=== PATIENT | female | born 1960 | race Caucasian/White ===

== ENCOUNTER 2023-08-21 08:52 | Outpatient (OUT) | payer OTHER, SELFPAY ==
--- NOTE | 2023-08-21 08:56 | MM_ITS ---
Patient: EDITH BRASHER Exam Date: 08/21/2023 : 1960 Gender:F Ordering : DR TATIANNA GARCES M.D. Admission #: [id number] Family : Non-Staff Physician Order #: [id number] CLICK HERE TO VIEW EXAM RADIOLOGY REPORT PROCEDURE: MM TOMOSYNTHESIS DIAGNOSTIC RT COMPARISON: MG MAMM DX 3D RT CAD, 08/10/2022. MG MAMM DX 3D RT CAD, 08/08/2021. INDICATIONS: Malignant Neoplasm Of Overlapping Sites Of Left Breast C50.8 Calculator Name NCI Breast Cancer Risk Assessment Tool 5 Year Breast Cancer Risk n/a% Lifetime Breast Cancer Risk n/a% Personal Breast Cancer Yes, Lt Breast Invasive Ductal Carcinoma Personal Ovarian Cancer No Treatments Left breast Masectomy Family Cancers None LOCATION: [facility] BREAST COMPOSITION: Heterogeneously dense,which may obscure small masses. FINDINGS: DIAGNOSTIC CATEGORY 2--BENIGN FINDING: RIGHT BREAST: No significant suspicious finding. Stable scattered benign-appearing calcifications. Stable chronic, small upper-outer quadrant lymph node. No significant change has occurred. LEFT BREAST: Prior mastectomy. RECOMMENDATIONS: ROUTINE MAMMOGRAM AND CLINICAL EVALUATION IN 12 MONTHS. PLEASE NOTE: A NORMAL MAMMOGRAM DOES NOT EXCLUDE THE POSSIBILITY OF BREAST CANCER. A CLINICALLY SUSPICIOUS PALPABLE LUMP SHOULD BE BIOPSIED. Dictated by: Jean Peter M.D. on 08/21/2023 at 09:31 Approved by: Jean Peter M.D. on 08/21/2023 at 09:37
== END 2023-08-21 08:53 | disposition home or self-care (01) ==
LOC: MAMMO 08:52
PROVIDERS: Visit Provider Internal Medicine Hematology & Oncology
DX: C50.812 Malignant neoplasm of overlapping sites of left female breast (principal); Z17.0 Estrogen receptor positive status [ER+]; Z90.12 Acquired absence of left breast and nipple
CPT/HCPCS: 77065; G0279

== ENCOUNTER 2024-06-24 08:33 | Outpatient (OUT) | payer OTHER, SELFPAY ==
[2024-06-24 09:13] LABS: Creatinine Urine Random 209.27 mg/dL (20.00-300.00); Microalbum Creatinine Ratio Ur 24.8 mg/g (0.0-29.9); Microalbumin Urine Random 5.2 mg/dL (<=30.0)
[2024-06-24 09:31] LABS: Alanine Aminotransferase 41 U/L (14-59); Albumin Level 3.8 g/dL (3.4-5.0); Alkaline Phosphatase 66 U/L (46-116); Anion Gap 13.8; Aspartate Amino Transferase 23 U/L (15-37); BUN Creatinine Ratio 20.7; Bilirubin Total 0.7 mg/dL (0.2-1.0); Calcium 9.3 mg/dL (8.5-10.1); Carbon Dioxide 27.9 mmol/L (21.0-32.0); Chloride 104 mmol/L (98-107); Chol HDL Ratio 3.3; Cholesterol 174 mg/dL (<=200); Estimated GFR (African America >60 (>=60); Estimated GFR (Non-African Ame >60 (>=60); Globulin 3.9 g/dL; Glucose 145 mg/dL (74-106); HDL Cholesterol 52 mg/dL (40-60); LDL Cholesterol Calculated 106.4 mg/dL; Potassium 3.7 mmol/L (3.5-5.1); Sodium 142 mmol/L (136-145); Total Protein 7.7 g/dL (6.4-8.2); Triglycerides 78 mg/dL (<=150); VLDL CHOLESTEROL 15.6 mg/dL
[2024-06-24 09:38] LABS: Estimated Average Glucose 123 mg/dL; Glycohemoglobin A1C 5.9 % (4.5-6.2)
[2024-06-24 11:39] LABS: Bilirubin Urine NEGATIVE (NEGATIVE); Blood Urine NEGATIVE (NEGATIVE); Clarity Urine CLEAR (CLEAR); Color Urine YELLOW (YELLOW); Glucose Urine UA NEGATIVE (NEGATIVE); Ketones Urine NEGATIVE (NEGATIVE); Leukocyte Esterase Urine NEGATIVE (NEGATIVE); Nitrite Urine NEGATIVE (NEGATIVE); Protein Urine NEGATIVE (NEG/TRACE); Specific Gravity Urine 1.025 (1.005-1.025); Urobilinogen Urine 0.2 EU/dL (0.2-1.0)
[2024-06-24 11:50] LABS: Urine Microscopic Indicated NO
[2024-06-25 11:10] LABS: PTH, Intact 42 pg/mL (15-65)
== END 2024-06-24 08:34 | disposition home or self-care (01) ==
LOC: LAB 08:34
PROVIDERS: PCP Nurse Practitioner; Visit Provider Nurse Practitioner
DX: E83.52 Hypercalcemia (principal); C50.812 Malignant neoplasm of overlapping sites of left female breast; Z17.0 Estrogen receptor positive status [ER+]; R73.09 Other abnormal glucose; K76.0 Fatty (change of) liver, not elsewhere classified; I10 Essential (primary) hypertension; E66.9 Obesity, unspecified
CPT/HCPCS: 36415; 80053; 80061; 81003; 82043; 82306; 82570; 83036; 83970

== ENCOUNTER 2024-08-10 07:49 | Outpatient (OUT) | payer OTHER, SELFPAY ==
--- NOTE | 2024-08-10 07:52 | MM_ITS ---
Patient Name: EDITH BRASHER MR#: [id number] : 1960 Exam Date: 08/10/2024 Ordering Doctor: DR TATIANNA GARCES M.D. RADIOLOGY REPORT PROCEDURE: MM TOMOSYNTHESIS DIAGNOSTIC RT COMPARISON: MG MAMM DX 3D RT CAD, 08/10/2022. MM TOMOSYNTHESIS DIAGNOSTIC RT, 08/21/2023. INDICATIONS: Malignant Neoplasm Overlapping Sites Left Breast Calculator Name NCI Breast Cancer Risk Assessment Tool 5 Year Breast Cancer Risk n/a% Lifetime Breast Cancer Risk n/a% Personal Breast Cancer Yes, Lt Breast Invasive Ductal Carcinoma Personal Ovarian Cancer No Treatments Left breast Masectomy Family Cancers None LOCATION: [facility] BREAST COMPOSITION: The breasts are heterogeneously dense,which may obscure small masses. FINDINGS: DIAGNOSTIC CATEGORY 2--BENIGN FINDING. NO CHANGE FROM COMPARISON. RIGHT BREAST: No significant suspicious finding. Scattered benign-appearing nodules are present. Scattered benign-appearing calcifications are present. Scattered benign-appearing lymph nodes are present. Stable Port-A-Cath RECOMMENDATIONS: ROUTINE MAMMOGRAM AND CLINICAL EVALUATION IN 12 MONTHS. PLEASE NOTE: A NORMAL MAMMOGRAM DOES NOT EXCLUDE THE POSSIBILITY OF BREAST CANCER. A CLINICALLY SUSPICIOUS PALPABLE LUMP SHOULD BE BIOPSIED. Dictated by: Dominik Ross MD on 08/10/2024 at 08:39 Approved by: Dominik Ross MD on 08/10/2024 at 08:40
== END 2024-08-10 07:50 | disposition home or self-care (01) ==
LOC: MAMMO 07:49
PROVIDERS: PCP Nurse Practitioner; Visit Provider Internal Medicine Hematology & Oncology
DX: C50.812 Malignant neoplasm of overlapping sites of left female breast (principal); Z17.0 Estrogen receptor positive status [ER+]; Z85.3 Personal history of malignant neoplasm of breast
CPT/HCPCS: 77065; G0279

== ENCOUNTER 2024-09-29 07:53 | Outpatient (OUT) | payer OTHER, SELFPAY ==
--- NOTE | 2024-09-29 07:58 | XR_ITS ---
[address] [address] Patient Name: EDITH BRASHER MRN: [id number] date: 1960 Sex: F Assigned Patient Location: [facility] Current Patient Location: Accession/Order Number: [id number] Exam Date: 09/29/2024 08:05 Report Date: 09/30/2024 05:23 At the request of: NICKOLAS PARADA Procedure: XR DEXA axial skeleton EXAMINATION: XR DEXA axial skeleton HISTORY: Osteopenia Of Multiple Sites COMPARISON: DEXA bone densitometry 03/03/2021 TECHNIQUE: Dual-energy X-ray absorptiometry (DXA) was performed. FINDINGS: SPINE ANALYSIS: Average bone mineral density is 1.128 g/cm2. T-score (standard deviation relative to young adult mean): -0.4 . +7.5% change since prior study. HIP ANALYSIS: Lowest bone mineral density is within the left femoral neck, 0.774 g/cm2. T-score (standard deviation relative to young adult mean): -1.9 . +1.6% change since prior study. XR/XR DEXA axial skeleton IMPRESSION: World Health Organization Classification: Osteopenia - Moderate Fracture Risk FRAX: Cannot be calculated. Pharmacologic treatment recommendations * No uniform recommendation applies to all patients. Management plans must be individualized. * Consider initiating pharmacologic treatment in postmenopausal women and men >= 50 years of age who have the following: Primary fracture prevention: * T-score <= - 2.5 at the femoral neck, total hip, lumbar spine, 33% radius (some uncertainty with existing data) by DXA. * Low bone mass (osteopenia: T-score between - 1.0 and - 2.5) at the femoral neck or total hip by DXA with a 10-year hip fracture risk >= 3% or a 10-year major osteoporosis-related fracture risk >= 20% (i.e., clinical vertebral, hip, forearm, or proximal humerus) based on the [place]-adapted FRAXregistered model. Secondary fracture prevention: * Fracture of the hip or vertebra regardless of BMD [4, 5]. * Fracture of proximal humerus, pelvis, or distal forearm in persons with low bone mass (osteopenia: T-score between - 1.0 and - 2.5). The decision to treat should be individualized in persons with a fracture of the proximal humerus, pelvis, or distal forearm who do not have osteopenia or low BMD [12, 13]. Jose Manuel MS, Domingo SL, Jamir KL, Luiza EM, Joseph KG, AJ, Christos ES. The clinician's guide to prevention and treatment of osteoporosis. Osteoporos Int. 2021;33(10):9602-0421. doi: 10.1007/t02238-167-74790-h. Epub 2021Mar 29. Erratum in: Osteoporos Int. 2021Jun 28;: PMID: [id number]; PMCID: [id number]. Electronically authenticated by: SELENA ALVAREZ Date: 09/30/2024 05:23
--- OUTSIDE RECORDS SUMMARY | 2024-09-29 08:01 | XMS_ITS | CCD ---
Author Organization [facility] Care Team Providers Care Office Asst Name Role Phone House Sr., Andrew Garibay Primary Care Provider Erwin Hare MD Unavailable Tal RECOATER.Nickolas BENITEZ Unavailable HOUSE, DR CAMPBELL Admitting Unavailable HOUSE, DR CAMPBELL Attending Unavailable HOUSE, DR CAMPBELL Primary Care Unavailable HOUSE, DR CAMPBELL Consulting Unavailable ZIEBER, DR SELENA Menendez Consulting Unavailable TAL, DR NICKOLAS Severino Attending Unavailable HOUSE, DR CAMPBELL Primary Care Unavailable HOUSE, DR CAMPBELL Admitting Unavailable ZIEBER, DR SELENA Menendez Consulting Unavailable TAL, DR NICKOLAS Severino Consulting Unavailable MINDI SPAINUEL RIK Admitting Unavailable ALISON SPAIN Attending Unavailable HOUSE, DR CAMPBELL Primary Care Unavailable ALISON SPAIN Consulting Unavailable House Sr., Andrew Garibay Primary Care Provider Erwin Hare MD Unavailable Tal RECOATER.Nickolas BENITEZ Unavailable [phone] House Sr., Andrew PEREZ Primary Care Prov ider House Sr., Andrew PEREZ Primary Care Provider House Sr., Andrew PEREZ Primary Care Provider DC ARRIETA Referring Unavailable HOUSE SR, ANDREW P Primary Care Unavailable HOUSE SR, ANDREW Duong Primary Care Unavailable NICKOLAS PARADA Referring Unavailable HOUSE SR, ANDREW P Primary Care Unavailable ERWIN HARE Attending Unavailable HOUSE SR, ANDREW P Primary Care Unavailable DC ARRIETA Referring Unavailable HOUSE SR, ANDREW P Primary Care Unavailable DC ARRIETA Referring Unavailable ERWIN HARE Referring Unavailable HOUSE SR, ANDREW P Primary Care Unavailable HOUSE SR, ANDREW P Primary Care Unavailable ERWIN HARE Referring Unavailable HOUSE SR, ANDREW P Primary Care Unavailable ERWIN HARE Referring Unavailable ERWIN HARE Referring Unavailable HOUSE SR, ANDREW P Primary Care Unavailable NICKOLAS PARADA Referring Unavailable TORY SR, ANDREW Duong Primary Care Unavailable NICKOLAS PARADA Attending Unavailable DC ARRIETA Referring Unavailable HOUSE SR, ANDREW P Primary Care Unavailable Trista SAMPLER OVENSAmelia Unavailable Trista BATISTAJessicaa Primary Care Provider AMELIA WESTON Attending Unavailable AMELIA WESTON Attending Unavailable AMELIA WESTON Attending Unavailable Allergies Allergy Classification Reported Allergen(s) Allergy Type Date of Onset Reaction(s) Facility (1 source) ADHESIVE TAPE-SILICONES; Translations: [ADHESIVE TAPE-SILICONES] Propensity to adverse reactions to drug (disorder) 0 [facility] Repository (3 sources) Latex Allergy to substance 4 Unknown [facility] Healthcare (3 sources) Wound Dressing Adhesive Drug Allergy 4 Unknown [facility] Healthcare Medications Current Medications Medication Drug Class(es) Dates Sig (Normalized) Sig (Original) atenolol 100 mg oral tablet (20 sources) beta-Adrenergic Fransisco Start: 06-18-2024 take 1 tablet by mouth once daily atenolol (Tenormin) 100 MG tablet Indications: Primary hypertension (CMS/HCC) Take 1 tablet (100 mg) by mouth Daily 90 tablet 1 06/18/2024 Active Comment on above: Take 100 mg by mouth once daily. Calcium (20 sources) Phosphate Binder, Calcium CALCIUM ORAL Take by mouth. Active CALCIUM ORAL Ashok e by mouth. 0 Active Comment on above: Take by mouth. calcium carbonate 1500 mg or al tablet (3 sources) calcium carbonat e 1500 (600 Ca) MG tablet 1 (one) time each day at the same time Active cholecalciferol 0.125 mg ora l capsule (3 sources) Vitamin D cholecalciferol (Vitamin D-3) 125 MCG (5000 UT) capsule 1 capsule 1 (one) time each day at the same time Active cholecalciferol, vitamin D3, (VITAMIN D3 ORAL) (20 sources) cholecalciferol, vitamin D3, (VITAMIN D3 ORAL) Take by mouth. Active cholecalciferol, vitamin D3, (VITAMIN D3 ORAL) Take by mouth. 0 Active Comment on above: Take by mouth. exemestane 25 mg oral tablet (20 sources) Aromatase Inhibitor Start: 2021 End: 2023 take 1 tablet by mouth once daily exemestane (AROMASIN) 25 mg tablet take one tablet by mouth daily 90 tablet 3 02/03/2024 Active Comment on above: TAKE ONE TABLET BY M OUTH ONE TIME A DAY TAKE ONE TABLET BY M OUTH DAILY hydroCHLOROthiazide 25 mg oral tablet (20 sources) Thiazide Diuretic Start: 2023 take 1 tablet by mouth once daily hydroCHLOROthiazide (HYDRODiuril) 25 MG tablet Indications: Primary hypertension (CMS/HCC) Take 1 tablet (25 mg) by mouth Daily 90 tablet 1 06/18/2024 Active Comment on above: Take 25 mg by mouth once daily. naproxen sodium 220 mg oral capsule (14 sources) Nonsteroidal Anti-inflammatory Drug take 1 capsule by mouth once daily naproxen sodium 220 mg cap Take 1 capsule by mouth once daily. Active Comment on above: Take 1 capsule by mo uth once daily. potassium gluconate 2.5 meq oral tablet (17 sources) take 1 tablet by mouth in the morning Potassium Gluconate 595 (99 K) MG tablet Take 1 tablet by mouth in the morning. Active Comment on above: Take 1 tablet by dayday th once daily. turmeric extract 500 mg oral capsule (3 sources) Turmeric (QC Sofia wesley Complex) 500 MG capsule Take by mouth Active Completed/Discontinued Medications Medication Drug Class(es) Dates Sig (Normalized) Sig (Original) potassium chloride 10 meq extended release oral tablet (19 sources) Start: 10-07-2020 End: 08-15-2023 take 1 tablet by mouth twice daily potassium chloride (K-TAB) 10 mEq tablet Take 1 tablet by mouth twice daily. 60 tablet 2 10/07/2020 08/15/2023 Discontinued Comment on above: Take 1 tablet by dayday th twice daily. 100 ml zoledronic acid 0.04 mg/ml injection (4 sources) Bisphosphonate Start: 09-10-2024 End: 09-10-2024 4 mg, INTRAVENOUS, Administer over 15 Minutes, ONCE, 1 dose, On Cassidy 09/10/24 at 1600, Hazardous Potential Reproductive Risk Drug: Use appropriate PPE. zoledronic acid (Zometa) 4 MG/100ML solution Infuse 4 mg into a venous catheter 1 (one) time Done every six months Active Problems Active Problems Problem Classification Problem Date Documented Da te Episodic/Chronic Cancer of breast (20 sources) Overlapping malignant neoplasm of female breast; Translations: [Malignant neoplasm of overlapping sites of left female breast] Onset: 07-19-2020 Chronic Diabetes mellitus without complication (20 sources) Hyperglycemia; Translations: [Hyperglycemia, unspecified] Onset: 06-12-2019 Resolved: 06-18-2024 01-25-2021 Episodic Essential hypertension (20 sources) Hypertensive disorder; Translations: [Essential (primary) hypertension] Onset: 08-17-2022 01-25-2021 Chronic Immunizations and screening for infectious disease (6 sources) Needs influenza immunization; Translations: [Encounter for immunization] Onset: 11-21-2021 Episodic Osteoarthritis (3 sources) Arthritis of left knee; Translations: [Unilateral primary osteoarthritis, left knee] Onset: 03-18-2024 03-18-2024 Chronic Other bone disease and musculoskeletal deformities (9 sources) Osteopenia; Translations: [Other specified disorders of bone density and structure, unspecified site] Episodic Other bone disease and musculoskeletal deformities (1 source) Other specified disorders of bone density and structure, unspecified site; Translations: [OTH D/O BONE DEN STRUCT UNS SITE] Onset: 08-17-2022 Episodic Other liver diseases (20 sources) Steatosis of liver; Translations: [Fatty (change of) liver, not elsewhere classified] Onset: 01-18-2021 01-18-2021 Chronic Other nutritional; endocrine; and metabolic disorders (3 sources) Hypercalcemia; Translations: [Hypercalcemia] Onset: 06-18-2024 06-18-2024 Chronic Other nutritional; endocrine; and metabolic disorders (5 sources) Morbid obesity; Translations: [Morbid (severe) obesity due to excess calories] Onset: 06-18-2024 06-18-2024 Chronic Residual codes; unclassified (1 source) Estrogen receptor positive status [ER+]; Translations: [ESTROGEN RECEPTOR POSITIVE STATUS] Onset: 08-17-2022 Episodic Residual codes; unclassified (5 sources) Tobacco use and exposure - finding; Translations: [Tobacco use] Onset: 06-18-2024 06-18-2024 Episodic Past or Other Problems Problem Classification Problem Date Documented Date Episodic/Chronic Nausea and vomiting (20 sources) Nausea; Translations: [Nausea] Onset: 08-24-2020 08-24-2020 Episodic Other diseases of veins and lymphatics (3 sources) Vascular insufficiency; Translations: [Venous insufficiency (chronic) (peripheral)] Onset: 03-18-2024 03-18-2024 Episodic Other inflammatory condition of skin (3 sources) Red breast; Translations: [Erythematous condition, unspecified] Onset: 03-18-2024 03-18-2024 Episodic Other nutritional; endocrine; and metabolic disorders (20 sources) Body mass index 30+ - obesity; Translations: [Obesity, unspecified] Onset: 01-18-2021 Resolved: 06-18-2024 01-25-2021 Chronic Screening and history of mental health and substance abuse codes (20 sources) Ex-smoker; Translations: [Personal history of nicotine dependence] Onset: 01-18-2021 Resolved: 06-18-2024 01-18-2021 Episodic Results Test Name Value Interpretation Reference Range Facility CBC W Auto Differential pane l (Bld)on 09-10-2024 Basophils (Bld) [#/Vol] 0.03 10*3/uL [facility] Basophils/100 WBC (Bld) 0.7 % [facility] Differential cell count method Nom (Bld) Auto [facility] Eosinophils (Bld) [#/Vol] 0.25 10*3/uL [facility] Eosinophils/100 WBC (Bld) 5.7 % [facility] Erythrocyte distribution width (RBC) [Ratio] 12.3 % 11.5 - 15.0 % [facility] Hematocrit (Bld) [Volume fraction] 40.7 % 36.0 - 46.0 % [facility] Hemoglobin (Bld) [Mass/Vol] 14.2 g/dL 11.5 - 15.5 g/dL [facility] Immature granulocytes (Bld) [#/Vol] [facility] Immature granulocytes/100 WBC (Bld) 0.2 % [facility] Lymphocytes (Bld) [#/Vol] 1.68 10*3/uL [facility] Lymphocytes/100 WBC (Bld) 38.2 % [facility] MCH (RBC) [Entitic mass] 31.2 pg 26.0 - 34.0 pg [facility] MCHC (RBC) [Mass/Vol] 34.9 g/dL 30.5 - 36.0 g/dL [facility] MCV (RBC) [Entitic vol] 89.5 fL 80.0 - 100.0 fL [facility] Monocytes (Bld) [#/Vol] 0.56 10*3/uL [facility] Monocytes/100 WBC (Bld) 12.7 % [facility] Neutrophils (Bld) [#/Vol] 1.87 10*3/uL [facility] Neutrophils/100 WBC (Bld) 42.5 % [facility] Nucleated RBC (Bld) [#/Vol] NINF [facility] Nucleated RBC/100 WBC (Bld) [Ratio] 0.0 % /100 WBC [facility] Platelet mean volume (Bld) [Entitic vol] 10.2 fL 9.0 - 12.7 fL [facility] Platelets (Bld) [#/Vol] 201 10*3/uL [facility] RBC (Bld) [#/Vol] 4.55 10*6/uL 3.90 - 5.2 0 m/uL [facility] WBC (Bld) [#/Vol] 4.40 10*3/uL [facility] Basophils (Bld) [#/Vol] 0.03 10*3/uL Normal <0.11 [facility] Comment on above: Order Comment: Speci men Type: BLOOD SPECIMEN Ordering Facility: [facility] Address: [address] [place] [address] Performed By: #### 5 7021-8 #### [facility] CLIA [id number] [address] [place] [address]56 Basophils/100 WBC (Bld) 0.7 % Normal [facility] Comment on above: Order Comment: Speci men Type: BLOOD SPECIMEN Ordering Facility: [facility] Address: [address] [place] [address] Performed By: #### 5 7021-8 #### [facility] CLIA [id number] [address] [place] [address] Differential cell count method Nom (Bld) Auto Normal [facility] Comment on above: Order Comment: Speci men Type: BLOOD SPECIMEN Ordering Facility: [facility] Address: [address] [place] [address] Performed By: #### 5 7021-8 #### [facility] CLIA [id number] [address] [place] [address] Eosinophils (Bld) [#/Vol] 0.25 10*3/uL Normal <0.46 [facility] Comment on above: Order Comment: Speci men Type: BLOOD SPECIMEN Ordering Facility: [facility] Address: [address] [place] [address] Performed By: #### 5 7021-8 #### [facility] CLIA [id number] [address] [place] [address]90 Eosinophils/100 WBC (Bld) 5.7 % Normal [facility] Comment on above: Order Comment: Speci men Type: BLOOD SPECIMEN Ordering Facility: [facility] Address: [address] [place] [address] Performed By: #### 5 7021-8 #### [facility] CLIA [id number] [address] [place] [address] 29291 Erythrocyte distribution width (RBC) [Ratio] 12.3 % Normal 11.5-15.0 [facility] Comment on above: Order Comment: Speci men Type: BLOOD SPECIMEN Ordering Facility: [facility] Address: [address] [place] [address] Performed By: #### 5 7021-8 #### [facility] CLIA [id number] [address] [place] [address] 96952 Hematocrit (Bld) [Volume fraction] 40.7 % Normal 36.0-46.0 [facility] Comment on above: Order Comment: Speci men Type: BLOOD SPECIMEN Ordering Facility: [facility] Address: [address] [place] [address] Performed By: #### 5 7021-8 #### [facility] CLIA [id number] [address] [place] [address]42 Hemoglobin (Bld) [Mass/Vol] 14.2 g/dL Normal 11.5-15.5 [facility] Comment on above: Order Comment: Speci men Type: BLOOD SPECIMEN Ordering Facility: [facility] Address: [address] [place] [address] Performed By: #### 5 7021-8 #### [facility] CLIA [id number] [address] [place] [address]237 Immature granulocytes (Bld) [#/Vol] 10*3/uL Normal <0.10 [facility] Comment on above: Order Comment: Speci men Type: BLOOD SPECIMEN Ordering Facility: [facility] Address: [address] [place] [id number] Performed By: #### 5 7021-8 #### [facility] CLIA [id number] [address] [place] [address] Immature granulocytes/100 WBC (Bld) 0.2 % Normal [facility] Comment on above: Order Comment: Speci men Type: BLOOD SPECIMEN Ordering Facility: [facility] Address: [address] [place] [address] Performed By: #### 5 7021-8 #### [facility] CLIA [id number] [address] [place] [address]79 Lymphocytes (Bld) [#/Vol] 1.68 10*3/uL Normal 1.00-4.00 [facility] Comment on above: Order Comment: Speci men Type: BLOOD SPECIMEN Ordering Facility: [facility] Address: [address] [place] [address] Performed By: #### 5 7021-8 #### [facility] CLIA [id number] [address] [place] [address] 14435 Lymphocytes/100 WBC (Bld) 38.2 % Normal [facility] Comment on above: Order Comment: Speci men Type: BLOOD SPECIMEN Ordering Facility: [facility] Address: [address] [place] [address] Performed By: #### 5 7021-8 #### [facility] CLIA [id number] [address] [place] [address] MCH (RBC) [Entitic mass] 31.2 pg Normal 26.0-34.0 [facility] Comment on above: Order Comment: Speci men Type: BLOOD SPECIMEN Ordering Facility: [facility] Address: [address] [place], [place] [address] Performed By: #### 5 7021-8 #### [facility] CLIA [id number] [address] [place] [address]14 MCHC (RBC) [Mass/Vol] 34.9 g/dL Normal 30.5-36.0 [facility] Comment on above: Order Comment: Speci men Type: BLOOD SPECIMEN Ordering Facility: [facility] Address: [address] [place] [address] Performed By: #### 5 7021-8 #### [facility] CLIA [id number] [address] [place] [address] 14018 MCV (RBC) [Entitic vol] 89.5 fL Normal 80.0-100.0 [facility] Comment on above: Order Comment: Speci men Type: BLOOD SPECIMEN Ordering Facility: [facility] Address: [address] [place] [address] Performed By: #### 5 7021-8 #### [facility] CLIA [id number] [address] [place] [address] 17979 Monocytes (Bld) [#/Vol] 0.56 10*3/uL Normal <0.87 [facility] Comment on above: Order Comment: Speci men Type: BLOOD SPECIMEN Ordering Facility: [facility] Address: [address] [place] [address] Performed By: #### 5 7021-8 #### [facility] CLIA [id number] [address] [place] [address] 92970 Monocytes/100 WBC (Bld) 12.7 % Normal [facility] Comment on above: Order Comment: Speci men Type: BLOOD SPECIMEN Ordering Facility: [facility] Address: [address] [place] [address] Performed By: #### 5 7021-8 #### [facility] CLIA [id number] [address] [place] [address] Neutrophils (Bld) [#/Vol] 1.87 10*3/uL Normal 1.45-7.50 [facility] Comment on above: Order Comment: Speci men Type: BLOOD SPECIMEN Ordering Facility: [facility] Address: [address] [place] [address] Performed By: #### 5 7021-8 #### [facility] CLIA [id number] [address] [place] [address] 6[address]50 Neutrophils/100 WBC (Bld) 42.5 % Normal [facility] Comment on above: Order Comment: Speci men Type: BLOOD SPECIMEN Ordering Facility: [facility] Address: [address] [place] [address] Performed By: #### 5 7021-8 #### [facility] CLIA [id number] [address] [place] [address]391 Nucleated RBC (Bld) [#/Vol] 10*3/uL Normal <0.01 [facility] Comment on above: Order Comment: Speci men Type: BLOOD SPECIMEN Ordering Facility: [facility] Address: [address] [place], [place] [address] Performed By: #### 5 7021-8 #### [facility] CLIA [id number] [address] [place] [address]4890 Nucleated RBC/100 WBC (Bld) [Ratio] 0.0 /[address] [facility] Comment on above: Order Comment: Speci men Type: BLOOD SPECIMEN Ordering Facility: [facility] Address: [address] [place] [address] Performed By: #### 5 7021-8 #### [facility] CLIA [id number] [address] [place] [address]37 Platelet mean volume (Bld) [Entitic vol] 10.2 fL Normal 9.0-12.7 [facility] Comment on above: Order Comment: Speci men Type: BLOOD SPECIMEN Ordering Facility: [facility] Address: [address] [place] [address] Performed By: #### 5 7021-8 #### [facility] CLIA [id number] [address] [place] [address]140 Platelets (Bld) [#/Vol] 201 10*3/uL Normal 150-400 [facility] Comment on above: Order Comment: Speci men Type: BLOOD SPECIMEN Ordering Facility: [facility] Address: [address] [place] [address] Performed By: #### 5 7021-8 #### [facility] CLIA [id number] [address] [place] [address] 88141 RBC (Bld) [#/Vol] 4.55 10*6/uL Normal 3.90-5.20 [facility] Comment on above: Order Comment: Speci men Type: BLOOD SPECIMEN Ordering Facility: [facility] Address: [address] [place] [address] Performed By: #### 5 7021-8 #### [facility] CLIA [id number] [address] [place] [address]66 WBC (Bld) [#/Vol] 4.40 10*3/uL Normal 3.70-11.00 [facility] Comment on above: Order Comment: Speci men Type: BLOOD SPECIMEN Ordering Facility: [facility] Address: [address] [place] [address] Performed By: #### 5 7021-8 #### [facility] CLIA [id number] [address] [place] [address] CNOVSPon 09-10-2024 CNOVSP Visit (SP) Office ([place]) ----- GABRIELA BRASHER ([id number]) 1960 F Date Time Provider Department 09/10/24 3:00 PM TAL NICKOLAS TORRE During your visit today, we recorded the following information about you: Temperature Pulse Respiration Blood pressure 98 degrees 59/minute 16/minute 133/86 Weight Height 102 kg 1.727 m Nickolas Parada APRN.RESERVATIONS SALES SUPERVISOR 09/10/2024 4:24 PM Signed PATIENT NAME: Gabriela Brasher DATE: 09/10/2024 PRIMARY CARE PHYSICIAN: Dr. Andrew Spears Sr OTHER PHYSICIANS: Dr. Campos, Dr. Dc Arrieta, Dr. Cifuentes Portions of this encounter note have been copied from the note from 03/12/2024 and has been updated where appropriate, and reflect my current medical decision making from today. CC: This is a 63 year old female with a history of breast cancer, seen for scheduled follow-up. INTERIM HISTORY: Gabriela Brasher returns for scheduled follow-up. She remains on Aromasin 25 mg daily and is tolerating it well. She denies any hot flashes. She has a history of hyperhidrosis, typically triggered by increased temperatures and physical activity. She denies any side effects from the Aromasin. She denies any breast and chest wall changes. No breast/chest wall lumps or bumps. No enlarged lymph nodes. She denies cough, shortness of breath and other pulmonary complaints. She denies any unusual pain. No fevers, chills, night sweats or signs/symptoms of infection. No abnormal bleeding. She does tend to bruise easily. She has been working with he PCP/RECOATER regarding elevated blood sugars. She is hoping to manage by weight loss and and dietary changes. She had her mammogram last month. Overall she feels well. MEDICATIONS: exemestane (AROMASIN) 25 mg tablet take one tablet by mouth daily potassium gluconate 600 mg (99 mg) tab Take 1 tablet by mouth once daily. naproxen sodium 220 mg cap Take 1 capsule by mouth once daily. CALCIUM ORAL Take by mouth. cholecalciferol, vitamin D3, (VITAMIN D3 ORAL) Take by mouth. atenolol (TENORMIN) 100 mg tablet Take 100 mg by mouth once daily. hydroCHLOROthiazide (HYDRODIURIL, ESIDRIX) 25 mg tablet Take 25 mg by mouth once daily. ALLERGIES: Adhesive Tape-Silicones PAST MEDICAL HISTORY: PAST MEDICAL HISTORY Diagnosis Date Breast cancer (HCC) left breast cancer with T3 tumor Edema of breast Erythema of breast Hypertension Left breast mass 06/24/2020 Menopause Patient states it has been greater than 5 yrs (today she is 59 yrs of age) Port-A-Cath in place Tobacco use PAST SURGICAL HISTORY: PAST SURGICAL HISTORY Procedure Laterality Date BREAST SURGERY HX 06/24/2020 Dr Campos EXTRACTION ERUPTED TOOTH PAST SURGICAL HISTORY OF excision of cyst, pilonidal cyst PORTOCATH PLACEMENT REVIEW OF SYSTEMS: General: No weight loss, malaise or fevers. HEENT: Negative for frequent or significant headaches. No changes in hearing or vision, no nose bleeds or other nasal problems. Respiratory: Negative for cough, wheezing or shortness of breath. Cardiovascular: Negative for chest pain, leg swelling or palpitations. GI: Negative for abdominal discomfort, blood in stools or black stools or change in bowel habit. : No history of dysuria, frequency or incontinence Musculoskeletal: Negative for back pain. Significant joint pain- mainly right hip. See HPI. Skin: Negative for lesions, rash and itching. Hematology/Lymphology: Negative for prolonged bleeding, bruising easily or swollen nodes. Neuro: No history of headaches, syncope, paralysis, seizures or tremors. PHYSICAL EXAM: Vitals: BP 133/86 Pulse (!) 59 Temp 36.7 ?C (98 ?F) Resp 16 Ht 172.7 cm (5' 7.99 ) Wt 102 kg (224 lb 13.9 oz) SpO2 95% BMI 34.20 kg/m? ECOG 0 General: Alert and oriented, no distress, pleasant and cooperative. 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 - Lymphovascular space invasion, including dermal lymphovascular space invasion is identified. 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 - Macrometastatic carcinoma invol (more content not included)... Normal [facility] Cancer Ag27-29 SerPl-aCncon 09-10-2024 Cancer Ag 27-29 Qn 15.5 [arb'U]/mL Normal <38.6 C [facility] Comment on above: Order Comment: Speci men Type: BLOOD SPECIMEN Ordering Facility: [facility] Address: [address] [place] [address] Result Comment: The CA27.29 test was performed using the Siemens Sonitus Medicalaur XP chemiluminometric immunoassay method. Results obtained with different assay methods or kits cannot be used interchangeably. Performed By: #### 1 7842-6 #### [facility] CLIA [id number] [address] [place] [address] [place] Comprehensive metabolic 2000 panelOrdered By: Shauna Barnes on 09-10-2024 Albumin [Mass/Vol] 4.2 g/dL 3.9 - 4.9 g/dL [facility] ALP [Catalytic activity/Vol] 63 U/L 34 - 123 U/L [facility] ALT [Catalytic activity/Vol] 27 U/L 7 - 38 U/L [facility] Anion gap [Moles/Vol] 11 mmol/L 8 - 15 mmol/L [facility] AST [Catalytic activity/Vol] 22 U/L 13 - 35 U/L [facility] Bilirubin [Mass/Vol] 0.4 mg/dL 0.2 - 1.3 mg/dL [facility] Calcium [Mass/Vol] 9.6 mg/dL 8.5 - 10. 2 mg/dL [facility] Chloride [Moles/Vol] 100 mmol/L 98 - 107 mmol/L [facility] CO2 [Moles/Vol] 28 mmol/L 22 - 30 mmol/L [facility] Creatinine [Mass/Vol] 0.78 mg/dL 0.58 - 0.96 mg/dL [facility] GFR/1.73 sq M.predicted among non-blacks MDRD (S/P/Bld) [Vol rate/Area] 85 mL/min/{1.73_m2} - PINF [facility] Comment on above: Estimated Glomerular Filtration Rate (eGFR) is calculated using the 2020 CKD-EPI creatinine equation. This equation utilizes serum creatinine, sex, and age as parameters. The creatinine assay has traceable calibration to isotope dilution-mass spectrometry. Refer to KDIGO guidelines for clinical interpretation. In patients with unstable renal function, e.g. those with acute kidney injury, the eGFR may not accurately reflect actual GFR. Glucose [Mass/Vol] 115 mg/dL High 74 - 99 mg/dL [facility] Comment on above: The [place] Diabete s Association (ADA) provides guidance for cutoff values for fasting glucose and random glucose. The ADA defines fasting as no caloric intake for at least 8 hours. Fasting plasma glucose results between 100 to 125 mg/dL indicate increased risk for diabetes (prediabetes). Fasting plasma glucose results greater than or equal to 126 mg/dL meet the criteria for diagnosis of diabetes. In the absence of unequivocal hyperglycemia, results should be confirmed by repeat testing. In a patient with classic symptoms of hyperglycemia or hyperglycemic crisis, random plasma glucose results greater than or equal to 200 mg/dL meet the criteria for diagnosis of diabetes. Reference: Standards of Medical Care in Diabetes 2016, [place] Diabetes Association. Diabetes Care. 2016.39(Suppl 1). Interpretation and review of laboratory results Abnormal [facility] Potassium [Moles/Vol] 3.5 mmol/L Low 3.7 - 5.1 mmol/L [facility] Protein [Mass/Vol] 6.8 g/dL 6.3 - 8.0 g/dL [facility] Sodium [Moles/Vol] 139 mmol/L 136 - 144 mmol/L [facility] Urea nitrogen [Mass/Vol] 16 mg/dL 7 - 21 mg/dL [facility] Comprehensive metabolic 2000 panelon 09-10-2024 Albumin [Mass/Vol] 4.2 g/dL Normal 3.9-4.9 [facility] Comment on above: Order Comment: Speci men Type: BLOOD SPECIMEN Ordering Facility: [facility] Address: [address] [place] [id number] Performed By: #### 2 4323-8 #### [facility] CLIA [id number] [address] [place] [address] ALP [Catalytic activity/Vol] 63 U/L Normal 34-123 [facility] Comment on above: Order Comment: Speci men Type: BLOOD SPECIMEN Ordering Facility: [facility] Address: [address] [place] [address] Performed By: #### 2 4323-8 #### [facility] CLIA [id number] [address] [place] [address] ALT [Catalytic activity/Vol] 27 U/L Normal 7-38 [facility] Comment on above: Order Comment: Speci men Type: BLOOD SPECIMEN Ordering Facility: [facility] Address: [address] [place] [address] Performed By: #### 2 4323-8 #### [facility] CLIA [id number] [address] [place] [address] Anion gap [Moles/Vol] 11 mmol/L Normal 8-15 [facility] Comment on above: Order Comment: Speci men Type: BLOOD SPECIMEN Ordering Facility: [facility] Address: [address] [place] [address] Performed By: #### 2 4323-8 #### [facility] CLIA [id number] [address] [place] [address]57 AST [Catalytic activity/Vol] 22 U/L Normal 13-35 [facility] Comment on above: Order Comment: Speci men Type: BLOOD SPECIMEN Ordering Facility: [facility] Address: [address] [place] [address] Performed By: #### 2 4323-8 #### [facility] CLIA [id number] [address] [place] [address] Bilirubin [Mass/Vol] 0.4 mg/dL Normal 0.2-1.3 [facility] Comment on above: Order Comment: Speci men Type: BLOOD SPECIMEN Ordering Facility: [facility] Address: [address] [place] [address] Performed By: #### 2 4323-8 #### [facility] CLIA [id number] [address] [place] [address] Calcium [Mass/Vol] 9.6 mg/dL Normal 8.5-10.2 [facility] Comment on above: Order Comment: Speci men Type: BLOOD SPECIMEN [facility]ing Facility: [facility] Address: [address] [place] [address] Performed By: #### 2 4323-8 #### [facility] CLIA [id number] [address] [place] [address]55 Chloride [Moles/Vol] 100 mmol/L Normal 98-107 [facility] Comment on above: Order Comment: Speci men Type: BLOOD SPECIMEN Ordering Facility: [facility] Address: [address] [place] [address] Performed By: #### 2 4323-8 #### [facility] CLIA [id number] [address] [place] [address]69 CO2 [Moles/Vol] 28 mmol/L Normal 22-30 [facility] Comment on above: Order Comment: Speci men Type: BLOOD SPECIMEN Ordering Facility: [facility] Address: [address] [place], [place] [address] Performed By: #### 2 4323-8 #### [facility] CLIA [id number] [address] [place] [address]145 Creatinine [Mass/Vol] 0.78 mg/dL Normal 0.58-0.96 [facility] Comment on above: Order Comment: Speci men Type: BLOOD SPECIMEN Ordering Facility: [facility] Address: [address] [place] [address] Performed By: #### 2 4323-8 #### [facility] CLIA [id number] [address] [place] [address] Creatinine and Glomerular filtration rate.predicted panel (S/P/Bld) 85 mL/min/1.73m??? Normal >=60 [facility] Comment on above: Order Comment: Nica vega Type: BLOOD SPECIMEN Ordering Facility: [facility] Address: [address] [place] [address] Result Comment: Linn mated Glomerular Filtration Rate (eGFR) is calculated using the 2020 CKD-EPI creatinine equation. This equation utilizes serum creatinine, sex, and age as parameters. The creatinine assay has traceable calibration to isotope dilution-mass spectrometry. Refer to KDIGO guidelines for clinical interpretation. In patients with unstable renal function, e.g. those with acute kidney injury, the eGFR may not accurately reflect actual GFR. Performed By: #### 2 4323-8 #### [facility] CLIA [id number] [address] [place] [address]061 Glucose [Mass/Vol] 115 mg/dL High 74-99 [facility] Comment on above: Order Comment: Nica vega Type: BLOOD SPECIMEN [facility] Facility[facility] Address: [address] [place], [place] [address] Result Comment: The [place] Diabetes Association (ADA) provides guidance for cutoff values for fasting glucose and random glucose. The ADA defines fasting as no caloric intake for at least 8 hours. Fasting plasma glucose results between 100 to 125 mg/dL indicate increased risk for diabetes (prediabetes). Fasting plasma glucose results greater than or equal to 126 mg/dL meet the criteria for diagnosis of diabetes. In the absence of unequivocal hyperglycemia, results should be confirmed by repeat testing. In a patient with classic symptoms of hyperglycemia or hyperglycemic crisis, random plasma glucose results greater than or equal to 200 mg/dL meet the criteria for diagnosis of diabetes. Reference: Standards of Medical Care in Diabetes 2016, [place] Diabetes Association. Diabetes Care. 2016.39(Suppl 1). Performed By: #### 2 4323-8 #### [facility] CLIA [id number] [address] [place] [address] Potassium [Moles/Vol] 3.5 mmol/L Low 3.7-5.1 [facility] Comment on above: Order Comment: Nica vega Type: BLOOD SPECIMEN [facility] Facility[facility] Address: [address] [place] [address] Performed By: #### 2 4323-8 #### [facility] CLIA [id number] [address] [place] [address] Protein [Mass/Vol] 6.8 g/dL Normal 6.3-8.0 [facility] Comment on above: Order Comment: Speci men Type: BLOOD SPECIMEN [facility] Address: [address] [place] [address] Performed By: #### 2 4323-8 #### [facility] CLIA [id number] [address] [place] [address] Sodium [Moles/Vol] 139 mmol/L Normal 136-144 [facility] Comment on above: Order Comment: Speci men Type: BLOOD SPECIMEN [facility] Address: [address] [place] [address] Performed By: #### 2 4323-8 #### [facility] CLIA [id number] [address] [place] [address]00 Urea nitrogen [Mass/Vol] 16 mg/dL Normal 7-21 [facility] Comment on above: Order Comment: Speci men Type: BLOOD SPECIMEN Ordering [facility] Address: [address] [place] [address] Performed By: #### 2 4323-8 #### [facility] CLIA [id number] [address] [place] [address] [place] 09-04-2024 GARY Telephone (NICHO) ----- GABRIELA BRASHER ([id number]) 1960 F Date Time Provider Department 09/04/24 ERWIN HARE During your visit today, we recorded the following information about you: Annette Hays MA 09/04/2024 3:26 PM Signed Lab orders needed for appointment scheduled 09/10 Annette Hays MA Allergies As of Date: 09/04/2024 Noted Allergy Reaction ADHESIVE TAPE-SILICONES 07/04/2020 16 - Unknown Date Reviewed: 08/21/2024 Reviewed by: Nickolas Parada APRN.[employer]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 - naproxen sodium 220 mg cap Take 1 capsule by mouth once daily. - CALCIUM ORAL Take by mouth. - cholecalciferol, vitamin D3, (VITAMIN D3 ORAL) Take by mouth. - atenolol (TENORMIN) 100 mg tablet Take 100 mg by mouth once daily. - hydroCHLOROthiazide (HYDRODIURIL, ESIDRIX) 25 mg tablet Take 25 mg by mouth once daily. Problem List As Of Date 09/04/2024 Noted Resolved Malignant neoplasm of overlapping sites of left*07/20/2020 Nausea [R11.0] 08/24/2020 Hypertension [I10] Obesity with body mass index 30 or greater [E66*01/18/2021 Former smoker [Z87.891] 01/18/2021 Fatty liver [K76.0] 01/18/2021 Hyperglycemia, unspecified [R73.9] 06/12/2019 Malignant neoplasm of unspecified site of left *07/19/2020 Encounter Status:Closed by ERWIN HARE on 09/07/[address] [facility] CBC W Auto Differential pane l (Bld)on 03-12-2024 Basophils (Bld) [#/Vol] 0.03 10*3/uL <0.11 k/uL [facility] Basophils/100 WBC (Bld) 0.6 % [facility] Differential cell count method Nom (Bld) Auto [facility] Eosinophils (Bld) [#/Vol] 0.28 10*3/uL <0.46 k/uL [facility] Eosinophils/100 WBC (Bld) 5.2 % [facility] Erythrocyte distribution width (RBC) [Ratio] 12.7 % 11.5 - 15.0 % [facility] Hematocrit (Bld) [Volume fraction] 44.2 % 36.0 - 46.0 % [facility] Hemoglobin (Bld) [Mass/Vol] 15.1 g/dL 11.5 - 15.5 g/dL [facility] Immature granulocytes (Bld) [#/Vol] <0.10 k/uL [facility] Immature granulocytes/100 WBC (Bld) 0.2 % [facility] Lymphocytes (Bld) [#/Vol] 2.22 10*3/uL 1.00 - 4.00 k/uL [facility] Lymphocytes/100 WBC (Bld) 41.0 % [facility] MCH (RBC) [Entitic mass] 30.3 pg 26.0 - 34.0 pg [facility] MCHC (RBC) [Mass/Vol] 34.2 g/dL 30.5 - 36.0 g/dL [facility] MCV (RBC) [Entitic vol] 88.8 fL 80.0 - 100.0 fL [facility] Monocytes (Bld) [#/Vol] 0.45 10*3/uL <0.87 k/uL [facility] Monocytes/100 WBC (Bld) 8.3 % [facility] Neutrophils (Bld) [#/Vol] 2.42 10*3/uL 1.45 - 7.50 k/uL [facility] Neutrophils/100 WBC (Bld) 44.7 % [facility] Nucleated RBC (Bld) [#/Vol] <0.01 k/uL [facility] Nucleated RBC/100 WBC (Bld) [Ratio] 0.0 /100 WBC [facility] Platelet mean volume (Bld) [Entitic vol] 10.2 fL 9.0 - 12.7 fL [facility] Platelets (Bld) [#/Vol] 218 10*3/uL 150 - 400 k/uL [facility] RBC (Bld) [#/Vol] 4.98 10*6/uL 3.90 - 5.2 0 m/uL [facility] WBC (Bld) [#/Vol] 5.41 10*3/uL 3.70 - 11. 00 k/uL [facility] Basophils (Bld) [#/Vol] 0.03 10*3/uL Normal <0.11 [facility] Comment on above: Order Comment: Speci men Type: BLOOD SPECIMEN [facility] Address: [address] [place] [address] Performed By: #### 5 7021-8 #### [facility] CLIA [id number] [address] [place] [address] Basophils/100 WBC (Bld) 0.6 % Normal [facility] Comment on above: Order Comment: Speci men Type: BLOOD SPECIMEN Order[facility] Address: [address] [place] [address] Performed By: #### 5 7021-8 #### [facility] CLIA [id number] [address] [place] [address]684 Differential cell count method Nom (Bld) Auto Normal [facility] Comment on above: Order Comment: Speci men Type: BLOOD SPECIMEN [facility] Address: [address] [place] [address] Performed By: #### 5 7021-8 #### [facility] CLIA [id number] [address] [place] [address] 09790 Eosinophils (Bld) [#/Vol] 0.28 10*3/uL Normal <0.46 [facility] Comment on above: Order Comment: Speci men Type: BLOOD SPECIMEN Order[facility] Address: [address] [place] [address] Performed By: #### 5 7021-8 #### [facility] CLIA [id number] [address] [place] [address] 26856 Eosinophils/100 WBC (Bld) 5.2 % Normal [facility] Comment on above: Order Comment: Speci men Type: BLOOD SPECIMEN Order[facility] Facility[facility] Address: [address] [place] [address] Performed By: #### 5 7021-8 #### [facility] CLIA [id number] [address] [place] [address]180 Erythrocyte distribution width (RBC) [Ratio] 12.7 % Normal 11.5-15.0 [facility] Comment on above: Order Comment: Speci men Type: BLOOD SPECIMEN Order[facility] Address: [address] [place] [address] Performed By: #### 5 7021-8 #### [facility] CLIA [id number] [address] [place] [address]50 Hematocrit (Bld) [Volume fraction] 44.2 % Normal 36.0-46.0 [facility] Comment on above: Order Comment: Speci men Type: BLOOD SPECIMEN Order[facility] Address: [address] [place] [address] Performed By: #### 5 7021-8 #### [facility] CLIA [id number] [address] [place] [address] 73824 Hemoglobin (Bld) [Mass/Vol] 15.1 g/dL Normal 11.5-15.5 [facility] Comment on above: Order Comment: Speci men Type: BLOOD SPECIMEN Order[facility] Address: [address] [place] [address] Performed By: #### 5 7021-8 #### [facility] CLIA [id number] [address] [place] [address] 10198 Immature granulocytes (Bld) [#/Vol] 10*3/uL Normal <0.10 [facility] Comment on above: Order Comment: Speci men Type: BLOOD SPECIMEN Order[facility] Address: [address] [place] [address] Performed By: #### 5 7021-8 #### [facility] CLIA [id number] [address] [place] [address] 33055 Immature granulocytes/100 WBC (Bld) 0.2 % Normal [facility] Comment on above: Order Comment: Speci men Type: BLOOD SPECIMEN Order[facility] Facility[facility] Address: [address] [place] [address] Performed By: #### 5 7021-8 #### [facility] CLIA [id number] [address] [place] [address] 12262 Lymphocytes (Bld) [#/Vol] 2.22 10*3/uL Normal 1.00-4.00 [facility] Comment on above: Order Comment: Speci men Type: BLOOD SPECIMEN [facility] Address: [address] [place] [address] Performed By: #### 5 7021-8 #### [facility] CLIA [id number] [address] [place] [address] 19724 Lymphocytes/100 WBC (Bld) 41.0 % Normal [facility] Comment on above: Order Comment: Speci men Type: BLOOD SPECIMEN [facility] Address: [address] [place] [address] Performed By: #### 5 7021-8 #### [facility] CLIA [id number] [address] [place] [address] 74682 MCH (RBC) [Entitic mass] 30.3 pg Normal 26.0-34.0 [facility] Comment on above: Order Comment: Speci men Type: BLOOD SPECIMEN Order[facility] Address: [address] [place] [address] Performed By: #### 5 7021-8 #### [facility] CLIA [id number] [address] [place] [address]240 MCHC (RBC) [Mass/Vol] 34.2 g/dL Normal 30.5-36.0 [facility] Comment on above: Order Comment: Speci men Type: BLOOD SPECIMEN [facility] Address: [address] [place] [address] Performed By: #### 5 7021-8 #### [facility] CLIA [id number] [address] [place] [address] 87993 MCV (RBC) [Entitic vol] 88.8 fL Normal 80.0-100.0 [facility] Comment on above: Order Comment: Speci men Type: BLOOD SPECIMEN [facility] Address: [address] [place] [address] Performed By: #### 5 7021-8 #### [facility] CLIA [id number] [address] [place] [address] 61498 Monocytes (Bld) [#/Vol] 0.45 10*3/uL Normal <0.87 [facility] Comment on above: Order Comment: Speci men Type: BLOOD SPECIMEN [facility] Address: [address] [place] [address] Performed By: #### 5 7021-8 #### [facility] CLIA [id number] [address] [place] [address] 75469 Monocytes/100 WBC (Bld) 8.3 % Normal [facility] Comment on above: Order Comment: Speci men Type: BLOOD SPECIMEN [facility] Address: [address] [place] [address] Performed By: #### 5 7021-8 #### [facility] CLIA [id number] [address] [place] [address] 40117 Neutrophils (Bld) [#/Vol] 2.42 10*3/uL Normal 1.45-7.50 [facility] Comment on above: Order Comment: Speci men Type: BLOOD SPECIMEN [facility] Address: [address] [place] [address] Performed By: #### 5 7021-8 #### [facility] CLIA [id number] [address] [place] [address] 72911 Neutrophils/100 WBC (Bld) 44.7 % Normal [facility] Comment on above: Order Comment: Speci men Type: BLOOD SPECIMEN [facility] Address: [address] [place] [address] Performed By: #### 5 7021-8 #### [facility] CLIA [id number] [address] [place] [address] Nucleated RBC (Bld) [#/Vol] 10*3/uL Normal <0.01 [facility] Comment on above: Order Comment: Speci men Type: BLOOD SPECIMEN [facility] Address: [address] [place] [address] Performed By: #### 5 7021-8 #### [facility] CLIA [id number] [address] [place] [address] Nucleated RBC/100 WBC (Bld) [Ratio] 0.0 /[address] [facility] Comment on above: Order Comment: Speci men Type: BLOOD SPECIMEN [facility] Facility[facility] Address: [address] [place] [address] Performed By: #### 5 7021-8 #### [facility] CLIA [id number] [address] [place] [address] 65905 Platelet mean volume (Bld) [Entitic vol] 10.2 fL Normal 9.0-12.7 [facility] Comment on above: Order Comment: Speci men Type: BLOOD SPECIMEN [facility] Address: [address] [place] [address] Performed By: #### 5 7021-8 #### [facility] CLIA [id number] [address] [place] [address] Platelets (Bld) [#/Vol] 218 10*3/uL Normal 150-400 [facility] Comment on above: Order Comment: Speci men Type: BLOOD SPECIMEN [facility] Address: [address] [place] [address] Performed By: #### 5 7021-8 #### [facility] CLIA [id number] [address] [place] [address] RBC (Bld) [#/Vol] 4.98 10*6/uL Normal 3.90-5.20 [facility] Comment on above: Order Comment: Speci men Type: BLOOD SPECIMEN [facility] Facility[facility] Address: [facility] [place] [id number] Performed By: #### 5 7021-8 #### [facility] CLIA [id number] [address] [place] [address] 72229 WBC (Bld) [#/Vol] 5.41 10*3/uL Normal 3.70-11.00 [facility] Comment on above: Order Comment: Speci men Type: BLOOD SPECIMEN [facility] Address: [address] [place], [place] [address] Performed By: #### 5 7021-8 #### [facility] CLIA [id number] [address] [place] [address] 50569 CNOVSPon 03-12-2024 CNOVSP Visit (SP) Office ([place]) ----- CHASBAYGABRIELA ([id number]) 1960 F Date Time Provider Department 03/12/24 3:00 PM ERWIN HARE During your visit today, we recorded the following information about you: Temperature Pulse Respiration Blood pressure 97.2 degrees 63/minute 16/minute 144/76 Weight Height 102.2 kg 1.727 m Erwin Hare MD 03/12/2024 9:15 PM Signed PATIENT NAME: Gabriela Brasher DATE: 03/12/2024 PRIMARY CARE PHYSICIAN: Dr. Andrew Spears Sr OTHER PHYSICIANS: Dr. Campos, Dr. Dc Arrieta, Dr. Cifuentes Portions of this encounter note have been copied from the note from 08/15/2023 and has been updated where appropriate, and reflect my current medical decision making from today. CC: This is a 63 year old female with a history of breast cancer, seen for scheduled follow-up. INTERIM HISTORY: Since the patient's last visit here she has remained on Aromasin which she is tolerating well. No significant joint pain or other adverse effects. She has noticed no changes in her right breast or left chest wall. Overall she feels well with no particular complaints. MEDICATIONS: exemestane (AROMASIN) 25 mg tablet take one tablet by mouth daily potassium gluconate 600 mg (99 mg) tab Take 1 tablet by mouth once daily. naproxen sodium 220 mg cap Take 1 capsule by mouth once daily. CALCIUM ORAL Take by mouth. cholecalciferol, vitamin D3, (VITAMIN D3 ORAL) Take by mouth. atenolol (TENORMIN) 100 mg tablet Take 100 mg by mouth once daily. hydroCHLOROthiazide (HYDRODIURIL, ESIDRIX) 25 mg tablet Take 25 mg by mouth once daily. ALLERGIES: Adhesive Tape-Silicones PAST MEDICAL HISTORY: PAST MEDICAL HISTORY Diagnosis Date Breast cancer (HCC) left breast cancer with T3 tumor Edema of breast Erythema of breast Hypertension Left breast mass 06/24/2020 Menopause Patient states it has been greater than 5 yrs (today she is 59 yrs of age) Port-A-Cath in place Tobacco use PAST SURGICAL HISTORY: PAST SURGICAL HISTORY Procedure Laterality Date BREAST SURGERY HX 06/24/2020 Dr Campos EXTRACTION ERUPTED TOOTH PAST SURGICAL HISTORY OF excision of cyst, pilonidal cyst PORTOCATH PLACEMENT REVIEW OF SYSTEMS: General: No weight loss, malaise or fevers. HEENT: Negative for frequent or significant headaches. No changes in hearing or vision, no nose bleeds or other nasal problems. Respiratory: Negative for cough, wheezing or shortness of breath. Cardiovascular: Negative for chest pain, leg swelling or palpitations. GI: Negative for abdominal discomfort, blood in stools or black stools or change in bowel habit. : No history of dysuria, frequency or incontinence Musculoskeletal: Negative for back pain. Significant joint pain- mainly right hip. See HPI. Skin: Negative for lesions, rash and itching. Hematology/Lymphology: Negative for prolonged bleeding, bruising easily or swollen nodes. Neuro: No history of headaches, syncope, paralysis, seizures or tremors. PHYSICAL EXAM: Vitals: BP 144/76 Pulse 63 Temp 36.2 ?C (97.2 ?F) (Temporal) Resp 16 Ht 172.7 cm (5' 7.99 ) Wt 102.2 kg (225 lb 5 oz) SpO2 92% BMI 34.27 kg/m? ECOG 0 General: Alert and oriented, no distress, pleasant and cooperative. 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 - Lymphovascular space invasion, including dermal lymphovascular space invasion is identified. 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 - Macrometastatic carcinoma involving four lymph nodes, micrometastatic carcinoma involving one lymph node and isolated tumor cells involving one lymph node from a total of seven lymph nodes evaluated, largest metastasis measures 12 mm in greatest dimension with extranodal extension measuring 1.5 mm. - Treatment effect including fibrosis and histiocytic inflammation is noted within multiple lymph nodes. Estrogen AND progesterone receptors: Previously performed and reported as follows: Estrogen receptor: Positive (90%) Progesterone receptor: Positive (2-5%) (HER2) ERBB2 Status: HER2:Negative RADIOLOGIC DATA: (more content not included)... Normal [facility] Cancer Ag27-29 SerPl-aCncon 03-12-2024 Cancer Ag 27-29 Qn 20.7 [arb'U]/mL Normal <38.6 C [facility] Comment on above: Order Comment: Speci men Type: BLOOD SPECIMEN Ordering Facility: [facility] Address: [address] [place] [address] Result Comment: The CA27.29 test was performed using the Siemens Son[employer] Medicalaur XP chemiluminometric immunoassay method. Results obtained with different assay methods or kits cannot be used interchangeably. Performed By: #### 1 7842-6 #### [facility] CLIA [id number] [address] [place], [place] [address] [address] [place] Comprehensive metabolic 2000 panelon 03-12-2024 Albumin [Mass/Vol] 4.6 g/dL 3.9 - 4.9 g/dL [facility] ALP [Catalytic activity/Vol] 73 U/L 34 - 123 U/L [facility] ALT [Catalytic activity/Vol] 44 U/L High 7 - 38 U/L [facility] Anion gap [Moles/Vol] 11 mmol/L 9 - 18 mmol/L [facility] AST [Catalytic activity/Vol] 32 U/L 13 - 35 U/L [facility] Bilirubin [Mass/Vol] 0.5 mg/dL 0.2 - 1.3 mg/dL [facility] Calcium [Mass/Vol] 10.5 mg/dL High 8.5 - 10. 2 mg/dL [facility] Chloride [Moles/Vol] 104 mmol/L 97 - 105 mmol/L [facility] CO2 [Moles/Vol] 28 mmol/L 22 - 30 mmol/L [facility] Creatinine [Mass/Vol] 0.85 mg/dL 0.58 - 0.96 mg/dL [facility] Estimated Glomerular Filtration Rate 77 mL/min/1.73m >=60 mL/min/1.73m [facility] Glucose [Mass/Vol] 108 mg/dL High 74 - 99 mg/dL [facility] Potassium [Moles/Vol] 4.0 mmol/L 3.7 - 5.1 mmol/L [facility] Protein [Mass/Vol] 7.7 g/dL 6.3 - 8.0 g/dL [facility] Sodium [Moles/Vol] 143 mmol/L 136 - 144 mmol/L [facility] Urea nitrogen [Mass/Vol] 12 mg/dL 7 - 21 mg/dL [facility] Albumin [Mass/Vol] 4.6 g/dL Normal 3.9-4.9 [facility] Comment on above: Order Comment: Speci men Type: BLOOD SPECIMEN Ordering Facility: [facility] Address: [address] [place] [address] Performed By: #### 2 4323-8 #### [facility] CLIA [id number] [address] [place] [address] ALP [Catalytic activity/Vol] 73 U/L Normal 34-123 [facility] Comment on above: Order Comment: Speci men Type: BLOOD SPECIMEN Ordering Facility: [facility] Address: [address] [place], [place] [address] Performed By: #### 2 4323-8 #### [facility] CLIA [id number] [address] [place] [address] ALT [Catalytic activity/Vol] 44 U/L High 7-38 [facility] Comment on above: Order Comment: Speci men Type: BLOOD SPECIMEN Ordering Facility: [facility] Address: [address] [place] [address] Performed By: #### 2 4323-8 #### [facility] CLIA [id number] [address] [place] [address] Anion gap [Moles/Vol] 11 mmol/L Normal 9-18 [facility] Comment on above: Order Comment: Speci men Type: BLOOD SPECIMEN Ordering Facility: [facility] Address: [address] [place] [address] Performed By: #### 2 4323-8 #### [facility] CLIA [id number] [address] [place] [address] AST [Catalytic activity/Vol] 32 U/L Normal 13-35 [facility] Comment on above: Order Comment: Speci men Type: BLOOD SPECIMEN Ordering Facility: [facility] Address: [address] [place] [address] Performed By: #### 2 4323-8 #### [facility] CLIA [id number] [address] [place] [address] Bilirubin [Mass/Vol] 0.5 mg/dL Normal 0.2-1.3 [facility] Comment on above: Order Comment: Speci men Type: BLOOD SPECIMEN Ordering Facility: [facility] Address: [address] [place] [address] Performed By: #### 2 4323-8 #### [facility] CLIA [id number] [address] [place] [address] Calcium [Mass/Vol] 10.5 mg/dL High 8.5-10.2 [facility] Comment on above: Order Comment: Speci men Type: BLOOD SPECIMEN Ordering Facility: [facility] Address: [address] [place] [address] Performed By: #### 2 4323-8 #### [facility] CLIA [id number] [address] [place] [address]82 Chloride [Moles/Vol] 104 mmol/L Normal 97-105 [facility] Comment on above: Order Comment: Speci men Type: BLOOD SPECIMEN Ordering Facility: [facility] Address: [address] [place] [address] Performed By: #### 2 4323-8 #### [facility] CLIA [id number] [address] [place] [address]75 CO2 [Moles/Vol] 28 mmol/L Normal 22-30 [facility] Comment on above: Order Comment: Speci men Type: BLOOD SPECIMEN Ordering Facility: [facility] Address: [address] [place] [address] Performed By: #### 2 4323-8 #### [facility] CLIA [id number] [address] [place] [address] Creatinine [Mass/Vol] 0.85 mg/dL Normal 0.58-0.96 [facility] Comment on above: Order Comment: Speci men Type: BLOOD SPECIMEN Ordering Facility: [facility] Address: [address] [place] [address] Performed By: #### 2 4323-8 #### [facility] CLIA [id number] [address] [place] [address] Creatinine and Glomerular filtration rate.predicted panel (S/P/Bld) 77 mL/min/1.73m??? Normal >=60 [facility] Comment on above: Order Comment: Speci men Type: BLOOD SPECIMEN Ordering Facility: [facility] Address: [address] [place] [address] Result Comment: Linn mated Glomerular Filtration Rate (eGFR) is calculated using the 2020 CKD-EPI creatinine equation. This equation utilizes serum creatinine, sex, and age as parameters. The creatinine assay has traceable calibration to isotope dilution-mass spectrometry. Refer to KDIGO guidelines for clinical interpretation. In patients with unstable renal function, e.g. those with acute kidney injury, the eGFR may not accurately reflect actual GFR. Performed By: #### 2 4323-8 #### [facility] CLIA [id number] [address] [place] [address] Glucose [Mass/Vol] 108 mg/dL High 74-99 [facility] Comment on above: Order Comment: Nica vega Type: BLOOD SPECIMEN Ordering Facility: [facility] Address: [address] [place] [address] Result Comment: The [place] [employer] (ADA) provides guidance for cutoff values for fasting glucose and random glucose. The ADA defines fasting as no caloric intake for at least 8 hours. Fasting plasma glucose results between 100 to 125 mg/dL indicate increased risk for diabetes (prediabetes). Fasting plasma glucose results greater than or equal to 126 mg/dL meet the criteria for diagnosis of diabetes. In the absence of unequivocal hyperglycemia, results should be confirmed by repeat testing. In a patient with classic symptoms of hyperglycemia or hyperglycemic crisis, random plasma glucose results greater than or equal to 200 mg/dL meet the criteria for diagnosis of diabetes. Reference: Standards of Medical Care in Diabetes 2016, [place] [employer]. Diabetes Care. 2016.39(Suppl 1). Performed By: #### 2 4323-8 #### [facility] CLIA [id number] [address] [place] [address] Potassium [Moles/Vol] 4.0 mmol/L Normal 3.7-5.1 [facility] Comment on above: Order Comment: Nica vega Type: BLOOD SPECIMEN Ordering Facility: [facility] Address: [address] [place] [address] Performed By: #### 2 4323-8 #### [facility] CLIA [id number] [address] [place] [address] Protein [Mass/Vol] 7.7 g/dL Normal 6.3-8.0 [facility] Comment on above: Order Comment: Speci men Type: BLOOD SPECIMEN Ordering Facility: [facility] Address: [address] [place] [address] Performed By: #### 2 4323-8 #### [facility] CLIA [id number] [address] [place] [address]26 Sodium [Moles/Vol] 143 mmol/L Normal 136-144 [facility] Comment on above: Order Comment: Speci men Type: BLOOD SPECIMEN Ordering Facility: [facility] Address: [address] [place] [address] Performed By: #### 2 4323-8 #### [facility] CLIA [id number] [address] [place] [address]45[address] Urea nitrogen [Mass/Vol] 12 mg/dL Normal 7-21 [facility] Comment on above: Order Comment: Speci men Type: BLOOD SPECIMEN Ordering Facility: [facility] Address: [address] [place] [address] Performed By: #### 2 4323-8 #### [facility] CLIA [id number] [address] [place] [address]674 CBC W Auto Differential pane l (Bld)on 08-15-2023 Basophils (Bld) [#/Vol] 0.05 10*3/uL <0.11 k/uL [facility] Basophils/100 WBC (Bld) 1.1 % [facility] Differential cell count method Nom (Bld) Auto [facility] Eosinophils (Bld) [#/Vol] 0.21 10*3/uL <0.46 k/uL [facility] Eosinophils/100 WBC (Bld) 4.5 % [facility] Erythrocyte distribution width (RBC) [Ratio] 12.2 % 11.5 - 15.0 % [facility] Hematocrit (Bld) [Volume fraction] 43.8 % 36.0 - 46.0 % [facility] Hemoglobin (Bld) [Mass/Vol] 14.8 g/dL 11.5 - 15.5 g/dL [facility] Immature granulocytes (Bld) [#/Vol] <0.10 k/uL [facility] Immature granulocytes/100 WBC (Bld) 0.2 % [facility] Lymphocytes (Bld) [#/Vol] 1.74 10*3/uL 1.00 - 4.00 k/uL [facility] Lymphocytes/100 WBC (Bld) 37.0 % [facility] MCH (RBC) [Entitic mass] 30.4 pg 26.0 - 34.0 pg [facility] MCHC (RBC) [Mass/Vol] 33.8 g/dL 30.5 - 36.0 g/dL [facility] MCV (RBC) [Entitic vol] 89.9 fL 80.0 - 100.0 fL [facility] Monocytes (Bld) [#/Vol] 0.56 10*3/uL <0.87 k/uL [facility] Monocytes/100 WBC (Bld) 11.9 % [facility] Neutrophils (Bld) [#/Vol] 2.13 10*3/uL 1.45 - 7.50 k/uL [facility] Neutrophils/100 WBC (Bld) 45.3 % [facility] Nucleated RBC (Bld) [#/Vol] <0.01 k/uL [facility] Nucleated RBC/100 WBC (Bld) [Ratio] 0.0 /100 WBC [facility] Platelet mean volume (Bld) [Entitic vol] 10.5 fL 9.0 - 12.7 fL [facility] Platelets (Bld) [#/Vol] 214 10*3/uL 150 - 400 k/uL [facility] RBC (Bld) [#/Vol] 4.87 10*6/uL 3.90 - 5.2 0 m/uL [facility] WBC (Bld) [#/Vol] 4.70 10*3/uL 3.70 - 11. 00 k/uL [facility] Comprehensive metabolic 2000 panelon 08-15-2023 Albumin [Mass/Vol] 4.3 g/dL 3.9 - 4.9 g/dL [facility] ALP [Catalytic activity/Vol] 69 U/L 34 - 123 U/L [facility] ALT [Catalytic activity/Vol] 30 U/L 7 - 38 U/L [facility] Anion gap [Moles/Vol] 10 mmol/L 9 - 18 mmol/L [facility] AST [Catalytic activity/Vol] 23 U/L 13 - 35 U/L [facility] Bilirubin [Mass/Vol] 0.4 mg/dL 0.2 - 1.3 mg/dL [facility] Calcium [Mass/Vol] 9.8 mg/dL 8.5 - 10. 2 mg/dL [facility] Chloride [Moles/Vol] 105 mmol/L 97 - 105 mmol/L [facility] CO2 [Moles/Vol] 26 mmol/L 22 - 30 mmol/L [facility] Creatinine [Mass/Vol] 0.76 mg/dL 0.58 - 0.96 mg/dL [facility] Estimated Glomerular Filtration Rate 89 mL/min/1.73m >=60 mL/min/1.73m [facility] Glucose [Mass/Vol] 86 mg/dL 74 - 99 mg/dL [facility] Potassium [Moles/Vol] 3.9 mmol/L 3.7 - 5.1 mmol/L [facility] Protein [Mass/Vol] 7.2 g/dL 6.3 - 8.0 g/dL [facility] Sodium [Moles/Vol] 141 mmol/L 136 - 144 mmol/L [facility] Urea nitrogen [Mass/Vol] 15 mg/dL 7 - 21 mg/dL [facility] Consultation Noteon 02-25-20 Consultation Note [id number]#[id number]:127 Normal [facility] CBC W Auto Differential pane l (Bld)on 02-21-2023 Basophils (Bld) [#/Vol] 0.05 10*3/uL <0.11 k/uL [facility] Basophils/100 WBC (Bld) 1.1 % [facility] Differential cell count method Nom (Bld) Auto [facility] Eosinophils (Bld) [#/Vol] 0.26 10*3/uL <0.46 k/uL [facility] Eosinophils/100 WBC (Bld) 5.6 % [facility] Erythrocyte distribution width (RBC) [Ratio] 12.3 % 11.5 - 15.0 % [facility] Hematocrit (Bld) [Volume fraction] 43.2 % 36.0 - 46.0 % [facility] Hemoglobin (Bld) [Mass/Vol] 14.7 g/dL 11.5 - 15.5 g/dL [facility] Immature granulocytes (Bld) [#/Vol] <0.10 k/uL [facility] Immature granulocytes/100 WBC (Bld) 0.2 % [facility] Lymphocytes (Bld) [#/Vol] 1.72 10*3/uL 1.00 - 4.00 k/uL [facility] Lymphocytes/100 WBC (Bld) 36.9 % [facility] MCH (RBC) [Entitic mass] 30.7 pg 26.0 - 34.0 pg [facility] MCHC (RBC) [Mass/Vol] 34.0 g/dL 30.5 - 36.0 g/dL [facility] MCV (RBC) [Entitic vol] 90.2 fL 80.0 - 100.0 fL [facility] Monocytes (Bld) [#/Vol] 0.63 10*3/uL <0.87 k/uL [facility] Monocytes/100 WBC (Bld) 13.5 % [facility] Neutrophils (Bld) [#/Vol] 1.99 10*3/uL 1.45 - 7.50 k/uL [facility] Neutrophils/100 WBC (Bld) 42.7 % [facility] Nucleated RBC (Bld) [#/Vol] <0.01 k/uL [facility] Nucleated RBC/100 WBC (Bld) [Ratio] 0.0 /100 WBC [facility] Platelet mean volume (Bld) [Entitic vol] 9.9 fL 9.0 - 12.7 fL [facility] Platelets (Bld) [#/Vol] 224 10*3/uL 150 - 400 k/uL [facility] RBC (Bld) [#/Vol] 4.79 10*6/uL 3.90 - 5.2 0 m/uL [facility] WBC (Bld) [#/Vol] 4.66 10*3/uL 3.70 - 11. 00 k/uL [facility] Comprehensive metabolic 2000 panelon 02-21-2023 Albumin [Mass/Vol] 4.5 g/dL 3.9 - 4.9 g/dL [facility] ALP [Catalytic activity/Vol] 70 U/L 34 - 123 U/L [facility] ALT [Catalytic activity/Vol] 28 U/L 7 - 38 U/L [facility] Anion gap [Moles/Vol] 10 mmol/L 9 - 18 mmol/L [facility] AST [Catalytic activity/Vol] 22 U/L 13 - 35 U/L [facility] Bilirubin [Mass/Vol] 0.3 mg/dL 0.2 - 1.3 mg/dL [facility] Calcium [Mass/Vol] 10.3 mg/dL High 8.5 - 10. 2 mg/dL [facility] Chloride [Moles/Vol] 98 mmol/L 97 - 105 mmol/L [facility] CO2 [Moles/Vol] 28 mmol/L 22 - 30 mmol/L [facility] Creatinine [Mass/Vol] 0.79 mg/dL 0.58 - 0.96 mg/dL [facility] Estimated Glomerular Filtration Rate 85 mL/min/1.73m >=60 mL/min/1.73m [facility] Glucose [Mass/Vol] 109 mg/dL High 74 - 99 mg/dL [facility] Potassium [Moles/Vol] 3.8 mmol/L 3.7 - 5.1 mmol/L [facility] Protein [Mass/Vol] 7.5 g/dL 6.3 - 8.0 g/dL [facility] Sodium [Moles/Vol] 136 mmol/L 136 - 144 mmol/L [facility] Urea nitrogen [Mass/Vol] 14 mg/dL 7 - 21 mg/dL [facility] CBC W Auto Differential pane l (Bld)on 09-06-2022 Abs Immature Gran <0.10 k/uL [facility] Basophils (Bld) [#/Vol] 0.03 10*3/uL <0.11 k/uL [facility] Basophils/100 WBC (Bld) 0.6 % [facility] Differential cell count method Nom (Bld) Auto [facility] Eosinophils (Bld) [#/Vol] 0.23 10*3/uL <0.46 k/uL [facility] Eosinophils/100 WBC (Bld) 4.5 % [facility] Erythrocyte distribution width (RBC) [Ratio] 12.3 % 11.5 - 15.0 % [facility] Hematocrit (Bld) [Volume fraction] 42.1 % 36.0 - 46.0 % [facility] Hemoglobin (Bld) [Mass/Vol] 14.6 g/dL 11.5 - 15.5 g/dL [facility] Immature Gran % 0.2 % [facility] Lymphocytes (Bld) [#/Vol] 1.94 10*3/uL 1.00 - 4.00 k/uL [facility] Lymphocytes/100 WBC (Bld) 37.8 % [facility] MCH (RBC) [Entitic mass] 31.3 pg 26.0 - 34.0 pg [facility] MCHC (RBC) [Mass/Vol] 34.7 g/dL 30.5 - 36.0 g/dL [facility] MCV (RBC) [Entitic vol] 90.3 fL 80.0 - 100.0 fL [facility] Monocytes (Bld) [#/Vol] 0.61 10*3/uL <0.87 k/uL [facility] Monocytes/100 WBC (Bld) 11.9 % [facility] Neutrophils (Bld) [#/Vol] 2.31 10*3/uL 1.45 - 7.50 k/uL [facility] Neutrophils/100 WBC (Bld) 45.0 % [facility] Nucleated RBC (Bld) [#/Vol] <0.01 k/uL [facility] Nucleated RBC/100 WBC (Bld) [Ratio] 0.0 /100 WBC [facility] Platelet mean volume (Bld) [Entitic vol] 10.2 fL 9.0 - 12.7 fL [facility] Platelets (Bld) [#/Vol] 224 10*3/uL 150 - 400 k/uL [facility] RBC (Bld) [#/Vol] 4.66 10*6/uL 3.90 - 5.2 0 m/uL [facility] WBC (Bld) [#/Vol] 5.13 10*3/uL 3.70 - 11. 00 k/uL [facility] Comprehensive metabolic 2000 panelon 09-06-2022 Albumin [Mass/Vol] 4.3 g/dL 3.9 - 4.9 g/dL [facility] ALP [Catalytic activity/Vol] 78 U/L 34 - 123 U/L [facility] ALT [Catalytic activity/Vol] 26 U/L 7 - 38 U/L [facility] Anion gap [Moles/Vol] 6 mmol/L Low 9 - 18 mmol/L [facility] AST [Catalytic activity/Vol] 20 U/L 13 - 35 U/L [facility] Bilirubin [Mass/Vol] 0.3 mg/dL 0.2 - 1.3 mg/dL [facility] Calcium [Mass/Vol] 10.1 mg/dL 8.5 - 10. 2 mg/dL [facility] Chloride [Moles/Vol] 101 mmol/L 97 - 105 mmol/L [facility] CO2 [Moles/Vol] 31 mmol/L High 22 - 30 mmol/L [facility] Creatinine [Mass/Vol] 0.72 mg/dL 0.58 - 0.96 mg/dL [facility] Estimated Glomerular Filtration Rate 95 mL/min/1.73m >=60 mL/min/1.73m [facility] Glucose [Mass/Vol] 94 mg/dL 74 - 99 mg/dL [facility] Potassium [Moles/Vol] 3.8 mmol/L 3.7 - 5.1 mmol/L [facility] Protein [Mass/Vol] 7.1 g/dL 6.3 - 8.0 g/dL [facility] Sodium [Moles/Vol] 138 mmol/L 136 - 144 mmol/L [facility] Urea nitrogen [Mass/Vol] 14 mg/dL 7 - 21 mg/dL [facility] MG MAMM DX 3D RT CADon 08-10 MG MAMM DX 3D RT CAD Patient: GABRIELA BRASHER Exam Date: 08/10/2022 : 1960 Gender:F Ordering : DR NICKOLAS [facility] Admission #: [id number] Family : DR ANDREW SPEARS D.O. Order #: [id number] CLICK HERE TO VIEW EXAM RADIOLOGY REPORT PROCEDURE: MAMMOGRAM DIAGNOSTIC 3D RIGHT CAD COMPARISON: MG MAMM DX 3D RT CAD, 08/08/2021. MG MAMM MOLLY DIAG W CAD, 07/19/2020. INDICATIONS: Estrogen receptor positive tumor Calculator Name NCI Breast Cancer Risk Assessment Tool 5 Year Breast Cancer Risk n/a% Lifetime Breast Cancer Risk n/a% Personal Breast Cancer Yes, Lt Breast Invasive Ductal Carcinoma Personal Ovarian Cancer No Treatments Left breast Masectomy Family Cancers None LOCATION: [facility] BREAST COMPOSITION: Heterogeneously dense,which may obscure small masses. FINDINGS: DIAGNOSTIC CATEGORY 2--BENIGN FINDING: RIGHT BREAST: No significant suspicious finding. Scattered benign-appearing calcifications are present. No significant change has occurred. RECOMMENDATIONS: ROUTINE MAMMOGRAM AND CLINICAL EVALUATION IN 12 MONTHS. PLEASE NOTE: A NORMAL MAMMOGRAM DOES NOT EXCLUDE THE POSSIBILITY OF BREAST CANCER. A CLINICALLY SUSPICIOUS PALPABLE LUMP SHOULD BE BIOPSIED. Dictated by: Selena Peter M.D. on 08/10/2022 at 08:21 Approved by: Selena Peter M.D. on 08/10/2022 at 08:25 Normal [facility] CBC W Auto Differential pane l (Bld)on 06-07-2022 Abs Immature Gran <0.03 <0.10 k/uL [facility] Basophils (Bld) [#/Vol] 0.03 10*3/uL <0.11 k/uL [facility] Basophils/100 WBC (Bld) 0.7 % [facility] Differential cell count method Nom (Bld) Auto [facility] Eosinophils (Bld) [#/Vol] 0.20 10*3/uL <0.46 k/uL [facility] Eosinophils/100 WBC (Bld) 4.5 % [facility] Erythrocyte distribution width (RBC) [Ratio] 12.6 % 11.5 - 15.0 % [facility] Hematocrit (Bld) [Volume fraction] 42.9 % 36.0 - 46.0 % [facility] Hemoglobin (Bld) [Mass/Vol] 14.5 g/dL 11.5 - 15.5 g/dL [facility] Immature Gran % 0.2 % [facility] Lymphocytes (Bld) [#/Vol] 1.49 10*3/uL 1.00 - 4.00 k/uL [facility] Lymphocytes/100 WBC (Bld) 33.8 % [facility] MCH (RBC) [Entitic mass] 30.5 pg 26.0 - 34.0 pg [facility] MCHC (RBC) [Mass/Vol] 33.8 g/dL 30.5 - 36.0 g/dL [facility] MCV (RBC) [Entitic vol] 90.3 fL 80.0 - 100.0 fL [facility] Monocytes (Bld) [#/Vol] 0.55 10*3/uL <0.87 k/uL [facility] Monocytes/100 WBC (Bld) 12.5 % [facility] Neutrophils (Bld) [#/Vol] 2.13 10*3/uL 1.45 - 7.50 k/uL [facility] Neutrophils/100 WBC (Bld) 48.3 % [facility] Nucleated RBC (Bld) [#/Vol] 10*3/uL <0.01 k/uL [facility] Nucleated RBC/100 WBC (Bld) [Ratio] 0.0 /100 WBC [facility] Platelet mean volume (Bld) [Entitic vol] 10.3 fL 9.0 - 12.7 fL [facility] Platelets (Bld) [#/Vol] 215 10*3/uL 150 - 400 k/uL [facility] RBC (Bld) [#/Vol] 4.75 10*6/uL 3.90 - 5.2 0 m/uL [facility] WBC (Bld) [#/Vol] 4.41 10*3/uL 3.70 - 11. 00 k/uL [facility] Comprehensive metabolic 2000 panelon 06-07-2022 Albumin [Mass/Vol] 4.6 g/dL 3.9 - 4.9 g/dL [facility] ALP [Catalytic activity/Vol] 71 U/L 34 - 123 U/L [facility] ALT [Catalytic activity/Vol] 32 U/L 7 - 38 U/L [facility] Anion gap [Moles/Vol] 8 mmol/L Low 9 - 18 mmol/L [facility] AST [Catalytic activity/Vol] 27 U/L 13 - 35 U/L [facility] Bilirubin [Mass/Vol] 0.4 mg/dL 0.2 - 1.3 mg/dL [facility] Calcium [Mass/Vol] 9.8 mg/dL 8.5 - 10. 2 mg/dL [facility] Chloride [Moles/Vol] 102 mmol/L 97 - 105 mmol/L [facility] CO2 [Moles/Vol] 28 mmol/L 22 - 30 mmol/L [facility] Creatinine [Mass/Vol] 0.71 mg/dL 0.58 - 0.96 mg/dL [facility] Estimated Glomerular Filtration Rate 97 mL/min/1.73m >=60 mL/min/1.73m [facility] Glucose [Mass/Vol] 88 mg/dL 74 - 99 mg/dL [facility] Potassium [Moles/Vol] 3.7 mmol/L 3.7 - 5.1 mmol/L [facility] Protein [Mass/Vol] 7.7 g/dL 6.3 - 8.0 g/dL [facility] Sodium [Moles/Vol] 138 mmol/L 136 - 144 mmol/L [facility] Urea nitrogen [Mass/Vol] 15 mg/dL 7 - 21 mg/dL [facility] Comprehensive metabolic 2000 panelon 04-19-2022 Albumin [Mass/Vol] 4.6 g/dL 3.9 - 4.9 g/dL [facility] ALP [Catalytic activity/Vol] 67 U/L 34 - 123 U/L [facility] ALT [Catalytic activity/Vol] 34 U/L 7 - 38 U/L [facility] Anion gap [Moles/Vol] 11 mmol/L 9 - 18 mmol/L [facility] AST [Catalytic activity/Vol] 27 U/L 13 - 35 U/L [facility] Bilirubin [Mass/Vol] 0.5 mg/dL 0.2 - 1.3 mg/dL [facility] Calcium [Mass/Vol] 9.9 mg/dL 8.5 - 10. 2 mg/dL [facility] Chloride [Moles/Vol] 105 mmol/L 97 - 105 mmol/L [facility] CO2 [Moles/Vol] 27 mmol/L 22 - 30 mmol/L [facility] Creatinine [Mass/Vol] 0.75 mg/dL 0.58 - 0.96 mg/dL [facility] Estimated Glomerular Filtration Rate 91 mL/min/1.73m >=60 mL/min/1.73m [facility] Glucose [Mass/Vol] 113 mg/dL High 74 - 99 mg/dL [facility] Potassium [Moles/Vol] 3.9 mmol/L 3.7 - 5.1 mmol/L [facility] Protein [Mass/Vol] 7.4 g/dL 6.3 - 8.0 g/dL [facility] Sodium [Moles/Vol] 143 mmol/L 136 - 144 mmol/L [facility] Urea nitrogen [Mass/Vol] 16 mg/dL 7 - 21 mg/dL [facility] CBC W Auto Differential pane l (Bld)on 03-08-2022 Abs Immature Gran <0.03 <0.10 k/uL [facility] Basophils (Bld) [#/Vol] 0.03 10*3/uL <0.11 k/uL [facility] Basophils/100 WBC (Bld) 0.9 % [facility] Differential cell count method Nom (Bld) Auto [facility] Eosinophils (Bld) [#/Vol] 0.19 10*3/uL <0.46 k/uL [facility] Eosinophils/100 WBC (Bld) 5.4 % [facility] Erythrocyte distribution width (RBC) [Ratio] 12.2 % 11.5 - 15.0 % [facility] Hematocrit (Bld) [Volume fraction] 40.9 % 36.0 - 46.0 % [facility] Hemoglobin (Bld) [Mass/Vol] 14.0 g/dL 11.5 - 15.5 g/dL [facility] Immature Gran % 0.0 % [facility] Lymphocytes (Bld) [#/Vol] 0.99 10*3/uL Low 1.00 - 4.00 k/uL [facility] Lymphocytes/100 WBC (Bld) 28.2 % [facility] MCH (RBC) [Entitic mass] 30.8 pg 26.0 - 34.0 pg [facility] MCHC (RBC) [Mass/Vol] 34.2 g/dL 30.5 - 36.0 g/dL [facility] MCV (RBC) [Entitic vol] 89.9 fL 80.0 - 100.0 fL [facility] Monocytes (Bld) [#/Vol] 0.47 10*3/uL <0.87 k/uL [facility] Monocytes/100 WBC (Bld) 13.4 % [facility] Neutrophils (Bld) [#/Vol] 1.83 10*3/uL 1.45 - 7.50 k/uL [facility] Neutrophils/100 WBC (Bld) 52.1 % [facility] Nucleated RBC (Bld) [#/Vol] 10*3/uL <0.01 k/uL [facility] Nucleated RBC/100 WBC (Bld) [Ratio] 0.0 /100 WBC [facility] Platelet mean volume (Bld) [Entitic vol] 10.1 fL 9.0 - 12.7 fL [facility] Platelets (Bld) [#/Vol] 192 10*3/uL 150 - 400 k/uL [facility] RBC (Bld) [#/Vol] 4.55 10*6/uL 3.90 - 5.2 0 m/uL [facility] WBC (Bld) [#/Vol] 3.51 10*3/uL Low 3.70 - 11. 00 k/uL [facility] Comprehensive metabolic 2000 panelon 03-08-2022 Albumin [Mass/Vol] 4.4 g/dL 3.9 - 4.9 g/dL [facility] ALP [Catalytic activity/Vol] 75 U/L 34 - 123 U/L [facility] ALT [Catalytic activity/Vol] 28 U/L 7 - 38 U/L [facility] Anion gap [Moles/Vol] 9 mmol/L 9 - 18 mmol/L [facility] AST [Catalytic activity/Vol] 24 U/L 13 - 35 U/L [facility] Bilirubin [Mass/Vol] 0.4 mg/dL 0.2 - 1.3 mg/dL [facility] Calcium [Mass/Vol] 10.0 mg/dL 8.5 - 10. 2 mg/dL [facility] Chloride [Moles/Vol] 105 mmol/L 97 - 105 mmol/L [facility] CO2 [Moles/Vol] 27 mmol/L 22 - 30 mmol/L [facility] Creatinine [Mass/Vol] 0.71 mg/dL 0.58 - 0.96 mg/dL [facility] Estimated Glomerular Filtration Rate 97 mL/min/1.73m >=60 mL/min/1.73m [facility] Glucose [Mass/Vol] 114 mg/dL High 74 - 99 mg/dL [facility] Potassium [Moles/Vol] 3.9 mmol/L 3.7 - 5.1 mmol/L [facility] Protein [Mass/Vol] 7.4 g/dL 6.3 - 8.0 g/dL [facility] Sodium [Moles/Vol] 141 mmol/L 136 - 144 mmol/L [facility] Urea nitrogen [Mass/Vol] 18 mg/dL 7 - 21 mg/dL [facility] [place] 03-30-2021 GARY Telephone (GEN) ----- ANDRZEJEWSKI,GABRIELA ([id number]) 1960 F Date Time Provider Department 03/30/21 NAVEED SUGGS During your visit today, we recorded the following information about you: VY Perkins 03/30/2021 3:59 PM Signed I left a message to call us back - Please let her know we can coordinate her mammography for a day at [place] to see Dr Arrieta and have the mammogram the same day if that is better for her. She is due in July 2021. Office number given. VY Perkins COORD 03/31/2021 1:05 PM Signed Called and left patient message to return call to office at [phone] Justine Shelton COORD 04/10/2021 11:42 AM Signed Spoke with patient to offer same day imaging and office visit. Patient declined at this time. She does not want to travel to [place]. She asked if she was able to have the imaging completed at [place] and I advised that location is outside of [facility] and would need to be reviewed and could possibly create more appointments. She states she has to many things going on right now with her and her and not sure if she wants to continue with apts. She will keep her office visit on 08/03/21 at [facility] and will call back to advise if she would like imaging. Office contact provided to patient. Allergies As of Date: 03/30/2021 Noted Allergy Reaction ADHESIVE TAPE-SILICONES 07/04/2020 16 - Unknown Date Reviewed: 03/29/2021 Reviewed by: Ariel Cifuentes MD - Fully Assessed Reason for Visit: Patient Update [1234] Prescriptions as of 03/30/2021 Sig: ANASTROZOLE 1 MG TABLET Take 1 tablet by mouth once d* MULTI-VITAMIN ORAL Take by mouth once daily. POTASSIUM CHLORIDE ER 10 MEQ * Take 1 tablet by mouth twice * ANASTROZOLE 1 MG TABLET Take 1 tablet by mouth once d* LORAZEPAM 0.5 MG TABLET Take 1 tablet by mouth every * PERFLUTREN LIPID MICROSPHERES* Inject 1.3 mL intravenously a* ATENOLOL 100 MG TABLET Take 100 mg by mouth once marlena* HYDROCHLOROTHIAZIDE 25 MG TAB* Take 25 mg by mouth once addy* Problem List As Of Date 03/30/2021 Noted Resolved Malignant neoplasm of overlapping sites of left*07/20/2020 Nausea [R11.0] 08/24/2020 Hypertension [I10] Obesity with body mass index 30 or greater [E66*01/18/2021 Former smoker [Z87.891] 01/18/2021 Fatty liver [K76.0] 01/18/2021 Hyperglycemia, unspecified [R73.9] 06/12/2019 Malignant neoplasm of unspecified site of left *07/19/2020 Encounter Status:Closed by NAVEED SUGGS on 04/10/21 [facility] HNO ID: [id number] Author: Rose (Rn) MICHAEL Velásquez Service: Care Management Author Type: Registered Nurse Type: Care Mgt Initial Assessment Filed: 01/26/2021 10:23 AM Note Text: CARE MANAGEMENT: ASSESSMENT AND DISCHARGE PLAN SERVICE DATE: January 26, 2021 SERVICE TIME: 10:22 AM PRIMARY CARE PHYSICIAN: Andrew Spears Sr, MD ADMISSION STATUS: Extended Recovery MEDICAL: [facility] CHOICE 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 Health Issues Impacting Discharge Plan: Newly diagnosed Newly Diagnosed: mastectomy Last Discharge Date: N/A Is this Within the Past 30 days? Last discharge within 30 days: No Advance Directive: Current Advance Directive: None X Ray Developer Attempted to Assist with AD Completion: Yes Action: Education Provided Health LiteracyHow often do you need to have someone help you when you read instructions, pamphlets, or other written material from your doctor or pharmacy? : 1 - Never How confident are you filling out medical forms by yourself?: 1 - Extremely If Patient scores > 3 on either question, the following interventions were put into place:: Patient did not score > 3 on either question. Baseline Mental Status Prior to this Illness what was the patient's Baseline Mental Status?: Alert AND Oriented Prior to this illness, has anyone described the patient having any of the following behaviors?: Not Applicable Relationship of the informant to the patient:: Self Functional Status: Independent Does Patient Currently Receive Any Community Services or Home Care?: None Equipment Prior to Admission: None Has the Patient Been in a Assisted Facility in the Past 30 days?: No SOCIAL: Living Arrangements: Home Lives With: Spouse Financial Resources: Employed Primary Contact: Extended Emergency Contact Information Primary Emergency Contact: Cody Brasher Mobile Relation: Spouse Supportive Patient Contact:: Yes Contact Resources: Family Caregiver AssessmentCaregiver is ready, willing and able to meet the patient's needs as recommended by the inter-professional team:: No Caregiver needed Does the patient have an acute stroke diagnosis, or has the patient had a stroke during this admission?: No Patient's transition needs and plan for meeting these needs: Home with [facility] Patient's perception of need for this admission: mastectomy Medication Adherance I am convinced of the importance of my prescription medication: 0 - Agree Completely I worry that my prescription medication will do more harm than good to me : 0 - Disagree Completely I feel financially burdened by my [id number] expenses for my prescription medication:: 0 - Disagree Completely Risk Score: 0 Patient is categorized as: Low risk < 2 Are you interested in bedside delivery of your medications? Yes Is Patient Psychosocially Complex?: No ASSESSMENT AND PLAN: Medical Needs: Medical Needs: Two or more chronic diseases;Cancer - active treatment/follow up Psychosocial Needs: Psychosocial Needs: None FREEDOM OF CHOICE EXPLAINED: [place] of Choice Given: No Reason Not Given: No placements necessary POTENTIAL TRANSITION PLANS Home Patient from home with spouse. Independent. Finished chemotherapy. States she will start radiation mid January. Denies home going needs. SIGNATURE: Rose Velásquez RN PATIENT NAME: Gabriela Brasher DATE: January 26, 2021 TIME: 10:21 AM PAGER/CONTACT #: [phone] [facility] NURSING PROGon 01-26-2021 NURSING PROG HNO ID: [id number] Author: Sonja LymnaRn) MICHAEL Dixon Service: Nursing Author Type: Registered Nurse Type: Nursing Progress Note Filed: 01/26/2021 5:48 PM Note Text: Nursing Progress Note Patient Name: Gabriela Brasher [facility] education provided to patient, patient demonstrated adequate education by demonstration. This note was completed by: Sonja Dixon RN [facility] PLAN OF CAREon 01-26-2021 PLAN OF CARE HNO ID: [id number] Author: Annemarie Rendon (Road Sign Installer) Service: ? Author Type: ? Type: Plan of Care Filed: 01/26/2021 4:43 PM Note Text: The following medications were delivered to the patient: Medication List START taking these medications X HYDROcodone-acetaminophen 5-325 mg per tablet Commonly known as: NORCO Take 1-2 tablets by mouth every 6 hours as needed for up to 7 days. CONTINUE taking these medications anastrozole 1 mg tablet Commonly known as: ARIMIDEX Take 1 tablet by mouth once daily. atenolol 100 mg tablet Commonly known as: TENORMIN hydroCHLOROthiazide 25 mg tablet Commonly known as: HYDRODIURIL, ESIDRIX LORazepam 0.5 mg Commonly known as: ATIVAN Take 1 tablet by mouth every 6 hours as needed. MULTI-VITAMIN ORAL perflutren lipid microspheres 1.1 mg/mL injection (to be provided with echo procedure) Commonly known as: DEFINITY Inject 1.3 mL intravenously as directed. Administration Instructions: If no IV access, insert saline lock prior to administering contrast. Discontinue saline lock post exam. If patient has central line or IVAD, may access for administration according to line specific nursing protocol. Once exam is complete, flush line and de-access per line specific nursing protocol. Diluted IV Bolus: Dilute 1.3 ml of Definity with 8.7 ml of preservative-free saline. potassium chloride 10 mEq tablet Commonly known as: K-TAB Take 1 tablet by mouth twice daily. prochlorperazine 10 mg tablet Commonly known as: COMPAZINE Take 1 tablet by mouth every 6 hours as needed. You might also be taking other medications not listed above. If you have questions about any of your other medications, talk to the person who prescribed them or your Primary Care Provider. STOP taking these medications traMADol 50 mg tablet Commonly known as: ADELSO Rendon ([employer]) PAGER: castillo January 26, 2021 4:43 PM [facility] PROGRESSon 01-26-2021 PROGRESS HNO ID: [id number] Author: Sherin Huizar Service: General Surgery Author Type: Physician Differential Tester Type: Progress Notes Filed: 01/26/2021 11:09 AM Note Text: ----- Attestation signed by Dc Arrieta at 01/26/2021 1:29 PM [facility] STAFF PHYSICIAN NOTE OF PERSONAL INVOLVEMENT IN CARE Pt seen this am Doing well Minimal pain, JPs and incision look great D/c today Follow up as planned I have reviewed the documentation above obtained and documented by the Physician Differential Tester and have reviewed and updated the problem list as appropriate. I have personally performed a face to face assessment of the patient and I have discussed the case and management of the patient's care. Dc Arrieta MD ----- Name: Gabriela Brasher Date: January 26, 2021 POD# 1 s/p Left breast modified radical mastectomy by Dr. Arrieta [facility] and PERTINENT ROS: Patient tolerating diet MEDICATIONS: Current Facility-Administered Medications Medication Dose Route Frequency - LORazepam 0.5 mg tab(s) (ATIVAN) 0.5 mg ORAL q 6 H PRN - atenolol 100 mg tab(s) (TENORMIN) 100 mg ORAL DAILY - potassium chloride ER 10 mEq tab(s) (K-DUR, KLOR-CON) 10 mEq ORAL BID - hydroCHLOROthiazide 25 mg tab(s) (HYDRODIURIL, ESIDRIX) 25 mg ORAL DAILY - NaCl 0.9% iv infusion 75 mL/hr INTRAVENOUS CONTINUOUS - sodium chloride 0.9 % (flush) 2-10 mL (BD POSIFLUSH) 2-10 mL INTRAVENOUS q 12 H - acetaminophen 325 mg tab(s) (TYLENOL) 325 mg ORAL q 6 H PRN - HYDROcodone 5 mg - acetaminophen 325 mg tablet (NORCO) 1-2 tablet ORAL q 4 H PRN - morphine 2 mg injection 2 mg INTRAVENOUS q 4 H PRN - ondansetron 4 mg tab(s) (ZOFRAN) 4 mg ORAL q 6 H PRN Or - ondansetron (PF) 4 mg injection (ZOFRAN) 4 mg INTRAVENOUS q 6 H PRN PHYSICAL EXAM: BP 106/68 Pulse 80 Temp 36.8 ?C (98.2 ?F) (Oral) Resp 14 SpO2 90% Intake/Output Summary (Last 24 hours) at 01/26/2021 0659 Last data filed at 01/26/2021 0322 Gross per 24 hour Intake 1953 ml Output 1185 ml Net 768 ml CARLOS Drains x2: noted with SS drainage GENERAL: Alert, no distress, cooperative LUNGS: Lungs clear to auscultation, Good diaphragmatic excursion CARDIAC: Normal S1 and S2; no rubs, murmurs, or gallops WOUND: Clean, dry and intact ASSESSMENT and PLAN of Care: POD# 1 s/p Left breast modified radical mastectomy by Dr. Meenakshi SIGALA, afebrile, pain controlled -plans for discharge to home today SIGNATURE: Sherin Huizar PA-C Pager [phone] *A review of daily goals, interventions, and plan of care with the multidisciplinary team and patient has been conducted. The patient?s concerns have been addressed and he/she agrees to proceed with today?s plan of care. [facility] ANES POSTPROC EVALon 021 ANES POSTPROC EVAL HNO ID: [id number] Author: Gretchen Sanford Service: Anesthesiology Author Type: Physician Type: Anesthesia Postprocedure Evaluation Filed: 01/25/2021 3:38 PM Note Text: POST ANESTHESIA EVALUATION NOTE : 1960 Procedure Summary Date: 01/25/21 Room / Location: OR / AV OR Anesthesia Start: 1023 Anesthesia Stop: 1404 Procedures: MASTECTOMY MODIFIED RADICAL (Left Breast) LYMPHADENECTOMY AXILLARY COMPLETE (Left Breast) Diagnosis: Malignant neoplasm of left female breast, unspecified estrogen receptor status, unspecified site of breast (HCC) Surgeons: Dc Arrieta Responsible Provider: Gretchen Sanford Anesthesia Type: general ASA Status: 3 Anesthesia Type: general Last vitals Vitals Value Taken Time BP 144/86 01/25/21 1536 Temp 37 ?C (98.6 ?F) 01/25/21 1536 Pulse 69 01/25/21 1536 Resp 12 01/25/21 1536 SpO2 95 % 01/25/21 1536 Post Anesthesia Patient Status Patient Evaluation: PACU. PACU/ICU Patient Condition: stable. Anticipated Disposition: phase 2 then home. Neurological Status: aware and responsive. Pulmonary Status: breathing comfortably on room air Airway Control: returned to baseline unsupported. Cardiovascular Status: stable. Pain Management: clinically adequate - multimodal analgesia pain management approach Postoperative Hydration: acceptable. Intraoperative Events: no significant anesthesia events Post Operative Nausea/Vomiting Status: Anesthetic Observations: no significant anesthetic observations Recommendation: continue current plan of care. SIGNATURE: Gretchen Sanford MD PATIENT NAME: Gabriela Brasher DATE: January 25, 2021 TIME: 3:38 PM CSN: [id number] [facility] ANES PRE-OPon 01-25-2021 ANES PRE-OP HNO ID: [id number] Author: Gretchen Sanford Service: Anesthesiology Author Type: Physician Type: Anesthesia Preprocedure Evaluation Filed: 01/25/2021 9:32 AM Note Text: ANESTHESIOLOGY DAY OF SURGERY NOTE : 1960 Procedure(s) (LRB): MASTECTOMY MODIFIED RADICAL (Left) LYMPHADENECTOMY AXILLARY COMPLETE (Left) Surgeon(s): Dc Arrieta Estimated body mass index is 33.45 kg/m? as calculated from the following: Height as of 01/18/21: 172.7 cm (5' 8 ). Weight as of 01/18/21: 99.8 kg (220 lb). Most recent hematocrit and potassium results: Hematocrit 36.0 01/13/2021 Potassium 4.1 01/13/2021 Relevant Problems CARDIO (+) Hypertension -RENAL (+) Fatty liver Other (+) Malignant neoplasm of overlapping sites of left breast in female, estrogen receptor positive (HCC) (+) Nausea (+) Obesity (BMI 30-39.9) I - PHYSICAL EVALUATION AIRWAY Patient intubated: No. Mallampati: II. TM distance: >3 FB. Neck ROM: full ROM without neurological symptoms. Mouth opening: adequate. Short neck: no. Thick neck: no DENTAL Dental findings: teeth intact. Additional exam findings: yes. Other findings: mediport Right Subclavian area. II - ANESTHESIA PLAN ASA Score: 3 Anesthetic Plan: general Airway type: LMA NPO Status: adequate Monitoring plan: standard ASA. Postoperative analgesic plan: parenteral or oral opioids. Anesthetic Risks, Benefits, Alternatives, Personnel Discussed. Consent obtained from: patient.Patient / Surrogate agrees to blood products: blood products not planned Significant changes in the patient condition since the History and Physical, not otherwise documented in primary service progress note: no. Potential Anesthesia issues that may suggest increased risk of complications or contraindication to planned procedure: none. Vitals Value Taken Time BP 141/94 01/25/21901 Pulse 70 01/25/21901 Resp 18 01/25/21901 Temp 36.9 ?C (98.4 ?F) 01/25/21901 SpO2 70 % 01/25/21901 Facility-Administered Medications as of 01/25/2021 Medication Dose Route Frequency - lidocaine 10 mg/mL (1 %) 1-2 mg injection (XYLOCAINE) 0.1-0.2 mL INTRADERMAL PRN - lactated ringers infusion 75 mL/hr INTRAVENOUS CONTINUOUS - ceFAZolin iv piggyback 2 g in D5W (iso-osmotic) 100 mL (ANCEF) 2 g INTRAVENOUS Pre-Op Once - [COMPLETED] acetaminophen 1,000 mg tab(s) (TYLENOL) 1,000 mg ORAL Pre-Op Once - [COMPLETED] promethazine 12.5 mg tab(s) (PHENERGAN) 12.5 mg ORAL Pre-Op Once - sodium chloride 0.9 % (flush) 10 mL (BD POSIFLUSH) 10 mL INTRAVENOUS q 12 H - sodium chloride 0.9 % (flush) 20 mL (BD POSIFLUSH) 20 mL INTRAVENOUS PRN - heparin 100 unit/mL 500 Units injection 5 mL INTRAVENOUS PRN Outpatient Medications as of 01/25/2021 Medication Sig - potassium chloride (K-TAB) 10 mEq tablet Take 1 tablet by mouth twice daily. - atenolol (TENORMIN) 100 mg tablet Take 100 mg by mouth once daily. - hydroCHLOROthiazide (HYDRODIURIL, ESIDRIX) 25 mg tablet Take 25 mg by mouth once daily. - traMADol (ULTRAM) 50 mg tablet - prochlorperazine (COMPAZINE) 10 mg tablet Take 1 tablet by mouth every 6 hours as needed. - anastrozole (ARIMIDEX) 1 mg tablet Take 1 tablet by mouth once daily. - LORazepam (ATIVAN) 0.5 mg Take 1 tablet by mouth every 6 hours as needed. - perflutren lipid microspheres (DEFINITY) 1.1 mg/mL injection (to be provided with echo procedure) Inject 1.3 mL intravenously as directed. Administration Instructions: If no IV access, insert saline lock prior to administering contrast. Discontinue saline lock post exam. If patient has central line or IVAD, may access for administration according to line specific nursing protocol. Once exam is complete, flush line and de-access per line specific nursing protocol. Diluted IV Bolus: Dilute 1.3 ml of Definity with 8.7 ml of preservative-free saline. I have interviewed and examined the patient. I have reviewed the medical record and/or the pre-anesthesia evaluation, pertinent labs, and test results. This contains updated information obtained within 48 hours of Surgery/Procedure. SIGNATURE: Gretchen Sanford MD PATIENT NAME: Gabriela Brasher DATE: January 25, 2021 TIME: 9:31 AM CSN: [id number] [facility] NURSING PROGon 01-25-2021 NURSING PROG HNO ID: [id number] Author: Nathaly (Rn) MICHAEL Corey Service: Nursing Author Type: Registered Nurse Type: Nursing Progress Note Filed: 01/25/2021 3:29 PM Note Text: Nursing Progress Note Patient Name: Gabriela Brasher Patient Location: / Transfer Note: Patient transferred into room/unit 509 in stable condition. Actions taken: No futher actions taken at this time. Will continue to monitor and check with patient. 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 - Lymphovascular space invasion, including dermal lymphovascular space invasion is identified. 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 - Macrometastatic carcinoma involving four lymph nodes, micrometastatic carcinoma involving one lymph node and isolated tumor cells involving one lymph node from a total of seven lymph nodes evaluated, largest metastasis measures 12 mm in greatest dimension with extranodal extension measuring 1.5 mm. - Treatment effect including fibrosis and histiocytic inflammation is noted within multiple lymph nodes. EDK/edk 02/01/2021 COMMENT The patient's history of cT4d disease is noted. Foci of residual invasive and in situ carcinoma are identified in a fibrous tumor bed within the upper outer quadrant that measures 77 x 72 mm. There was non concentric tumor response to therapy with residual tumor present as scattered single cells, glands and rare clusters. Rare tumor cells are also identified in the nipple dermis, the subareolar aspect and in the lower inner quadrant. SYNOPTIC REPORT OF THOMAS PATHOLOGIC FINDINGS LEFT BREAST AND AXILLARY CONTENTS: BREAST INVASIVE CARCINOMA WORKSHEET Part: A Procedure: Total mastectomy (including nipple-sparing and skin-sparing mastectomy) Specimen Laterality: Left Tumor size: Size of largest invasive carcinoma: Greatest dimension of largest focus of invasion >1 mm: 6 mm Tumor Focality: Cannot be determined: Multiple foci following neoadjuvant therapy Histologic Type of Invasive Carcinoma: Invasive carcinoma of no special type (ductal, not otherwise specified) Histologic Grade: Glandular (Acinar) / Tubular Differentiation: Score 3 Nuclear Pleomorphism: Score 3 Mitotic Rate: Score 2 Overall Grade: Grade III Ductal Carcinoma In Situ: Present Architectural Patterns: Architectural Pattern:Cribriform Architectural Pattern:Solid DCIS Nuclear Grade: Grade III (high) DCIS Necrosis: Not identified Tumor Extension: Skin: Invasive carcinoma directly invades into the dermis or epidermis without skin ulceration (this does not change the T classificationof invasive carcinomas) Nipple: Other: Residual invasive carcinoma is identified in the nipple dermis Skeletal muscle: No skeletal muscle is present Invasive Carcinoma Margins: Margins uninvolved by invasive carcinoma Distance from closest margin: 1 mm Closest margin: Deep Distance from other specified margin: 1.5 mm Designation of margin: Superior radial DCIS Margins: Margins uninvolved by DCIS All margins >2 mm Lymph Nodes: Involved by tumor cells Number of lymph nodes with macrometastases (>2 mm): 4 Number of lymph nodes with micrometastases (>0.2 mm to 2 mm and/or >200 cells): 1 Number of lymph nodes with isolated tumor cells (<= 0.2 mm and <= 200 cells): 1 Size of largest metastatic deposit: 12 mm Extranodal extension present <=2 mm Total number of lymph nodes examined: 7 Number of sentinel nodes examined (if applicable): 0 Treatment Effect: Probable or definite response to presurgical therapy in the invasive carcinoma Probable or definite response to presurgical therapy in metastatic carcinoma Lymph-Vascular Invasion: Present Pathologic Stage Classification (pTNM,AJCC 8th ed) TNM Descriptor(s): y (post- treatment) Primary Tumor (Invasive Carcinoma) (pT): pT1b Regional Lymph Nodes (pN): Modifier: Not applicable Category (pN): pN2a Distant metastasis: Distant Metastasis (pM) Not applicable/Not confirmed pathologically in this case Estrogen AND progesterone receptors: Previously performed and reported as follows: Estrogen receptor: Positive (90%) Progesterone receptor: Positive (2-5%) Specimen number #: [id number] (HER2) ERBB2 Status: Previously performed and reported as follows: HER2:Negative Specimen number #: [id number] Hydraulic Press Tender Tumor Block: Specify: A26 Residual tumor burden: Tumor bed dimension #1: 77 mm Tumor bed dimension #2: 72 mm Overall tumor cellularity 20% Percentage in situ 20% Comment: The clinical history of cT4d disease is noted. Breast biomarkers will be repeated on the residual carcinoma and reported separately. ------ Ade Trevino D.O. (Electronic Signature) SPECIMEN SUBMITTED A: LEFT BREAST AND AXILLARY CONTENTS ADDITIONAL PROCEDURE(S) BREAST MARKERS WITH HER2 (ERBB2) IHC Date Ordered: 02/03/2021 Date Reported: 02/03/2021 Procedure Results and Interpretation Breast Biomarkers Template RESULTS Estrogen Receptor (ER) Positive (95%) Stain intensity: Strong Internal controls: Present and appropriately reactive External controls: Appropriately reactive Progesterone Receptor (PgR) Negative (<1%) Stain intensity: Not applicable Internal controls: Present and appropriately reactive External controls: Appropriately reactive HER2 (ERBB2) IMMUNOHISTOCHEMISTRY ASSAY Interpretation: EQUIVOCAL for HER2 (ERBB2) Expression Score: 2+ (FISH for HER2 will be performed and the results reported separately) Percentage of cells with uniform intense complete membrane stainin (reported for 2+ and 3+ scores only) Block Number: A26 Tissue Analyzed: Left breast and axillary contents, residual invasive ductal carcinoma, mastectomy Specimen fixative: 10% neutral buffered formalin Length of fixation: >6 and <72 hours Cold ischemia time: < 1 hour Latest ASCO/CAP guidelines for fixation met: yes These results should be interpreted with caution if the above pre-analytical values do not meet the ASCO/CAP guidelines for tissue fixation and handling. Reference Range for Hormone Receptors: Staining of greater than or equal to 1% of the tumor cells is considered positive. Reference Ranges for HER2 (ERBB2) immunohistochemistry: Positive (3+): Complete, intense circumferential membrane staining in >10% of tumor cells Equivocal (2+): Weak to moderate complete membrane staining observed in >10% of tumor cells Negative (1+): Incomplete, faint membrane staining in >10% of tumor cells Negative (0): No staining or incomplete, faint membrane staining in 10% of tumor cells Consideration of follow-up testing for HER2 (ERBB2) status by fluorescence in situ hybridization (FISH) for all equivocal (2+) results is recommended and will be ordered as a reflex test if FISH was not a testing methodology already employed. METHODS Estrogen Receptor: Food and Drug Administration (FDA) cleared: [employer], [place], [place] Primary Antibody: SP1 Progesterone Receptor: FDA cleared: [employer], [place], [place] Primary Antibody: IE2 HER2 (ERBB2) by IHC: FDA cleared: [employer], [place], [place] Primary Antibody: 4B5 The hormone receptor tests were performed and reported according to Annemarie KH, Mary YOUNGH, Cary M, Prerna SE, Helen LA, [place] PL, Gildardo DF, Lino SR, Shirlene M, Marybel J, Diane CM, Jamshid MM, Antonietta DL, Nadeem WF, Michele EE, Madeleine L, Tian G, Juventino TF, Jensen LM, Collin AC. Estrogen and Progesterone Receptor Testing in Breast Cancer: ASCO/CAP Guideline Update. J Clin Oncol. 2019Mar 21;38(12):8289-6951. doi: 10.1200/JCO.19.85901. Epub 2019Dec 14. PMID: 10226999. The hormone receptor assays have been internally validated on decalcified tissues Estrogen and progesterone receptor results are valid if tissue was processed according to ASCO/CAP guidelines. Antibody and Detection System: [employer] Pathway anti-HER2 rabbit monoclonal antibody (clone 4B5), [place] anti-estrogen receptor rabbit monoclonal antibody (clone SP1) and [place] anti-progesterone receptor rabbit monoclonal antibody (clone IE2) detected with the [place] iView Detection System (indirect biotin streptavidin detection); [employer], [place], [place]. Control slides: Cell line controls with high, equivocal, low and negative HER2 protein expression, along with known positive control tissue as well as the patient's tissue are evaluated for HER2 expression. A separate slide of the patient's tissue is similarly processed without antibody (negative control); slides were reviewed and showed appropriate staining. The HER2 immunohistochemistry assay was developed, validated, scored, and reported in accordance with the guidelines approved by the [place] [employer] and the College of [place] [employer]. Collin JOSE et al. Arch Pathol Lab Med. 2018;137(9) . The HER2 assay has not been validated on decalcified tissues. Results should be interpreted with caution given the possibility of false negative results on decalcified specimens. EDK/ss/02/03/2021 FISH for HER2 Date Ordered: 02/03/2021 Date Reported: 02/08/2021 Procedure Results and Interpretation HER2 (ERBB2) Status by FISH: Non Amplified Block Tested: A26 Specimen site and type: Left breast and axillary contents Interpretation: NEGATIVE for HER2 (ERBB2) GENE AMPLIFICATION Number of cells counted: 40 Number of observers: 2 Average HER2 (ERBB2) signal copy number per cell: 2.5 Average CEP 17 signal copy number per cell: 2.1 HER2 (ERBB2)/CEP17 ratio:1.2 Fixative: 10% neutral buffered formalin Fixation time: >6 and < 72 hours Cold Ischemic time: <1 hour Meets ASCO/CAP guidelines for fixative and fixation times: yes These results should be interpreted with caution if the above pre-analytical values do not meet the ASCO/CAP guidelines for tissue fixation and handling. Tissue sections for HER2 (ERBB2) analysis should not be used if cut > 6 weeks prior to testing. Reference ranges (2018 ASCO/CAP guidelines): HER2 (ERBB2) non amplified: HER2(ERBB2)/ CEP 17 ratio < 2.0 with <4.0 HER2(ERBB2) signals/cell (Group 5) HER2 (ERBB2) amplified: HER2(ERBB2)/ CEP 17 ratio is >/= 2.0 with >/= 4.0 HER2(ERBB2) signals/cell (Group 1) Methods: HER2 (ERBB2) Gene Amplification was manually evaluated on paraffin-embedded tissue by interphase fluorescence in situ hybridization (FISH), using a dual label probe set for the HER2 (ERBB2) locus and the alphacentromeric region of chromosome 17 (PathVysion; [employer], [place]). The [facility] of the [facility] has validated modifications of the PathVysion kit used for the testing, including the use of Target Retrieval Solution and Proteinase K (Dako;[place]) for cell conditioning, and modified probe/target denaturation and hybridization conditions for the assay. Internal and external (amplified and non-amplified) controls are evaluated. The in situ hybridization analysis was performed and correlated with preselected areas of invasive carcinoma deemed adequate for analysis by a pathologist. This assay has not been validated on decalcified tissues. Results should be interpreted with caution given the likelihood of false negativity on decalcified specimens. Negative results should be interpreted with caution for specimens not meeting the ASCO/CAP guidelines. The HER2 (ERBB2) assay was developed, validated, and reported in accordance with guidelines published by the [place] [employer] and the College of [place] [employer] (Collin JOSE, et al. J Clin Oncol. 2018 Jun 10;36(20):8658-6308. Epub 2017April 30). Pathologist Interpretation: Donovan Cesar MD ANALYTE SPECIFIC REAGENT (ASR) DISCLAIMER This test was developed and its performance characteristics determined by [facility]'s [facility] [place] ([facility]). It has not been cleared or approved by the FDA. [facility] is regulated under CLIA as qualified to perform high-complexity testing. This test is used for clinical purposes. It should not be regarded as investigational or for research. PM/es 02.08.2021 Procedure Pathologist: Donovan Cesar M.D. Electronic Signature CLINICAL DATA MALIGNANT NEOPLASM OF LEFT FEMALE BREAST, UNSPECIFIED ESTROGEN RECEPTOR STATUS, UNSPECIFIED SITE OF BREAST STITCH HAYES SHORT SUPERIOR, LONG LATERAL GROSS DESCRIPTION A. Received in formalin labeled left breast and axillary contents is a mastectomy specimen with attached axillary tail weighing 2104.6 grams and measuring 23.5 cm from superior to inferior, 22 cm from medial to lateral and 8.5 cm from anterior to posterior. An ellipse of skin is present measuring 25 x 19 cm. The skin demonstrates a peau d'orange appearance in the lateral aspect. The nipple and areola are unremarkable. The axillary tail measures 12.5 x 5.3 x 2.6 cm. A short stitch hayes the superior aspect and a long stitch hayes the lateral aspect. The superior radial margin is inked blue. The inferior radial margin is inked green. The deep margin is inked black. The specimen is x-rayed prior to sectioning to reveal no biopsy clips identified. The specimen is serially sectioned to reveal an ill-defined stern-pink firm fibrous area in the upper outer quadrant measuring 7.7 cm from superior to inferior, 7.2 cm from lateral to medial and 6.5 cm from anterior to posterior. No definitive firm masses are identified within this area. The fibrous tissue abuts the superior radial margin in the upper outer quadrant, excised within 1.3 cm of the deep margin and 6.2 cm of the inferior radial margin of the specimen. It abuts the overlying skin. The overlying skin is diffusely thickened in this area. No obvious nodules are seen. The thickening does extend to the superior and inferior skin margins of resection. The remaining breast parenchyma is predominantly fatty with irregular rubbery white streaks. Sectioning through the axillary tail reveals eight ovoid stern firm nodules resembling lymph nodes ranging from 1.2 to 2.8 cm in greatest dimension. Hydraulic Press Tender sections are submitted as follows: A1 deep margin and fibrous tissue; A2 fibrous area with superior radial margin; A3-4 fibrous area with overlying skin; A5 superior perpendicular skin margin; A6 inferior perpendicular skin margin; A7 perpendicular lateral skin margin; A8-14 cross section of fibrous area submitted from lateral to medial; A15-17 fibrous area cross sections submitted from superior to inferior; A18-20 fibrous area cross section submitted from anterior to posterior; A21 upper inner quadrant with superior radial margin and skin; A22 lower inner quadrant with inferior radial margin and skin; A23 lower outer quadrant with inferior radial margin; A24 upper outer quadrant with lateral to fibrous area nonmarginal; A25 subareolar area nonmarginal; A26-27 nipple totally submitted; A28 one axillary lymph node sectioned; A29 one axillary lymph node sectioned; A30 one axillary lymph node sectioned; A31 one axillary lymph node sectioned; A32 one axillary lymph node sectioned; A33 one axillary lymph node sectioned; A34 one axillary lymph node sectioned; A35-38 largest axillary lymph node sectioned. Time removed from the patient 12:55 and time placed in formalin 13:35 on 01/25/21. Fixative type: 10% neutral buffered formalin Length of fixation: 31 hours and 15 minutes Cold ischemia time: 40 minute(s) DIPAK/rina 01/20/2021 Gross examination performed at [facility], [facility] [place] [address] Date of Report: 02/02/2021 Date of Procedure: 01/25/2021 Date of Receipt: 01/25/2021 Submitted by: DC ARRIETA MD Location: [facility] Diagnostic interpretation performed at [facility], [address] [place] [address] [place] [address]. CLIA Number: [id number] Normal [facility] Reference Lab Comment on above: Performed By: #### S #### See report for performing lab information. 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 - Lymphovascular space invasion, including dermal lymphovascular space invasion is identified. 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 - Macrometastatic carcinoma involving four lymph nodes, micrometastatic carcinoma involving one lymph node and isolated tumor cells involving one lymph node from a total of seven lymph nodes evaluated, largest metastasis measures 12 mm in greatest dimension with extranodal extension measuring 1.5 mm. - Treatment effect including fibrosis and histiocytic inflammation is noted within multiple lymph nodes. EDK/edk 02/01/2021 COMMENT The patient's history of cT4d disease is noted. Foci of residual invasive and in situ carcinoma are identified in a fibrous tumor bed within the upper outer quadrant that measures 77 x 72 mm. There was non concentric tumor response to therapy with residual tumor present as scattered single cells, glands and rare clusters. Rare tumor cells are also identified in the nipple dermis, the subareolar aspect and in the lower inner quadrant. SYNOPTIC REPORT OF THOMAS PATHOLOGIC FINDINGS LEFT BREAST AND AXILLARY CONTENTS: BREAST INVASIVE CARCINOMA WORKSHEET Part: A Procedure: Total mastectomy (including nipple-sparing and skin-sparing mastectomy) Specimen Laterality: Left Tumor size: Size of largest invasive carcinoma: Greatest dimension of largest focus of invasion >1 mm: 6 mm Tumor Focality: Cannot be determined: Multiple foci following neoadjuvant therapy Histologic Type of Invasive Carcinoma: Invasive carcinoma of no special type (ductal, not otherwise specified) Histologic Grade: Glandular (Acinar) / Tubular Differentiation: Score 3 Nuclear Pleomorphism: Score 3 Mitotic Rate: Score 2 Overall Grade: Grade III Ductal Carcinoma In Situ: Present Architectural Patterns: Architectural Pattern:Cribriform Architectural Pattern:Solid DCIS Nuclear Grade: Grade III (high) DCIS Necrosis: Not identified Tumor Extension: Skin: Invasive carcinoma directly invades into the dermis or epidermis without skin ulceration (this does not change the T classificationof invasive carcinomas) Nipple: Other: Residual invasive carcinoma is identified in the nipple dermis Skeletal muscle: No skeletal muscle is present Invasive Carcinoma Margins: Margins uninvolved by invasive carcinoma Distance from closest margin: 1 mm Closest margin: Deep Distance from other specified margin: 1.5 mm Designation of margin: Superior radial DCIS Margins: Margins uninvolved by DCIS All margins >2 mm Lymph Nodes: Involved by tumor cells Number of lymph nodes with macrometastases (>2 mm): 4 Number of lymph nodes with micrometastases (>0.2 mm to 2 mm and/or >200 cells): 1 Number of lymph nodes with isolated tumor cells (<= 0.2 mm and <= 200 cells): 1 Size of largest metastatic deposit: 12 mm Extranodal extension present <=2 mm Total number of lymph nodes examined: 7 Number of sentinel nodes examined (if applicable): 0 Treatment Effect: Probable or definite response to presurgical therapy in the invasive carcinoma Probable or definite response to presurgical therapy in metastatic carcinoma Lymph-Vascular Invasion: Present Pathologic Stage Classification (pTNM,AJCC 8th ed) TNM Descriptor(s): y (post- treatment) Primary Tumor (Invasive Carcinoma) (pT): pT1b Regional Lymph Nodes (pN): Modifier: Not applicable Category (pN): pN2a Distant metastasis: Distant Metastasis (pM) Not applicable/Not confirmed pathologically in this case Estrogen & progesterone receptors: Previously performed and reported as follows: Estrogen receptor: Positive (90%) Progesterone receptor: Positive (2-5%) Specimen number #: [id number] (HER2) ERBB2 Status: Previously performed and reported as follows: HER2:Negative Specimen number #: [id number] Hydraulic Press Tender Tumor Block: Specify: A26 Residual tumor burden: Tumor bed dimension #1: 77 mm Tumor bed dimension #2: 72 mm Overall tumor cellularity 20% Percentage in situ 20% Comment: The clinical history of cT4d disease is noted. Breast biomarkers will be repeated on the residual carcinoma and reported separately. ------ Ade Trevino D.O. (Electronic Signature) SPECIMEN SUBMITTED A: LEFT BREAST AND AXILLARY CONTENTS ADDITIONAL PROCEDURE(S) BREAST MARKERS WITH HER2 (ERBB2) IHC Date Ordered: 02/03/2021 Date Reported: 02/03/2021 Procedure Results and Interpretation Breast Biomarkers Template RESULTS Estrogen Receptor (ER) Positive (95%) Stain intensity: Strong Internal controls: Present and appropriately reactive External controls: Appropriately reactive Progesterone Receptor (PgR) Negative (<1%) Stain intensity: Not applicable Internal controls: Present and appropriately reactive External controls: Appropriately reactive HER2 (ERBB2) IMMUNOHISTOCHEMISTRY ASSAY Interpretation: EQUIVOCAL for HER2 (ERBB2) Expression Score: 2+ (FISH for HER2 will be performed and the results reported separately) Percentage of cells with uniform intense complete membrane stainin (reported for 2+ and 3+ scores only) Block Number: A26 Tissue Analyzed: Left breast and axillary contents, residual invasive ductal carcinoma, mastectomy Specimen fixative: 10% neutral buffered formalin Length of fixation: >6 and <72 hours Cold ischemia time: < 1 hour Latest ASCO/CAP guidelines for fixation met: yes These results should be interpreted with caution if the above pre-analytical values do not meet the ASCO/CAP guidelines for tissue fixation and handling. Reference Range for Hormone Receptors: Staining of greater than or equal to 1% of the tumor cells is considered positive. Reference Ranges for HER2 (ERBB2) immunohistochemistry: Positive (3+): Complete, intense circumferential membrane staining in >10% of tumor cells Equivocal (2+): Weak to moderate complete membrane staining observed in >10% of tumor cells Negative (1+): Incomplete, faint membrane staining in >10% of tumor cells Negative (0): No staining or incomplete, faint membrane staining in 10% of tumor cells Consideration of follow-up testing for HER2 (ERBB2) status by fluorescence in situ hybridization (FISH) for all equivocal (2+) results is recommended and will be ordered as a reflex test if FISH was not a testing methodology already employed. METHODS Estrogen Receptor: Food and Drug Administration (FDA) cleared: [employer], [place], [place] Primary Antibody: SP1 Progesterone Receptor: FDA cleared: [employer], [place], [place] Primary Antibody: IE2 HER2 (ERBB2) by IHC: FDA cleared: [employer], [place], [place] Primary Antibody: 4B5 The hormone receptor tests were performed and reported according to Annemarie KH, Mary YOUNGH, Cary M, Prerna SE, Helen LA, [place] PL, Gildardo DF, Lino SR, Shirlene Severino, Marybel J, Diane CM, Jamshid MM, Antonietta DL, Nadeem WF, Michele EE, Madeleine L, Tian G, Juventino TF, Jensen LM, Collin AC. Estrogen and Progesterone Receptor Testing in Breast Cancer: ASCO/CAP Guideline Update. J Clin Oncol. 2019Mar 21;38(12):3745-5008. doi: 10.1200/JCO.19.98981. Epub 2019Dec 14. PMID: [id number]. The hormone receptor assays have been internally validated on decalcified tissues Estrogen and progesterone receptor results are valid if tissue was processed according to ASCO/CAP guidelines. Antibody and Detection System: [place] Pathway anti-HER2 rabbit monoclonal antibody (clone 4B5), [place] anti-estrogen receptor rabbit monoclonal antibody (clone SP1) and [place] anti-progesterone receptor rabbit monoclonal antibody (clone IE2) detected with the [employer] iView Detection System (indirect biotin streptavidin detection); [employer], [place], [place]. Control slides: Cell line controls with high, equivocal, low and negative HER2 protein expression, along with known positive control tissue as well as the patient's tissue are evaluated for HER2 expression. A separate slide of the patient's tissue is similarly processed without antibody (negative control); slides were reviewed and showed appropriate staining. The HER2 immunohistochemistry assay was developed, validated, scored, and reported in accordance with the guidelines approved by the [place] [employer] and the [employer] [place] [employer]. Collin JOSE et al. Arch Pathol Lab Med. 2018;137(9) . The HER2 assay has not been validated on decalcified tissues. Results should be interpreted with caution given the possibility of false negative results on decalcified specimens. EDK/ss/02/03/2021 FISH for HER2 Date Ordered: 02/03/2021 Date Reported: 02/08/2021 Procedure Results and Interpretation HER2 (ERBB2) Status by FISH: Non Amplified Block Tested: A26 Specimen site and type: Left breast and axillary contents Interpretation: NEGATIVE for HER2 (ERBB2) GENE AMPLIFICATION Number of cells counted: 40 Number of observers: 2 Average HER2 (ERBB2) signal copy number per cell: 2.5 Average CEP 17 signal copy number per cell: 2.1 HER2 (ERBB2)/CEP17 ratio:1.2 Fixative: 10% neutral buffered formalin Fixation time: >6 and < 72 hours Cold Ischemic time: <1 hour Meets ASCO/CAP guidelines for fixative and fixation times: yes These results should be interpreted with caution if the above pre-analytical values do not meet the ASCO/CAP guidelines for tissue fixation and handling. Tissue sections for HER2 (ERBB2) analysis should not be used if cut > 6 weeks prior to testing. Reference ranges (2018 ASCO/CAP guidelines): HER2 (ERBB2) non amplified: HER2(ERBB2)/ CEP 17 ratio < 2.0 with <4.0 HER2(ERBB2) signals/cell (Group 5) HER2 (ERBB2) amplified: HER2(ERBB2)/ CEP 17 ratio is >/= 2.0 with >/= 4.0 HER2(ERBB2) signals/cell (Group 1) Methods: HER2 (ERBB2) Gene Amplification was manually evaluated on paraffin-embedded tissue by interphase fluorescence in situ hybridization (FISH), using a dual label probe set for the HER2 (ERBB2) locus and the alphacentromeric region of chromosome 17 (PathVysion; [employer], [place]). The [facility] has validated modifications of the PathVysion kit used for the testing, including the use of Target Retrieval Solution and Proteinase K ([employer];[place]) for cell conditioning, and modified probe/target denaturation and hybridization conditions for the assay. Internal and external (amplified and non-amplified) controls are evaluated. The in situ hybridization analysis was performed and correlated with preselected areas of invasive carcinoma deemed adequate for analysis by a pathologist. This assay has not been validated on decalcified tissues. Results should be interpreted with caution given the likelihood of false negativity on decalcified specimens. Negative results should be interpreted with caution for specimens not meeting the ASCO/CAP guidelines. The HER2 (ERBB2) assay was developed, validated, and reported in accordance with guidelines published by the [place] [employer] and the [employer] [place] [employer] (Collin AC, et al. J Clin Oncol. 2018 Jun 10;36(20):9236-2692. Epub 2017April 30). Pathologist Interpretation: Donovan Cesar MD ANALYTE SPECIFIC REAGENT (ASR) DISCLAIMER This test was developed and its performance characteristics determined by [facility]'s [facility] [place] [facility] It has not been cleared or approved by the FDA. -[facility] is regulated under CLIA as qualified to perform high-complexity testing. This test is used for clinical purposes. It should not be regarded as investigational or for research. PM/es 3.10.2021 Procedure Pathologist: Donovan Cesar M.D. Electronic Signature CLINICAL DATA MALIGNANT NEOPLASM OF LEFT FEMALE BREAST, UNSPECIFIED ESTROGEN RECEPTOR STATUS, UNSPECIFIED SITE OF BREAST STITCH HAYES SHORT SUPERIOR, LONG LATERAL GROSS DESCRIPTION A. Received in formalin labeled left breast and axillary contents is a mastectomy specimen with attached axillary tail weighing 2104.6 grams and measuring 23.5 cm from superior to inferior, 22 cm from medial to lateral and 8.5 cm from anterior to posterior. An ellipse of skin is present measuring 25 x 19 cm. The skin demonstrates a peau d'orange appearance in the lateral aspect. The nipple and areola are unremarkable. The axillary tail measures 12.5 x 5.3 x 2.6 cm. A short stitch hayes the superior aspect and a long stitch hayes the lateral aspect. The superior radial margin is inked blue. The inferior radial margin is inked green. The deep margin is inked black. The specimen is x-rayed prior to sectioning to reveal no biopsy clips identified. The specimen is serially sectioned to reveal an ill-defined stern-pink firm fibrous area in the upper outer quadrant measuring 7.7 cm from superior to inferior, 7.2 cm from lateral to medial and 6.5 cm from anterior to posterior. No definitive firm masses are identified within this area. The fibrous tissue abuts the superior radial margin in the upper outer quadrant, excised within 1.3 cm of the deep margin and 6.2 cm of the inferior radial margin of the specimen. It abuts the overlying skin. The overlying skin is diffusely thickened in this area. No obvious nodules are seen. The thickening does extend to the superior and inferior skin margins of resection. The remaining breast parenchyma is predominantly fatty with irregular rubbery white streaks. Sectioning through the axillary tail reveals eight ovoid stern firm nodules resembling lymph nodes ranging from 1.2 to 2.8 cm in greatest dimension. Hydraulic Press Tender sections are submitted as follows: A1 deep margin and fibrous tissue; A2 fibrous area with superior radial margin; A3-4 fibrous area with overlying skin; A5 superior perpendicular skin margin; A6 inferior perpendicular skin margin; A7 perpendicular lateral skin margin; A8-14 cross section of fibrous area submitted from lateral to medial; A15-17 fibrous area cross sections submitted from superior to inferior; A18-20 fibrous area cross section submitted from anterior to posterior; A21 upper inner quadrant with superior radial margin and skin; A22 lower inner quadrant with inferior radial margin and skin; A23 lower outer quadrant with inferior radial margin; A24 upper outer quadrant with lateral to fibrous area nonmarginal; A25 subareolar area nonmarginal; A26-27 nipple totally submitted; A28 one axillary lymph node sectioned; A29 one axillary lymph node sectioned; A30 one axillary lymph node sectioned; A31 one axillary lymph node sectioned; A32 one axillary lymph node sectioned; A33 one axillary lymph node sectioned; A34 one axillary lymph node sectioned; A35-38 largest axillary lymph node sectioned. Time removed from the patient 12:55 and time placed in formalin 13:35 on 01/25/21. Fixative type: 10% neutral buffered formalin Length of fixation: 31 hours and 15 minutes Cold ischemia time: 40 minute(s) DIPAK/rina 01/20/2021 Gross examination performed at [facility], [address] [place] [address] Date of Report: 02/02/2021 Date of Procedure: 01/25/2021 Date of Receipt: 01/25/2021 Submitted by: DC ARRIETA MD Location: [facility] Diagnostic interpretation performed at [facility], [address] [place] [address]. CLIA Number: [id number] [facility] HOSPon 10-17-2020 HOSP Patient:Alyssa Brasher MRN: Height:5' 8 (1.727 m) Weight:220 lb (99.791 kg) Outpatient Medications as of 01/25/21: MULTI-VITAMIN ORAL potassium chloride (K-TAB) 10 mEq tablet traMADol (ULTRAM) 50 mg tablet prochlorperazine (COMPAZINE) 10 mg tablet anastrozole (ARIMIDEX) 1 mg tablet LORazepam (ATIVAN) 0.5 mg perflutren lipid microspheres (DEFINITY) 1.1 mg/mL injection (to be provided with echo procedure) atenolol (TENORMIN) 100 mg tablet hydroCHLOROthiazide (HYDRODIURIL, ESIDRIX) 25 mg tablet Admission/Clinic Administered Medications as of 01/25/21: lidocaine 10 mg/mL (1 %) 1-2 mg injection (XYLOCAINE) lactated ringers infusion ceFAZolin iv piggyback 2 g in D5W (iso-osmotic) 100 mL (ANCEF) sodium chloride 0.9 % (flush) 10 mL (BD POSIFLUSH) sodium chloride 0.9 % (flush) 20 mL (BD POSIFLUSH) heparin 100 unit/mL 500 Units injection Problem List: Malignant neoplasm of overlapping sites of left breast in female, estrogen receptor positive (HCC) [C50.812, Z17.0] Nausea [R11.0] Hypertension [I10] Obesity with body mass index 30 or greater [E66.9] Former smoker [Z87.891] Fatty liver [K76.0] Hyperglycemia, unspecified [R73.9] Malignant neoplasm of unspecified site of left female breast (HCC) [C50.912] Allergies: Adhesive Tape-Silicones Date Verified: 01/25/21 Lab Values Lab Value Units Date High Low POTA* 4.1 mmol/L 01/13/2021 5.1 3.7 JUAN CARLOS* 36.0 % 01/13/2021 46.0 36.0 No progress notes entered within the past 30 days [facility] Vital Signs Date Time Vital Sign Value Performing Clinician Bertin tavarez 09-17-2024 08:42-0400 Body height 168.9 cm Amelia Weston [employer] Work Phone: [facility] 09-17-2024 08:42-0400 Body mass index (BMI) [Ratio] 35.58 kg/m2 Amelia Weston [employer] Work Phone: [facility] 09-17-2024 08:42-0400 Body temperature 98.49 [degF] Amelia Weston [employer] Work Phone: [facility] 09-17-2024 08:42-0400 Body weight 101.52 kg Amelia Weston [employer] Work Phone: [facility] 09-17-2024 08:42-0400 Diastolic blood pressure 80 mm[Hg] Amelia Weston [employer] Work Phone: [facility] 09-17-2024 08:42-0400 Heart rate 72 /min Amelia Weston [employer] Work Phone: [facility] 09-17-2024 08:42-0400 Respiratory rate 18 /min Amelia Weston [employer] Work Phone: [facility] 09-17-2024 08:42-0400 SaO2% (BldA) [Mass fraction] 96 % Amelia Weston [employer] Work Phone: [facility] 09-17-2024 08:42-0400 Systolic blood pressure 128 mm[Hg] Amelia Weston [employer] Work Phone: [facility] 09-10-2024 14:37-0400 Body height 172.7 cm Nickolas Parada APRN.RESERVATIONS SALES SUPERVISOR Work Phone: [facility] 09-10-2024 14:37-0400 Body mass index (BMI) [Ratio] 34.2 kg/m2 Nickolas Parada APRN.RESERVATIONS SALES SUPERVISOR Work Phone: [facility] 09-10-2024 14:37-0400 Body temperature 98.01 [degF] Nickolas Parada APRN.RESERVATIONS SALES SUPERVISOR Work Phone: [facility] 09-10-2024 14:37-0400 Body weight 102 kg Nickolas Parada APRN.RESERVATIONS SALES SUPERVISOR Work Phone: [facility] 09-10-2024 14:37-0400 Diastolic blood pressure 86 mm[Hg] Nickolas Parada APRN.RESERVATIONS SALES SUPERVISOR Work Phone: [facility] 09-10-2024 14:37-0400 Heart rate 59 /min Nickolas Parada APRN.RESERVATIONS SALES SUPERVISOR Work Phone: [facility] 09-10-2024 14:37-0400 Respiratory rate 16 /min Nickolas Parada APRN.RESERVATIONS SALES SUPERVISOR Work Phone: [facility] 09-10-2024 14:37-0400 SaO2% (BldA) [Mass fraction] 95 % Nickolas Parada APRN.RESERVATIONS SALES SUPERVISOR Work Phone: [facility] 09-10-2024 14:37-0400 Systolic blood pressure 133 mm[Hg] Nickolas Parada APRN.RESERVATIONS SALES SUPERVISOR Work Phone: [facility] 03-12-2024 14:40-0400 Body height 172.7 cm Erwin Hare MD Work Phone: [facility] 03-12-2024 14:40-0400 Body temperature 97.2 [degF] Erwin Hare MD Work Phone: [facility] 03-12-2024 14:40-0400 Body weight 102.2 kg Erwin Hare MD Work Phone: [facility] 03-12-2024 14:40-0400 Diastolic blood pressure 76 mm[Hg] Erwin Hare MD Work Phone: [facility] 03-12-2024 14:40-0400 Heart rate 63 /min Ewrin Hare MD Work Phone: [facility] 03-12-2024 14:40-0400 Respiratory rate 16 /min Erwin Hare MD Work Phone: [facility] 03-12-2024 14:40-0400 SaO2% (BldA) [Mass fraction] 92 % Erwin Hare MD Work Phone: [facility] 03-12-2024 14:40-0400 Systolic blood pressure 144 mm[Hg] Erwin Hare MD Work Phone: [facility] 08-15-2023 14:19-0400 Body temperature 97.81 [degF] Shirley Karen PA-C Work Phone: [facility] 08-15-2023 14:19-0400 Body weight 102.97 kg Shirley Karen PA-C Work Phone: [facility] 08-15-2023 14:19-0400 Diastolic blood pressure 89 mm[Hg] Shirley Karen PA-C Work Phone: [facility] 08-15-2023 14:19-0400 Heart rate 52 /min Shirley Karen PA-C Work Phone: [facility] 08-15-2023 14:19-0400 Respiratory rate 16 /min Shirley Karen PA-C Work Phone: [facility] 08-15-2023 14:19-0400 SaO2% (BldA) [Mass fraction] 96 % Shirley Osullivaner PA-C Work Phone: [facility] 08-15-2023 14:19-0400 Systolic blood pressure 148 mm[Hg] Shirley Karen PA-C Work Phone: [facility] 02-21-2023 14:13-0400 Body height 172.7 cm Erwin Hare MD Work Phone: [facility] 02-21-2023 14:13-0400 Body temperature 97.81 [degF] Erwin Hare MD Work Phone: [facility] 02-21-2023 14:13-0400 Body weight 100.06 kg Erwin Hare MD Work Phone: [facility] 02-21-2023 14:13-0400 Diastolic blood pressure 89 mm[Hg] Erwin Hare MD Work Phone: [facility] 02-21-2023 14:13-0400 Heart rate 64 /min Erwin Hare MD Work Phone: [facility] 02-21-2023 14:13-0400 Respiratory rate 16 /min Erwin Hare MD Work Phone: [facility] 02-21-2023 14:13-0400 SaO2% (BldA) [Mass fraction] 94 % Erwin Hare MD Work Phone: [facility] 02-21-2023 14:13-0400 Systolic blood pressure 133 mm[Hg] Erwin Hare MD Work Phone: [facility] 09-06-2022 14:00-0400 Body height 172.7 cm Erwin Hare MD Work Phone: [facility] 09-06-2022 14:00-0400 Body temperature 97 [degF] Erwin Hare MD Work Phone: [facility] 09-06-2022 14:00-0400 Body weight 101.06 kg Erwin Hare MD Work Phone: [facility] 09-06-2022 14:00-0400 Diastolic blood pressure 81 mm[Hg] Erwin Hare MD Work Phone: [facility] 09-06-2022 14:00-0400 Heart rate 60 /min Erwin Hare MD Work Phone: [facility] 09-06-2022 14:00-0400 Respiratory rate 18 /min Erwin Hare MD Work Phone: [facility] 09-06-2022 14:00-0400 SaO2% (BldA) [Mass fraction] 97 % Erwin Hare MD Work Phone: [facility] 09-06-2022 14:00-0400 Systolic blood pressure 123 mm[Hg] Erwin Hare MD Work Phone: [facility] 06-07-2022 14:04-0400 Body height 172.7 cm Nickolas Parada APRN.RESERVATIONS SALES SUPERVISOR Work Phone: [facility] 06-07-2022 14:04-0400 Body temperature 97.7 [degF] Nickolas Parada RECOATER.RESERVATIONS SALES SUPERVISOR Work Phone: [facility] 06-07-2022 14:04-0400 Body weight 99.29 kg Nickolas Parada RECOATER.RESERVATIONS SALES SUPERVISOR Work Phone: [facility] 06-07-2022 14:04-0400 Diastolic blood pressure 87 mm[Hg] Nickolas Parada APRN.RESERVATIONS SALES SUPERVISOR Work Phone: [facility] 06-07-2022 14:04-0400 Heart rate 67 /min Nickolas Parada APRN.RESERVATIONS SALES SUPERVISOR Work Phone: [facility] 06-07-2022 14:04-0400 Respiratory rate 16 /min Nickolas Parada APRN.RESERVATIONS SALES SUPERVISOR Work Phone: [facility] 06-07-2022 14:04-0400 SaO2% (BldA) [Mass fraction] 97 % Nickolas Parada APRN.RESERVATIONS SALES SUPERVISOR Work Phone: [facility] 06-07-2022 14:04-0400 Systolic blood pressure 133 mm[Hg] Nickolas Parada APRN.RESERVATIONS SALES SUPERVISOR Work Phone: [facility] 03-08-2022 08:10-0400 Body height 172.7 cm Nickolas Parada APRN.RESERVATIONS SALES SUPERVISOR Work Phone: [facility] 03-08-2022 08:10-0400 Body temperature 97.11 [degF] Nickolas Parada APRN.RESERVATIONS SALES SUPERVISOR Work Phone: [facility] 03-08-2022 08:10-0400 Body weight 100.79 kg Nickolas Parada APRN.RESERVATIONS SALES SUPERVISOR Work Phone: [facility] 03-08-2022 08:10-0400 Diastolic blood pressure 91 mm[Hg] Nickolas Parada APRN.RESERVATIONS SALES SUPERVISOR Work Phone: [facility] 03-08-2022 08:10-0400 Heart rate 72 /min Nickolas Parada APRN.RESERVATIONS SALES SUPERVISOR Work Phone: [facility] 03-08-2022 08:10-0400 Respiratory rate 16 /min Nickolas Parada APRN.RESERVATIONS SALES SUPERVISOR Work Phone: [facility] 03-08-2022 08:10-0400 SaO2% (BldA) [Mass fraction] 93 % Nickolas Parada APRN.RESERVATIONS SALES SUPERVISOR Work Phone: [facility] 03-08-2022 08:10-0400 Systolic blood pressure 148 mm[Hg] Nickolas Parada APRN.RESERVATIONS SALES SUPERVISOR Work Phone: [facility] Encounters Encounter Date Encounter Type Care Provider Facility Start: 09-17-2024 End: 09-17-2024 Bamboo flowsheet Amelia Weston [employer] Work Phone: [facility] Start: 09-17-2024 End: 09-17-2024 Bamboo flowsheet Amelia Weston [employer] Work Phone: [facility] Start: 09-17-2024 End: 09-17-2024 Office outpatient visit 25 minutes Amelia Aichholz [employer] Work Phone: [facility] Comment on above: Primary hypertension (CMS/HCC) (Primary Dx); Pre-diabetes; Morbid obesity due to excess calories (CMS/HCC); Tobacco use Start: 09-17-2024 End: 09-17-2024 ambulatory AMELIA AICHHOLZ Not Available Start: 09-10-2024 End: 09-10-2024 Office outpatient visit 25 minutes Nickolas Parada APRN.RESERVATIONS SALES SUPERVISOR Work Phone: Hematology/Oncology Comment on above: Malignant neoplasm o f overlapping sites of left breast in female, estrogen receptor positive (HCC) (Primary Dx); Primary hypertension; Osteopenia of multiple sites; Need for vaccination Start: 09-10-2024 End: 09-11-2024 ambulatory NICKOLAS PARADA Facility:[facility] Comment on above: Malignant neoplasm o f overlapping sites of left breast in female, estrogen receptor positive (HCC) (Primary Dx) Malignant neoplasm o f overlapping sites of left breast in female, estrogen receptor positive (HCC) Start: 09-04-2024 End: 09-07-2024 Telephone encounter Erwin Hare MD Work Phone: Hematology/Oncology Comment on above: Lab Orders Start: 06-18-2024 End: 06-18-2024 ambulatory AMELIA AICHHOLZ Not Available Start: 05-28-2024 End: 05-28-2024 ambulatory [facility] Work Phone: Hematology/Oncology Comment on above: Malignant neoplasm o f overlapping sites of left breast in female, estrogen receptor positive (HCC) (Primary Dx) Start: 03-18-2024 End: 03-18-2024 ambulatory AMELIA AICHHOLZ Not Available Start: 03-12-2024 End: 03-12-2024 Patient encounter procedure Erwin Hare MD Work Phone: [facility] Start: 03-12-2024 End: 03-13-2024 ambulatory [facility] Work Phone: Hematology/Oncology Comment on above: Malignant neoplasm o f overlapping sites of left breast in female, estrogen receptor positive (HCC); Osteopenia of multiple sites Malignant neoplasm o f overlapping sites of left breast in female, estrogen receptor positive (HCC) (Primary Dx) Malignant neoplasm o f overlapping sites of left breast in female, estrogen receptor positive (HCC) (Primary Dx); Osteopenia of multiple sites Start: 02-03-2024 Refill Nickolas Parada APRN.CNP Work Phone: Hematology/Oncology Comment on above: Refill Request Start: 01-30-2024 End: 01-30-2024 ambulatory [facility] Work Phone: Hematology/Oncology Comment on above: Malignant neoplasm o f overlapping sites of left breast in female, estrogen receptor positive (HCC) (Primary Dx) Start: 12-19-2023 End: 12-19-2023 ambulatory ANDREW SPEARS Facility:[facility] Start: 11-07-2023 End: 11-07-2023 ambulatory [facility] Work Phone: Hematology/Oncology Comment on above: Malignant neoplasm o f overlapping sites of left breast in female, estrogen receptor positive (HCC) (Primary Dx) Start: 09-27-2023 End: 09-27-2023 ambulatory [facility] Work Phone: Hematology/Oncology Comment on above: Malignant neoplasm o f overlapping sites of left breast in female, estrogen receptor positive (HCC) (Primary Dx) Start: 08-15-2023 End: 08-15-2023 Patient encounter procedure Shirley Jones PA-C Work Phone: [facility] Start: 08-15-2023 End: 08-15-2023 ambulatory [facility] Work Phone: Hematology/Oncology Comment on above: Malignant neoplasm o f overlapping sites of left breast in female, estrogen receptor positive (HCC) Malignant neoplasm o f overlapping sites of left breast in female, estrogen receptor positive (HCC) (Primary Dx); Osteopenia of multiple sites Malignant neoplasm o f overlapping sites of left breast in female, estrogen receptor positive (HCC) (Primary Dx) Start: 08-14-2023 Telephone encounter Erwin shafer MD Work Phone: Hematology/Oncology Comment on above: Lab Orders Start: 06-13-2023 End: 06-13-2023 ambulatory [facility] Work Phone: Hematology/Oncology Comment on above: Malignant neoplasm o f overlapping sites of left breast in female, estrogen receptor positive (HCC) (Primary Dx) Start: 02-21-2023 End: 02-21-2023 Patient encounter procedure Erwin Hare MD Work Phone: [facility] Start: 02-21-2023 End: 02-21-2023 ambulatory [facility] Work Phone: Hematology/Oncology Comment on above: Malignant neoplasm o f overlapping sites of left breast in female, estrogen receptor positive (HCC) Malignant neoplasm o f overlapping sites of left breast in female, estrogen receptor positive (HCC) (Primary Dx) Malignant neoplasm o f overlapping sites of left breast in female, estrogen receptor positive (HCC) (Primary Dx); Osteopenia of multiple sites Start: 12-27-2022 End: 12-27-2022 ambulatory [facility] Work Phone: Hematology/Oncology Comment on above: Malignant neoplasm o f overlapping sites of left breast in female, estrogen receptor positive (HCC) (Primary Dx) Start: 09-11-2022 End: 09-12-[address] ANDREW SPEARS Facility: Start: 09-06-2022 End: 09-06-2022 Patient encounter procedure Erwin Hare MD Work Phone: [facility] Start: 09-06-2022 End: 09-06-2022 ambulatory [facility] Work Phone: Hematology/Oncology Comment on above: Malignant neoplasm o f overlapping sites of left breast in female, estrogen receptor positive (HCC); Essential hypertension; Osteopenia, unspecified location Malignant neoplasm o f overlapping sites of left breast in female, estrogen receptor positive (HCC) (Primary Dx) Malignant neoplasm o f overlapping sites of left breast in female, estrogen receptor positive (HCC) (Primary Dx); Osteopenia of multiple sites; Need for influenza vaccination Start: 08-10-2022 End: 08-11-[address] NICKOLAS PARADA Facility:[facility] Start: 07-19-2022 End: 07-19-2022 ambulatory [facility] Work Phone: Hematology/Oncology Comment on above: Malignant neoplasm o f overlapping sites of left breast in female, estrogen receptor positive (HCC) (Primary Dx) Start: 06-07-2022 End: 06-07-2022 Patient encounter procedure Nickolas Parada APRN.RESERVATIONS SALES SUPERVISOR Work Phone: [facility] Start: 06-07-2022 End: 06-07-2022 ambulatory [facility] Work Phone: Hematology/Oncology Comment on above: Malignant neoplasm o f overlapping sites of left breast in female, estrogen receptor positive (HCC) Malignant neoplasm o f overlapping sites of left breast in female, estrogen receptor positive (HCC) (Primary Dx); Essential hypertension; Osteopenia, unspecified location Start: 05-28-2022 Telephone encounter Nickolas kaur APRN.RESERVATIONS SALES SUPERVISOR Work Phone: Hematology/Oncology Comment on above: Lab Orders Start: 04-19-2022 End: 04-19-2022 ambulatory [facility] Work Phone: Hematology/Oncology Comment on above: Malignant neoplasm o f overlapping sites of left breast in female, estrogen receptor positive (HCC) Start: 03-08-2022 End: 03-08-2022 Patient encounter procedure Nickolas Parada APRN.RESERVATIONS SALES SUPERVISOR Work Phone: [facility] Start: 03-08-2022 End: 03-08-2022 ambulatory [facility] Work Phone: Hematology/Oncology Comment on above: Malignant neoplasm o f overlapping sites of left breast in female, estrogen receptor positive (HCC) Malignant neoplasm o f overlapping sites of left breast in female, estrogen receptor positive (HCC) (Primary Dx) Malignant neoplasm o f overlapping sites of left breast in female, estrogen receptor positive (HCC) (Primary Dx); Essential hypertension; Osteopenia, unspecified location Start: 11-21-2021 End: 11-22-2021 ambulatory ALISON SPAIN Facility:[facility] Procedures Date Procedure Procedure Detail Performing Clinician Start: 09-10-2024 Blood count complete auto&auto difrntl wbc Erwin Hare MD Work Phone: Start: 03-18-2024 Microscopic observat ion [Identifier] in Cervix by Cyto stain Amelia Trista [employer] Work Phone: Start: 03-12-2024 Blood count complete auto&auto difrntl wbc Shirley Jones PA-C Work Phone: Start: 08-15-2023 Blood count complete auto&auto difrntl wbc Erwin Hare MD Work Phone: Start: 02-21-2023 Blood count complete auto&auto difrntl wbc Erwin Hare MD Work Phone: Start: 09-06-2022 Blood count complete auto&auto difrntl wbc Nickolas Parada RECOATER.RESERVATIONS SALES SUPERVISOR Work Phone: Start: 06-07-2022 Blood count complete auto&auto difrntl wbc Nickolas Parada RECOATER.RESERVATIONS SALES SUPERVISOR Work Phone: Start: 04-19-2022 Comprehensive metabo lic panel Erwin Hare MD Work Phone: Start: 03-08-2022 Blood count complete auto&auto difrntl wbc Erwin Hare MD Work Phone: Start: 08-14-2021 Adult depression [facility] assessment Lab/[facility] Work Phone: Plan of Treatment Date Care Activity Detail Author Start: 2035 RSV Vaccine (1 - 1-d ose 75+ series) RSV Vaccine (1 - 1-dose 75+ series) [facility] Start: 09-10-2027 Diabetes Screening Diabetes Screenin [facility] Start: 03-18-2027 Screening for malign ant neoplasm of cervix [facility] Start: 03-12-2027 Diabetes Screening Diabetes Screenin [facility] Start: 08-15-2026 Diabetes Screening Diabetes Screenin [facility] Start: 02-21-2026 DIABETES SCREEN DIABETES SCREEN [facility] Start: 02-21-2026 Diabetes Screening Diabetes Screenin g [facility] Start: 09-06-2025 DIABETES SCREEN DIABETES SCREEN [facility] Start: 06-07-2025 DIABETES SCREEN DIABETES SCREEN [facility] Start: 04-19-2025 DIABETES SCREEN DIABETES SCREEN [facility] Start: 03-18-2025 Screening for malign ant neoplasm of colon Colorectal Cancer Screening [facility] Comment on above: Postponed from 10/08 (Patient Refused) Start: 03-16-2025 End: 03-16-2025 Patient encounter procedure 03/16/2025 8:40 AM EDT Office Visit [facility] [address] [place] [address] Amelia Weston NP [address] [place] [address] [facility] Start: 03-11-2025 End: 06-10-2025 Cancer Ag 27-29 [Units/volume] in Serum or Plasma CA 27.29 BLOOD Lab Routine Malignant neoplasm of overlapping sites of left breast in female, estrogen receptor positive (HCC) Primary hypertension Osteopenia of multiple sites Need for vaccination Expected: 03/11/2025, Expires: 06/10/2025 [facility] Comment on above: Expected: 03/11/2025 , Expires: 06/10/2025 Start: 03-11-2025 End: 06-10-2025 CBC W Auto Differential panel - Blood COMPLETE BLOOD COUNT AND DIFFERENTIAL Lab Routine Malignant neoplasm of overlapping sites of left breast in female, estrogen receptor positive (HCC) Primary hypertension Osteopenia of multiple sites Need for vaccination Expected: 03/11/2025, Expires: 06/10/2025 [facility] Comment on above: Expected: 03/11/2025 , Expires: 06/10/2025 Start: 03-11-2025 End: 06-10-2025 Comprehensive metabolic 2000 panel - Serum or Plasma COMPREHENSIVE METABOLIC PANEL Lab Routine Malignant neoplasm of overlapping sites of left breast in female, estrogen receptor positive (HCC) Primary hypertension Osteopenia of multiple sites Need for vaccination Expected: 03/11/2025, Expires: 06/10/2025 [facility] Comment on above: Expected: 03/11/2025 , Expires: 06/10/2025 Start: 03-11-2025 End: 03-11-2025 Follow-up encounter Hematology/Oncology Comment on above: 6 month follow up la b port flush tx [facility] Start: 03-09-2025 End: 09-17-2025 Hemoglobin A1c/Hemoglobin.total in Blood Hemoglobin A1c Lab Routine Pre-diabetes Expected: 03/09/2025 (Approximate), Expires: 09/17/2025 [facility] Work Phone: Comment on above: Expected: 03/09/2025 (Approximate), Expires: 09/17/2025 Start: 03-08-2025 DIABETES SCREEN DIABETES SCREEN [facility] Start: 12-11-2024 End: 12-11-2024 ambulatory 12/11/2024 1:00 PM [facility] Hematology/Oncology [address] [place] [address] 3 month port flush Hematology/Oncology Comment on above: 3 month port flush Start: 09-17-2024 End: 09-17-2024 Patient encounter procedure 09/17/2024 8:40 AM EDT Office Visit [facility] [address] [place] [id number] Amelia Weston NP [address] [place] [address] Arrived [facility] Comment on above: Arrived Start: 09-10-2024 End: 09-10-2024 Follow-up encounter Hematology/Oncology Comment on above: 6 month follow up la b port flush tx [facility] Start: 09-10-2024 End: 12-10-2024 Cancer Ag 27-29 [Units/volume] in Serum or Plasma [facility] Comment on above: Expected: 09/10/2024 , Expires: 12/10/2024 Start: 09-10-2024 End: 12-10-2024 CBC W Auto Differential panel - Blood COMPLETE BLOOD COUNT AND DIFFERENTIAL Lab Routine Malignant neoplasm of overlapping sites of left breast in female, estrogen receptor positive (HCC) Expected: 09/10/2024, Expires: 12/10/2024 [facility] Work Phone: Comment on above: Expected: 09/10/2024 , Expires: 12/10/2024 Start: 09-10-2024 End: 12-10-2024 Comprehensive metabolic 2000 panel - Serum or Plasma COMPREHENSIVE METABOLIC PANEL Lab Routine Malignant neoplasm of overlapping sites of left breast in female, estrogen receptor positive (HCC) Expected: 09/10/2024, Expires: 12/10/2024 [facility] Comment on above: Expected: 09/10/2024 , Expires: 12/10/2024 Start: 08-02-2024 Covid-19 Vaccine () Covid-19 Vaccine () [facility] Start: 08-02-2024 Influenza vaccination Influenza Vacc ine (#1) [facility] Start: 02-13-2024 End: 04-14-2024 Cancer Ag 27-29 [Units/volume] in Serum or Plasma CA 27.29 BLOOD Lab Routine Malignant neoplasm of overlapping sites of left breast in female, estrogen receptor positive (HCC) Osteopenia of multiple sites Expected: 02/13/2024 (Approximate), Expires: 04/14/2024 [facility] Work Phone: Comment on above: Expected: 02/13/2024 (Approximate), Expires: 04/14/2024 Start: 02-13-2024 End: 04-14-2024 CBC W Auto Differential panel - Blood CBC + DIFF Lab Routine Malignant neoplasm of overlapping sites of left breast in female, estrogen receptor positive (HCC) Osteopenia of multiple sites Expected: 02/13/2024 (Approximate), Expires: 04/14/2024 [facility] Work Phone: Comment on above: Expected: 02/13/2024 (Approximate), Expires: 04/14/2024 Start: 02-13-2024 End: 04-14-2024 Comprehensive metabolic 2000 panel - Serum or Plasma COMP METABOLIC PANEL Lab Routine Malignant neoplasm of overlapping sites of left breast in female, estrogen receptor positive (HCC) Osteopenia of multiple sites Expected: 02/13/2024 (Approximate), Expires: 04/14/2024 [facility] Work Phone: Comment on above: Expected: 02/13/2024 (Approximate), Expires: 04/14/2024 Start: 12-02-2023 Behavioral Health Screening Behavioral Health Screening [facility] Start: 12-02-2023 Depression Assessment Depression Ass essment [facility] Start: 08-15-2023 End: 10-15-2023 Cancer Ag 27-29 [Units/volume] in Serum or Plasma [facility] Work Phone: Comment on above: Expected: 08/15/2023 , Expires: 10/15/2023 Start: 08-15-2023 End: 10-15-2023 CBC W Auto Differential panel - Blood CBC + DIFF Lab Routine Malignant neoplasm of overlapping sites of left breast in female, estrogen receptor positive (HCC) Expected: 08/15/2023, Expires: 10/15/2023 [facility] Work Phone: Comment on above: Expected: 08/15/2023 , Expires: 10/15/2023 Start: 08-15-2023 End: 10-15-2023 Comprehensive metabolic 2000 panel - Serum or Plasma COMP METABOLIC PANEL Lab Routine Malignant neoplasm of overlapping sites of left breast in female, estrogen receptor positive (HCC) Expected: 08/15/2023, Expires: 10/15/2023 [facility] Work Phone: Comment on above: Expected: 08/15/2023 , Expires: 10/15/2023 Start: 08-02-2023 Influenza vaccination [facility] Start: 02-21-2023 End: 04-23-2023 Cancer Ag 27-29 [Units/volume] in Serum or Plasma [facility] Work Phone: Comment on above: Expected: 02/21/2023 , Expires: 04/23/2023 Start: 02-21-2023 End: 04-23-2023 CBC W Auto Differential panel - Blood CBC + DIFF Lab Routine Malignant neoplasm of overlapping sites of left breast in female, estrogen receptor positive (HCC) Expected: 02/21/2023, Expires: 04/23/2023 [facility] Work Phone: Comment on above: Expected: 02/21/2023 , Expires: 04/23/2023 Start: 02-21-2023 End: 04-23-2023 Comprehensive metabolic 2000 panel - Serum or Plasma COMP METABOLIC PANEL Lab Routine Malignant neoplasm of overlapping sites of left breast in female, estrogen receptor positive (HCC) Expected: 02/21/2023, Expires: 04/23/2023 [facility] Work Phone: Comment on above: Expected: 02/21/2023 , Expires: 04/23/2023 Start: 12-02-2022 DEPRESSION ASSESSMENT DEPRESSION ASS ESSMENT [facility] Start: 09-07-2022 End: 11-07-2022 CBC W Auto Differential panel - Blood CBC + DIFF Lab Routine Malignant neoplasm of overlapping sites of left breast in female, estrogen receptor positive (HCC) Essential hypertension Osteopenia, unspecified location Expected: 09/07/2022, Expires: 11/07/2022 [facility] Work Phone: Comment on above: Expected: 09/07/2022 , Expires: 11/07/2022 Start: 09-07-2022 End: 11-07-2022 Comprehensive metabolic 2000 panel - Serum or Plasma COMP METABOLIC PANEL Lab Routine Malignant neoplasm of overlapping sites of left breast in female, estrogen receptor positive (HCC) Essential hypertension Osteopenia, unspecified location Expected: 09/07/2022, Expires: 11/07/2022 [facility] Work Phone: Comment on above: Expected: 09/07/2022 , Expires: 11/07/2022 Start: 08-14-2022 Adult depression screening assessment DEPRESSION SCREENING [facility] Start: 08-02-2022 Influenza vaccination INFLUENZA (#1) [facility] Start: 05-28-2022 End: 07-28-2022 CBC W Auto Differential panel - Blood CBC + DIFF Lab Routine Malignant neoplasm of overlapping sites of left breast in female, estrogen receptor positive (HCC) Expected: 05/28/2022, Expires: 07/28/2022 [facility] Work Phone: Comment on above: Expected: 05/28/2022 , Expires: 07/28/2022 Start: 05-28-2022 End: 07-28-2022 Comprehensive metabolic 2000 panel - Serum or Plasma COMP METABOLIC PANEL Lab Routine Malignant neoplasm of overlapping sites of left breast in female, estrogen receptor positive (HCC) Expected: 05/28/2022, Expires: 07/28/2022 [facility] Work Phone: Comment on above: Expected: 05/28/2022 , Expires: 07/28/2022 Start: 02-19-2022 COVID-19 VACCINE (4 - Booster) COVID-19 VACCINE (4 - Booster) [facility] Start: 02-13-2022 COVID-19 VACCINE (4 - Booster) COVID-19 VACCINE (4 - Booster) [facility] Start: 01-16-2022 COVID-19 VACCINE (4 - Booster for Pfizer series) COVID-19 VACCINE (4 - Booster for Pfizer series) [facility] Start: 01-16-2022 COVID-19 VACCINE (5 - Pfizer series) COVID-19 VACCINE (5 - Pfizer series) [facility] Start: 12-02-2021 DEPRESSION ASSESSMENT DEPRESSION ASS ESSMENT [facility] Start: 2020 RSV Vaccine (1 - 1-d ose 60+ series) RSV Vaccine (1 - 1-dose 60+ series) [facility] Start: 2010 SHINGRIX VACCINE (1 of 2) SHINGRIX VACCINE (1 of 2) [facility] Start: 2005 COLOGUARD (FIT-DNA) COLOGUARD (FIT-D NA) [facility] Start: 2005 Colonoscopy COLONOSCOPY [facility] Start: 2005 COLORECTAL CANCER SCREENING COLORECTAL CANCER SCREENING [facility] Start: [address] COLONOGRAPHY [facility] Start: 2005 FECAL OCCULT BLOOD FECAL OCCULT BLOO D [facility] Start: 2005 Lipid 1996 panel - S eliceo or Plasma Lipid Screening [facility] Start: 2005 Lipid panel Lipid Screening [facility] Start: 2005 LIPID SCREEN LIPID SCREEN [facility] Start: 2005 Screening for malign ant neoplasm of colon [facility] Start: 2005 SIGMOIDOSCOPY SIG[facility]IDOSCOPY [facility] Start: 2000 Mammography [facility] Start: 2000 Screening for malign ant neoplasm of breast Mammogram Screening [facility] Start: 1990 HPV TESTING HPV TESTING [facility] Start: 1990 Screening for malign ant neoplasm of cervix [facility] Start: 1981 PAP TESTING PAP TESTING [facility] Start: 1981 Screening for malign ant neoplasm of cervix [facility] Start: 1979 SHINGRIX VACCINE (1 of 2) SHINGRIX VACCINE (1 of 2) [facility] Start: 1979 Urine microalbumin profile [facility] Start: 1978 ANNUAL 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 Start: 1978 Hepatitis C screening Hepatitis C Sc [facility] Start: 1978 HIV SCREENING HIV SCREENING [facility] Start: 1978 HIV screening HIV Screening [facility] Start: 1966 PNEUMOCOCCAL (1 - PCV) PNEUMOCOCCAL (1 - PCV) [facility] Start: 1960 Screening for malign ant neoplasm of colon [facility] Cancer Ag 27-29 [Units/volume] in Serum or Plasma CA 27.29 BLOOD Lab Routine Malignant neoplasm of overlapping sites of left breast in female, estrogen receptor positive (HCC) Osteopenia of multiple sites 03/12/2024 2:32 PM EDT [facility] Work Phone: End: 07-07-2023 Diagnostic mammography computer-aided detcj uni [facility] Radiology Routine Malignant neoplasm of overlapping sites of left breast in female, estrogen receptor positive (HCC) Essential hypertension Osteopenia, unspecified location 1 Occurrences starting 06/07/2022 until 07/07/2023 [facility] Work Phone: Comment on above: 1 Occurrences starti ng 06/07/2022 until 07/07/2023 End: 10-10-2025 DXA Skeletal system.axial Views for bone density DXA-AXIAL SKELETON Radiology Routine Malignant neoplasm of overlapping sites of left breast in female, estrogen receptor positive (HCC) Primary hypertension Osteopenia of multiple sites 1 Occurrences starting 09/10/2024 until 10/10/2025 [facility] Work Phone: Comment on above: 1 Occurrences starti ng 09/10/2024 until 10/10/2025 End: 03-22-2024 [facility] Radiology Routine Malignant neoplasm of overlapping sites of left breast in female, estrogen receptor positive (HCC) 1 Occurrences starting 02/21/2023 until 03/22/2024 [facility] Work Phone: Comment on above: 1 Occurrences starti ng 02/21/2023 until 03/22/2024 End: 04-11-2025 MG Breast - right Diagnostic for implant [facility] Radiology Routine Malignant neoplasm of overlapping sites of left breast in female, estrogen receptor positive (HCC) 1 Occurrences starting 03/12/2024 until 04/11/2025 [facility] Work Phone: Comment on above: 1 Occurrences starti ng 03/12/2024 until 04/11/2025 [facility] Immunizations Immunization Date Immunization Notes Care Provider [facility] 09-10-2024 influenza, seasonal, injectable, preservative free [facility] Work Phone: [facility] 09-17-2023 influenza, injectabl e, quadrivalent, preservative free Amelia Weston [employer] Work Phone: [facility] 09-17-2023 influenza virus vacc ine, unspecified formulation Erwin Hare MD Work Phone: [facility] 09-06-2022 influenza, injectabl e, quadrivalent, preservative free [facility] Work Phone: [facility] 09-06-2022 influenza virus vacc ine, unspecified formulation Erwin Hare MD Work Phone: [facility] 11-21-2021 COVID-19 vaccine (UNSPECIFIED) [facility] Work Phone: [facility] 11-21-2021 COVID-19 vaccine, ag e 12+ yr (PFIZER-BIONTECH - PURPLE TOP) [facility] [employer] Work Phone: [facility] 09-26-2021 Influenza, injectabl e, Madin Zeina Canine Kidney, preservative free, quadrivalent [facility] [place] Work Phone: [facility] 10-06-2020 influenza, injectabl e, quadrivalent, preservative free [facility] Work Phone: [facility] Payers Date Payer Category Payer [facility] Health [facility] [id number] 2020-Present [phone] [address] [address] [place] [address] O [id number] 2020 Private Health Insurance [id number] 1960 Unknown [id number] 1960 Unknown [id number] 1960 Unknown [id number] 1960 Unknown [id number] 1960 Unknown [id number] 1959 Self-pay 1959 Unknown [id number] Unknown [id number] Social History Date Type Detail Facility Start: 09-15-2020 End: 09-06-2022 Tobacco smoking status NHIS Ex-smoker [facility] Start: 12-02-1988 End: 12-02-2018 History of tobacco use Current smoker [facility] Start: 12-02-1988 End: 12-02-2018 History of tobacco use Cigarette Smoker [facility] Start: 09-15-2020 End: 03-18-2024 Cigarettes smoked current (pack per day) - Reported 0.25 [facility] Start: 09-15-2020 End: 03-12-2024 Tobacco use and exposure Smokeless tobacco non-user [facility] Start: 03-08-2022 End: 08-15-2023 Alcohol intake Ex-drinker (finding) [facility] Start: 07-04-2020 End: 09-06-2022 Tobacco Comment 4 or less cigarettes [facility] Start: 1960 Sex Assigned At Not on file [facility] Start: 02-26-2022 End: 09-06-2022 Exposure to SARS-CoV-2 (event) Not sure [facility] History of tobacco use Passive smoker [facility] Start: 02-21-2023 End: 03-18-2024 Tobacco use panel [facility] Adult Depression Screening Assessment 0 [facility] Start: 03-12-2024 Tobacco smoking stat us OHIS Smokes tobacco daily [facility] Start: 06-18-2024 End: 09-17-2024 Alcoholic beverage intake Lifetime non-drinker (finding) [facility] Start: 03-12-2024 Alcohol Comment caffine: [facility] Start: 1960 Sex assigned at Female [facility] Start: 03-13-2024 Gender identity Identifies as female gender (finding) [facility] Clinical Notes 03-02-2022 to 09-17-2024 Amelia Weston NP - 09/17/2024 9:06 AM Larry Weston NP - 09/17/2024 9:06 AM Larry Weston NP - 09/17/2024 9:06 AM Larry Weston NP - 09/17/2024 9:05 AM EDTPatient Instructions Note Date & Type Note Facility 09-17-2024 History of Presen t illness Narrative Associated Problem(s): Tobacco use Smokes 1 pack per week, discussed cessation of this The patient has been advised of the risks of continued smoking: stroke, MN, all forms of cancer, lung disease, and . Options for quitting smoking include: cold turkey, hypnosis, acupuncture, nicotine replacement meds (gum, lozenges, and patches), Buproprion, and Varenicline. At this time pt is encouraged to evaluate their goals for wanting to quit smoking, and reach out to provider when ready to start this process Associated Problem(s): Morbid obesity due to excess calories (CMS/HCC) Working on diet changes 5 pound loss since last visit, keep working at it Associated Problem(s): Hypertension (CMS/HCC) Stable on current meds No changes Associated Problem(s): Pre-diabetes Improving food choices Limiting sugars Recheck A1c 03/26 Images from the original note were not included. Gabriela Brasher is a 63 y.o. female presents with chief complaint of No chief complaint on file. HPI: Last visit dicussed dx pre diabetes, did not want meds, is working on cutting back sugars and carbs, has lost weight Hypertension This is a chronic problem. The current episode started more than 1 year ago. The problem is unchanged. The problem is controlled. Pertinent negatives include no chest pain, headaches, neck pain, orthopnea, palpitations, peripheral edema or shortness of breath. There are no associated agents to hypertension. Risk factors for coronary artery disease include obesity and smoking/tobacco exposure. Past treatments include beta blockers and diuretics. The current treatment provides significant improvement. There are no compliance problems. SUBJECTIVE: MEDICATIONS: Current Outpatient Medications Medication Instructions atenolol (TENORMIN) 100 mg, Oral, Daily calcium carbonate 1500 (600 Ca) MG tablet Every 24 hours cholecalciferol (Vitamin D-3) 125 MCG (5000 UT) capsule 1 capsule, Every 24 hours exemestane (AROMASIN) 25 mg, Daily hydroCHLOROthiazide (HYDRODIURIL) 25 mg, Oral, Daily Potassium Gluconate 595 (99 K) MG tablet 1 tablet, Daily RT Turmeric (QC Tumeric Complex) 500 MG capsule Take by mouth zoledronic acid (ZOMETA) 4 mg, Once ALLERGIES: Allergies Allergen Reactions Latex Unknown Wound Dressing Adhesive Unknown REVIEW OF SYMPTOMS: Review of Systems Constitutional: Negative for appetite change, chills and fever. HENT: Negative for congestion, ear pain and sore throat. Eyes: Negative for pain, discharge, redness and visual disturbance. Respiratory: Negative for cough, shortness of breath and wheezing. Cardiovascular: Negative for chest pain, palpitations, orthopnea and leg swelling. Gastrointestinal: Negative for abdominal pain, blood in stool, constipation, diarrhea, nausea and vomiting. Genitourinary: Negative for difficulty urinating, dysuria and frequency. Musculoskeletal: Negative for arthralgias, back pain, joint swelling, myalgias and neck pain. Skin: Negative for rash and wound. Neurological: Negative for dizziness, tremors, seizures, syncope and headaches. Psychiatric/Behavioral: Negative for behavioral problems, self-injury and suicidal ideas. The patient is not nervous/anxious. Hematological: Does not bruise/bleed easily. Endocrine: Negative for polydipsia, polyphagia and polyuria. Allergic/Immunologic: Negative for environmental allergies and food allergies. PAST MEDICAL HISTORY Past Medical History: Diagnosis Date Breast cancer ([facility]) History of high blood pressure History of joint problems Visual impairment Past Surgical History: Procedure Laterality Date MASTECTOMY 2020 family history includes Diabetes in her mother; Lung cancer in her maternal grandmother. OBJECTIVE: Visit Vitals BP 128/80 (BP Location: Right arm, Patient Position: Sitting, BP Cuff Size: Adult long) Pulse 72 Temp 98.5 F (Temporal) Resp 18 Ht 5' 6.5 Wt 223 lb 12.8 oz SpO2 96% BMI 35.58 kg/m Smoking Status Every Day BSA 2.19 m Physical Exam Vitals and nursing note reviewed. Constitutional: General: She is not in acute distress. Appearance: Normal appearance. HENT: Head: Normocephalic and atraumatic. Right Ear: External ear normal. Left Ear: External ear normal. Nose: Nose normal. Mouth/Throat: Mouth: Mucous membranes are moist. Eyes: Extraocular Movements: Extraocular movements intact. Conjunctiva/sclera: Conjunctivae normal. Neck: Vascular: No carotid bruit. Cardiovascular: Rate and Rhythm: Normal rate and regular rhythm. Pulses: Normal pulses. Heart sounds: Normal heart sounds. Pulmonary: Effort: Pulmonary effort is normal. Breath sounds: Normal breath sounds. No wheezing or rales. Abdominal: General: Bowel sounds are normal. There is no distension. Palpations: Abdomen is soft. There is no mass. Tenderness: There is no abdominal tenderness. Musculoskeletal: General: Normal range of motion. Cervical back: Normal range of motion and neck supple. Right lower leg: No edema. Left lower leg: No edema. Skin: General: Skin is warm and dry. Capillary Refill: Capillary refill takes 2 to 3 seconds. Findings: No rash. Neurological: General: No focal deficit present. Mental Status: She is alert and oriented to person, place, and time. Psychiatric: Mood and Affect: Mood normal. Behavior: Behavior normal. Thought Content: Thought content normal. Judgment: Judgment normal. ASSESSMENT AND PLAN: No follow-ups on file. Problem List Items Addressed This Visit Hypertension (CMS/HCC) - Primary Stable on current meds No changes Morbid obesity due to excess calories (CMS/HCC) Working on diet changes 5 pound loss since last visit, keep working at it Tobacco use Smokes 1 pack per week, discussed cessation of this The patient has been advised of the risks of continued smoking: stroke, MN, all forms of cancer, lung disease, and . Options for quitting smoking include: cold turkey, hypnosis, acupuncture, nicotine replacement meds (gum, lozenges, and patches), Buproprion, and Varenicline. At this time pt is encouraged to evaluate their goals for wanting to quit smoking, and reach out to provider when ready to start this process Pre-diabetes Improving food choices Limiting sugars Recheck A1c 03/26 Relevant Orders Hemoglobin A1c documented in this encounter [facility] 09-17-2024 Instructions Amelia Weston NP - 09/17/2024 8:40 AM EDT Get A1c test done with next labs in 03/26 at [facility], I will send order in mail toward end of january documented in this encounter [facility] 09-10-2024 Note HNO ID: [id number] Author: NICKOLAS PARADA APRN.EMMANUEL Service: ? Author Type: Nurse Practitioner Type: Progress Notes Filed: 09/10/2024 16:24 Note Text: PATIENT NAME: Gabriela Brasher DATE: 09/10/2024 PRIMARY CARE PHYSICIAN: Dr. Andrew Spears Sr OTHER PHYSICIANS: Dr. Campos, Dr. Dc Arrieta, Dr. Cifuentes Portions of this encounter note have been copied from the note from 03/12/2024 and has been updated where appropriate, and reflect my current medical decision making from today. CC: This is a 63 year old female with a history of breast cancer, seen for scheduled follow-up. INTERIM HISTORY: Gabriela Brasher returns for scheduled follow-up. She remains on Aromasin 25 mg daily and is tolerating it well. She denies any hot flashes. She has a history of hyperhidrosis, typically triggered by increased temperatures and physical activity. She denies any side effects from the Aromasin. She denies any breast and chest wall changes. No breast/chest wall lumps or bumps. No enlarged lymph nodes. She denies cough, shortness of breath and other pulmonary complaints. She denies any unusual pain. No fevers, chills, night sweats or signs/symptoms of infection. No abnormal bleeding. She does tend to bruise easily. She has been working with he PCP/RECOATER regarding elevated blood sugars. She is hoping to manage by weight loss and and dietary changes. She had her mammogram last month. Overall she feels well. MEDICATIONS: exemestane (AROMASIN) 25 mg tablet take one tablet by mouth daily potassium gluconate 600 mg (99 mg) tab Take 1 tablet by mouth once daily. naproxen sodium 220 mg cap Take 1 capsule by mouth once daily. CALCIUM ORAL Take by mouth. cholecalciferol, vitamin D3, (VITAMIN D3 ORAL) Take by mouth. atenolol (TENORMIN) 100 mg tablet Take 100 mg by mouth once daily. hydroCHLOROthiazide (HYDRODIURIL, ESIDRIX) 25 mg tablet Take 25 mg by mouth once daily. ALLERGIES: Adhesive Tape-Silicones PAST MEDICAL HISTORY: PAST MEDICAL HISTORY Diagnosis Date Breast cancer (HCC) left breast cancer with T3 tumor Edema of breast Erythema of breast Hypertension Left breast mass 06/24/2020 Menopause Patient states it has been greater than 5 yrs (today she is 59 yrs of age) Port-A-Cath in place Tobacco use PAST SURGICAL HISTORY: PAST SURGICAL HISTORY Procedure Laterality Date BREAST SURGERY HX 06/24/2020 Dr Campos EXTRACTION ERUPTED TOOTH PAST SURGICAL HISTORY OF excision of cyst, pilonidal cyst PORTOCATH PLACEMENT REVIEW OF SYSTEMS: General: No weight loss, malaise or fevers. HEENT: Negative for frequent or significant headaches. No changes in hearing or vision, no nose bleeds or other nasal problems. Respiratory: Negative for cough, wheezing or shortness of breath. Cardiovascular: Negative for chest pain, leg swelling or palpitations. GI: Negative for abdominal discomfort, blood in stools or black stools or change in bowel habit. : No history of dysuria, frequency or incontinence Musculoskeletal: Negative for back pain. Significant joint pain- mainly right hip. See HPI. Skin: Negative for lesions, rash and itching. Hematology/Lymphology: Negative for prolonged bleeding, bruising easily or swollen nodes. Neuro: No history of headaches, syncope, paralysis, seizures or tremors. PHYSICAL EXAM: Vitals: BP 133/86 Pulse (!) 59 Temp 36.7 ?C (98 ?F) Resp 16 Ht 172.7 cm (5' 7.99 ) Wt 102 kg (224 lb 13.9 oz) SpO2 95% BMI 34.20 kg/m? ECOG 0 General: Alert and oriented, no distress, pleasant and cooperative. 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 - Lymphovascular space invasion, including dermal lymphovascular space invasion is identified. 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 - Macrometastatic carcinoma involving four lymph nodes, micrometastatic carcinoma involving one lymph node and isolated tumor cells involving one lymph node from a total of seven lymph nodes evaluated, largest metastasis measures 12 mm in greatest dimension with extranodal extension measuring 1.5 mm. - Treatment effect including fibrosis an (more content not included)... [facility] 09-10-2024 History of Presen t illness Narrative PATIENT NAME: Gabriela Brasher DATE: 09/10/2024 PRIMARY CARE PHYSICIAN: Dr. Andrew Spears Sr OTHER PHYSICIANS: Dr. Campos, Dr. Dc Arrieta, Dr. Cifuentes Portions of this encounter note have been copied from the note from 03/12/2024 and has been updated where appropriate, and reflect my current medical decision making from today. CC: This is a 63 year old female with a history of breast cancer, seen for scheduled follow-up. INTERIM HISTORY: Gabriela Brasher returns for scheduled follow-up. She remains on Aromasin 25 mg daily and is tolerating it well. She denies any hot flashes. She has a history of hyperhidrosis, typically triggered by increased temperatures and physical activity. She denies any side effects from the Aromasin. She denies any breast and chest wall changes. No breast/chest wall lumps or bumps. No enlarged lymph nodes. She denies cough, shortness of breath and other pulmonary complaints. She denies any unusual pain. No fevers, chills, night sweats or signs/symptoms of infection. No abnormal bleeding. She does tend to bruise easily. She has been working with he PCP/RECOATER regarding elevated blood sugars. She is hoping to manage by weight loss and and dietary changes. She had her mammogram last month. Overall she feels well. MEDICATIONS: exemestane (AROMASIN) 25 mg tablet take one tablet by mouth daily potassium gluconate 600 mg (99 mg) tab Take 1 tablet by mouth once daily. naproxen sodium 220 mg cap Take 1 capsule by mouth once daily. CALCIUM ORAL Take by mouth. cholecalciferol, vitamin D3, (VITAMIN D3 ORAL) Take by mouth. atenolol (TENORMIN) 100 mg tablet Take 100 mg by mouth once daily. hydroCHLOROthiazide (HYDRODIURIL, ESIDRIX) 25 mg tablet Take 25 mg by mouth once daily. ALLERGIES: Adhesive Tape-Silicones PAST MEDICAL HISTORY: PAST MEDICAL HISTORY Diagnosis Date Breast cancer (HCC) left breast cancer with T3 tumor Edema of breast Erythema of breast Hypertension Left breast mass 06/24/2020 Menopause Patient states it has been greater than 5 yrs (today she is 59 yrs of age) Port-A-Cath in place Tobacco use PAST SURGICAL HISTORY: PAST SURGICAL HISTORY Procedure Laterality Date BREAST SURGERY HX 06/24/2020 Dr Campos EXTRACTION ERUPTED TOOTH PAST SURGICAL HISTORY OF excision of cyst, pilonidal cyst PORTOCATH PLACEMENT REVIEW OF SYSTEMS: General: No weight loss, malaise or fevers. HEENT: Negative for frequent or significant headaches. No changes in hearing or vision, no nose bleeds or other nasal problems. Respiratory: Negative for cough, wheezing or shortness of breath. Cardiovascular: Negative for chest pain, leg swelling or palpitations. GI: Negative for abdominal discomfort, blood in stools or black stools or change in bowel habit. : No history of dysuria, frequency or incontinence Musculoskeletal: Negative for back pain. Significant joint pain- mainly right hip. See HPI. Skin: Negative for lesions, rash and itching. Hematology/Lymphology: Negative for prolonged bleeding, bruising easily or swollen nodes. Neuro: No history of headaches, syncope, paralysis, seizures or tremors. PHYSICAL EXAM: Vitals: BP 133/86 Pulse (!) 59 Temp 36.7 C (98 F) Resp 16 Ht 172.7 cm (5' 7.99 ) Wt 102 kg (224 lb 13.9 oz) SpO2 95% BMI 34.20 kg/m ECOG 0 General: Alert and oriented, no distress, pleasant and cooperative. 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 - Lymphovascular space invasion, including dermal lymphovascular space invasion is identified. 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 - Macrometastatic carcinoma involving four lymph nodes, micrometastatic carcinoma involving one lymph node and isolated tumor cells involving one lymph node from a total of seven lymph nodes evaluated, largest metastasis measures 12 mm in greatest dimension with extranodal extension measuring 1.5 mm. - Treatment effect including fibrosis and histiocytic inflammation is noted within multiple lymph nodes. Estrogen & progesterone receptors: Previously performed and reported as follows: Estrogen receptor: Positive (90%) Progesterone receptor: Positive (2-5%) (HER2) ERBB2 Status: HER2:Negative RADIOLOGIC DATA: 08/21/2023 Diagnostic right mammogram ([place]) No significant suspicious finding. Routine mammogram and clinical evaluation in 12 months. 07/25/2020 PET SCAN IMPRESSION: 1. Neck: No suspicious hypermetabolic foci 2. Chest: Hypermetabolic left breast soft tissue mass with hypermetabolic left breast cutaneous/subcutaneous thickening and hypermetabolic left anterior chest wall infiltration. Hypermetabolic left axillary/subpectoral region lymphadenopathy. 3. Abdomen and pelvis: No evidence of FDG avid neoplastic process 4. Skeleton: No hypermetabolic osseous lesions 07/25/2020 CT CHEST IMPRESSION: 1. Moderately large thoracic lymphadenopathy as described. 2. Masslike soft tissue densities in the left breast most likely the known primary neoplasm. Associated diffuse left breast skin thickening. 3. Diffuse hepatic infiltration.. 07/19/2020 MAMMOGRAM/US ([facility]) Right breast: No significant suspicious finding. Left breast: Large multilobulated dense mass within the upper outer quadrant, approximately 12 6 6 cm. Prominent area of increased density in the subareolar region. Marked skin thickening up to 13 mm anteriorly. Nipple retraction. Left axillary mass/enlarged lymph node 5.3 3.8 cm. 07/19/2020 ECHO WNL. LVEF > 55% LABORATORY DATA: Hemoglobin (g/dL) Date Value 09/10/2024 14.2 01/22/2022 13.7 Hematocrit (%) Date Value 09/10/2024 40.7 01/22/2022 40.3 WBC (k/uL) Date Value 09/10/2024 4.40 01/22/2022 3.78 Platelet Count (k/uL) Date Value 09/10/2024 201 01/22/2022 183 ASSESSMENT/PLAN: 1. Malignant neoplasm of overlapping sites of left breast in female, estrogen receptor positive Locally advanced (cT4, N3, M0) ER/OR positive HER-2 negative left-sided breast cancer diagnosed June 2020 (core needle biopsy of the left breast and overlying skin 06/24/2020). The patient's baseline PET scan and chest CT revealed extensive regional adenopathy but no distant metastases. After diagnosis genetic testing was recommended, but the patient declined. Neoadjuvant chemotherapy started 08/04/2020, with plans to give dose dense Adriamycin/Cytoxan x 4 cycles followed by weekly Taxol X 12 cycles. The patient completed 4 cycles of Adriamycin and Cytoxan as of 09/15/2020 with a partial response. She subsequently received low-dose weekly Taxol x 11 cycles 09/29/2020 -12/23/2020. (Taxol stopped early due to toxicity). On 01/25/2021 the patient underwent surgery with a left modified radical mastectomy and axillary lymph node dissection. She was found to have residual disease in the breast as well as involvement of 6 axillary lymph nodes. Post neoadjuvant therapy staging: ypT1, N2a, M0. Postop the patient received postmastectomy adjuvant radiation therapy to her left chest wall and regional lymph nodes 03/07/2021 through 04/21/2021. Adjuvant hormonal therapy with anastrozole started January 2021. August 2021 she developed significant arthralgias from the anastrozole, at which time her treatment was changed to Aromasin which she is tolerating. Currently the patient has no evidence of disease. At this time the patient will continue as is with Aromasin, with plans to take 5 years total (January 2026). We will then discuss the pros and cons of extended adjuvant hormonal therapy (7 years total). She would like to keep her port in place, therefore we will arrange for port flush in 3 months. Return for follow-up in 6 months and labs. Next mammogram scheduled for August 2024. We will further stage as indicated if suspicious signs or symptoms develop. 2. Essential hypertension - ICD9: 401.9, ICD10: I10 Continue management per PCP. 3. Osteopenia - ICD9: 733.90, ICD10: M85.80 Bone density exam March 2021 consistent with osteopenia. Reviewed the need for Calcium and Vitamin D supplements and weight bearing exercise as tolerated. To improve bone density and potentially decrease the risk of bone metastases Zometa started September 2021, with plans to give every 6 months. She will receive an infusion today as scheduled. Once she completes Aromasin we will change Zometa to Reclast yearly. Will arrange for a repeat DEXA scan. Nickolas Parada APRN.EMMANUEL I spent a total of 30 minutes on the date of the service which included preparing to see the patient, [id number] patient care, completing clinical documentation, obtaining and/or reviewing separately obtained history, performing a medically appropriate examination, counseling and educating the patient/family/caregiver, ordering medications, tests, or procedures, independently interpreting results (not separately reported), and communicating results to the patient/family/caregiver. documented in this encounter [facility] 09-04-2024 Telephone encounter Note Lab orders needed for appointment scheduled 09/10 Annette Hays MA [facility] 09-04-2024 Miscellaneous Notes Lab orders needed for appointment scheduled 09/10 Annette Hays MA documented in this encounter [facility] 03-12-2024 Nurse Note Patient is getting over a cold. Cecile Whitfield MA documented in this encounter [facility] 03-11-2024 Note HNO ID: [id number] Author: ERWIN HARE MD Service: ? Author Type: Physician Type: Progress Notes Filed: 03/12/2024 21:15 Note Text: PATIENT NAME: Gabriela Brasher DATE: 03/12/2024 PRIMARY CARE PHYSICIAN: Dr. Andrew Spears Sr OTHER PHYSICIANS: Dr. Campos, Dr. Dc Arrieta, Dr. Cifuentes Portions of this encounter note have been copied from the note from 08/15/2023 and has been updated where appropriate, and reflect my current medical decision making from today. CC: This is a 63 year old female with a history of breast cancer, seen for scheduled follow-up. INTERIM HISTORY: Since the patient's last visit here she has remained on Aromasin which she is tolerating well. No significant joint pain or other adverse effects. She has noticed no changes in her right breast or left chest wall. Overall she feels well with no particular complaints. MEDICATIONS: exemestane (AROMASIN) 25 mg tablet take one tablet by mouth daily potassium gluconate 600 mg (99 mg) tab Take 1 tablet by mouth once daily. naproxen sodium 220 mg cap Take 1 capsule by mouth once daily. CALCIUM ORAL Take by mouth. cholecalciferol, vitamin D3, (VITAMIN D3 ORAL) Take by mouth. atenolol (TENORMIN) 100 mg tablet Take 100 mg by mouth once daily. hydroCHLOROthiazide (HYDRODIURIL, ESIDRIX) 25 mg tablet Take 25 mg by mouth once daily. ALLERGIES: Adhesive Tape-Silicones PAST MEDICAL HISTORY: PAST MEDICAL HISTORY Diagnosis Date Breast cancer (HCC) left breast cancer with T3 tumor Edema of breast Erythema of breast Hypertension Left breast mass 06/24/2020 Menopause Patient states it has been greater than 5 yrs (today she is 59 yrs of age) Port-A-Cath in place Tobacco use PAST SURGICAL HISTORY: PAST SURGICAL HISTORY Procedure Laterality Date BREAST SURGERY HX 06/24/2020 Dr Campos EXTRACTION ERUPTED TOOTH PAST SURGICAL HISTORY OF excision of cyst, pilonidal cyst PORTOCATH PLACEMENT REVIEW OF SYSTEMS: General: No weight loss, malaise or fevers. HEENT: Negative for frequent or significant headaches. No changes in hearing or vision, no nose bleeds or other nasal problems. Respiratory: Negative for cough, wheezing or shortness of breath. Cardiovascular: Negative for chest pain, leg swelling or palpitations. GI: Negative for abdominal discomfort, blood in stools or black stools or change in bowel habit. : No history of dysuria, frequency or incontinence Musculoskeletal: Negative for back pain. Significant joint pain- mainly right hip. See HPI. Skin: Negative for lesions, rash and itching. Hematology/Lymphology: Negative for prolonged bleeding, bruising easily or swollen nodes. Neuro: No history of headaches, syncope, paralysis, seizures or tremors. PHYSICAL EXAM: Vitals: BP 144/76 Pulse 63 Temp 36.2 ?C (97.2 ?F) (Temporal) Resp 16 Ht 172.7 cm (5' 7.99 ) Wt 102.2 kg (225 lb 5 oz) SpO2 92% BMI 34.27 kg/m? ECOG 0 General: Alert and oriented, no distress, pleasant and cooperative. 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 - Lymphovascular space invasion, including dermal lymphovascular space invasion is identified. 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 - Macrometastatic carcinoma involving four lymph nodes, micrometastatic carcinoma involving one lymph node and isolated tumor cells involving one lymph node from a total of seven lymph nodes evaluated, largest metastasis measures 12 mm in greatest dimension with extranodal extension measuring 1.5 mm. - Treatment effect including fibrosis and histiocytic inflammation is noted within multiple lymph nodes. Estrogen AND progesterone receptors: Previously performed and reported as follows: Estrogen receptor: Positive (90%) Progesterone receptor: Positive (2-5%) (HER2) ERBB2 Status: HER2:Negative RADIOLOGIC DATA: 08/21/2023 Diagnostic right mammogram ([place]) No significant suspicious finding. Routine mammogram and clinical evaluation in 12 months. 07/25/2020 PET SCAN IMPRESSION: 1. Neck: No suspicious hypermetabolic foci 2. Chest: Hypermetabolic left breast soft tissue mass with hypermetabolic left breast cutaneous/sub (more content not included)... [facility] 03-11-2024 History of Presen t illness Narrative PATIENT NAME: Gabriela Brasher DATE: 03/12/2024 PRIMARY CARE PHYSICIAN: Dr. Andrew Spears OTHER PHYSICIANS: Dr. Campos, Dr. Dc Arrieta, Dr. Cifuentes Portions of this encounter note have been copied from the note from 08/15/2023 and has been updated where appropriate, and reflect my current medical decision making from today. CC: This is a 63 year old female with a history of breast cancer, seen for scheduled follow-up. INTERIM HISTORY: Since the patient's last visit here she has remained on Aromasin which she is tolerating well. No significant joint pain or other adverse effects. She has noticed no changes in her right breast or left chest wall. Overall she feels well with no particular complaints. MEDICATIONS: exemestane (AROMASIN) 25 mg tablet take one tablet by mouth daily potassium gluconate 600 mg (99 mg) tab Take 1 tablet by mouth once daily. naproxen sodium 220 mg cap Take 1 capsule by mouth once daily. CALCIUM ORAL Take by mouth. cholecalciferol, vitamin D3, (VITAMIN D3 ORAL) Take by mouth. atenolol (TENORMIN) 100 mg tablet Take 100 mg by mouth once daily. hydroCHLOROthiazide (HYDRODIURIL, ESIDRIX) 25 mg tablet Take 25 mg by mouth once daily. ALLERGIES: Adhesive Tape-Silicones PAST MEDICAL HISTORY: PAST MEDICAL HISTORY Diagnosis Date Breast cancer (HCC) left breast cancer with T3 tumor Edema of breast Erythema of breast Hypertension Left breast mass 06/24/2020 Menopause Patient states it has been greater than 5 yrs (today she is 59 yrs of age) Port-A-Cath in place Tobacco use PAST SURGICAL HISTORY: PAST SURGICAL HISTORY Procedure Laterality Date BREAST SURGERY HX 06/24/2020 Dr Campos EXTRACTION ERUPTED TOOTH PAST SURGICAL HISTORY OF excision of cyst, pilonidal cyst PORTOCATH PLACEMENT REVIEW OF SYSTEMS: General: No weight loss, malaise or fevers. HEENT: Negative for frequent or significant headaches. No changes in hearing or vision, no nose bleeds or other nasal problems. Respiratory: Negative for cough, wheezing or shortness of breath. Cardiovascular: Negative for chest pain, leg swelling or palpitations. GI: Negative for abdominal discomfort, blood in stools or black stools or change in bowel habit. : No history of dysuria, frequency or incontinence Musculoskeletal: Negative for back pain. Significant joint pain- mainly right hip. See HPI. Skin: Negative for lesions, rash and itching. Hematology/Lymphology: Negative for prolonged bleeding, bruising easily or swollen nodes. Neuro: No history of headaches, syncope, paralysis, seizures or tremors. PHYSICAL EXAM: Vitals: BP 144/76 Pulse 63 Temp 36.2 C (97.2 F) (Temporal) Resp 16 Ht 172.7 cm (5' 7.99 ) Wt 102.2 kg (225 lb 5 oz) SpO2 92% BMI 34.27 kg/m ECOG 0 General: Alert and oriented, no distress, pleasant and cooperative. 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 - Lymphovascular space invasion, including dermal lymphovascular space invasion is identified. 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 - Macrometastatic carcinoma involving four lymph nodes, micrometastatic carcinoma involving one lymph node and isolated tumor cells involving one lymph node from a total of seven lymph nodes evaluated, largest metastasis measures 12 mm in greatest dimension with extranodal extension measuring 1.5 mm. - Treatment effect including fibrosis and histiocytic inflammation is noted within multiple lymph nodes. Estrogen & progesterone receptors: Previously performed and reported as follows: Estrogen receptor: Positive (90%) Progesterone receptor: Positive (2-5%) (HER2) ERBB2 Status: HER2:Negative RADIOLOGIC DATA: 08/21/2023 Diagnostic right mammogram ([place]) No significant suspicious finding. Routine mammogram and clinical evaluation in 12 months. 07/25/2020 PET SCAN IMPRESSION: 1. Neck: No suspicious hypermetabolic foci 2. Chest: Hypermetabolic left breast soft tissue mass with hypermetabolic left breast cutaneous/subcutaneous thickening and hypermetabolic left anterior chest wall infiltration. Hypermetabolic left axillary/subpectoral region lymphadenopathy. 3. Abdomen and pelvis: No evidence of FDG avid neoplastic process 4. Skeleton: No hypermetabolic osseous lesions 07/25/2020 CT CHEST IMPRESSION: 1. Moderately large thoracic lymphadenopathy as described. 2. Masslike soft tissue densities in the left breast most likely the known primary neoplasm. Associated diffuse left breast skin thickening. 3. Diffuse hepatic infiltration.. 07/19/2020 MAMMOGRAM/US ([facility]) Right breast: No significant suspicious finding. Left breast: Large multilobulated dense mass within the upper outer quadrant, approximately 12 6 6 cm. Prominent area of increased density in the subareolar region. Marked skin thickening up to 13 mm anteriorly. Nipple retraction. Left axillary mass/enlarged lymph node 5.3 3.8 cm. 07/19/2020 ECHO WNL. LVEF > 55% LABORATORY DATA: Hemoglobin (g/dL) Date Value 03/12/2024 15.1 01/22/2022 13.7 Hematocrit (%) Date Value 03/12/2024 44.2 01/22/2022 40.3 WBC (k/uL) Date Value 03/12/2024 5.41 01/22/2022 3.78 Platelet Count (k/uL) Date Value 03/12/2024 218 01/22/2022 183 ASSESSMENT/PLAN: 1. Malignant neoplasm of overlapping sites of left breast in female, estrogen receptor positive Locally advanced (cT4, N3, M0) ER/OR positive HER-2 negative left-sided breast cancer diagnosed June 2020 (core needle biopsy of the left breast and overlying skin 06/24/2020). The patient's baseline PET scan and chest CT revealed extensive regional adenopathy but no distant metastases. After diagnosis genetic testing was recommended, but the patient declined. Neoadjuvant chemotherapy started 08/04/2020, with plans to give dose dense Adriamycin/Cytoxan x 4 cycles followed by weekly Taxol X 12 cycles. The patient completed 4 cycles of Adriamycin and Cytoxan as of 09/15/2020 with a partial response. She subsequently received low-dose weekly Taxol x 11 cycles 09/29/2020 -12/23/2020. (Taxol stopped early due to toxicity). On 01/25/2021 the patient underwent surgery with a left modified radical mastectomy and axillary lymph node dissection. She was found to have residual disease in the breast as well as involvement of 6 axillary lymph nodes. Post neoadjuvant therapy staging: ypT1, N2a, M0. Postop the patient received postmastectomy adjuvant radiation therapy to her left chest wall and regional lymph nodes 03/07/2021 through 04/21/2021. Adjuvant hormonal therapy with anastrozole started January 2021. August 2021 she developed significant arthralgias from the anastrozole, at which time her treatment was changed to Aromasin which she is tolerating. Currently the patient has no evidence of disease. At this time the patient will continue as is with Aromasin, with plans to take 5 years total (January 2026). We will then discuss the pros and cons of extended adjuvant hormonal therapy (7 years total). She would like to keep her port in place, therefore we will arrange for port flush in 3 months. Return for follow-up in 6 months. Next mammogram scheduled for August 2024. We will further stage as indicated if suspicious signs or symptoms develop. 2. Essential hypertension - ICD9: 401.9, ICD10: I10 Continue management per PCP. 3. Osteopenia - ICD9: 733.90, ICD10: M85.80 Bone density exam March 2021 consistent with osteopenia. Reviewed the need for Calcium and Vitamin D supplements and weight bearing exercise as tolerated. To improve bone density and potentially decrease the risk of bone metastases Zometa started September 2021, with plans to give every 6 months. She will receive an infusion today as scheduled. Once she completes Aromasin we will change Zometa to Reclast yearly. Erwin Hare MD documented in this encounter [facility] 08-15-2023 History of Presen t illness Narrative PATIENT NAME: Gabriela Brasher DATE: 08/15/2023 PRIMARY CARE PHYSICIAN: Dr. Andrew Spears Sr OTHER PHYSICIANS: Dr. Campos, Dr. Dc Arrieta, Dr. Cifuentes (Elements copied from Dr. Hare's note dated February 21, 2023, have been reviewed and updated where appropriate, and all reflect current assessment and medical decision making during today's encounter, August 15, 2023) CC: This is a 62 year old female with a history of breast cancer, seen for scheduled follow-up. INTERIM HISTORY: Since her last visit she remains on exemestane. She has been tolerating it well. No arthralgias. She feels well overall. She is trying to find a new PCP because her's has retired. She does have a routine mammogram scheduled for 08/21/23. MEDICATIONS: potassium gluconate 600 mg (99 mg) tab Take 1 tablet by mouth once daily. exemestane (AROMASIN) 25 mg tablet TAKE ONE TABLET BY MOUTH DAILY CALCIUM ORAL Take by mouth. cholecalciferol, vitamin D3, (VITAMIN D3 ORAL) Take by mouth. atenolol (TENORMIN) 100 mg tablet Take 100 mg by mouth once daily. hydroCHLOROthiazide (HYDRODIURIL, ESIDRIX) 25 mg tablet Take 25 mg by mouth once daily. ALLERGIES: Adhesive Tape-Silicones PAST MEDICAL HISTORY: PAST MEDICAL HISTORY Diagnosis Date Breast cancer (HCC) left breast cancer with T3 tumor Edema of breast Erythema of breast Hypertension Left breast mass 06/24/2020 Menopause Patient states it has been greater than 5 yrs (today she is 59 yrs of age) Port-A-Cath in place Tobacco use PAST SURGICAL HISTORY: PAST SURGICAL HISTORY Procedure Laterality Date BREAST SURGERY HX 06/24/2020 Dr Campos EXTRACTION ERUPTED TOOTH PAST SURGICAL HISTORY OF excision of cyst, pilonidal cyst PORTOCATH PLACEMENT REVIEW OF SYSTEMS: General: No weight loss, malaise or fevers. HEENT: Negative for frequent or significant headaches. No changes in hearing or vision, no nose bleeds or other nasal problems. Respiratory: Negative for cough, wheezing or shortness of breath. Cardiovascular: Negative for chest pain, leg swelling or palpitations. GI: Negative for abdominal discomfort, blood in stools or black stools or change in bowel habit. : No history of dysuria, frequency or incontinence Musculoskeletal: Negative for back pain. Significant joint pain- mainly right hip. See HPI. Skin: Negative for lesions, rash and itching. Hematology/Lymphology: Negative for prolonged bleeding, bruising easily or swollen nodes. Neuro: No history of headaches, syncope, paralysis, seizures or tremors. PHYSICAL EXAM: Vitals: BP 148/89 Pulse (!) 52 Temp 36.6 C (97.8 F) (Temporal) Resp 16 Wt 103 kg (227 lb) SpO2 96% BMI 34.52 kg/m ECOG 0 General: Alert and oriented, no distress, pleasant and cooperative. 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 - Lymphovascular space invasion, including dermal lymphovascular space invasion is identified. 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 - Macrometastatic carcinoma involving four lymph nodes, micrometastatic carcinoma involving one lymph node and isolated tumor cells involving one lymph node from a total of seven lymph nodes evaluated, largest metastasis measures 12 mm in greatest dimension with extranodal extension measuring 1.5 mm. - Treatment effect including fibrosis and histiocytic inflammation is noted within multiple lymph nodes. Estrogen & progesterone receptors: Previously performed and reported as follows: Estrogen receptor: Positive (90%) Progesterone receptor: Positive (2-5%) (HER2) ERBB2 Status: HER2:Negative RADIOLOGIC DATA: 08/10/2022 Diagnostic right mammogram ([place]) No significant suspicious finding. Routine mammogram and clinical evaluation in 12 months. 07/25/2020 PET SCAN IMPRESSION: 1. Neck: No suspicious hypermetabolic foci 2. Chest: Hypermetabolic left breast soft tissue mass with hypermetabolic left breast cutaneous/subcutaneous thickening and hypermetabolic left anterior chest wall infiltration. Hypermetabolic left axillary/subpectoral region lymphadenopathy. 3. Abdomen and pelvis: No evidence of FDG avid neoplastic process 4. Skeleton: No hypermetabolic osseous lesions 07/25/2020 CT CHEST IMPRESSION: 1. Moderately large thoracic lymphadenopathy as described. 2. Masslike soft tissue densities in the left breast most likely the known primary neoplasm. Associated diffuse left breast skin thickening. 3. Diffuse hepatic infiltration.. 07/19/2020 MAMMOGRAM/US ([facility]) Right breast: No significant suspicious finding. Left breast: Large multilobulated dense mass within the upper outer quadrant, approximately 12 6 6 cm. Prominent area of increased density in the subareolar region. Marked skin thickening up to 13 mm anteriorly. Nipple retraction. Left axillary mass/enlarged lymph node 5.3 3.8 cm. 07/19/2020 ECHO WNL. LVEF > 55% LABORATORY DATA: Hemoglobin (g/dL) Date Value 08/15/2023 14.8 01/22/2022 13.7 Hematocrit (%) Date Value 08/15/2023 43.8 01/22/2022 40.3 WBC (k/uL) Date Value 08/15/2023 4.70 01/22/2022 3.78 Platelet Count (k/uL) Date Value 08/15/2023 214 01/22/2022 183 ASSESSMENT/PLAN: 1. Malignant neoplasm of overlapping sites of left breast in female, estrogen receptor positive Locally advanced (cT4, N3, M0) ER/OR positive HER-2 negative left-sided breast cancer diagnosed June 2020 (core needle biopsy of the left breast and overlying skin 06/24/2020). The patient's baseline PET scan and chest CT revealed extensive regional adenopathy but no distant metastases. After diagnosis genetic testing was recommended, but the patient declined. Neoadjuvant chemotherapy started 08/04/2020, with plans to give dose dense Adriamycin/Cytoxan x 4 cycles followed by weekly Taxol X 12 cycles. The patient completed 4 cycles of Adriamycin and Cytoxan as of 09/15/2020 with a partial response. She subsequently received low-dose weekly Taxol x 11 cycles 09/29/2020 -12/23/2020. (Taxol stopped early due to toxicity). On 01/25/2021 the patient underwent surgery with a left modified radical mastectomy and axillary lymph node dissection. She was found to have residual disease in the breast as well as involvement of 6 axillary lymph nodes. Post neoadjuvant therapy staging: ypT1, N2a, M0. Postop the patient received postmastectomy adjuvant radiation therapy to her left chest wall and regional lymph nodes 03/07/2021 through 04/21/2021. Adjuvant hormonal therapy with anastrozole started January 2021. August 2021 she developed significant arthralgias from the anastrozole, at which time the hormonal therapy was changed to Aromasin which she is tolerating. Currently the patient has no evidence of disease. Patient continues to do well with Aromasin and we will continue that for a total of at least 5 years (January 2026). At that time we will discuss pros and cons of adjuvant hormonal therapy for 7 years total. She will need a port flush every 6-8 weeks as well and we will see her back in 6 month for follow up and her Zometa infusion. She does have her yearly mammogram scheduled for August 21, 2023. 2. Essential hypertension - ICD9: 401.9, ICD10: I10 Continue management per PCP. 3. Osteopenia - ICD9: 733.90, ICD10: M85.80 Bone density exam March 2021 consistent with osteopenia. Reviewed the need for Calcium and Vitamin D supplements and weight bearing exercise as tolerated. To improve bone density and potentially decrease the risk of bone metastases Zometa started September 2021, with plans to give every 6 months. Labs reviewed and we will proceed with her Zometa infusion today. Once she completes her Aromasin therapy, we will plan to change Zometa to Reclast yearly. 4. Bradycardia Her heart rate is mildly low, but she remains asymptomatic. Advised patient to see her PCP if she develops symptoms of dizziness, lightheadedness, or syncope. Shirley Jones PA-C documented in this encounter [facility] 08-14-2023 Miscellaneous Notes Labs are needed for appointment on 08/15/23. Annette Hays Ma documented in this encounter [facility] 02-21-2023 History of Presen t illness Narrative PATIENT NAME: Gabriela Brasher DATE: 02/21/2023 PRIMARY CARE PHYSICIAN: Dr. Andrew Spears OTHER PHYSICIANS: Dr. Campos, Dr. Dc Arrieta, Dr. Cifuentes Portions of this encounter note have been copied from the note from 09/06/2022 and has been updated where appropriate, and reflect my current medical decision making from today. CC: This is a 62 year old female with a history of breast cancer, seen for scheduled follow-up. INTERIM HISTORY: Since the patient's last visit here she has had no significant medical changes. She remains on Aromasin 25 mg daily and is tolerating it well. She continues to have arthralgia, but no severe pain. Overall she feels well with no particular complaints. MEDICATIONS: exemestane (AROMASIN) 25 mg tablet TAKE ONE TABLET BY MOUTH DAILY CALCIUM ORAL Take by mouth. cholecalciferol, vitamin D3, (VITAMIN D3 ORAL) Take by mouth. potassium chloride (K-TAB) 10 mEq tablet Take 1 tablet by mouth twice daily. atenolol (TENORMIN) 100 mg tablet Take 100 mg by mouth once daily. hydroCHLOROthiazide (HYDRODIURIL, ESIDRIX) 25 mg tablet Take 25 mg by mouth once daily. ALLERGIES: Adhesive Tape-Silicones PAST MEDICAL HISTORY: PAST MEDICAL HISTORY Diagnosis Date Breast cancer (HCC) left breast cancer with T3 tumor Edema of breast Erythema of breast Hypertension Left breast mass 06/24/2020 Menopause Patient states it has been greater than 5 yrs (today she is 59 yrs of age) Port-A-Cath in place Tobacco use PAST SURGICAL HISTORY: PAST SURGICAL HISTORY Procedure Laterality Date BREAST SURGERY HX 06/24/2020 Dr Campos EXTRACTION ERUPTED TOOTH PAST SURGICAL HISTORY OF excision of cyst, pilonidal cyst PORTOCATH PLACEMENT REVIEW OF SYSTEMS: General: No weight loss, malaise or fevers. HEENT: Negative for frequent or significant headaches. No changes in hearing or vision, no nose bleeds or other nasal problems. Respiratory: Negative for cough, wheezing or shortness of breath. Cardiovascular: Negative for chest pain, leg swelling or palpitations. GI: Negative for abdominal discomfort, blood in stools or black stools or change in bowel habit. : No history of dysuria, frequency or incontinence Musculoskeletal: Negative for back pain. Significant joint pain- mainly right hip. See HPI. Skin: Negative for lesions, rash and itching. Hematology/Lymphology: Negative for prolonged bleeding, bruising easily or swollen nodes. Neuro: No history of headaches, syncope, paralysis, seizures or tremors. PHYSICAL EXAM: Vitals: BP 133/89 Pulse 64 Temp 36.6 C (97.8 F) (Temporal) Resp 16 Ht 172.7 cm (5' 7.99 ) Wt 100.1 kg (220 lb 9.6 oz) SpO2 94% BMI 33.55 kg/m ECOG 0 Exam limited to gross visualization where appropriate due to COVID-19. Gen.: This is an age-appropriate patient in no acute distress. Head: Appears atraumatic with no visible lesions. Eyes: Pupils equally round and reactive to light, extraocular muscles are intact. Neck: Supple. Mouth: Mucous membranes appeared to be moist. Respiratory: Appears to be respiring comfortably. Neurologic: Nonfocal to gross visualization. Alert and oriented 3. Psychiatric: No evidence of inappropriate anxiety or depression. Skin: Visible areas of skin without rash, lesions, wounds or petechiae. Breast examination deferred by patient. PATHOLOGY: 01/25/2021 Left mastectomy and axillary dissection ([facility]) FINAL DIAGNOSIS Left breast and axillary contents, modified radical mastectomy - Residual multicentric invasive ductal carcinoma with treatment effect, present as single cells, scattered glands and rare clusters, measuring 6 mm in greatest contiguous dimension (please see comment and synoptic report). - Lymphovascular space invasion, including dermal lymphovascular space invasion is identified. 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 - Macrometastatic carcinoma involving four lymph nodes, micrometastatic carcinoma involving one lymph node and isolated tumor cells involving one lymph node from a total of seven lymph nodes evaluated, largest metastasis measures 12 mm in greatest dimension with extranodal extension measuring 1.5 mm. - Treatment effect including fibrosis and histiocytic inflammation is noted within multiple lymph nodes. Estrogen & progesterone receptors: Previously performed and reported as follows: Estrogen receptor: Positive (90%) Progesterone receptor: Positive (2-5%) (HER2) ERBB2 Status: HER2:Negative RADIOLOGIC DATA: 08/10/2022 Diagnostic right mammogram ([place]) No significant suspicious finding. Routine mammogram and clinical evaluation in 12 months. 07/25/2020 PET SCAN IMPRESSION: 1. Neck: No suspicious hypermetabolic foci 2. Chest: Hypermetabolic left breast soft tissue mass with hypermetabolic left breast cutaneous/subcutaneous thickening and hypermetabolic left anterior chest wall infiltration. Hypermetabolic left axillary/subpectoral region lymphadenopathy. 3. Abdomen and pelvis: No evidence of FDG avid neoplastic process 4. Skeleton: No hypermetabolic osseous lesions 07/25/2020 CT CHEST IMPRESSION: 1. Moderately large thoracic lymphadenopathy as described. 2. Masslike soft tissue densities in the left breast most likely the known primary neoplasm. Associated diffuse left breast skin thickening. 3. Diffuse hepatic infiltration.. 07/19/2020 MAMMOGRAM/US ([facility]) Right breast: No significant suspicious finding. Left breast: Large multilobulated dense mass within the upper outer quadrant, approximately 12 6 6 cm. Prominent area of increased density in the subareolar region. Marked skin thickening up to 13 mm anteriorly. Nipple retraction. Left axillary mass/enlarged lymph node 5.3 3.8 cm. 07/19/2020 ECHO WNL. LVEF > 55% LABORATORY DATA: Hemoglobin (g/dL) Date Value 02/21/2023 14.7 01/22/2022 13.7 Hematocrit (%) Date Value 02/21/2023 43.2 01/22/2022 40.3 WBC (k/uL) Date Value 02/21/2023 4.66 01/22/2022 3.78 Platelet Count (k/uL) Date Value 02/21/2023 224 01/22/2022 183 ASSESSMENT/PLAN: 1. Malignant neoplasm of overlapping sites of left breast in female, estrogen receptor positive Locally advanced (cT4, N3, M0) ER/OR positive HER-2 negative left-sided breast cancer diagnosed June 2020 (core needle biopsy of the left breast and overlying skin 06/24/2020). The patient's baseline PET scan and chest CT revealed extensive regional adenopathy but no distant metastases. After diagnosis genetic testing was recommended, but the patient declined. Neoadjuvant chemotherapy started 08/04/2020, with plans to give dose dense Adriamycin/Cytoxan x 4 cycles followed by weekly Taxol X 12 cycles. The patient completed 4 cycles of Adriamycin and Cytoxan as of 09/15/2020 with a partial response. She subsequently received low-dose weekly Taxol x 11 cycles 09/29/2020 -12/23/2020. (Taxol stopped early due to toxicity). On 01/25/2021 the patient underwent surgery with a left modified radical mastectomy and axillary lymph node dissection. She was found to have residual disease in the breast as well as involvement of 6 axillary lymph nodes. Post neoadjuvant therapy staging: ypT1, N2a, M0. Postop the patient received postmastectomy adjuvant radiation therapy to her left chest wall and regional lymph nodes 03/07/2021 through 04/21/2021. Adjuvant hormonal therapy with anastrozole started January 2021. August 2021 she developed significant arthralgias from the anastrozole, at which time the hormonal therapy was changed to Aromasin which she is tolerating. Currently the patient has no evidence of disease. At this time the patient will continue with Aromasin with plans to take for 5 years (January 2026). We will then discuss the pros and cons of extended adjuvant hormonal therapy (7 years total). We will arrange for port flush in 8 weeks and at 16 weeks, and I will see her back in 24 weeks for follow-up and labs. We will repeat her surveillance mammogram on a yearly basis - next due August 2023. Further stage as indicated if suspicious signs or symptoms develop. 2. Essential hypertension - ICD9: 401.9, ICD10: I10 Continue management per PCP. 3. Osteopenia - ICD9: 733.90, ICD10: M85.80 Bone density exam March 2021 consistent with osteopenia. Reviewed the need for Calcium and Vitamin D supplements and weight bearing exercise as tolerated. To improve bone density and potentially decrease the risk of bone metastases Zometa started September 2021, with plans to give every 6 months. She will receive her next infusion today. After the patient completes Aromasin we will then change the Zometa to Reclast, with plans to give 5 mg yearly. Erwin Hare MD documented in this encounter [facility] 09-11-2022 Note PROCEDURE: XR KNEE L T 4V or > HISTORY: Pain in left knee ; no known injury COMPARISON: None. FINDINGS: BONES:Marked narrowing of the medial compartment with near [id number] articulation. Large periarticular degenerative osteophytes of the medial compartment. Small osteophytes involving the lateral compartment and patella. No fracture or dislocation. SOFT TISSUES:No visible soft tissue swelling. EFFUSION:Small joint effusion. OTHER: Negative. IMPRESSION: 1. Marked degenerative joint disease involving the medial compartment. Electronically authenticated by: SELENA PETER Date: 2022-09-11 16:13 [facility] 09-06-2022 History of Presen t illness Narrative PATIENT NAME: Gabriela Brasher DATE: 09/06/2022 PRIMARY CARE PHYSICIAN: Dr. Andrew Spears OTHER PHYSICIANS: Dr. Campos, Dr. Dc Arrieta, Dr. Cifuentes Portions of this encounter note have been copied from the note from 06/07/2022 and has been updated where appropriate, and reflect my current medical decision making from today. CC: This is a 61 year old female with a history of breast cancer, seen for scheduled follow-up. INTERIM HISTORY: Since the patient's last visit here she has had no significant medical changes. She remains on Aromasin 25 mg daily and is tolerating it well. She still has some joint pains, but nothing severe. Overall she feels well with no particular complaints. MEDICATIONS: exemestane (AROMASIN) 25 mg tablet TAKE ONE TABLET BY MOUTH ONE TIME A DAY CALCIUM ORAL Take by mouth. cholecalciferol, vitamin D3, (VITAMIN D3 ORAL) Take by mouth. potassium chloride (K-TAB) 10 mEq tablet Take 1 tablet by mouth twice daily. atenolol (TENORMIN) 100 mg tablet Take 100 mg by mouth once daily. hydroCHLOROthiazide (HYDRODIURIL, ESIDRIX) 25 mg tablet Take 25 mg by mouth once daily. ALLERGIES: Adhesive Tape-Silicones PAST MEDICAL HISTORY: PAST MEDICAL HISTORY Diagnosis Date Breast cancer (HCC) left breast cancer with T3 tumor Edema of breast Erythema of breast Hypertension Left breast mass 06/24/2020 Menopause Patient states it has been greater than 5 yrs (today she is 59 yrs of age) Port-A-Cath in place Tobacco use PAST SURGICAL HISTORY: PAST SURGICAL HISTORY Procedure Laterality Date BREAST SURGERY HX 06/24/2020 Dr Campos EXTRACTION ERUPTED TOOTH PAST SURGICAL HISTORY OF excision of cyst, pilonidal cyst PORTOCATH PLACEMENT REVIEW OF SYSTEMS: General: No weight loss, malaise or fevers. HEENT: Negative for frequent or significant headaches. No changes in hearing or vision, no nose bleeds or other nasal problems. Respiratory: Negative for cough, wheezing or shortness of breath. Cardiovascular: Negative for chest pain, leg swelling or palpitations. GI: Negative for abdominal discomfort, blood in stools or black stools or change in bowel habit. : No history of dysuria, frequency or incontinence Musculoskeletal: Negative for back pain. Significant joint pain- mainly right hip. See HPI. Skin: Negative for lesions, rash and itching. Hematology/Lymphology: Negative for prolonged bleeding, bruising easily or swollen nodes. Neuro: No history of headaches, syncope, paralysis, seizures or tremors. PHYSICAL EXAM: Vitals: BP 123/81 Pulse 60 Temp 36.1 C (97 F) (Temporal) Resp 18 Ht 172.7 cm (5' 7.99 ) Wt 101.1 kg (222 lb 12.8 oz) SpO2 97% BMI 33.88 kg/m ECOG 0 Exam limited to gross visualization where appropriate due to COVID-19. Gen.: This is an age-appropriate patient in no acute distress. Head: Appears atraumatic with no visible lesions. Eyes: Pupils equally round and reactive to light, extraocular muscles are intact. Neck: Supple. Mouth: Mucous membranes appeared to be moist. Respiratory: Appears to be respiring comfortably. Neurologic: Nonfocal to gross visualization. Alert and oriented 3. Psychiatric: No evidence of inappropriate anxiety or depression. Skin: Visible areas of skin without rash, lesions, wounds or petechiae. Breast examination deferred by patient. PATHOLOGY: 01/25/2021 Left mastectomy and axillary dissection ([facility]) FINAL DIAGNOSIS Left breast and axillary contents, modified radical mastectomy - Residual multicentric invasive ductal carcinoma with treatment effect, present as single cells, scattered glands and rare clusters, measuring 6 mm in greatest contiguous dimension (please see comment and synoptic report). - Lymphovascular space invasion, including dermal lymphovascular space invasion is identified. 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 - Macrometastatic carcinoma involving four lymph nodes, micrometastatic carcinoma involving one lymph node and isolated tumor cells involving one lymph node from a total of seven lymph nodes evaluated, largest metastasis measures 12 mm in greatest dimension with extranodal extension measuring 1.5 mm. - Treatment effect including fibrosis and histiocytic inflammation is noted within multiple lymph nodes. Estrogen & progesterone receptors: Previously performed and reported as follows: Estrogen receptor: Positive (90%) Progesterone receptor: Positive (2-5%) (HER2) ERBB2 Status: HER2:Negative RADIOLOGIC DATA: 08/10/2022 Diagnostic right mammogram ([place]) No significant suspicious finding. Routine mammogram and clinical evaluation in 12 months. 07/25/2020 PET SCAN IMPRESSION: 1. Neck: No suspicious hypermetabolic foci 2. Chest: Hypermetabolic left breast soft tissue mass with hypermetabolic left breast cutaneous/subcutaneous thickening and hypermetabolic left anterior chest wall infiltration. Hypermetabolic left axillary/subpectoral region lymphadenopathy. 3. Abdomen and pelvis: No evidence of FDG avid neoplastic process 4. Skeleton: No hypermetabolic osseous lesions 07/25/2020 CT CHEST IMPRESSION: 1. Moderately large thoracic lymphadenopathy as described. 2. Masslike soft tissue densities in the left breast most likely the known primary neoplasm. Associated diffuse left breast skin thickening. 3. Diffuse hepatic infiltration.. 07/19/2020 MAMMOGRAM/US ([facility]) Right breast: No significant suspicious finding. Left breast: Large multilobulated dense mass within the upper outer quadrant, approximately 12 6 6 cm. Prominent area of increased density in the subareolar region. Marked skin thickening up to 13 mm anteriorly. Nipple retraction. Left axillary mass/enlarged lymph node 5.3 3.8 cm. 07/19/2020 ECHO WNL. LVEF > 55% LABORATORY DATA: Hemoglobin (g/dL) Date Value 09/06/2022 14.6 01/22/2022 13.7 Hematocrit (%) Date Value 09/06/2022 42.1 01/22/2022 40.3 WBC (k/uL) Date Value 09/06/2022 5.13 01/22/2022 3.78 Platelet Count (k/uL) Date Value 09/06/2022 224 01/22/2022 183 ASSESSMENT/PLAN: 1. Malignant neoplasm of overlapping sites of left breast in female, estrogen receptor positive Locally advanced (cT4, N3, M0) ER/OR positive HER-2 negative left-sided breast cancer diagnosed June 2020 (core needle biopsy of the left breast and overlying skin 06/24/2020). The patient's baseline PET scan and chest CT revealed extensive regional adenopathy but no distant metastases. After diagnosis genetic testing was recommended, but the patient declined. Neoadjuvant chemotherapy started 08/04/2020, with plans to give dose dense Adriamycin/Cytoxan x 4 cycles followed by weekly Taxol X 12 cycles. The patient completed 4 cycles of Adriamycin and Cytoxan as of 09/15/2020 with a partial response. She subsequently received low-dose weekly Taxol x 11 cycles 09/29/2020 -12/23/2020. (Taxol stopped early due to toxicity). On 01/25/2021 the patient underwent surgery with a left modified radical mastectomy and axillary lymph node dissection. She was found to have residual disease in the breast as well as involvement of 6 axillary lymph nodes. Post neoadjuvant therapy staging: ypT1, N2a, M0. Postop the patient received postmastectomy adjuvant radiation therapy to her left chest wall and regional lymph nodes 03/07/2021 through 04/21/2021. Adjuvant hormonal therapy with anastrozole started January 2021. August 2021 the patient developed significant arthralgias from the anastrozole, at which time the hormonal therapy was changed to Aromasin which she is tolerating. Currently the patient has no evidence of disease. At this time the patient will continue with Aromasin with plans to take for 5 years (January 2026). We will then discuss the pros and cons of extended adjuvant hormonal therapy. We will arrange for port flush in 8 weeks and at 16 weeks, and I will see her back in 24 weeks for follow-up and labs. We will repeat her surveillance mammogram on a yearly basis. Further stage as indicated if suspicious signs or symptoms develop. 2. Essential hypertension - ICD9: 401.9, ICD10: I10 Continue management per PCP. 3. Osteopenia - ICD9: 733.90, ICD10: M85.80 Bone density exam March 2021 consistent with osteopenia. Reviewed the need for Calcium and Vitamin D supplements and weight bearing exercise as tolerated. To improve bone density and potentially decrease the risk of bone metastases Zometa started September 2021, with plans to give every 6 months. She will receive her next infusion today. After the patient completes Aromasin we will then change the Zometa to Reclast, with plans to give 5 mg yearly. Erwin aHre MD documented in this encounter [facility] 06-07-2022 History of Presen t illness Narrative PATIENT NAME: Gabriela Brasher DATE: 06/07/2022 PRIMARY CARE PHYSICIAN: Dr. Andrew Spears Sr OTHER PHYSICIANS: Dr. Campos, Dr. Dc Arrieta, Dr. Cifuentes Portions of this encounter note have been copied from the note from 03/08/2022 and has been updated where appropriate, and reflect my current medical decision making from today. CC: This is a 61 year old female with a history of breast cancer, seen for scheduled follow-up. INTERIM HISTORY: Gabriela Brasher returns for follow-up. There has been no significant medical changes since her last visit. She remains on Aromasin and her joint pain is much better. She continues to have knee pain but states its hereditary . She takes occasional Aleve for her left knee pain. Her shoulder joints no longer hurt. She denies any breast changes. No breast lumps, bumps or tenderness. She states that she gets phantom itch in her left axilla. She denies fevers, chills, night sweats and signs/symptoms of infection. She denies bleeding and abnormal bruising. She denies cough, shortness of breath and other pulmonary complaints. Overall she is doing well both physically and emotionally. MEDICATIONS: exemestane (AROMASIN) 25 mg tablet TAKE ONE TABLET BY MOUTH ONE TIME A DAY CALCIUM ORAL Take by mouth. cholecalciferol, vitamin D3, (VITAMIN D3 ORAL) Take by mouth. potassium chloride (K-TAB) 10 mEq tablet Take 1 tablet by mouth twice daily. atenolol (TENORMIN) 100 mg tablet Take 100 mg by mouth once daily. hydroCHLOROthiazide (HYDRODIURIL, ESIDRIX) 25 mg tablet Take 25 mg by mouth once daily. ALLERGIES: Adhesive Tape-Silicones PAST MEDICAL HISTORY: PAST MEDICAL HISTORY Diagnosis Date Breast cancer (HCC) left breast cancer with T3 tumor Edema of breast Erythema of breast Hypertension Left breast mass 06/24/2020 Menopause Patient states it has been greater than 5 yrs (today she is 59 yrs of age) Port-A-Cath in place Tobacco use PAST SURGICAL HISTORY: PAST SURGICAL HISTORY Procedure Laterality Date BREAST SURGERY HX 06/24/2020 Dr Campos EXTRACTION ERUPTED TOOTH PAST SURGICAL HISTORY OF excision of cyst, pilonidal cyst PORTOCATH PLACEMENT REVIEW OF SYSTEMS: General: No weight loss, malaise or fevers. HEENT: Negative for frequent or significant headaches. No changes in hearing or vision, no nose bleeds or other nasal problems. Respiratory: Negative for cough, wheezing or shortness of breath. Cardiovascular: Negative for chest pain, leg swelling or palpitations. GI: Negative for abdominal discomfort, blood in stools or black stools or change in bowel habit. : No history of dysuria, frequency or incontinence Musculoskeletal: Negative for back pain. Significant joint pain- mainly right hip. See HPI. Skin: Negative for lesions, rash and itching. Hematology/Lymphology: Negative for prolonged bleeding, bruising easily or swollen nodes. Neuro: No history of headaches, syncope, paralysis, seizures or tremors. PHYSICAL EXAM: Vitals: BP 133/87 Pulse 67 Temp 36.5 C (97.7 F) (Temporal) Resp 16 Ht 172.7 cm (5' 7.99 ) Wt 99.3 kg (218 lb 14.4 oz) SpO2 97% BMI 33.29 kg/m ECOG 0 Exam limited to gross visualization where appropriate due to COVID-19. Gen.: This is an age-appropriate patient in no acute distress. Head: Appears atraumatic with no visible lesions. Eyes: Pupils equally round and reactive to light, extraocular muscles are intact. Neck: Supple. Mouth: Mucous membranes appeared to be moist. Respiratory: Appears to be respiring comfortably. Neurologic: Nonfocal to gross visualization. Alert and oriented 3. Psychiatric: No evidence of inappropriate anxiety or depression. Skin: Visible areas of skin without rash, lesions, wounds or petechiae. Breast examination deferred by patient. PATHOLOGY: 01/25/2021 Left mastectomy and axillary dissection ([facility]) FINAL DIAGNOSIS Left breast and axillary contents, modified radical mastectomy - Residual multicentric invasive ductal carcinoma with treatment effect, present as single cells, scattered glands and rare clusters, measuring 6 mm in greatest contiguous dimension (please see comment and synoptic report). - Lymphovascular space invasion, including dermal lymphovascular space invasion is identified. 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 - Macrometastatic carcinoma involving four lymph nodes, micrometastatic carcinoma involving one lymph node and isolated tumor cells involving one lymph node from a total of seven lymph nodes evaluated, largest metastasis measures 12 mm in greatest dimension with extranodal extension measuring 1.5 mm. - Treatment effect including fibrosis and histiocytic inflammation is noted within multiple lymph nodes. Estrogen & progesterone receptors: Previously performed and reported as follows: Estrogen receptor: Positive (90%) Progesterone receptor: Positive (2-5%) (HER2) ERBB2 Status: HER2:Negative RADIOLOGIC DATA: 08/08/2021 Right Diagnostic Mammogram ([place]) Findings: Diagnostic category 2-benign finding no change from comparison assessment. Recommendations: Routine mammogram and clinical evaluation in 12 months. 07/25/2020 PET SCAN IMPRESSION: 1. Neck: No suspicious hypermetabolic foci 2. Chest: Hypermetabolic left breast soft tissue mass with hypermetabolic left breast cutaneous/subcutaneous thickening and hypermetabolic left anterior chest wall infiltration. Hypermetabolic left axillary/subpectoral region lymphadenopathy. 3. Abdomen and pelvis: No evidence of FDG avid neoplastic process 4. Skeleton: No hypermetabolic osseous lesions 07/25/2020 CT CHEST IMPRESSION: 1. Moderately large thoracic lymphadenopathy as described. 2. Masslike soft tissue densities in the left breast most likely the known primary neoplasm. Associated diffuse left breast skin thickening. 3. Diffuse hepatic infiltration.. 07/19/2020 MAMMOGRAM/US ([facility]) Right breast: No significant suspicious finding. Left breast: Large multilobulated dense mass within the upper outer quadrant, approximately 12 6 6 cm. Prominent area of increased density in the subareolar region. Marked skin thickening up to 13 mm anteriorly. Nipple retraction. Left axillary mass/enlarged lymph node 5.3 3.8 cm. 07/19/2020 ECHO WNL. LVEF > 55% LABORATORY DATA: Hemoglobin (g/dL) Date Value 06/07/2022 14.5 01/22/2022 13.7 Hematocrit (%) Date Value 06/07/2022 42.9 01/22/2022 40.3 WBC (k/uL) Date Value 06/07/2022 4.41 01/22/2022 3.78 Platelet Count (k/uL) Date Value 06/07/2022 215 01/22/2022 183 ASSESSMENT/PLAN: 1. Malignant neoplasm of overlapping sites of left breast in female, estrogen receptor positive Locally advanced (cT4, N3, M0) ER/OR positive HER-2 negative left-sided breast cancer diagnosed June 2020 (core needle biopsy of the left breast and overlying skin 06/24/2020). The patient's baseline PET scan and chest CT revealed extensive regional adenopathy but no distant metastases. After diagnosis genetic testing was recommended, but the patient declined. Neoadjuvant chemotherapy started 08/04/2020, with plans to give dose dense Adriamycin/Cytoxan x 4 cycles followed by weekly Taxol X 12 cycles. The patient completed 4 cycles of Adriamycin and Cytoxan as of 09/15/2020 with a partial response. She subsequently received low-dose weekly Taxol x 11 cycles 09/29/2020 -12/23/2020. (Taxol stopped early due to toxicity). On 01/25/2021 the patient underwent surgery with a left modified radical mastectomy and axillary lymph node dissection. She was found to have residual disease in the breast as well as involvement of 6 axillary lymph nodes. Post neoadjuvant therapy staging: ypT1, N2a, M0. Postop the patient received postmastectomy adjuvant radiation therapy to her left chest wall and regional lymph nodes 03/07/2021 through 04/21/2021. Adjuvant hormonal therapy with anastrozole started January 2021. The patient was seen for follow-up 08/09/2021 at which time she was experiencing severe arthralgias. The anastrozole was discontinued, and Aromasin started in August 2021. The patient has persistent arthralgias, otherwise is stable. Options were discussed, and for now the patient will continue as is with Aromasin 25 mg daily. The patient will undergo a port flush in 6 weeks and we will see her back in 3 months for follow-up and labs. She will see her other physicians as scheduled. Her next mammogram is scheduled to be done August 2022, and we will further stage as indicated. 2. Essential hypertension - ICD9: 401.9, ICD10: I10 Continue management per PCP. 3. Osteopenia - ICD9: 733.90, ICD10: M85.80 Reviewed the need for Calcium and Vitamin D supplements and weight bearing exercise as tolerated. To improve bone density and potentially decrease the risk of bone metastases Zometa started September 2021, with plans to give every 6 months. She will receive her next infusion when she returns in 3 months. Patient was given treatment summary and survivorship care plan for breast cancer. > 50% of 45 minutes was spent on counseling and coordination of care. Nickolas Parada APRN.CNP documented in this encounter [facility] 03-08-2022 History of Presen t illness Narrative PATIENT NAME: Gabriela Brasher DATE: 03/08/2022 PRIMARY CARE PHYSICIAN: Dr. Andrew Spears Sr OTHER PHYSICIANS: Dr. Campos, Dr. Dc Arrieta, Dr. Cifuentes Portions of this encounter note have been copied from the note from 12/11/2021 and has been updated where appropriate, and reflect my current medical decision making from today. CC: This is a 61 year old female with a history of breast cancer, seen for scheduled follow-up. INTERIM HISTORY: Gabriela Brasher returns for follow-up. She remains Aromasin and continues to have joint pains. She reports that the joint pain in her hips is not as bad but the joint pain is worse in her knees. Her shoulder joints hurt when she twists and reaches behind her. To help with the joint pain she takes 2 Aleve in the morning. She denies any bleeding. She bruises easily but this is not new. She denies cough and shortness of breath. Otherwise, there has been no significant medical changes since her last visit. MEDICATIONS: exemestane (AROMASIN) 25 mg tablet TAKE ONE TABLET BY MOUTH ONE TIME A DAY CALCIUM ORAL Take by mouth. cholecalciferol, vitamin D3, (VITAMIN D3 ORAL) Take by mouth. potassium chloride (K-TAB) 10 mEq tablet Take 1 tablet by mouth twice daily. atenolol (TENORMIN) 100 mg tablet Take 100 mg by mouth once daily. hydroCHLOROthiazide (HYDRODIURIL, ESIDRIX) 25 mg tablet Take 25 mg by mouth once daily. ALLERGIES: Adhesive Tape-Silicones PAST MEDICAL HISTORY: PAST MEDICAL HISTORY Diagnosis Date Breast cancer (HCC) left breast cancer with T3 tumor Edema of breast Erythema of breast Hypertension Left breast mass 06/24/2020 Menopause Patient states it has been greater than 5 yrs (today she is 59 yrs of age) Port-A-Cath in place Tobacco use PAST SURGICAL HISTORY: PAST SURGICAL HISTORY Procedure Laterality Date BREAST SURGERY HX 06/24/2020 Dr Campos EXTRACTION ERUPTED TOOTH PAST SURGICAL HISTORY OF excision of cyst, pilonidal cyst PORTOCATH PLACEMENT REVIEW OF SYSTEMS: General: No weight loss, malaise or fevers. HEENT: Negative for frequent or significant headaches. No changes in hearing or vision, no nose bleeds or other nasal problems. Respiratory: Negative for cough, wheezing or shortness of breath. Cardiovascular: Negative for chest pain, leg swelling or palpitations. GI: Negative for abdominal discomfort, blood in stools or black stools or change in bowel habit. : No history of dysuria, frequency or incontinence Musculoskeletal: Negative for back pain. Significant joint pain- mainly right hip. See HPI. Skin: Negative for lesions, rash and itching. Hematology/Lymphology: Negative for prolonged bleeding, bruising easily or swollen nodes. Neuro: No history of headaches, syncope, paralysis, seizures or tremors. PHYSICAL EXAM: Vitals: BP 148/91 Pulse 72 Temp 36.2 C (97.1 F) (Temporal) Resp 16 Ht 172.7 cm (5' 7.99 ) Wt 100.8 kg (222 lb 3.2 oz) SpO2 93% BMI 33.79 kg/m ECOG 0 Exam limited to gross visualization where appropriate due to COVID-19. Gen.: This is an age-appropriate patient in no acute distress. Head: Appears atraumatic with no visible lesions. Eyes: Pupils equally round and reactive to light, extraocular muscles are intact. Neck: Supple. Mouth: Mucous membranes appeared to be moist. Respiratory: Appears to be respiring comfortably. Neurologic: Nonfocal to gross visualization. Alert and oriented 3. Psychiatric: No evidence of inappropriate anxiety or depression. Skin: Visible areas of skin without rash, lesions, wounds or petechiae. PATHOLOGY: 01/25/2021 Left mastectomy and axillary dissection ([facility]) FINAL DIAGNOSIS Left breast and axillary contents, modified radical mastectomy - Residual multicentric invasive ductal carcinoma with treatment effect, present as single cells, scattered glands and rare clusters, measuring 6 mm in greatest contiguous dimension (please see comment and synoptic report). - Lymphovascular space invasion, including dermal lymphovascular space invasion is identified. 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 - Macrometastatic carcinoma involving four lymph nodes, micrometastatic carcinoma involving one lymph node and isolated tumor cells involving one lymph node from a total of seven lymph nodes evaluated, largest metastasis measures 12 mm in greatest dimension with extranodal extension measuring 1.5 mm. - Treatment effect including fibrosis and histiocytic inflammation is noted within multiple lymph nodes. Estrogen & progesterone receptors: Previously performed and reported as follows: Estrogen receptor: Positive (90%) Progesterone receptor: Positive (2-5%) (HER2) ERBB2 Status: HER2:Negative RADIOLOGIC DATA: 08/08/2021 Right Diagnostic Mammogram ([place]) Findings: Diagnostic category 2-benign finding no change from comparison assessment. Recommendations: Routine mammogram and clinical evaluation in 12 months. 07/25/2020 PET SCAN IMPRESSION: 1. Neck: No suspicious hypermetabolic foci 2. Chest: Hypermetabolic left breast soft tissue mass with hypermetabolic left breast cutaneous/subcutaneous thickening and hypermetabolic left anterior chest wall infiltration. Hypermetabolic left axillary/subpectoral region lymphadenopathy. 3. Abdomen and pelvis: No evidence of FDG avid neoplastic process 4. Skeleton: No hypermetabolic osseous lesions 07/25/2020 CT CHEST IMPRESSION: 1. Moderately large thoracic lymphadenopathy as described. 2. Masslike soft tissue densities in the left breast most likely the known primary neoplasm. Associated diffuse left breast skin thickening. 3. Diffuse hepatic infiltration.. 07/19/2020 MAMMOGRAM/US ([facility]) Right breast: No significant suspicious finding. Left breast: Large multilobulated dense mass within the upper outer quadrant, approximately 12 6 6 cm. Prominent area of increased density in the subareolar region. Marked skin thickening up to 13 mm anteriorly. Nipple retraction. Left axillary mass/enlarged lymph node 5.3 3.8 cm. 07/19/2020 ECHO WNL. LVEF > 55% LABORATORY DATA: Hemoglobin (g/dL) Date Value 03/08/2022 14.0 01/22/2022 13.7 Hematocrit (%) Date Value 03/08/2022 40.9 01/22/2022 40.3 WBC (k/uL) Date Value 03/08/2022 3.51 01/22/2022 3.78 Platelet Count (k/uL) Date Value 03/08/2022 192 01/22/2022 183 ASSESSMENT/PLAN: 1. Malignant neoplasm of overlapping sites of left breast in female, estrogen receptor positive Locally advanced (cT4, N3, M0) ER/OR positive HER-2 negative left-sided breast cancer diagnosed June 2020 (core needle biopsy of the left breast and overlying skin 06/24/2020). The patient's baseline PET scan and chest CT revealed extensive regional adenopathy but no distant metastases. After diagnosis genetic testing was recommended, but the patient declined. Neoadjuvant chemotherapy started 08/04/2020, with plans to give dose dense Adriamycin/Cytoxan x 4 cycles followed by weekly Taxol X 12 cycles. The patient completed 4 cycles of Adriamycin and Cytoxan as of 09/15/2020 with a partial response. She subsequently received low-dose weekly Taxol x 11 cycles 09/29/2020 -12/23/2020. (Taxol stopped early due to toxicity). On 01/25/2021 the patient underwent surgery with a left modified radical mastectomy and axillary lymph node dissection. She was found to have residual disease in the breast as well as involvement of 6 axillary lymph nodes. Post neoadjuvant therapy staging: ypT1, N2a, M0. Postop the patient received postmastectomy adjuvant radiation therapy to her left chest wall and regional lymph nodes 03/07/2021 through 04/21/2021. Adjuvant hormonal therapy with anastrozole started January 2021. The patient was seen for follow-up 08/09/2021 at which time she was experiencing severe arthralgias. The anastrozole was discontinued, and Aromasin started in August 2021. The patient has persistent arthralgias, otherwise is stable. Options were discussed, and for now the patient will continue as is with Aromasin 25 mg daily. We suggested that she take an [id number] NSAID consistently, and if she has significant improvement in her joint pain we could then consider adding an NSAID such as Mobic on a daily basis. The patient will undergo a port flush in 6 weeks and we will see her back in 3 months for follow-up. She will see her other physicians as scheduled. Her next mammogram is scheduled to be done August 2022, and we will further stage as indicated. 2. Essential hypertension - ICD9: 401.9, ICD10: I10 Continue management per PCP. 3. Osteopenia - ICD9: 733.90, ICD10: M85.80 Reviewed the need for Calcium and Vitamin D supplements and weight bearing exercise as tolerated. To improve bone density and potentially decrease the risk of bone metastases Zometa started September 2021, with plans to give every 6 months. She will receive her infusion today. Nickolas Parada APRN.EMMANUEL documented in this encounter [facility] 03-02-2022 Miscellaneous Notes Patient coming in to see you on 06/07/22 for follow up/Port Flush. Please add lab orders if needed. Thanks, Radha Rendon MA documented in this encounter [facility] Evaluation note Diagnosis Malignant neoplasm of overlapping sites of left breast in female, estrogen receptor positive (HCC) [facility] Malignant neoplasm of overlapping sites of left breast in female, estrogen receptor positive (HCC)- Primary [facility] Malignant neoplasm of overlapping sites of left breast in female, estrogen receptor positive (HCC)- Primary Essential hypertension Unspecified essential hypertension Osteopenia, unspecified location [facility] Diagnosis Malignant neoplasm of overlapping sites of left breast in female, estrogen receptor positive (HCC) [facility] Diagnosis Malignant neoplasm of overlapping sites of left breast in female, estrogen receptor positive (HCC)- Primary [facility] Diagnosis Malignant neoplasm of overlapping sites of left breast in female, estrogen receptor positive (HCC)- Primary Essential hypertension Unspecified essential hypertension Osteopenia, unspecified location [facility] Diagnosis Malignant neoplasm of overlapping sites of left breast in female, estrogen receptor positive (HCC)- Primary [facility] Diagnosis Malignant neoplasm of overlapping sites of left breast in female, estrogen receptor positive (HCC) Essential hypertension Unspecified essential hypertension Osteopenia, unspecified location [facility] Diagnosis Malignant neoplasm of overlapping sites of left breast in female, estrogen receptor positive (HCC)- Primary [facility] Diagnosis Malignant neoplasm of overlapping sites of left breast in female, estrogen receptor positive (HCC)- Primary Osteopenia of multiple sites Need for influenza vaccination Need for prophylactic vaccination and inoculation against influenza [facility] Diagnosis Malignant neoplasm of overlapping sites of left breast in female, estrogen receptor positive (HCC)- Primary [facility] Diagnosis Malignant neoplasm of overlapping sites of left breast in female, estrogen receptor positive (HCC) [facility] Diagnosis Malignant neoplasm of overlapping sites of left breast in female, estrogen receptor positive (HCC)- Primary Osteopenia of multiple sites [facility]* Diagnosis Malignant neoplasm of overlapping sites of left breast in female, estrogen receptor positive (HCC)- Primary [facility] Diagnosis Malignant neoplasm of overlapping sites of left breast in female, estrogen receptor positive (HCC)- Primary [facility] Diagnosis Malignant neoplasm of overlapping sites of left breast in female, estrogen receptor positive (HCC) [facility] Diagnosis Malignant neoplasm of overlapping sites of left breast in female, estrogen receptor positive (HCC)- Primary Osteopenia of multiple sites [facility] Diagnosis Malignant neoplasm of overlapping sites of left breast in female, estrogen receptor positive (HCC)- Primary [facility] Diagnosis Malignant neoplasm of overlapping sites of left breast in female, estrogen receptor positive (HCC)- Primary [facility] Diagnosis Malignant neoplasm of overlapping sites of left breast in female, estrogen receptor positive (HCC)- Primary [facility] Diagnosis Malignant neoplasm of overlapping sites of left breast in female, estrogen receptor positive (HCC)- Primary [facility]* Diagnosis Malignant neoplasm of overlapping sites of left breast in female, estrogen receptor positive (HCC) Osteopenia of multiple sites documented in this encounter [facility] note* Diagnosis Malignant neoplasm of overlapping sites of left breast in female, estrogen receptor positive (HCC)- Primary documented in this encounter [facility] note* Diagnosis Malignant neoplasm of overlapping sites of left breast in female, estrogen receptor positive (HCC)- Primary Osteopenia of multiple sites documented in this encounter [facility] note* Diagnosis Pre-op evaluation- Primary Preoperative examination, unspecified Malignant neoplasm of left female breast, unspecified estrogen receptor status, unspecified site of breast (HCC) Essential hypertension Unspecified essential hypertension Obesity (BMI 30-39.9) Obesity, unspecified Former smoker Personal history of tobacco use, presenting hazards to health Fatty liver Other chronic nonalcoholic liver disease Malignant neoplasm of overlapping sites of left breast in female, estrogen receptor positive (HCC)- Primary documented in this encounter [facility] note* Diagnosis Pre-op evaluation- Primary Preoperative examination, unspecified Malignant neoplasm of left female breast, unspecified estrogen receptor status, unspecified site of breast (HCC) Essential hypertension Unspecified essential hypertension Obesity (BMI 30-39.9) Obesity, unspecified Former smoker Personal history of tobacco use, presenting hazards to health Fatty liver Other chronic nonalcoholic liver disease Malignant neoplasm of overlapping sites of left breast in female, estrogen receptor positive (HCC)- Primary documented in this encounter [facility] note* Diagnosis Pre-op evaluation- Primary Preoperative examination, unspecified Malignant neoplasm of left female breast, unspecified estrogen receptor status, unspecified site of breast (HCC) Essential hypertension Unspecified essential hypertension Obesity (BMI 30-39.9) Obesity, unspecified Former smoker Personal history of tobacco use, presenting hazards to health Fatty liver Other chronic nonalcoholic liver disease Malignant neoplasm of overlapping sites of left breast in female, estrogen receptor positive (HCC)- Primary Primary hypertension Unspecified essential hypertension Osteopenia of multiple sites Need for vaccination Need for prophylactic vaccination and inoculation against unspecified single disease documented in this encounter [facility] note* Diagnosis Pre-op evaluation- Primary Preoperative examination, unspecified Malignant neoplasm of left female breast, unspecified estrogen receptor status, unspecified site of breast (HCC) Essential hypertension Unspecified essential hypertension Obesity (BMI 30-39.9) Obesity, unspecified Former smoker Personal history of tobacco use, presenting hazards to health Fatty liver Other chronic nonalcoholic liver disease Malignant neoplasm of overlapping sites of left breast in female, estrogen receptor positive (HCC) [facility] Diagnosis Primary hypertension (CMS/HCC)- Primary Unspecified essential hypertension Obesity with body mass index 30 or greater Malignant neoplasm of overlapping sites of left breast in female, estrogen receptor positive (CMS/HCC) Primary hypertension (CMS/HCC)- Primary Unspecified essential hypertension Hypercalcemia Hyperglycemia, unspecified Elevated glucose Other abnormal glucose Fatty liver Other chronic nonalcoholic liver disease Malignant neoplasm of overlapping sites of left breast in female, estrogen receptor positive (CMS/HCC) Obesity with body mass index 30 or greater Morbid obesity due to excess calories (CMS/HCC) Tobacco use Primary hypertension (CMS/HCC)- Primary Unspecified essential hypertension Pre-diabetes Other abnormal glucose Morbid obesity due to excess calories (CMS/HCC) Tobacco use documented in [facility] encounter [facility] Diagnostic Procedure Only (Routine) - Pending Review Specialty Diagnoses / Procedures Referred By Sam golden Referred To Contact [facility] Diagnoses Malignant neoplasm of overlapping sites of left breast in female, estrogen receptor positive (HCC) Essential hypertension Osteopenia, unspecified location Procedures ELIZABETH DIAGNOSTIC RT DIAGNOSTIC MAMMOGRAPHY COMPUTER-AIDED DETCJ Nickolas Cohen APRN.CNP [facility] [address] [place] [address] [facility] [address] [place] [address] Referral ID Status Reason Start Date Expiration Date Visits Requested Visits Authorized [id number] Pending Review Auto-Generat ed Referral 06/07/2022 07/07/2023 1 1 [facility] for referral (narrative)* Diagnostic Procedure Only (Routine) - Pending Review Specialty Diagnoses / Procedures Referred By Sam golden Referred To Contact BR IMAG[facility] Diagnoses Malignant neoplasm of overlapping sites of left breast in female, estrogen receptor positive (HCC) Procedures ELIZABETH DIAGNOSTIC RT DIAGNOSTIC MAMMOGRAPHY COMPUTER-AIDED DETCJ Erwin Chacon MD [address] [place] [address] [facility] [address] [place] [address] Referral ID Status Reason Start Date Expiration Date Visits Requested Visits Authorized [id number] Pending Review Auto-Generat ed Referral 02/21/2023 03/22/2024 1 1 [facility] for referral (narrative)* Diagnostic Procedure Only (Routine) - Pending Review Specialty Diagnoses / Procedures Referred By Contac t Referred To Contact BR IMAGING Diagnoses Malignant neoplasm of overlapping sites of left breast in female, estrogen receptor positive (HCC) Procedures [facility]ABETH DIAGNOSTIC RIGHT DIAGNOSTIC MAMMOGRAPHY COMPUTER-AIDED DETCJ UNI Erwin Hare MD [address] [place] [address] [facility] [address] [place] [phone] Referral ID Status Reason Start Date Expiration Date Visits Requested Visits Authorized [id number] Pending Review Auto-Generat ed Referral 03/12/2024 04/11/2025 1 1 [facility] for referral (narrative)* Diagnostic Procedure Only (Routine) - New Request Specialty Diagnoses / Procedures Referred By Contac t Referred To Contact XR IMAGING Diagnoses Malignant neoplasm of overlapping sites of left breast in female, estrogen receptor positive (HCC) Primary hypertension Osteopenia of multiple sites Procedures DXA-AXIAL SKELETON DXA BONE DENSITY STUDY 1/> SITES AXIAL Nickolas Perez, HUNTER [address] [place] [address] [place] [address] Referral ID Status Reason Start Date Expiration Date Visits Requested Visits Authorized [id number] New Request Auto-Generat ed Referral 10/10/2025 1 1 [facility] for visit Narrative* Diagnostic Procedure Only (Routine) - Authorized Specialty Diagnoses / Procedures Referred By Contac t Referred To Contact Hematology / HEMATOLOGY/ONCOLOGY Diagnoses port flush q 6 weeks Procedures LAB/Erwin Cortes MD [address] [facility] [place] [address] Juan Carlos Godfrey [address] [place] [address] Referral ID Status Reason Start Date Expiration Date V isits Requested Visits Authorized [id number] Authorized 10/29/2023 12/01/2023 99 99 [facility] Summary Purpose Family History No Family History Records FoundNo Family History Records FoundNo Family History Records FoundNo Family History Records FoundNo Family History Records FoundNo Family History Records FoundNo Family History Records Found Advance Directives No Advanced Directives Records FoundDocuments on File Type Date Recorded 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 Advance Directive(s) 01/25/2021 8:17 AM Documents on File Type Date Recorded 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 Advance Directive(s) 01/25/2021 8:17 AM Hospital Course Note HNO ID: [id number] Author: Taco Huizar Service: General Surgery Author Type: Physician Differential Tester Type: Discharge Summary Filed: 01/26/2021 11:28 AM Note Text: Attestation signed by Dc Arrieta at 01/26/2021 1:29 PM D/c d/w me See today's note Dc Arrieta MD DISCHARGE SUMMARY PATIENT NAME: Gabriela Brasher ADMISSION DATE: 01/25/2021 DISCHARGE DATE: 01/26/2021 Attending Physician: Dc Arrieta Code Status: Not on file Highest Readmission Risk Score: 7 The 30 day readmissions risk score is derived from an internally validated risk model which evaluates patient level characteristics, utilization history, medication orders and lab results up until the day of discharge. Patients with a score of 40 or above are considered highest risk for readmission. Specific patient level drivers will be listed at the claus (more content not included)... Note HNO ID: [id number] Author: Tato Arrieta Service: General Surgery Author Type: Physician Type: Operative Report Filed: 01/25/2021 5:49 PM Note Text: OPERATIVE / PROCEDURE NOTE LOG ID: [id number] SURGERY/PROCEDURE DATE: 01/25/2021 INCISION/PROCEDURE START TIME: 10:46 AM INCISION CLOSE/PROCEDURE END TIME: 1:45 PM SURGEON(S)/PROCEDURALIST(S) AND SILK SCREEN ETCHER(S): Surgeon(s) and Role: * Dc Arrieta - Primary Physician Differential Tester: Tiffany Conner (Pa Pa) SURGERY/PROCEDURE(S): Left breast modified radical mastectomy ANESTHESIA: General FINDINGS: Prominent nodes as expected ESTIMATED BLOOD LOSS: 100 mls SPECIMENS: Left breast and axillary contents COMPLICATIONS: None PRE-OP/PRE-PROCEDURE DIAGNOSIS: Inflammatory breast cancer, left breast; Macromastia POST-OP/POST-PROCEDURE DIAGNOSIS: Same as Preop ? OPERATIVE INDICATIONS: The patient is a 60-year-old female who presented to surgery office after being initially seen by oncology with an outside diagnosis of inflammatory breast can (more content not included)... Note HNO ID: [id number] Author: Segundo Branch Service: ? Author Type: Nurse Spa Technician Type: Anesthesia Procedure Notes Filed: 01/25/2021 10:39 AM Note Text: ANESTHESIOLOGY PROCEDURE NOTE Airway General Information Patient location during procedure: OR Staffing METAL MINE INSPECTOR: Matias Branch Performed by: NORBERT Indications and Patient Condition Preoxygenated: yes Patient position: sniffing Difficult Mask: No Indications for airway management: anesthesia anesthesia circuit Method: asleep Final Airway Details Final airway type: supraglottic airway Number of attempts at approach: 1 Final Supraglottic Airway: IGEL Size 4 Seal Adequate: yes Airway not difficult SIGNATURE: Matias Branch APRN.CRNA PATIENT NAME: Gabriela Brasher DATE: January 25, 2021 TIME: 10:38 AM CSN: [id number] Procedure Findings Note HNO ID: [id number] Author: Tato Arrieta Service: General Surgery Author Type: Physician Type: Operative Report Filed: 01/25/2021 5:49 PM Note Text: OPERATIVE / PROCEDURE NOTE LOG ID: [id number] SURGERY/PROCEDURE DATE: 01/25/2021 INCISION/PROCEDURE START TIME: 10:46 AM INCISION CLOSE/PROCEDURE END TIME: 1:45 PM SURGEON(S)/PROCEDURALIST(S) AND SILK SCREEN ETCHER(S): Surgeon(s) and Role: * Dc Arrieta - Primary Physician Differential Tester: Tiffany Conner (Pa Pa) SURGERY/PROCEDURE(S): Left breast modified radical mastectomy ANESTHESIA: General FINDINGS: Prominent nodes as expected ESTIMATED BLOOD LOSS: 100 mls SPECIMENS: Left breast and axillary contents COMPLICATIONS: None PRE-OP/PRE-PROCEDURE DIAGNOSIS: Inflammatory breast cancer, left breast; Macromastia POST-OP/POST-PROCEDURE DIAGNOSIS: Same as Preop ? OPERATIVE INDICATIONS: The patient is a 60-year-old female who presented to surgery office after being initially seen by oncology with an outside diagnosis of inflammatory breast can (more content not included)... Note HNO ID: [id number] Author: Segundo Branch Service: ? Author Type: Nurse Spa Technician Type: Anesthesia Procedure Notes Filed: 01/25/2021 10:39 AM Note Text: ANESTHESIOLOGY PROCEDURE NOTE Airway General Information Patient location during procedure: OR Staffing METAL MINE INSPECTOR: Matias Branch Performed by: NORBERT Indications and Patient Condition Preoxygenated: yes Patient position: sniffing Difficult Mask: No Indications for airway management: anesthesia anesthesia circuit Method: asleep Final Airway Details Final airway type: supraglottic airway Number of attempts at approach: 1 Final Supraglottic Airway: IGEL Size 4 Seal Adequate: yes Airway not difficult SIGNATURE: Matias Branch APRN.CRNA PATIENT NAME: Gabriela Brasher DATE: January 25, 2021 TIME: 10:38 AM CSN: [id number] Medications Administered Section Inactive Administered Medications - up to 3 most recent administrations Medication Order MAR Action Action Date Dose Rate Site zoledronic kp-ffqbungk-9.9NaCl 4 mg iv piggyback 100 mL (ZOMETA) 4 mg, INTRAVENOUS, Administer over 15 Minutes, ONCE, 1 dose, On Cassdiy 03/08/22 at 0930, Hazardous Potential Reproductive Risk Drug: Use appropriate PPE. New Bag/Syringe/Bottle 03/08/2022 9:06 AM EDT 4 mg Inactive Administered Medications - up to 3 most recent administrations Medication Order MAR Action Action Date Dose Rate Site zoledronic be-nwklayoc-8.9NaCl 4 mg iv piggyback 100 mL (ZOMETA) 4 mg, INTRAVENOUS, Administer over 15 Minutes, ONCE, 1 dose, On Cassidy 09/06/22 at 1500, Hazardous Potential Reproductive Risk Drug: Use appropriate PPE. New Bag/Syringe/Bottle 09/06/2022 3:09 PM EDT 4 mg Inactive Administered Medications - up to 3 most recent administrations Medication Order MAR Action Action Date Dose Rate Site heparin 100 unit/mL 500 Units injection 500 Units (5 mL), INTRAVENOUS, DIRECTED NEEDED, Starting on Cassidy 02/21/23 at 1447, Until Cassidy 02/21/23 at 1721, See Administration Instructions, If no allergy to Heparin: IVADS not in use should be accessed and flushed once every 4 to 6 weeks and PRN with 5 mL of Heparin (100units/mL). Upon de-access of Werner needle, when re-access is not indicated, ports will be flushed with 5 mL of Heparin (100 units/mL). Do not remove or delete this order unless patient has an allergy/contraindication to Heparin. Given 02/21/2023 3:17 PM EDT 500 Units zoledronic cv-qcqyrylc-8.9NaCl 4 mg iv piggyback 100 mL (ZOMETA) 4 mg, INTRAVENOUS, Administer over 15 Minutes, ONCE, 1 dose, On Cassidy 02/21/23 at 1500, Hazardous Potential Reproductive Risk Drug: Use appropriate PPE. New Bag/Syringe/Bottle 02/21/2023 3:00 PM EDT 4 mg Inactive Administered Medications - up to 3 most recent administrations Medication Order MAR Action Action Date Dose Rate Site zoledronic pz-qbzgghub-5.9NaCl 4 mg iv piggyback 100 mL (ZOMETA) 4 mg, INTRAVENOUS, Administer over 15 Minutes, ONCE, 1 dose, On Cassidy 08/15/23 at 1530, Hazardous Potential Reproductive Risk Drug: Use appropriate PPE. New Bag/Syringe/Bottle 08/15/2023 3:44 PM EDT 4 mg Additional Source Comments INFORMATION SOURCE (unrecogn ized section and content) DATE CREATED AUTHOR 02/09/2021 [facility] DATE CREATED AUTHOR AUTHOR'S ORGANIZ ATION 02/10/2021 [facility] DATE CREATED AUTHOR AUTHOR'S ORGANIZ ATION 04/12/2021 [facility] DATE CREATED AUTHOR AUTHOR'S ORGANIZ ATION 09/12/2022 [facility] DATE CREATED AUTHOR AUTHOR'S ORGANIZ ATION 02/25/2023 Dutton Hoang [facility] DATE CREATED AUTHOR AUTHOR'S ORGANIZ ATION 09/13/2024 [facility] DATE CREATED AUTHOR AUTHOR'S ORGANIZ ATION 09/19/2024 [facility] EPIC Source Comments (unrecognize d section and content) In the event this informatio n is protected by the Federal Confidentiality of Alcohol and Drug Abuse Patient Records regulations: The Federal rules restrict any use of the information to criminally investigate or prosecute any alcohol or drug abuse patient.[facility] the event this information is protected by the Federal Confidentiality of Alcohol and Drug Abuse Patient Records regulations: The Federal rules restrict any use of the information to criminally investigate or prosecute any alcohol or drug abuse patient.[facility] the event this information is protected by the Federal Confidentiality of Alcohol and Drug Abuse Patient Records regulations: The Federal rules restrict any use of the information to criminally investigate or prosecute any alcohol or drug abuse patient.[facility] the event this information is protected by the Federal Confidentiality of Alcohol and Drug Abuse Patient Records regulations: The Federal rules restrict any use of the information to criminally investigate or prosecute any alcohol or drug abuse patient.[facility] Hospital[facility] the event this information is protected by the Federal Confidentiality of Alcohol and Drug Abuse Patient Records regulations: The Federal rules restrict any use of the information to criminally investigate or prosecute any alcohol or drug abuse patient.[facility] Hospital[facility] the event this information is protected by the Federal Confidentiality of Alcohol and Drug Abuse Patient Records regulations: The Federal rules restrict any use of the information to criminally investigate or prosecute any alcohol or drug abuse patient.[facility] Hospital[facility] the event this information is protected by the Federal Confidentiality of Alcohol and Drug Abuse Patient Records regulations: The Federal rules restrict any use of the information to criminally investigate or prosecute any alcohol or drug abuse patient.[facility] the event this information is protected by the Federal Confidentiality of Alcohol and Drug Abuse Patient Records regulations: The Federal rules restrict any use of the information to criminally investigate or prosecute any alcohol or drug abuse patient.[facility] Hospital[facility] the event this information is protected by the Federal Confidentiality of Alcohol and Drug Abuse Patient Records regulations: The Federal rules restrict any use of the information to criminally investigate or prosecute any alcohol or drug abuse patient.[facility] Hospital[facility] the event this information is protected by the Federal Confidentiality of Alcohol and Drug Abuse Patient Records regulations: The Federal rules restrict any use of the information to criminally investigate or prosecute any alcohol or drug abuse patient.[facility] Hospital[facility] the event this information is protected by the Federal Confidentiality of Alcohol and Drug Abuse Patient Records regulations: The Federal rules restrict any use of the information to criminally investigate or prosecute any alcohol or drug abuse patient.[facility] HospitalIn the event this information is protected by the Federal Confidentiality of Alcohol and Drug Abuse Patient Records regulations: The Federal rules restrict any use of the information to criminally investigate or prosecute any alcohol or drug abuse patient.[facility] HospitalIn the event this information is protected by the Federal Confidentiality of Alcohol and Drug Abuse Patient Records regulations: The Federal rules restrict any use of the information to criminally investigate or prosecute any alcohol or drug abuse patient.[facility] HospitalIn the event this information is protected by the Federal Confidentiality of Alcohol and Drug Abuse Patient Records regulations: The Federal rules restrict any use of the information to criminally investigate or prosecute any alcohol or drug abuse patient.[facility] HospitalIn the event this information is protected by the Federal Confidentiality of Alcohol and Drug Abuse Patient Records regulations: The Federal rules restrict any use of the information to criminally investigate or prosecute any alcohol or drug abuse patient.[facility] HospitalIn the event this information is protected by the Federal Confidentiality of Alcohol and Drug Abuse Patient Records regulations: The Federal rules restrict any use of the information to criminally investigate or prosecute any alcohol or drug abuse patient.[facility] HospitalIn the event this information is protected by the Federal Confidentiality of Alcohol and Drug Abuse Patient Records regulations: The Federal rules restrict any use of the information to criminally investigate or prosecute any alcohol or drug abuse patient.[facility] HospitalIn the event this information is protected by the Federal Confidentiality of Alcohol and Drug Abuse Patient Records regulations: The Federal rules restrict any use of the information to criminally investigate or prosecute any alcohol or drug abuse patient.[facility] HospitalIn the event this information is protected by the Federal Confidentiality of Alcohol and Drug Abuse Patient Records regulations: The Federal rules restrict any use of the information to criminally investigate or prosecute any alcohol or drug abuse patient.[facility] HospitalIn the event this information is protected by the Federal Confidentiality of Alcohol and Drug Abuse Patient Records regulations: The Federal rules restrict any use of the information to criminally investigate or prosecute any alcohol or drug abuse patient.[facility] HospitalIn the event this information is protected by the Federal Confidentiality of Alcohol and Drug Abuse Patient Records regulations: The Federal rules restrict any use of the information to criminally investigate or prosecute any alcohol or drug abuse patient.[facility] HospitalIn the event this information is protected by the Federal Confidentiality of Alcohol and Drug Abuse Patient Records regulations: The Federal rules restrict any use of the information to criminally investigate or prosecute any alcohol or drug abuse patient.[facility] HospitalIn the event this information is protected by the Federal Confidentiality of Alcohol and Drug Abuse Patient Records regulations: The Federal rules restrict any use of the information to criminally investigate or prosecute any alcohol or drug abuse patient.[facility] HospitalIn the event this information is protected by the Federal Confidentiality of Alcohol and Drug Abuse Patient Records regulations: The Federal rules restrict any use of the information to criminally investigate or prosecute any alcohol or drug abuse patient.[facility] HospitalIn the event this information is protected by the Federal Confidentiality of Alcohol and Drug Abuse Patient Records regulations: The Federal rules restrict any use of the information to criminally investigate or prosecute any alcohol or drug abuse patient.[facility] HospitalIn the event this information is protected by the Federal Confidentiality of Alcohol and Drug Abuse Patient Records regulations: The Federal rules restrict any use of the information to criminally investigate or prosecute any alcohol or drug abuse patient.[facility] HospitalIn the event this information is protected by the Federal Confidentiality of Alcohol and Drug Abuse Patient Records regulations: The Federal rules restrict any use of the information to criminally investigate or prosecute any alcohol or drug abuse patient.[facility] HospitalIn the event this information is protected by the Federal Confidentiality of Alcohol and Drug Abuse Patient Records regulations: The Federal rules restrict any use of the information to criminally investigate or prosecute any alcohol or drug abuse patient.[facility] HospitalIn the event this information is protected by the Federal Confidentiality of Alcohol and Drug Abuse Patient Records regulations: The Federal rules restrict any use of the information to criminally investigate or prosecute any alcohol or drug abuse patient.[facility] HospitalIn the event this information is protected by the Federal Confidentiality of Alcohol and Drug Abuse Patient Records regulations: The Federal rules restrict any use of the information to criminally investigate or prosecute any alcohol or drug abuse patient.[facility] HospitalIn the event this information is protected by the Federal Confidentiality of Alcohol and Drug Abuse Patient Records regulations: The Federal rules restrict any use of the information to criminally investigate or prosecute any alcohol or drug abuse patient.[facility] HospitalIn the event this information is protected by the Federal Confidentiality of Alcohol and Drug Abuse Patient Records regulations: The Federal rules restrict any use of the information to criminally investigate or prosecute any alcohol or drug abuse patient.[facility] Care Teams (unrecognized sec tion and content) Office Asst Relationship Specialty Start Date End Date Andrew Spears Sr. [address] [place] [address] PCP - General Family Practice 07/08/20 Erwin Hare MD [address] [place] [address] [place] [address] Physician Hematology/Oncology 07/22/20 Nickolas Parada, RECOATER.RESERVATIONS SALES SUPERVISOR [address] [facility] [place] [address] Nurse Practitioner Hematology/Oncology 07/22/20 Office Asst Relationship Specialty Start Date End Date Andrew Spears Sr. [address] [place] [facility] [place] [address] PCP - General Family Practice 07/08/20 Erwin Hare MD [address] [facility] [place] [address] Physician Hematology/Oncology 07/22/20 Nickolas Parada, RECOATER.RESERVATIONS SALES SUPERVISOR [address] [facility] [place] [address] Nurse Practitioner Hematology/Oncology 07/22/20 Office Asst Relationship Specialty Start Date End Date Andrew Spears Sr. [address] [place] [address] PCP - General Family Practice 07/08/20 Erwin Hare MD [address] [facility] [place] [address] Physician Hematology/Oncology 07/22/20 Nickolas Parada, RECOATER.RESERVATIONS SALES SUPERVISOR [address] [facility] [place] [address] Nurse Practitioner Hematology/Oncology 07/22/20 Office Asst Relationship Specialty Start Date End Date Andrew Spears Sr. [address] [place] [address] PCP - General Family Practice 07/08/20 Erwin Hare MD [address] [facility] [place] [address] Physician Hematology/Oncology 07/22/20 Nickolas Parada, RECOATER.RESERVATIONS SALES SUPERVISOR [address] [facility] [place] [address] Nurse Practitioner Hematology/Oncology 07/22/20 Office Asst Relationship Specialty Start Date End Date Andrew Spears Sr. [address] [place] [address] PCP - General Family Practice 07/08/20 Erwin Hare MD [address] [facility] [place] [address] Physician Hematology/Oncology 07/22/20 Nickolas Parada, RECOATER.RESERVATIONS SALES SUPERVISOR [address] [facility] [place] [address] Nurse Practitioner Hematology/Oncology 07/22/20 Office Asst Relationship Specialty Start Date End Date Andrew Spears Sr. [address] [place] [address] PCP - General Family Practice 07/08/20 Erwin Hare MD [address] [facility] [place] [address] Physician Hematology/Oncology 07/22/20 Nickolas Parada, RECOATER.RESERVATIONS SALES SUPERVISOR [address] [facility] [place] [address] Nurse Practitioner Hematology/Oncology 07/22/20 Office Asst Relationship Specialty Start Date End Date Andrew Spears Sr. [address] [place] [address] PCP - General Family Medicine 07/08/20 Erwin Hare MD [address] [facility] [place] [address] Physician Hematology/Oncology 07/22/20 Nickolas Parada, RECOATER.RESERVATIONS SALES SUPERVISOR [address] [facility] [place] [address] Nurse Practitioner Hematology/Oncology 07/22/20 Office Asst Relationship Specialty Start Date End Date Andrew Spears Sr. [address] [place] [address] PCP - General Family Medicine 07/08/20 Erwin Hare MD [address] [facility] [place] [address] Physician Hematology/Oncology 07/22/20 Nickolas Parada, RECOATER.RESERVATIONS SALES SUPERVISOR [address] [facility] [place] [address] Nurse Practitioner Hematology/Oncology 07/22/20 Office Asst Relationship Specialty Start Date End Date Andrew Spears Sr. [address] [place] [address] PCP - General Family Medicine 07/08/20 Erwin Hare MD [address] [facility] [place] [address] Physician Hematology/Oncology 07/22/20 Nickolas Parada, RECOATER.RESERVATIONS SALES SUPERVISOR [address] [facility] [place] [address] Nurse Practitioner Hematology/Oncology 07/22/20 Office Asst Relationship Specialty Start Date End Date Andrew Spears Sr. [address] [place] [address] PCP - General Family Medicine 07/08/20 Erwin Hare MD [address] [facility] [place] [address] Physician Hematology/Oncology 07/22/20 Nickolas Parada, RECOATER.RESERVATIONS SALES SUPERVISOR [address] [facility] [place] [address] Nurse Practitioner Hematology/Oncology 07/22/20 Office Asst Relationship Specialty Start Date End Date Andrew Spears Sr. [address] [place] [address] PCP - General Family Medicine 07/08/20 Erwin Hare MD [address] [facility] [place] [address] Physician Hematology/Oncology 07/22/20 Nickolas Parada, RECOATER.RESERVATIONS SALES SUPERVISOR [address] [facility] [place] [address] Nurse Practitioner Hematology/Oncology 07/22/20 Office Asst Relationship Specialty Start Date End Date Andrew Spears Sr. [address] [place] [address] PCP - General Family Medicine 07/08/20 Erwin Hare MD [address] [facility] [place] [address] Physician Hematology/Oncology 07/22/20 Nickolas Parada, RECOATER.RESERVATIONS SALES SUPERVISOR [address] [facility] [place] [address] Nurse Practitioner Hematology/Oncology 07/22/20 Office Asst Relationship Specialty Start Date End Date Andrew Spears Sr. [address] [place] [address] PCP - General Family Medicine 07/08/20 Erwin Hare MD [address] [facility] [place] [address] Physician Hematology/Oncology 07/22/20 Nickolas Parada, RECOATER.RESERVATIONS SALES SUPERVISOR [address] [facility] [place] [address] Nurse Practitioner Hematology/Oncology 07/22/20 Office Asst Relationship Specialty Start Date End Date Andrew Spears . [address] [place] [address] PCP - General Family Medicine 07/08/20 Erwin Hare MD [address] [facility] [place] [address] Physician Hematology/Oncology 07/22/20 Nickolas Parada, RECOATER.RESERVATIONS SALES SUPERVISOR [address] [facility] [place] [address] Nurse Practitioner Hematology/Oncology 07/22/20 Office Asst Relationship Specialty Start Date End Date Andrew Spearsip . [address] [place] [address] PCP - General Family Medicine 07/08/20 Erwin Hare MD [address] [facility] [place] [address] Physician Hematology/Oncology 07/22/20 Nickolas Parada, RECOATER.RESERVATIONS SALES SUPERVISOR [address] [facility] [place] [address] Nurse Practitioner Hematology/Oncology 07/22/20 Office Asst Relationship Specialty Start Date End Date Andrew Spears . [address] [place] [address] PCP - General Family Medicine 07/08/20 Erwin Hare MD [address] [facility] [place] [address] Physician Hematology/Oncology 07/22/20 Nickolas Parada, RECOATER.RESERVATIONS SALES SUPERVISOR [address] [place] [address] Nurse Practitioner Hematology/Oncology 07/22/20 Office Asst Relationship Specialty Start Date End Date Andrew Spears Sr. [address] [place] [address] PCP - General Family Medicine 07/08/20 Erwin Hare MD [address] [facility] [place] [address] Physician Hematology/Oncology 07/22/20 Nickolas Parada, RECOATER.RESERVATIONS SALES SUPERVISOR [address] [facility] [place] [address] Nurse Practitioner Hematology/Oncology 07/22/20 Office Asst Relationship Specialty Start Date End Date Andrew Spears Sr., DO [address] [place] [address] PCP - General Family Medicine 07/08/20 Erwin Hare MD [address] [facility] [place] [address] Physician Hematology/Oncology 07/22/20 Nickolas Parada, RECOATER.RESERVATIONS SALES SUPERVISOR [address] [facility] [place] [address] Nurse Practitioner Hematology/Oncology 07/22/20 Office Asst Relationship Specialty Start Date End Date Andrew Spears Sr., DO [address] [place] [address] PCP - General Family Medicine 07/08/20 Erwin Hare MD [address] [facility] [place] [address] Physician Hematology/Oncology 07/22/20 Nickolas Parada, KENDRA.RESERVATIONS SALES SUPERVISOR [address] [facility] [place] [address] Nurse Practitioner Hematology/Oncology 07/22/20 Office Asst Relationship Specialty Start Date End Date Andrew Spears Sr., DO [address] [place] [address] PCP - General Family Medicine 07/08/20 Erwin Hare MD [address] [facility] [place] [address] Physician Hematology/Oncology 07/22/20 Nickolas Parada APRN.RESERVATIONS SALES SUPERVISOR [address] [facility] [place] [address] Nurse Practitioner Hematology/Oncology 07/22/20 Office Asst Relationship Specialty Start Date End Date Andrew Spears Sr., DO [address] [place] [address] PCP - General Family Medicine 07/08/20 Erwin Hare MD [address] [facility] [place] [address] Physician Hematology/Oncology 07/22/20 Nickolas Parada APRN.RESERVATIONS SALES SUPERVISOR [address] [facility] [place] [address] Nurse Practitioner Hematology/Oncology 07/22/20 Office Asst Relationship Specialty Start Date End Date Andrew Spears Sr., DO PCP - General Family Medicine 07/08/20 Erwin Hare MD [address] [facility] [place] [address] Physician Hematology/Oncology 07/22/20 Nickolas Parada, RECOATER.RESERVATIONS SALES SUPERVISOR [address] [facility] [place] [address] Nurse Practitioner Hematology/Oncology 07/22/20 Office Asst Relationship Specialty Start Date End Date Andrew Spears Sr., DO PCP - General Family Medicine 07/08/20 Erwin Hare MD [address] [facility] [address] Physician Hematology/Oncology 07/22/20 Nickolas Parada, RECOATER.RESERVATIONS SALES SUPERVISOR [address] [facility] [place] [address] Nurse Practitioner Hematology/Oncology 07/22/20 Office Asst Relationship Specialty Start Date End Date Andrew Spears Sr., DO PCP - General Family Medicine 07/08/20 Erwin Hare MD [address] [facility] [place] [address] Physician Hematology/Oncology 07/22/20 Nickolas Parada, RECOATER.RESERVATIONS SALES SUPERVISOR [address] [facility] [place] [address] Nurse Practitioner Hematology/Oncology 07/22/20 Office Asst Relationship Specialty Start Date End Date Andrew Spears Sr., DO PCP - General Family Medicine 07/08/20 Erwin Hare MD [address] [facility] [place] [address] Physician Hematology/Oncology 07/22/20 Nickolas Parada, RECOATER.RESERVATIONS SALES SUPERVISOR [address] [facility] [place] [address] Nurse Practitioner Hematology/Oncology 07/22/20 Office Asst Relationship Specialty Start Date End Date Andrew Spears Sr., DO PCP - General Family Medicine 07/08/20 Erwin Hare MD [address] [facility] [place] [address] Physician Hematology/Oncology 07/22/20 Nickolas Parada, RECOATER.RESERVATIONS SALES SUPERVISOR [address] [facility] [place] [address] Nurse Practitioner Hematology/Oncology 07/22/20 Office Asst Relationship Specialty Start Date End Date Andrew Spears Sr., DO PCP - General Family Medicine 07/08/20 Erwin Hare MD [address] [facility] [place] [address] Physician Hematology/Oncology 07/22/20 Nickolas Parada, RECOATER.RESERVATIONS SALES SUPERVISOR [address] [facility] [place] [address] Nurse Practitioner Hematology/Oncology 07/22/20 Office Asst Relationship Specialty Start Date End Date Andrew Spears Sr., DO PCP - General Family Medicine 07/08/20 Erwin Hare MD [address] [facility] [place] [address] Physician Hematology/Oncology 07/22/20 Nickolas Parada, RECOATER.RESERVATIONS SALES SUPERVISOR [address] [facility] [place] [address] Nurse Practitioner Hematology/Oncology 07/22/20 Office Asst Relationship Specialty Start Date End Date Andrew Spears Sr., DO PCP - General Family Medicine 07/08/20 Erwin Hare MD [address] [facility] [place] [address] Physician Hematology/Oncology 07/22/20 Nickolas Parada, RECOATER.RESERVATIONS SALES SUPERVISOR [address] [facility] [place] [address] Nurse Practitioner Hematology/Oncology 07/22/20 Office Asst Relationship Specialty Start Date End Date Amelia Weston NP [address] [place] [address] PCP - General 09/16/24 Amelia Weston NP [address] [place] [address] Nurse Practitioner Family Medicine 03/11/24 Office Asst Relationship Specialty Start Date End Date Amelia Weston NP [address] [place] [address] PCP - General 09/16/24 Amelia Weston NP [address] [place] [address] Nurse Practitioner Family Medicine 03/11/24 Reason for Visit (unrecogniz ed section and content) Specialty Diagnoses / Procedures Referred By Contac t Referred To Contact Diagnoses Malignant neoplasm of overlapping sites of left breast in female, estrogen receptor positive (HCC) 0C50.812,Z17.0 (ICD-10-CM) - Malignant neoplasm of overlapping sites of left breast in female, estrogen receptor positive (HCC) Procedures INJECTION, ZOLEDRONIC ACID, 1 MG J3489 - INJECTION, ZOLEDRONIC ACID, 1 MG Nickolas Parada APRN.[facility] [address] [facility] [place] [address] Juan Carlos [place] [address] [place] [address] Referral ID Status Reason Start Date Expiration Date V isits Requested Visits Authorized Authorized 08/09/2021 12/01/2022 99 99 Reason Comments Breast Cancer Reason Comments Lab Orders Reason Comments Breast Cancer Survivorship Reason Comments Breast Cancer Treatment visit/port draw Referral ID Status Reason Start Date Expiration Date V isits Requested Visits Authorized Authorized 08/09/2021 05/24/2023 5 5 Reason Comments Breast Cancer 5 month follow up Referral ID Status Reason Start Date Expiration Date V isits Requested Visits Authorized Authorized 08/09/2021 11/03/2023 99 99 Specialty Diagnoses / Procedures Referred By Contac t Referred To Contact Hematology / HEMATOLOGY/ONCOLOGY Diagnoses PORT FLUSH Procedures PORT FLUSH Erwin Hare MD [address] [facility] [place] [address] Juan Carlos [place] [address] [place] [address] Referral ID Status Reason Start Date Expiration Date V isits Requested Visits Authorized [id number] Authorized 04/17/2023 12/01/2023 99 99 Reason Comments Refill Request Referral ID Status Reason Start Date Expiration Date V isits Requested Visits Authorized Authorized 08/09/2021 08/19/2024 99 99 Reason Comments Breast Cancer 1 year follow up Specialty Diagnoses / Procedures Referred By Contac t Referred To Contact Diagnoses Malignant neoplasm of overlapping sites of left breast in female, estrogen receptor positive (HCC) Procedures INJECTION, ZOLEDRONIC ACID, 1 MG J3489 - INJECTION, ZOLEDRONIC ACID, 1 MG Nickolas Parada, KENDRA.[facility] [address] [facility] [place] [address] Juan Carlos Treat [place] [address] [facility] [place] [address] Referral ID Status Reason Start Date Expiration Date V isits Requested Visits Authorized Authorized 08/09/2021 03/11/2025 99 99 Reason Comments Follow Up Inactive Administered Medications - up to 3 most recent administrations Administered Medications (un recognized section and content) Medication Order MAR Action Action Date Dose Rate Site zoledronic [id number]-[id number] 4 mg iv piggyback 100 mL (ZOMETA) 4 mg, INTRAVENOUS, Administer over 15 Minutes, ONCE, 1 dose, On [place] 03/12/24 at 1530, Hazardous Potential Reproductive Risk Drug: Use appropriate PPE. New Bag/Syringe/Bottle 03/12/2024 3:32 PM EDT 4 mg FOR RECORDS PERTAINING TO PATIENTS WHO ARE OR HAVE BEEN ENROLLED IN A CHEMICAL DEPENDENCY/SUBSTANCEABUSE PROGRAM, SOME INFORMATION MAY BE OMITTED. This clinical summary was aggregated from multiple sources. Caution should be exercised in using it in the provision of clinical care. This summary normalizes information from multiple sources, and as a consequence, information in this document may materially change the coding, format and clinical context of patient data. In addition, data may be omitted in some cases. CLINICAL DECISIONS SHOULD BE BASED ON THE PRIMARY CLINICAL RECORDS. [facility]. provides no warranty or guarantee of the accuracy or completeness of information in this document.
== END 2024-09-29 07:54 | disposition home or self-care (01) ==
LOC: RAD 07:53
PROVIDERS: PCP Nurse Practitioner; Visit Provider Nurse Practitioner Family
DX: C50.812 Malignant neoplasm of overlapping sites of left female breast (principal); Z17.0 Estrogen receptor positive status [ER+]; I10 Essential (primary) hypertension; M85.89 Other specified disorders of bone density and structure, multiple sites; Z23 Encounter for immunization; M85.80 Other specified disorders of bone density and structure, unspecified site
CPT/HCPCS: 77080

== ENCOUNTER 2025-03-07 11:44 | Emergency (ER) | payer OTHER, SELFPAY ==
[2025-03-07 11:51] VITALS: BP 145/96; PULSE 91; TEMP 37; O2SAT 98; BMI 29.6
--- OUTSIDE RECORDS SUMMARY | 2025-03-07 12:01 | XMS_ITS | CCD ---
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 Name Role Phone House Sr., Andrew Garibay Primary Care Provider Erwin Hare MD Unavailable Tal SUSTAINABLE AGRICULTURE SPECIALIST.Nickolas BENITEZ Unavailable TORY, DR CAMPBELL Admitting Unavailable HOUSE, DR CAMPBELL Attending Unavailable HOUSE, DR CAMPBELL Primary Care Unavailable HOUSE, DR CAMPBELL Consulting Unavailable ANTONIO, DR SELENA Menendez Consulting Unavailable TAL, DR NICKOLAS Severino Attending Unavailable HOUSE, DR CAMPBELL Primary Care Unavailable HOUSE, DR CAMPBELL Admitting Unavailable ANTONIO, DR SELENA Menendez Consulting Unavailable TAL, DR NICKOLAS Severino Consulting Unavailable ALISON SPAIN Admitting Unavailable ALISON SPAIN Attending Unavailable HOUSE, DR CAMPBELL Primary Care Unavailable ALISON SPAIN Consulting Unavailable [place] Sr., Andrew Garibay Primary Care Provider Erwin Hare MD Unavailable Tal SUSTAINABLE AGRICULTURE SPECIALIST.Nickolas BENITEZ Unavailable [place] Sr., Andrew PEREZ Primary Care Prov ider House Sr., Andrew PEREZ Primary Care Provider [place] Sr., Andrew PEREZ Primary Care Provider Aictraci COOK RAILROAD, Amelia Unavailable Trista COOK RAILROAD, Amelia Primary Care Provider TRISTA, AMELIA Attending Unavailable TRISTA, AMELIA Attending Unavailable TRISTA, AMELIA Attending Unavailable NICKOLAS PARADA Referring Unavailable ANDREW SPEARS SR Primary Care Unavailable ERWIN HARE Attending Unavailable DC ARRIETA Referring Unavailable HOUSE SR, ANDREW P Primary Care Unavailable ARRIETA, DC E Referring Unavailable HOUSE SR, ANDREW P Primary Care Unavailable ERWIN HARE Referring Unavailable HOUSE SR, ANDREW P Primary Care Unavailable ERWIN HARE Referring Unavailable HOUSE SR, ANDREW P Primary Care Unavailable ARRIETA, DC E Referring Unavailable HOUSE SR, ANDREW P Primary Care Unavailable NICKOLAS PARADA Referring Unavailable HOUSE SR, ANDREW P Primary Care Unavailable NICKOLAS PARADA Attending Unavailable ARRIETA, DC E Referring Unavailable HOUSE SR, ANDREW P Primary Care Unavailable ARRIETA, DC E Referring Unavailable HOUSE SR, ANDREW P Primary Care Unavailable HOUSE SR, ANDREW P Primary Care Unavailable Allergies Allergy Classification Reported Allergen(s) Allergy Type Date of Onset Reaction(s) Facility (3 sources) Latex Allergy to substance 4 Unknown [facility] (3 sources) Wound Dressing Adhesive Drug Allergy 4 Unknown [facility] (1 source) ADHESIVE TAPE-SILICONES; Translations: [ADHESIVE TAPE-SILICONES] Propensity to adverse reactions to drug (disorder) 0 [facility] Medications Current Medications Medication Drug Class(es) Dates [...] (20 sources) Aromatase Inhibitor Start: 2021 End: 2024 take 1 tablet by mouth once exemestane (AROMASIN) 25 mg tablet Take 1 tablet by mouth every afternoon. 90 tablet 3 12/11/2024 Active Comment on above: TAKE ONE TABLET [...] daily. naproxen sodium 220 mg oral capsule (16 sources) Nonsteroidal Anti-inflammatory Drug take 1 capsule by mouth once daily naproxen sodium 220 mg cap Take 1 capsule by mouth once daily. Active Comment on above: Take 1 capsule by mo cth once daily. potassium gluconate 2.5 meq oral tablet (19 sources) take 1 tablet by mouth once daily potassium gluconate 600 mg (99 mg) tab Take 1 tablet by mouth once daily. Active Comment on above: Take 1 tablet by dayday th once daily. turmeric extract 500 mg oral capsule (3 sources) Turmeric (QC Sofia weslye Complex) 500 MG capsule Take by mouth [...] on above: Take 1 tablet by dayday twice daily. 100 ml zoledronic acid 0.04 [...] of left female breast] Onset: 07-19-2020 Chronic Essential hypertension (20 sources) Hypertensive disorder; Translations: [...] Chronic Other nutritional; endocrine; and metabolic disorders (20 sources) Body mass index 30+ - obesity; Translations: [Obesity, unspecified] Onset: 01-18-2021 Resolved: 06-18-2024 01-25-2021 Chronic Other nutritional; endocrine; and metabolic disorders [...] Problem Classification Problem Date Documented Date Episodic/Chronic Diabetes mellitus without complication (20 sources) Hyperglycemia; Translations: [Hyperglycemia, unspecified] Onset: 06-12-2019 Resolved: 06-18-2024 01-25-2021 Episodic Nausea and vomiting (20 sources) Nausea; Translations: [Nausea] Onset: 08-24-2020 08-24-2020 Episodic Other diseases of veins and lymphatics (3 sources) Vascular insufficiency; Translations: [Venous insufficiency (chronic) (peripheral)] Onset: 03-18-2024 03-18-2024 Episodic Other inflammatory condition of skin (3 sources) Red breast; Translations: [Erythematous condition, unspecified] Onset: 03-18-2024 03-18-2024 Episodic Screening and history of mental health and substance abuse codes (20 sources) Ex-smoker; Translations: [Personal history of nicotine dependence] Onset: 01-18-2021 Resolved: 06-18-2024 01-18-2021 Episodic Results Test Name Value Interpretation Reference Range Facility CBC W Auto Differential pane l (Bld)on 09-10-2024 Basophils (Bld) [#/Vol] 0.03 10*3/uL [facility] Basophils/100 WBC (Bld) 0.7 % [facility] Differential cell count method Nom (Bld) Auto [facility] Eosinophils (Bld) [#/Vol] 0.25 10*3/uL [facility] Eosinophils/100 WBC (Bld) 5.7 % [facility] Erythrocyte distribution width (RBC) [Ratio] 12.3 % 11.5 - 15.0 % [facility] Hematocrit (Bld) [Volume fraction] 40.7 % 36.0 - 46.0 % [facility] Hemoglobin (Bld) [Mass/Vol] 14.2 g/dL 11.5 - 15.5 g/dL [facility] Immature granulocytes (Bld) [#/Vol] [facility] Immature granulocytes/100 WBC (Bld) 0.2 % [facility] Lymphocytes (Bld) [#/Vol] 1.68 10*3/uL [facility] Lymphocytes/100 WBC (Bld) 38.2 % [facility] MCH (RBC) [Entitic mass] 31.2 pg 26.0 - 34.0 pg [facility] MCHC (RBC) [Mass/Vol] 34.9 g/dL 30.5 - 36.0 g/dL [facility] MCV (RBC) [Entitic vol] 89.5 fL 80.0 - 100.0 fL [facility] Monocytes (Bld) [#/Vol] 0.56 10*3/uL [facility] Monocytes/100 WBC (Bld) 12.7 % [facility] Neutrophils (Bld) [#/Vol] 1.87 10*3/uL [facility] Neutrophils/100 WBC (Bld) 42.5 % [facility] Nucleated RBC (Bld) [#/Vol] NINF [facility] Nucleated RBC/100 WBC (Bld) [Ratio] 0.0 % /100 WBC [facility] Platelet mean volume (Bld) [Entitic vol] 10.2 fL 9.0 - 12.7 fL [facility] Platelets (Bld) [#/Vol] 201 10*3/uL [facility] RBC (Bld) [#/Vol] 4.55 10*6/uL 3.90 - 5.2 0 m/uL [facility] WBC (Bld) [#/Vol] 4.40 10*3/uL [facility] Basophils (Bld) [#/Vol] 0.03 10*3/uL Normal <0.11 [facility] Comment on above: Order Comment: Speci men Type: BLOOD SPECIMEN Ordering Facility: [facility] Address: [address] [place] [address] Performed By: #### 5 7021-8 #### [facility] CLIA [id number] [address] [place] [address]52 Basophils/100 WBC (Bld) 0.7 % Normal [facility] Comment on above: Order Comment: Speci men Type: BLOOD SPECIMEN Ordering Facility: [facility] Address: [address] [place] [address] Performed By: #### 5 7021-8 #### [facility] CLIA [id number] [address] [place] [address] 04272 Differential cell count method Nom (Bld) Auto Normal [facility] Comment on above: Order Comment: Speci men Type: BLOOD SPECIMEN Ordering Facility: [facility] Address: [address] [place] [address] Performed By: #### 5 7021-8 #### [facility] CLIA [id number] [address] [place] [address] 22727 Eosinophils (Bld) [#/Vol] 0.25 10*3/uL Normal <0.46 [facility] Comment on above: Order Comment: Speci men Type: BLOOD SPECIMEN Ordering Facility: [facility] Address: [address] [place] [address] Performed By: #### 5 7021-8 #### [facility] CLIA [id number] [address] [place] [address] 88240 Eosinophils/100 WBC (Bld) 5.7 % Normal [facility] Comment on above: Order Comment: Speci men Type: BLOOD SPECIMEN Ordering Facility: [facility] Address: [address] [place] [address] Performed By: #### 5 7021-8 #### [facility] CLIA [id number] [address] [place] [address] 81137 Erythrocyte distribution width (RBC) [Ratio] 12.3 % Normal 11.5-15.0 [facility] Comment on above: Order Comment: Speci men Type: BLOOD SPECIMEN Ordering Facility: [facility] Address: [address] [place] [address] Performed By: #### 5 7021-8 #### [facility] CLIA [id number] [address] [place] [address] 40598 Hematocrit (Bld) [Volume fraction] 40.7 % Normal 36.0-46.0 [facility] Comment on above: Order Comment: Speci men Type: BLOOD SPECIMEN Ordering Facility: [facility] Address: [address] [place] [address] Performed By: #### 5 7021-8 #### [facility] CLIA [id number] [address] [place] [address] 22940 Hemoglobin (Bld) [Mass/Vol] 14.2 g/dL Normal 11.5-15.5 [facility] Comment on above: Order Comment: Speci men Type: BLOOD SPECIMEN Ordering Facility: [facility] Address: [address] [place] [address] Performed By: #### 5 7021-8 #### [facility] CLIA [id number] [address] [place] [address] 54985 Immature granulocytes (Bld) [#/Vol] 10*3/uL Normal <0.10 [facility] Comment on above: Order Comment: Speci men Type: BLOOD SPECIMEN Ordering Facility: [facility] Address: [address] [place] [address] Performed By: #### 5 7021-8 #### [facility] CLIA [id number] [address] [place] [address] 69945 Immature granulocytes/100 WBC (Bld) 0.2 % Normal [facility] Comment on above: Order Comment: Speci men Type: BLOOD SPECIMEN Ordering Facility: [facility] Address: [address] [place] [address] Performed By: #### 5 7021-8 #### [facility] CLIA [id number] [address] [place] [address] 23969 Lymphocytes (Bld) [#/Vol] 1.68 10*3/uL Normal 1.00-4.00 [facility] Comment on above: Order Comment: Speci men Type: BLOOD SPECIMEN Ordering Facility: [facility] Address: [address] [place] [address] Performed By: #### 5 7021-8 #### [facility] CLIA [id number] [address] [place] [address] 08993 Lymphocytes/100 WBC (Bld) 38.2 % Normal [facility] Comment on above: Order Comment: Speci men Type: BLOOD SPECIMEN Ordering Facility: [facility] Address: [address] [place] [address] Performed By: #### 5 7021-8 #### [facility] CLIA [id number] [address] [place] [address] 64215 MCH (RBC) [Entitic mass] 31.2 pg Normal 26.0-34.0 [facility] Comment on above: Order Comment: Speci men Type: BLOOD SPECIMEN Ordering Facility: [facility] Address: [address] [place] [address] Performed By: #### 5 7021-8 #### [facility] CLIA [id number] [address] [place] [address] 94983 MCHC (RBC) [Mass/Vol] 34.9 g/dL Normal 30.5-36.0 [facility] Comment on above: Order Comment: Speci men Type: BLOOD SPECIMEN Ordering Facility: [facility] Address: [address] [place] [address] Performed By: #### 5 7021-8 #### [facility] CLIA [id number] [address] [place] [address] 37188 MCV (RBC) [Entitic vol] 89.5 fL Normal 80.0-100.0 [facility] Comment on above: Order Comment: Speci men Type: BLOOD SPECIMEN Ordering Facility: [facility] Address: [address] [place] [address] Performed By: #### 5 7021-8 #### [facility] CLIA [id number] [address] [place] [address] 06323 Monocytes (Bld) [#/Vol] 0.56 10*3/uL Normal <0.87 [facility] Comment on above: Order Comment: Speci men Type: BLOOD SPECIMEN Ordering Facility: [facility] Address: [address] [place] [address] Performed By: #### 5 7021-8 #### [facility] CLIA [id number] [address] [place] [address] 55584 Monocytes/100 WBC (Bld) 12.7 % Normal [facility] Comment on above: Order Comment: Speci men Type: BLOOD SPECIMEN Ordering Facility: [facility] Address: [address] [place] [address] Performed By: #### 5 7021-8 #### [facility] CLIA [id number] [address] [place] [address] Neutrophils (Bld) [#/Vol] 1.87 10*3/uL Normal 1.45-7.50 [facility] Comment on above: Order Comment: Speci men Type: BLOOD SPECIMEN Ordering Facility: [facility] Address: [address] [place] [address] Performed By: #### 5 7021-8 #### [facility] CLIA [id number] [address] [place] [address] 21986 Neutrophils/100 WBC (Bld) 42.5 % Normal [facility] Comment on above: Order Comment: Speci men Type: BLOOD SPECIMEN Ordering Facility: [facility] Address: [address] [place] [address] Performed By: #### 5 7021-8 #### [facility] CLIA [id number] [address] [place] [address] 45362 Nucleated RBC (Bld) [#/Vol] 10*3/uL Normal <0.01 [facility] Comment on above: Order Comment: Speci men Type: BLOOD SPECIMEN Ordering Facility: [facility] Address: [address] [place] [address] Performed By: #### 5 7021-8 #### [facility] CLIA [id number] [address] [place] [address] 66853 Nucleated RBC/100 WBC (Bld) [Ratio] 0.0 /100 WBC Normal [facility] Comment on above: Order Comment: Speci men Type: BLOOD SPECIMEN Ordering Facility: [facility] Address: [address] [place] [address] 22376 Performed By: #### 5 7021-8 #### [facility] CLIA [id number] [address] [place] [address] 00751 Platelet mean volume (Bld) [Entitic vol] 10.2 fL Normal 9.0-12.7 [facility] Comment on above: Order Comment: Speci men Type: BLOOD SPECIMEN Ordering Facility: [facility] Address: [address] [place] [address] Performed By: #### 5 7021-8 #### [facility] CLIA [id number] [address] [place] [address] Platelets (Bld) [#/Vol] 201 10*3/uL Normal 150-400 [facility] Comment on above: Order Comment: Speci men Type: BLOOD SPECIMEN Ordering Facility: [facility] Address: [address] [place] [address] Performed By: #### 5 7021-8 #### [facility] CLIA [id number] [address] [place] [address] 74093 RBC (Bld) [#/Vol] 4.55 10*6/uL Normal 3.90-5.20 [facility] Comment on above: Order Comment: Speci men Type: BLOOD SPECIMEN Ordering Facility: [facility] Address: [address] [place] [address] Performed By: #### 5 7021-8 #### [facility] CLIA [id number] [address] [place] [address] 21892 WBC (Bld) [#/Vol] 4.40 10*3/uL Normal 3.70-11.00 [facility] Comment on above: Order Comment: Speci men Type: BLOOD SPECIMEN Ordering Facility: [facility] Address: [address] [place] [address] Performed By: #### 5 7021-8 #### [facility] CLIA [id number] [address] [place] [address] 13378 CNOVSPon 09-10-2024 CNOVSP Visit (SP) Office ([place]) ----- GABRIELA BRASHER ([id number]) 1960 F Date Time Provider Department 09/10/24 3:00 PM TAL NICKOLAS TORRE During your visit today, we recorded the following information about you: Temperature Pulse Respiration Blood pressure 98 degrees 59/minute 16/minute 133/86 Weight Height 102 kg 1.727 m Nickolas Parada APRN.[facility] 09/10/2024 4:24 PM Signed PATIENT NAME: Gabriela Brasher DATE: 09/10/2024 PRIMARY CARE PHYSICIAN: Dr. Andrew Spears OTHER [...] easily. She has been working with he PCP/SUSTAINABLE AGRICULTURE SPECIALIST regarding elevated blood sugars. She is hoping [...] carcinoma invol (more content not included)... Normal [facility] Cancer Ag27-29 SerPl-aCncon 09-10-2024 Cancer Ag 27-29 Qn 15.5 [arb'U]/mL Normal <38.6 [facility] Comment on above: Order Comment: Speci men Type: BLOOD SPECIMEN Ordering Facility: [facility] Address: [address] [place] [address] Result Comment: The CA27.29 test was performed using the Siemens [employer] XP chemiluminometric immunoassay method. Results obtained with different assay methods or kits cannot be used interchangeably. Performed By: #### 1 7842-6 #### [facility] CLIA [id number] [address] [place] [address] [place] Comprehensive metabolic 2000 panelOrdered By: Shauna Barnes on 09-10-2024 Albumin [Mass/Vol] 4.2 g/dL 3.9 - 4.9 g/dL [facility] ALP [Catalytic activity/Vol] 63 U/L 34 - 123 U/L [facility] ALT [Catalytic activity/Vol] 27 U/L 7 - 38 U/L [facility] Anion gap [Moles/Vol] 11 mmol/L 8 - 15 mmol/L [facility] AST [Catalytic activity/Vol] 22 U/L 13 - 35 U/L [facility] Bilirubin [Mass/Vol] 0.4 mg/dL 0.2 - 1.3 mg/dL [facility] Calcium [Mass/Vol] 9.6 mg/dL 8.5 - 10. 2 mg/dL [facility] Chloride [Moles/Vol] 100 mmol/L 98 - 107 mmol/L [facility] CO2 [Moles/Vol] 28 mmol/L 22 - 30 mmol/L [facility] Creatinine [Mass/Vol] 0.78 mg/dL 0.58 - 0.96 mg/dL [facility] GFR/1.73 sq M.predicted among non-blacks MDRD (S/P/Bld) [Vol rate/Area] 85 mL/min/{1.73_m2} - PINF [facility] Comment on above: Estimated Glomerular Filtration Rate (eGFR) is calculated using the 202 CKD-EPI creatinine equation. This equation utilizes serum creatinine, sex, and age as parameters. The creatinine assay has traceable calibration to isotope dilution-mass spectrometry. Refer to KDIGO guidelines for clinical interpretation. In patients with unstable renal function, e.g. those with acute kidney injury, the eGFR may not accurately reflect actual GFR. Glucose [Mass/Vol] 115 mg/dL High 74 - 99 mg/dL [facility] Comment on above: The [place] Diabete s Association (ADA) provides guidance for [...] Standards of Medical Care in Diabetes 2016, [place] Diabetes Association. Diabetes Care. 2016.39(Suppl 1). Interpretation and review of laboratory results Abnormal [facility] Potassium [Moles/Vol] 3.5 mmol/L Low 3.7 - 5.1 mmol/L [facility] Protein [Mass/Vol] 6.8 g/dL 6.3 - 8.0 g/dL [facility] Sodium [Moles/Vol] 139 mmol/L 136 - 144 mmol/L [facility] Urea nitrogen [Mass/Vol] 16 mg/dL 7 - 21 mg/dL [facility] Comprehensive metabolic 2000 panelon 09-10-2024 Albumin [Mass/Vol] 4.2 g/dL Normal 3.9-4.9 [facility] Comment on above: Order Comment: Speci men Type: BLOOD SPECIMEN Ordering Facility: [facility] Address: [facility] [place] [address] Performed By: #### 2 4323-8 #### [facility] CLIA [id number] [address] [place] [address] ALP [Catalytic activity/Vol] 63 U/L Normal 34-123 [facility] Comment on above: Order Comment: Speci men Type: BLOOD SPECIMEN Ordering Facility: [facility] Address: [address] [place] [address] Performed By: #### 2 4323-8 #### [facility] CLIA [id number] [address] [place] [address] ALT [Catalytic activity/Vol] 27 U/L Normal 7-38 [facility] Comment on above: Order Comment: Speci men Type: BLOOD SPECIMEN Ordering Facility: [facility] Address: [address] [place] [address] Performed By: #### 2 4323-8 #### [facility] CLIA [id number] [address] [place] [address] 29592 Anion gap [Moles/Vol] 11 mmol/L Normal 8-15 [facility] Comment on above: Order Comment: Speci men Type: BLOOD SPECIMEN Ordering Facility: [facility] Address: [address] [place] [address] Performed By: #### 2 4323-8 #### [facility] CLIA [id number] [address] [place] [address] 96376 AST [Catalytic activity/Vol] 22 U/L Normal 13-35 [facility] Comment on above: Order Comment: Speci men Type: BLOOD SPECIMEN Ordering Facility: [facility] Address: [address] [place] [address] Performed By: #### 2 4323-8 #### [facility] CLIA [id number] [address] [place] [address] 77981 Bilirubin [Mass/Vol] 0.4 mg/dL Normal 0.2-1.3 [facility] Comment on above: Order Comment: Speci men Type: BLOOD SPECIMEN Ordering Facility: [facility] Address: [address] [place], [place] [address] Performed By: #### 2 4323-8 #### [facility] CLIA [id number] [address] [place] [address] Calcium [Mass/Vol] 9.6 mg/dL Normal 8.5-10.2 [facility] Comment on above: Order Comment: Speci men Type: BLOOD SPECIMEN Ordering Facility: [facility] Address: [address] [place] [address] Performed By: #### 2 4323-8 #### [facility] CLIA [id number] [address] [place] [address] Chloride [Moles/Vol] 100 mmol/L Normal 98-107 [facility] Comment on above: Order Comment: Speci men Type: BLOOD SPECIMEN Ordering Facility: [facility] Address: [address] [place] [address] Performed By: #### 2 4323-8 #### [facility] CLIA [id number] [address] [place] [address] 57768 CO2 [Moles/Vol] 28 mmol/L Normal 22-30 [facility] Comment on above: Order Comment: Speci men Type: BLOOD SPECIMEN Ordering Facility: [facility] Address: [address] [place] [address] Performed By: #### 2 4323-8 #### [facility] CLIA [id number] [address] [place] [address] 93220 Creatinine [Mass/Vol] 0.78 mg/dL Normal 0.58-0.96 [facility] Comment on above: Order Comment: Speci men Type: BLOOD SPECIMEN Ordering Facility: [facility] Address: [address] [place] [address] Performed By: #### 2 4323-8 #### [facility] CLIA [id number] [address] [place] [address] 39338 Creatinine and Glomerular filtration rate.predicted panel (S/P/Bld) 85 mL/min/1.73m??? Normal >=60 [facility] Comment on above: Order Comment: Speci men Type: BLOOD SPECIMEN Ordering Facility: [facility] Address: [address] [place] [address] Result Comment: Linn mated Glomerular Filtration Rate [...] 4323-8 #### [facility] CLIA [id number] [address] [place] [address] 62230 Glucose [Mass/Vol] 115 mg/dL High 74-99 [facility] Comment on above: Order Comment: Nica vega Type: BLOOD SPECIMEN Ordering Facility: [facility] Address: [address] [place] [address] Result Comment: The [place] Diabetes Association (ADA) provides guidance for cutoff [...] Standards of Medical Care in Diabetes 2016, [place] Diabetes Association. Diabetes Care. 2016.39(Suppl 1). Performed By: #### 2 4323-8 #### [facility] CLIA [id number] [address] [place] [address]41 Potassium [Moles/Vol] 3.5 mmol/L Low 3.7-5.1 [facility] Comment on above: Order Comment: Nica vega Type: BLOOD SPECIMEN Ordering Facility: [facility] Address: [address] [place] [address] Performed By: #### 2 4323-8 #### [facility] CLIA [id number] [address] [place] [address] Protein [Mass/Vol] 6.8 g/dL Normal 6.3-8.0 [facility] Comment on above: Order Comment: Speci men Type: BLOOD SPECIMEN Ordering Facility: [facility] Address: [address] [place], [place] [address] Performed By: #### 2 4323-8 #### [facility] CLIA [id number] [address] [place], [place] [address] Sodium [Moles/Vol] 139 mmol/L Normal 136-144 [facility] Comment on above: Order Comment: Speci men Type: BLOOD SPECIMEN Ordering Facility: [facility] Address: [address] [place] [address] Performed By: #### 2 4323-8 #### [facility] CLIA [id number] [address] [place], [place] [address] Urea nitrogen [Mass/Vol] 16 mg/dL Normal 7-21 [facility] Comment on above: Order Comment: Speci men Type: BLOOD SPECIMEN Ordering Facility: [facility] Address: [address] [place] [address] Performed By: #### 2 4323-8 #### [facility] CLIA [id number] [address] [place] [address] [place] 09-04-2024 GARY Telephone (NICHO) ----- GABRIELA BRASHER ([id number]) 1960 F Date Time Provider Department 09/04/24 ERWIN HARE During your visit today, we recorded the following information about you: Annette Hays MA 09/04/2024 3:26 PM Signed Lab orders needed for appointment scheduled 09/10 Annette Hays MA Allergies As of Date: 09/04/2024 Noted Allergy Reaction ADHESIVE TAPE-SILICONES 07/04/2020 16 - Unknown Date Reviewed: 08/21/2024 Reviewed by: Nickolas Parada APRN.PACKAGE [employer]KER - Fully Assessed Reason for Visit: Lab Orders [1688] Primary Visit Diagnosis:Malignant neoplasm of overlapping sites of left breast in female, estrogen receptor positive (HCC) [C50.812, Z17.0] Order(s):COMPLETE BLOOD COUNT AND DIFFERENTIAL [SQCBCDIF] Order #: [id number] FUTURE COMPREHENSIVE METABOLIC PANEL [SQCMP] Order #: [id number] FUTURE CA 27.29 BLOOD [[id number]] Order #: [id number] FUTURE Prescriptions as of 09/07/2024 - exemestane [...] Status:Closed by ERWIN HARE on 09/07/24 Normal [facility] CBC W Auto Differential pane l (Bld)on 03-12-2024 Basophils (Bld) [#/Vol] 0.03 10*3/uL <0.11 k/uL [facility] Basophils/100 WBC (Bld) 0.6 % [facility] Differential cell count method Nom (Bld) Auto [facility] Eosinophils (Bld) [#/Vol] 0.28 10*3/uL <0.46 k/uL [facility] Eosinophils/100 WBC (Bld) 5.2 % [facility] Erythrocyte distribution width (RBC) [Ratio] 12.7 % 11.5 - 15.0 % [facility] Hematocrit (Bld) [Volume fraction] 44.2 % 36.0 - 46.0 % [facility] Hemoglobin (Bld) [Mass/Vol] 15.1 g/dL 11.5 - 15.5 g/dL [facility] Immature granulocytes (Bld) [#/Vol] <0.10 k/uL [facility] Immature granulocytes/100 WBC (Bld) 0.2 % [facility] Lymphocytes (Bld) [#/Vol] 2.22 10*3/uL 1.00 - 4.00 k/uL [facility] Lymphocytes/100 WBC (Bld) 41.0 % [facility] MCH (RBC) [Entitic mass] 30.3 pg 26.0 - 34.0 pg [facility] MCHC (RBC) [Mass/Vol] 34.2 g/dL 30.5 - 36.0 g/dL [facility] MCV (RBC) [Entitic vol] 88.8 fL 80.0 - 100.0 fL [facility] Monocytes (Bld) [#/Vol] 0.45 10*3/uL <0.87 k/uL [facility] Monocytes/100 WBC (Bld) 8.3 % [facility] Neutrophils (Bld) [#/Vol] 2.42 10*3/uL 1.45 - 7.50 k/uL [facility] Neutrophils/100 WBC (Bld) 44.7 % [facility] Nucleated RBC (Bld) [#/Vol] <0.01 k/uL [facility] Nucleated RBC/100 WBC (Bld) [Ratio] 0.0 /100 WBC [facility] Platelet mean volume (Bld) [Entitic vol] 10.2 fL 9.0 - 12.7 fL [facility] Platelets (Bld) [#/Vol] 218 10*3/uL 150 - 400 k/uL [facility] RBC (Bld) [#/Vol] 4.98 10*6/uL 3.90 - 5.2 0 m/uL [facility] WBC (Bld) [#/Vol] 5.41 10*3/uL 3.70 - 11. 00 k/uL [facility] Basophils (Bld) [#/Vol] 0.03 10*3/uL Normal <0.11 [facility] Comment on above: Order Comment: Speci men Type: BLOOD SPECIMEN Ordering Facility: [facility] Address: [address] [place] [address] Performed By: #### 5 7021-8 #### [facility] CLIA [id number] [address] [place] [address] Basophils/100 WBC (Bld) 0.6 % Normal [facility] Comment on above: Order Comment: Speci men Type: BLOOD SPECIMEN Ordering Facility: [facility] Address: [address] [place] [address] Performed By: #### 5 7021-8 #### [facility] CLIA [id number] [address] [place] [address]32 Differential cell count method Nom (Bld) Auto Normal [facility] Comment on above: Order Comment: Speci men Type: BLOOD SPECIMEN Ordering Facility: [facility] Address: [address] [place] [address] Performed By: #### 5 7021-8 #### [facility] CLIA [id number] [address] [place] [address] 40865 Eosinophils (Bld) [#/Vol] 0.28 10*3/uL Normal <0.46 [facility] Comment on above: Order Comment: Speci men Type: BLOOD SPECIMEN Ordering Facility: [facility] Address: [address] [place] [address] Performed By: #### 5 7021-8 #### [facility] CLIA [id number] [address] [place] [address] 82382 Eosinophils/100 WBC (Bld) 5.2 % Normal [facility] Comment on above: Order Comment: Speci men Type: BLOOD SPECIMEN Ordering Facility: [facility] Address: [address] [place] [address] Performed By: #### 5 7021-8 #### [facility] CLIA [id number] [address] [place] [address] 41453 Erythrocyte distribution width (RBC) [Ratio] 12.7 % Normal 11.5-15.0 [facility] Comment on above: Order Comment: Speci men Type: BLOOD SPECIMEN Ordering Facility: [facility] Address: [address] [place] [address] Performed By: #### 5 7021-8 #### [facility] CLIA [id number] [address] [place] [address]648 Hematocrit (Bld) [Volume fraction] 44.2 % Normal 36.0-46.0 [facility] Comment on above: Order Comment: Speci men Type: BLOOD SPECIMEN Ordering Facility: [facility] Address: [address] [place] [address] Performed By: #### 5 7021-8 #### [facility] CLIA [id number] [address] [place] [address] 08612 Hemoglobin (Bld) [Mass/Vol] 15.1 g/dL Normal 11.5-15.5 [facility] Comment on above: Order Comment: Speci men Type: BLOOD SPECIMEN Ordering Facility: [facility] Address: [address] [place] [address] Performed By: #### 5 7021-8 #### [facility] CLIA [id number] [address] [place] [address] 92364 Immature granulocytes (Bld) [#/Vol] 10*3/uL Normal <0.10 [facility] Comment on above: Order Comment: Speci men Type: BLOOD SPECIMEN Ordering Facility: [facility] Address: [address] [place] [address] Performed By: #### 5 7021-8 #### [facility] CLIA [id number] [address] [place] [address] 32562 Immature granulocytes/100 WBC (Bld) 0.2 % Normal [facility] Comment on above: Order Comment: Speci men Type: BLOOD SPECIMEN Ordering Facility: [facility] Address: [facility] [place] [address] Performed By: #### 5 7021-8 #### [facility] CLIA [id number] [address] [place] [address] 42841 Lymphocytes (Bld) [#/Vol] 2.22 10*3/uL Normal 1.00-4.00 [facility] Comment on above: Order Comment: Speci men Type: BLOOD SPECIMEN Ordering Facility: [facility] Address: [address] [place] [address] Performed By: #### 5 7021-8 #### [facility] CLIA [id number] [address] [place] [address] 70128 Lymphocytes/100 WBC (Bld) 41.0 % Normal [facility] Comment on above: Order Comment: Speci men Type: BLOOD SPECIMEN Ordering Facility: [facility] Address: [address] [place] [address] Performed By: #### 5 7021-8 #### [facility] CLIA [id number] [address] [place] [address] 41272 MCH (RBC) [Entitic mass] 30.3 pg Normal 26.0-34.0 [facility] Comment on above: Order Comment: Speci men Type: BLOOD SPECIMEN Ordering Facility: [facility] Address: [address] [place] [address] Performed By: #### 5 7021-8 #### [facility] CLIA [id number] [address] [place] [address] 21859 MCHC (RBC) [Mass/Vol] 34.2 g/dL Normal 30.5-36.0 [facility] Comment on above: Order Comment: Speci men Type: BLOOD SPECIMEN Ordering Facility: [facility] Address: [address] [place] [address]21 Performed By: #### 5 7021-8 #### [facility] CLIA [id number] [address] [place] [address] 02800 MCV (RBC) [Entitic vol] 88.8 fL Normal 80.0-100.0 [facility] Comment on above: Order Comment: Speci men Type: BLOOD SPECIMEN Ordering Facility: [facility] Address: [address] [place] [address] Performed By: #### 5 7021-8 #### [facility] CLIA [id number] [address] [place] [address] 90169 Monocytes (Bld) [#/Vol] 0.45 10*3/uL Normal <0.87 [facility] Comment on above: Order Comment: Speci men Type: BLOOD SPECIMEN Ordering Facility: [facility] Address: [address] [place] [address] Performed By: #### 5 7021-8 #### [facility] CLIA [id number] [address] [place] [address] 17653 Monocytes/100 WBC (Bld) 8.3 % Normal [facility] Comment on above: Order Comment: Speci men Type: BLOOD SPECIMEN Ordering Facility: [facility] Address: [address] [place] [address] Performed By: #### 5 7021-8 #### [facility] CLIA [id number] [address] [place] [address] 24533 Neutrophils (Bld) [#/Vol] 2.42 10*3/uL Normal 1.45-7.50 [facility] Comment on above: Order Comment: Speci men Type: BLOOD SPECIMEN Ordering Facility: [facility] Address: [address] [place] [address] Performed By: #### 5 7021-8 #### [facility] CLIA [id number] [address] [place] [address] 93627 Neutrophils/100 WBC (Bld) 44.7 % Normal [facility] Comment on above: Order Comment: Speci men Type: BLOOD SPECIMEN Ordering Facility: [facility] Address: [address] [place] [address] Performed By: #### 5 7021-8 #### [facility] CLIA [id number] [address] [place] [address] Nucleated RBC (Bld) [#/Vol] 10*3/uL Normal <0.01 [facility] Comment on above: Order Comment: Speci men Type: BLOOD SPECIMEN Ordering Facility: [facility] Address: [address] [place] [address] Performed By: #### 5 7021-8 #### [facility] CLIA [id number] [address] [place] [address] 53749 Nucleated RBC/100 WBC (Bld) [Ratio] 0.0 /100 WBC Normal [facility] Comment on above: Order Comment: Speci men Type: BLOOD SPECIMEN Ordering Facility: [facility] Address: [address] [place] [address] Performed By: #### 5 7021-8 #### [facility] CLIA [id number] [address] [place] [address] 65106 Platelet mean volume (Bld) [Entitic vol] 10.2 fL Normal 9.0-12.7 [facility] Comment on above: Order Comment: Speci men Type: BLOOD SPECIMEN Ordering Facility: [facility] Address: [address] [place] [address] Performed By: #### 5 7021-8 #### [facility] CLIA [id number] [address] [place] [address] 06951 Platelets (Bld) [#/Vol] 218 10*3/uL Normal 150-400 [facility] Comment on above: Order Comment: Speci men Type: BLOOD SPECIMEN Ordering Facility: [facility] Address: [address] [place] [address] Performed By: #### 5 7021-8 #### [facility] CLIA [id number] [address] [place] [address] 46890 RBC (Bld) [#/Vol] 4.98 10*6/uL Normal 3.90-5.20 [facility] Comment on above: Order Comment: Speci men Type: BLOOD SPECIMEN Ordering Facility: [facility] Address: [address] [place] [address] Performed By: #### 5 7021-8 #### [facility] CLIA [id number] [address] [place] [address] 87111 WBC (Bld) [#/Vol] 5.41 10*3/uL Normal 3.70-11.00 [facility] Comment on above: Order Comment: Speci men Type: BLOOD SPECIMEN Ordering Facility: [facility] Address: [address] [facility] [place] [address] Performed By: #### 5 7021-8 #### [facility] CLIA [id number] [address] [place] [address] 94429 CNOVSPon 03-12-2024 CNOVSP Visit (SP) Office (HEMASA) ----- ANSHUAVTARGABRIELA ([id number]) 1960 F Date Time Provider Department 03/12/24 3:00 PM ERWIN HARE HEMFREDERICK During your visit today, we recorded the [...] RADIOLOGIC DATA: (more content not included)... Normal [facility] Cancer Ag27-29 SerPl-aCncon 03-12-2024 Cancer Ag 27-29 Qn 20.7 [arb'U]/mL Normal <38.6 [facility] Comment on above: Order Comment: Speci men Type: BLOOD SPECIMEN Ordering Facility: [facility] Address: [address] [place] [address] Result Comment: The CA27.29 test was performed using the Siemens [employer] Audio Technology[employer] XP chemiluminometric immunoassay method. Results obtained with different assay methods or kits cannot be used interchangeably. Performed By: #### 1 7842-6 #### [facility] CLIA [id number] [address] [place] [address] [place] Comprehensive metabolic 2000 panelon 03-12-2024 Albumin [Mass/Vol] 4.6 g/dL 3.9 - 4.9 g/dL [facility] ALP [Catalytic activity/Vol] 73 U/L 34 - 123 U/L [facility] ALT [Catalytic activity/Vol] 44 U/L High 7 - 38 U/L [facility] Anion gap [Moles/Vol] 11 mmol/L 9 - 18 mmol/L [facility] AST [Catalytic activity/Vol] 32 U/L 13 - 35 U/L [facility] Bilirubin [Mass/Vol] 0.5 mg/dL 0.2 - 1.3 mg/dL [facility] Calcium [Mass/Vol] 10.5 mg/dL High 8.5 - 10. 2 mg/dL [facility] Chloride [Moles/Vol] 104 mmol/L 97 - 105 mmol/L [facility] CO2 [Moles/Vol] 28 mmol/L 22 - 30 mmol/L [facility] Creatinine [Mass/Vol] 0.85 mg/dL 0.58 - 0.96 mg/dL [facility] Estimated Glomerular Filtration Rate 77 mL/min/1.73m >=60 mL/min/1.73m [facility] Glucose [Mass/Vol] 108 mg/dL High 74 - 99 mg/dL [facility] Potassium [Moles/Vol] 4.0 mmol/L 3.7 - 5.1 mmol/L [facility] Protein [Mass/Vol] 7.7 g/dL 6.3 - 8.0 g/dL [facility] Sodium [Moles/Vol] 143 mmol/L 136 - 144 mmol/L [facility] Urea nitrogen [Mass/Vol] 12 mg/dL 7 - 21 mg/dL [facility] Albumin [Mass/Vol] 4.6 g/dL Normal 3.9-4.9 [facility] Comment on above: Order Comment: Speci men Type: BLOOD SPECIMEN Ordering Facility: [facility] Address: [address] [place] [address] Performed By: #### 2 4323-8 #### [facility] CLIA [id number] [address] [place] [address] ALP [Catalytic activity/Vol] 73 U/L Normal 34-123 [facility] Comment on above: Order Comment: Speci men Type: BLOOD SPECIMEN Ordering Facility: [facility] Address: [address] [place], [place] [address] Performed By: #### 2 4323-8 #### [facility] CLIA [id number] [address] [place] [address] ALT [Catalytic activity/Vol] 44 U/L High 7-38 [facility] Comment on above: Order Comment: Speci men Type: BLOOD SPECIMEN Ordering Facility: [facility] Address: [address] [place] [address] Performed By: #### 2 4323-8 #### [facility] CLIA [id number] [address] [place] [address] 24720 Anion gap [Moles/Vol] 11 mmol/L Normal 9-18 [facility] Comment on above: Order Comment: Speci men Type: BLOOD SPECIMEN Ordering Facility: [facility] Address: [address] [place] [address] Performed By: #### 2 4323-8 #### [facility] CLIA [id number] [address] [place] [address] 44324 AST [Catalytic activity/Vol] 32 U/L Normal 13-35 [facility] Comment on above: Order Comment: Speci men Type: BLOOD SPECIMEN Ordering Facility: [facility] Address: [address] [place] [address] Performed By: #### 2 4323-8 #### [facility] CLIA [id number] [address] [place] [address] Bilirubin [Mass/Vol] 0.5 mg/dL Normal 0.2-1.3 [facility] Comment on above: Order Comment: Speci men Type: BLOOD SPECIMEN Ordering Facility: [facility] Address: [address] [place] [address] Performed By: #### 2 4323-8 #### [facility] CLIA [id number] [address] [place] [address] Calcium [Mass/Vol] 10.5 mg/dL High 8.5-10.2 [facility] Comment on above: Order Comment: Speci men Type: BLOOD SPECIMEN Ordering Facility: [facility] Address: [address] [place] [address] Performed By: #### 2 4323-8 #### [facility] CLIA [id number] [address] [place] [address] 29560 Chloride [Moles/Vol] 104 mmol/L Normal 97-105 [facility] Comment on above: Order Comment: Speci men Type: BLOOD SPECIMEN Ordering Facility: [facility] Address: [address] [place] [id number] Performed By: #### 2 4323-8 #### [facility] CLIA [id number] [address] [place] [address] 56365 CO2 [Moles/Vol] 28 mmol/L Normal 22-30 [facility] Comment on above: Order Comment: Speci men Type: BLOOD SPECIMEN Ordering Facility: [facility] Address: [address] [place] [address] Performed By: #### 2 4323-8 #### [facility] CLIA [id number] [address] [place] [address] 44212 Creatinine [Mass/Vol] 0.85 mg/dL Normal 0.58-0.96 [facility] Comment on above: Order Comment: Speci men Type: BLOOD SPECIMEN Ordering Facility: [facility] Address: [address] [place] [address] Performed By: #### 2 4323-8 #### [facility] CLIA [id number] [address] [place] [address] 66896 Creatinine and Glomerular filtration rate.predicted panel (S/P/Bld) 77 mL/min/1.73m??? Normal >=60 [facility] Comment on above: Order Comment: Speci men Type: BLOOD SPECIMEN Ordering Facility: [facility] Address: [address] [place], [place] [address] Result Comment: Linn mated Glomerular Filtration Rate [...] 4323-8 #### [facility] CLIA [id number] [address] [place] [address]909 Glucose [Mass/Vol] 108 mg/dL High 74-99 [facility] Comment on above: Order Comment: Nica vega Type: BLOOD SPECIMEN Ordering Facility: [facility] Address: [address] [place], [place] [address] Result Comment: The [place] [employer] (ADA) provides guidance for cutoff [...] Standards of Medical Care in Diabetes 2016, [place] [employer]. Diabetes Care. 2016.39(Suppl 1). Performed By: #### 2 4323-8 #### [facility] CLIA [id number] [address] [place] [address] 26280 Potassium [Moles/Vol] 4.0 mmol/L Normal 3.7-5.1 [facility] Comment on above: Order Comment: Nica vega Type: BLOOD SPECIMEN Ordering Facility: [facility] Address: [address] [place] [address] Performed By: #### 2 4323-8 #### [facility] CLIA [id number] [address] [place] [address] 07585 Protein [Mass/Vol] 7.7 g/dL Normal 6.3-8.0 [facility] Comment on above: Order Comment: Speci men Type: BLOOD SPECIMEN Ordering Facility: [facility] Address: [address] [place] [address] Performed By: #### 2 4323-8 #### [facility] CLIA [id number] [address] [place] [address] Sodium [Moles/Vol] 143 mmol/L Normal 136-144 [facility] Comment on above: Order Comment: Speci men Type: BLOOD SPECIMEN Ordering Facility: [facility] Address: [address] [place] [address] Performed By: #### 2 4323-8 #### [facility] CLIA [id number] [address] [place] [address] 40499 Urea nitrogen [Mass/Vol] 12 mg/dL Normal 7-21 [facility] Comment on above: Order Comment: Speci men Type: BLOOD SPECIMEN Ordering Facility: [facility] Address: [address] [place] [address] Performed By: #### 2 4323-8 #### [facility] CLIA [id number] [address] [place] [address] 58961 CBC W Auto Differential pane l (Bld)on 08-15-2023 Basophils (Bld) [#/Vol] 0.05 10*3/uL <0.11 k/uL [facility] Basophils/100 WBC (Bld) 1.1 % [facility] Differential cell count method Nom (Bld) Auto [facility] Eosinophils (Bld) [#/Vol] 0.21 10*3/uL <0.46 k/uL [facility] Eosinophils/100 WBC (Bld) 4.5 % [facility] Erythrocyte distribution width (RBC) [Ratio] 12.2 % 11.5 - 15.0 % [facility] Hematocrit (Bld) [Volume fraction] 43.8 % 36.0 - 46.0 % [facility] Hemoglobin (Bld) [Mass/Vol] 14.8 g/dL 11.5 - 15.5 g/dL [facility] Immature granulocytes (Bld) [#/Vol] <0.10 k/uL [facility] Immature granulocytes/100 WBC (Bld) 0.2 % [facility] Lymphocytes (Bld) [#/Vol] 1.74 10*3/uL 1.00 - 4.00 k/uL [facility] Lymphocytes/100 WBC (Bld) 37.0 % [facility] MCH (RBC) [Entitic mass] 30.4 pg 26.0 - 34.0 pg [facility] MCHC (RBC) [Mass/Vol] 33.8 g/dL 30.5 - 36.0 g/dL [facility] MCV (RBC) [Entitic vol] 89.9 fL 80.0 - 100.0 fL [facility] Monocytes (Bld) [#/Vol] 0.56 10*3/uL <0.87 k/uL [facility] Monocytes/100 WBC (Bld) 11.9 % [facility] Neutrophils (Bld) [#/Vol] 2.13 10*3/uL 1.45 - 7.50 k/uL [facility] Neutrophils/100 WBC (Bld) 45.3 % [facility] Nucleated RBC (Bld) [#/Vol] <0.01 k/uL [facility] Nucleated RBC/100 WBC (Bld) [Ratio] 0.0 /100 WBC [facility] Platelet mean volume (Bld) [Entitic vol] 10.5 fL 9.0 - 12.7 fL [facility] Platelets (Bld) [#/Vol] 214 10*3/uL 150 - 400 k/uL [facility] RBC (Bld) [#/Vol] 4.87 10*6/uL 3.90 - 5.2 0 m/uL [facility] WBC (Bld) [#/Vol] 4.70 10*3/uL 3.70 - 11. 00 k/uL [facility] Comprehensive metabolic 2000 panelon 08-15-2023 Albumin [Mass/Vol] 4.3 g/dL 3.9 - 4.9 g/dL [facility] ALP [Catalytic activity/Vol] 69 U/L 34 - 123 U/L [facility] ALT [Catalytic activity/Vol] 30 U/L 7 - 38 U/L [facility] Anion gap [Moles/Vol] 10 mmol/L 9 - 18 mmol/L [facility] AST [Catalytic activity/Vol] 23 U/L 13 - 35 U/L [facility] Bilirubin [Mass/Vol] 0.4 mg/dL 0.2 - 1.3 mg/dL [facility] Calcium [Mass/Vol] 9.8 mg/dL 8.5 - 10. 2 mg/dL [facility] Chloride [Moles/Vol] 105 mmol/L 97 - 105 mmol/L [facility] CO2 [Moles/Vol] 26 mmol/L 22 - 30 mmol/L [facility] Creatinine [Mass/Vol] 0.76 mg/dL 0.58 - 0.96 mg/dL [facility] Estimated Glomerular Filtration Rate 89 mL/min/1.73m >=60 mL/min/1.73m [facility] Glucose [Mass/Vol] 86 mg/dL 74 - 99 mg/dL [facility] Potassium [Moles/Vol] 3.9 mmol/L 3.7 - 5.1 mmol/L [facility] Protein [Mass/Vol] 7.2 g/dL 6.3 - 8.0 g/dL [facility] Sodium [Moles/Vol] 141 mmol/L 136 - 144 mmol/L [facility] Urea nitrogen [Mass/Vol] 15 mg/dL 7 - 21 mg/dL [facility] Consultation Noteon 02-25-20 Consultation Note [id number] Normal [facility] CBC W Auto Differential pane l (Bld)on 02-21-2023 Basophils (Bld) [#/Vol] 0.05 10*3/uL <0.11 k/uL [facility] Basophils/100 WBC (Bld) 1.1 % [facility] Differential cell count method Nom (Bld) Auto [facility] Eosinophils (Bld) [#/Vol] 0.26 10*3/uL <0.46 k/uL [facility] Eosinophils/100 WBC (Bld) 5.6 % [facility] Erythrocyte distribution width (RBC) [Ratio] 12.3 % 11.5 - 15.0 % [facility] Hematocrit (Bld) [Volume fraction] 43.2 % 36.0 - 46.0 % [facility] Hemoglobin (Bld) [Mass/Vol] 14.7 g/dL 11.5 - 15.5 g/dL [facility] Immature granulocytes (Bld) [#/Vol] <0.10 k/uL [facility] Immature granulocytes/100 WBC (Bld) 0.2 % [facility] Lymphocytes (Bld) [#/Vol] 1.72 10*3/uL 1.00 - 4.00 k/uL [facility] Lymphocytes/100 WBC (Bld) 36.9 % [facility] MCH (RBC) [Entitic mass] 30.7 pg 26.0 - 34.0 pg [facility] MCHC (RBC) [Mass/Vol] 34.0 g/dL 30.5 - 36.0 g/dL [facility] MCV (RBC) [Entitic vol] 90.2 fL 80.0 - 100.0 fL [facility] Monocytes (Bld) [#/Vol] 0.63 10*3/uL <0.87 k/uL [facility] Monocytes/100 WBC (Bld) 13.5 % [facility] Neutrophils (Bld) [#/Vol] 1.99 10*3/uL 1.45 - 7.50 k/uL [facility] Neutrophils/100 WBC (Bld) 42.7 % [facility] Nucleated RBC (Bld) [#/Vol] <0.01 k/uL [facility] Nucleated RBC/100 WBC (Bld) [Ratio] 0.0 /100 WBC [facility] Platelet mean volume (Bld) [Entitic vol] 9.9 fL 9.0 - 12.7 fL [facility] Platelets (Bld) [#/Vol] 224 10*3/uL 150 - 400 k/uL [facility] RBC (Bld) [#/Vol] 4.79 10*6/uL 3.90 - 5.2 0 m/uL [facility] WBC (Bld) [#/Vol] 4.66 10*3/uL 3.70 - 11. 00 k/uL [facility] Comprehensive metabolic 2000 panelon 02-21-2023 Albumin [Mass/Vol] 4.5 g/dL 3.9 - 4.9 g/dL [facility] ALP [Catalytic activity/Vol] 70 U/L 34 - 123 U/L [facility] ALT [Catalytic activity/Vol] 28 U/L 7 - 38 U/L [facility] Anion gap [Moles/Vol] 10 mmol/L 9 - 18 mmol/L [facility] AST [Catalytic activity/Vol] 22 U/L 13 - 35 U/L [facility] Bilirubin [Mass/Vol] 0.3 mg/dL 0.2 - 1.3 mg/dL [facility] Calcium [Mass/Vol] 10.3 mg/dL High 8.5 - 10. 2 mg/dL [facility] Chloride [Moles/Vol] 98 mmol/L 97 - 105 mmol/L [facility] CO2 [Moles/Vol] 28 mmol/L 22 - 30 mmol/L [facility] Creatinine [Mass/Vol] 0.79 mg/dL 0.58 - 0.96 mg/dL [facility] Estimated Glomerular Filtration Rate 85 mL/min/1.73m >=60 mL/min/1.73m [facility] Glucose [Mass/Vol] 109 mg/dL High 74 - 99 mg/dL [facility] Potassium [Moles/Vol] 3.8 mmol/L 3.7 - 5.1 mmol/L [facility] Protein [Mass/Vol] 7.5 g/dL 6.3 - 8.0 g/dL [facility] Sodium [Moles/Vol] 136 mmol/L 136 - 144 mmol/L [facility] Urea nitrogen [Mass/Vol] 14 mg/dL 7 - 21 mg/dL [facility] CBC W Auto Differential pane l (Bld)on 09-06-2022 Abs Immature Gran <0.10 k/uL [facility] Basophils (Bld) [#/Vol] 0.03 10*3/uL <0.11 k/uL [facility] Basophils/100 WBC (Bld) 0.6 % [facility] Differential cell count method Nom (Bld) Auto [facility] Eosinophils (Bld) [#/Vol] 0.23 10*3/uL <0.46 k/uL [facility] Eosinophils/100 WBC (Bld) 4.5 % [facility] Erythrocyte distribution width (RBC) [Ratio] 12.3 % 11.5 - 15.0 % [facility] Hematocrit (Bld) [Volume fraction] 42.1 % 36.0 - 46.0 % [facility] Hemoglobin (Bld) [Mass/Vol] 14.6 g/dL 11.5 - 15.5 g/dL [facility] Immature Gran % 0.2 % [facility] Lymphocytes (Bld) [#/Vol] 1.94 10*3/uL 1.00 - 4.00 k/uL [facility] Lymphocytes/100 WBC (Bld) 37.8 % [facility] MCH (RBC) [Entitic mass] 31.3 pg 26.0 - 34.0 pg [facility] MCHC (RBC) [Mass/Vol] 34.7 g/dL 30.5 - 36.0 g/dL [facility] MCV (RBC) [Entitic vol] 90.3 fL 80.0 - 100.0 fL [facility] Monocytes (Bld) [#/Vol] 0.61 10*3/uL <0.87 k/uL [facility] Monocytes/100 WBC (Bld) 11.9 % [facility] Neutrophils (Bld) [#/Vol] 2.31 10*3/uL 1.45 - 7.50 k/uL [facility] Neutrophils/100 WBC (Bld) 45.0 % [facility] Nucleated RBC (Bld) [#/Vol] <0.01 k/uL [facility] Nucleated RBC/100 WBC (Bld) [Ratio] 0.0 /100 WBC [facility] Platelet mean volume (Bld) [Entitic vol] 10.2 fL 9.0 - 12.7 fL [facility] Platelets (Bld) [#/Vol] 224 10*3/uL 150 - 400 k/uL [facility] RBC (Bld) [#/Vol] 4.66 10*6/uL 3.90 - 5.2 0 m/uL [facility] WBC (Bld) [#/Vol] 5.13 10*3/uL 3.70 - 11. 00 k/uL [facility] Comprehensive metabolic 2000 panelon 09-06-2022 Albumin [Mass/Vol] 4.3 g/dL 3.9 - 4.9 g/dL [facility] ALP [Catalytic activity/Vol] 78 U/L 34 - 123 U/L [facility] ALT [Catalytic activity/Vol] 26 U/L 7 - 38 U/L [facility] Anion gap [Moles/Vol] 6 mmol/L Low 9 - 18 mmol/L [facility] AST [Catalytic activity/Vol] 20 U/L 13 - 35 U/L [facility] Bilirubin [Mass/Vol] 0.3 mg/dL 0.2 - 1.3 mg/dL [facility] Calcium [Mass/Vol] 10.1 mg/dL 8.5 - 10. 2 mg/dL [facility] Chloride [Moles/Vol] 101 mmol/L 97 - 105 mmol/L [facility] CO2 [Moles/Vol] 31 mmol/L High 22 - 30 mmol/L [facility] Creatinine [Mass/Vol] 0.72 mg/dL 0.58 - 0.96 mg/dL [facility] Estimated Glomerular Filtration Rate 95 mL/min/1.73m >=60 mL/min/1.73m [facility] Glucose [Mass/Vol] 94 mg/dL 74 - 99 mg/dL [facility] Potassium [Moles/Vol] 3.8 mmol/L 3.7 - 5.1 mmol/L [facility] Protein [Mass/Vol] 7.1 g/dL 6.3 - 8.0 g/dL [facility] Sodium [Moles/Vol] 138 mmol/L 136 - 144 mmol/L [facility] Urea nitrogen [Mass/Vol] 14 mg/dL 7 - 21 mg/dL [facility] MG MAMM DX 3D RT CADon 08-10 MG MAMM DX 3D RT CAD Patient: GABRIELA BRASHER Exam Date: 08/10/2022 : 1960 Gender:F Ordering : DR NICKOLAS PARADA [facility] Admission #: [id number] Family : DR ANDREW SPEARS D.O. Order #: [id number] CLICK HERE TO VIEW EXAM RADIOLOGY REPORT [...] breast Masectomy Family Cancers None LOCATION: [facility] BREAST COMPOSITION: Heterogeneously dense,which may obscure small [...] Peter M.D. on 08/10/2022 at 08:25 Normal [facility] CBC W Auto Differential pane l (Bld)on 06-07-2022 Abs Immature Gran <0.03 <0.10 k/uL [facility] Basophils (Bld) [#/Vol] 0.03 10*3/uL <0.11 k/uL [facility] Basophils/100 WBC (Bld) 0.7 % [facility] Differential cell count method Nom (Bld) Auto [facility] Eosinophils (Bld) [#/Vol] 0.20 10*3/uL <0.46 k/uL [facility] Eosinophils/100 WBC (Bld) 4.5 % [facility] Erythrocyte distribution width (RBC) [Ratio] 12.6 % 11.5 - 15.0 % [facility] Hematocrit (Bld) [Volume fraction] 42.9 % 36.0 - 46.0 % [facility] Hemoglobin (Bld) [Mass/Vol] 14.5 g/dL 11.5 - 15.5 g/dL [facility] Immature Gran % 0.2 % [facility] Lymphocytes (Bld) [#/Vol] 1.49 10*3/uL 1.00 - 4.00 k/uL [facility] Lymphocytes/100 WBC (Bld) 33.8 % [facility] MCH (RBC) [Entitic mass] 30.5 pg 26.0 - 34.0 pg [facility] MCHC (RBC) [Mass/Vol] 33.8 g/dL 30.5 - 36.0 g/dL [facility] MCV (RBC) [Entitic vol] 90.3 fL 80.0 - 100.0 fL [facility] Monocytes (Bld) [#/Vol] 0.55 10*3/uL <0.87 k/uL [facility] Monocytes/100 WBC (Bld) 12.5 % [facility] Neutrophils (Bld) [#/Vol] 2.13 10*3/uL 1.45 - 7.50 k/uL [facility] Neutrophils/100 WBC (Bld) 48.3 % [facility] Nucleated RBC (Bld) [#/Vol] 10*3/uL <0.01 k/uL [facility] Nucleated RBC/100 WBC (Bld) [Ratio] 0.0 /100 WBC [facility] Platelet mean volume (Bld) [Entitic vol] 10.3 fL 9.0 - 12.7 fL [facility] Platelets (Bld) [#/Vol] 215 10*3/uL 150 - 400 k/uL [facility] RBC (Bld) [#/Vol] 4.75 10*6/uL 3.90 - 5.2 0 m/uL [facility] WBC (Bld) [#/Vol] 4.41 10*3/uL 3.70 - 11. 00 k/uL [facility] Comprehensive metabolic 2000 panelon 06-07-2022 Albumin [Mass/Vol] 4.6 g/dL 3.9 - 4.9 g/dL [facility] ALP [Catalytic activity/Vol] 71 U/L 34 - 123 U/L [facility] ALT [Catalytic activity/Vol] 32 U/L 7 - 38 U/L [facility] Anion gap [Moles/Vol] 8 mmol/L Low 9 - 18 mmol/L [facility] AST [Catalytic activity/Vol] 27 U/L 13 - 35 U/L [facility] Bilirubin [Mass/Vol] 0.4 mg/dL 0.2 - 1.3 mg/dL [facility] Calcium [Mass/Vol] 9.8 mg/dL 8.5 - 10. 2 mg/dL [facility] Chloride [Moles/Vol] 102 mmol/L 97 - 105 mmol/L [facility] CO2 [Moles/Vol] 28 mmol/L 22 - 30 mmol/L [facility] Creatinine [Mass/Vol] 0.71 mg/dL 0.58 - 0.96 mg/dL [facility] Estimated Glomerular Filtration Rate 97 mL/min/1.73m >=60 mL/min/1.73m [facility] Glucose [Mass/Vol] 88 mg/dL 74 - 99 mg/dL [facility] Potassium [Moles/Vol] 3.7 mmol/L 3.7 - 5.1 mmol/L [facility] Protein [Mass/Vol] 7.7 g/dL 6.3 - 8.0 g/dL [facility] Sodium [Moles/Vol] 138 mmol/L 136 - 144 mmol/L [facility] Urea nitrogen [Mass/Vol] 15 mg/dL 7 - 21 mg/dL [facility] Comprehensive metabolic 2000 panelon 04-19-2022 Albumin [Mass/Vol] 4.6 g/dL 3.9 - 4.9 g/dL [facility] ALP [Catalytic activity/Vol] 67 U/L 34 - 123 U/L [facility] ALT [Catalytic activity/Vol] 34 U/L 7 - 38 U/L [facility] Anion gap [Moles/Vol] 11 mmol/L 9 - 18 mmol/L [facility] AST [Catalytic activity/Vol] 27 U/L 13 - 35 U/L [facility] Bilirubin [Mass/Vol] 0.5 mg/dL 0.2 - 1.3 mg/dL [facility] Calcium [Mass/Vol] 9.9 mg/dL 8.5 - 10. 2 mg/dL [facility] Chloride [Moles/Vol] 105 mmol/L 97 - 105 mmol/L [facility] CO2 [Moles/Vol] 27 mmol/L 22 - 30 mmol/L [facility] Creatinine [Mass/Vol] 0.75 mg/dL 0.58 - 0.96 mg/dL [facility] Estimated Glomerular Filtration Rate 91 mL/min/1.73m >=60 mL/min/1.73m [facility] Glucose [Mass/Vol] 113 mg/dL High 74 - 99 mg/dL [facility] Potassium [Moles/Vol] 3.9 mmol/L 3.7 - 5.1 mmol/L [facility] Protein [Mass/Vol] 7.4 g/dL 6.3 - 8.0 g/dL [facility] Sodium [Moles/Vol] 143 mmol/L 136 - 144 mmol/L [facility] Urea nitrogen [Mass/Vol] 16 mg/dL 7 - 21 mg/dL [facility] CBC W Auto Differential pane l (Bld)on 03-08-2022 Abs Immature Gran <0.03 <0.10 k/uL [facility] Basophils (Bld) [#/Vol] 0.03 10*3/uL <0.11 k/uL [facility] Basophils/100 WBC (Bld) 0.9 % [facility] Differential cell count method Nom (Bld) Auto [facility] Eosinophils (Bld) [#/Vol] 0.19 10*3/uL <0.46 k/uL [facility] Eosinophils/100 WBC (Bld) 5.4 % [facility] Erythrocyte distribution width (RBC) [Ratio] 12.2 % 11.5 - 15.0 % [facility] Hematocrit (Bld) [Volume fraction] 40.9 % 36.0 - 46.0 % [facility] Hemoglobin (Bld) [Mass/Vol] 14.0 g/dL 11.5 - 15.5 g/dL [facility] Immature Gran % 0.0 % [facility] Lymphocytes (Bld) [#/Vol] 0.99 10*3/uL Low 1.00 - 4.00 k/uL [facility] Lymphocytes/100 WBC (Bld) 28.2 % [facility] MCH (RBC) [Entitic mass] 30.8 pg 26.0 - 34.0 pg [facility] MCHC (RBC) [Mass/Vol] 34.2 g/dL 30.5 - 36.0 g/dL [facility] MCV (RBC) [Entitic vol] 89.9 fL 80.0 - 100.0 fL [facility] Monocytes (Bld) [#/Vol] 0.47 10*3/uL <0.87 k/uL [facility] Monocytes/100 WBC (Bld) 13.4 % [facility] Neutrophils (Bld) [#/Vol] 1.83 10*3/uL 1.45 - 7.50 k/uL [facility] Neutrophils/100 WBC (Bld) 52.1 % [facility] Nucleated RBC (Bld) [#/Vol] 10*3/uL <0.01 k/uL [facility] Nucleated RBC/100 WBC (Bld) [Ratio] 0.0 /100 WBC [facility] Platelet mean volume (Bld) [Entitic vol] 10.1 fL 9.0 - 12.7 fL [facility] Platelets (Bld) [#/Vol] 192 10*3/uL 150 - 400 k/uL [facility] RBC (Bld) [#/Vol] 4.55 10*6/uL 3.90 - 5.2 0 m/uL [facility] WBC (Bld) [#/Vol] 3.51 10*3/uL Low 3.70 - 11. 00 k/uL [facility] Comprehensive metabolic 2000 panelon 03-08-2022 Albumin [Mass/Vol] 4.4 g/dL 3.9 - 4.9 g/dL [facility] ALP [Catalytic activity/Vol] 75 U/L 34 - 123 U/L [facility] ALT [Catalytic activity/Vol] 28 U/L 7 - 38 U/L [facility] Anion gap [Moles/Vol] 9 mmol/L 9 - 18 mmol/L [facility] AST [Catalytic activity/Vol] 24 U/L 13 - 35 U/L [facility] Bilirubin [Mass/Vol] 0.4 mg/dL 0.2 - 1.3 mg/dL [facility] Calcium [Mass/Vol] 10.0 mg/dL 8.5 - 10. 2 mg/dL [facility] Chloride [Moles/Vol] 105 mmol/L 97 - 105 mmol/L [facility] CO2 [Moles/Vol] 27 mmol/L 22 - 30 mmol/L [facility] Creatinine [Mass/Vol] 0.71 mg/dL 0.58 - 0.96 mg/dL [facility] Estimated Glomerular Filtration Rate 97 mL/min/1.73m >=60 mL/min/1.73m [facility] Glucose [Mass/Vol] 114 mg/dL High 74 - 99 mg/dL [facility] Potassium [Moles/Vol] 3.9 mmol/L 3.7 - 5.1 mmol/L [facility] Protein [Mass/Vol] 7.4 g/dL 6.3 - 8.0 g/dL [facility] Sodium [Moles/Vol] 141 mmol/L 136 - 144 mmol/L [facility] Urea nitrogen [Mass/Vol] 18 mg/dL 7 - 21 mg/dL [facility] CNPNon 03-30-2021 CNPN Telephone (GEN) ----- GABRIELA [id number]) 1960 F Date Time Provider Department 03/30/21 NAVEED SUGGS During your visit today, we recorded the following information about you: VY Perkins 03/30/2021 3:59 PM Signed I left a message to call us back - Please let her know we can coordinate her mammography for a day at [place] to see Dr Arrieta and have the mammogram the same day if that is better for her. She is due in July 2021. Office number given. VY Perkins COORD 03/31/2021 1:05 PM Signed Called and left patient message to return call to office at [phone] Justine Shelton COORD 04/10/2021 11:42 AM Signed Spoke with patient to offer same day imaging and office visit. Patient declined at this time. She does not want to travel to [place]. She asked if she was able to have the imaging completed at [place] and I advised that location is outside of [facility] and would need to be reviewed and could possibly create more appointments. She states she has to many things going on right now with her and her and not sure if she wants to continue with apts. She will keep her office visit on 08/03/21 at [facility] and will call back to advise [...] Encounter Status:Closed by NAVEED SUGGS on 04/10/21 [facility] CASE MGT INIT ANJELICAon 2020 CASE MGT INIT [facility] HNO ID: [id number] Author: Rose (Rn) MICHAEL Velásquez Service: Care Management Author Type: Registered Nurse Type: Care Mgt Initial Assessment Filed: 01/26/2021 10:23 AM Note Text: CARE MANAGEMENT: ASSESSMENT AND DISCHARGE PLAN SERVICE DATE: January 26, 2021 SERVICE TIME: 10:22 AM PRIMARY CARE PHYSICIAN: Andrew Spears Sr, MD ADMISSION STATUS: Extended Recovery MEDICAL: [facility] CHOICE PLUS Patient/Counter Person Stated Goals: To return home to life as it was Health Insurance: [facility] Health Issues Impacting Discharge Plan: Newly diagnosed Newly Diagnosed: mastectomy Last Discharge Date: N/A Is this Within the Past 30 days? Last discharge within 30 days: No Advance Directive: Current Advance Directive: None Career Development Engineer Attempted to Assist with AD Completion: Yes [...] None Has the Patient Been in a [facility] Facility in the Past 30 days?: No [...] plan for meeting these needs: Home with [facility] Patient's perception of need for this admission: mastectomy Medication Adherance I am convinced of the importance of my prescription medication: 0 - Agree Completely I worry that my prescription medication will do more harm than good to me : 0 - Disagree Completely I feel financially burdened by my [id number] expenses for my prescription medication:: 0 - Disagree Completely Risk Score: 0 Patient is categorized as: Low risk < 2 Are you interested in bedside delivery of your medications? Yes Is Patient Psychosocially Complex?: No ASSESSMENT AND PLAN: Medical Needs: Medical Needs: Two or more chronic diseases;Cancer - active treatment/follow up Psychosocial Needs: Psychosocial Needs: None FREEDOM OF CHOICE EXPLAINED: [place] of Choice Given: No Reason Not Given: No placements necessary POTENTIAL TRANSITION PLANS Home Patient from home with spouse. Independent. Finished chemotherapy. States she will start radiation mid January. Denies home going needs. SIGNATURE: Rose Velásquez RN PATIENT NAME: Gabriela Brasher DATE: January 26, 2021 TIME: 10:21 AM PAGER/CONTACT #: [phone] [facility] NURSING PROGon 01-26-2021 NURSING PROG HNO ID: [id number] Author: Sonja LymanRn) MICHAEL Dixon Service: Nursing Author Type: Registered Nurse Type: Nursing Progress Note Filed: 01/26/2021 5:48 PM Note Text: Nursing Progress Note Patient Name: Gabriela Brasher [facility] education provided to patient, patient demonstrated adequate education by demonstration. This note was completed by: Sonja Dixon RN [facility] PLAN OF CAREon 01-26-2021 PLAN OF CARE HNO ID: [id number] Author: Annemarie Rendon ([employer]) Service: ? Author Type: ? Type: Plan [...] mg tablet Commonly known as: ADELSO Rendon ([employer]) PAGER: vocera January 26, 2021 4:43 PM [facility] PROGRESSon 01-26-2021 PROGRESS HNO ID: [id number] Author: Sherin Huizar Service: General Surgery Author Type: Physician Packing And Shipping Clerk Type: Progress Notes Filed: 01/26/2021 11:09 AM Note Text: ----- Attestation signed by Dc Arrieta at 01/26/2021 1:29 PM [facility] STAFF PHYSICIAN NOTE OF PERSONAL INVOLVEMENT IN CARE Pt seen this am Doing well Minimal pain, JPs and incision look great D/c today Follow up as planned I have reviewed the documentation above obtained and documented by the Physician Packing And Shipping Clerk and have reviewed and updated the problem list as appropriate. I have personally performed a face to face assessment of the patient and I have discussed the case and management of the patient's care. Dc Arrieta MD ----- Name: Gabriela Brasher Date: January 26, 2021 POD# 1 s/p Left breast modified radical mastectomy by Dr. Arrieta [facility] and PERTINENT ROS: Patient tolerating diet MEDICATIONS: [...] home today SIGNATURE: Sherin Huizar PA-C Pager [phone] *A review of daily goals, interventions, and plan of care with the multidisciplinary team and patient has been conducted. The patient?s concerns have been addressed and he/she agrees to proceed with today?s plan of care. [facility] ANES POSTPROC EVALon 021 ANES POSTPROC EVAL HNO ID: [id number] Author: Gretchen Sanford Service: Anesthesiology Author Type: Physician Type: Anesthesia Postprocedure Evaluation Filed: 01/25/2021 3:38 PM Note Text: POST ANESTHESIA EVALUATION NOTE : 1960 Procedure Summary Date: 01/25/21 Room / Location: OR05 / AV OR Anesthesia Start: 1023 Anesthesia Stop: 140 Procedures: MASTECTOMY MODIFIED RADICAL (Left Breast) LYMPHADENECTOMY [...] January 25, 2021 TIME: 3:38 PM CSN: [id number] [facility] ANES PRE-OPon 01-25-2021 ANES PRE-OP HNO ID: [id number] Author: Gretchen Sanford Service: Anesthesiology Author Type: [...] 18 01/25/21901 Temp 36.9 ?C (98.4 ?F) 01/25/21 09 SpO2 70 % 01/25/21 09 Facility-Administered Medications as of 01/25/2021 Medication Dose [...] January 25, 2021 TIME: 9:31 AM CSN: [id number] [facility] NURSING PROGon 01-25-2021 NURSING PROG HNO ID: [id number] Author: Nathaly LymanRn) MICHAEL Corey Service: Nursing Author Type: Registered [...] was completed by: nathaly Corey RN Normal [facility] SURGICAL PATHOLOGYon 021 SURGICAL PATHOLOGY ADDITIONAL PROCEDURES PRESENT Specimen originated from [facility] Specimen #: [id number] Submitting Physician: DC ARRIETA MD FINAL DIAGNOSIS [...] Progesterone receptor: Positive (2-5%) Specimen number #: [id number] (HER2) ERBB2 Status: Previously performed and reported as follows: HER2:Negative Specimen number #: [id number] Counter Person Tumor Block: Specify: A26 Residual tumor burden: [...] Receptor: Food and Drug Administration (FDA) cleared: [place] Primary Antibody: SP1 Progesterone Receptor: FDA cleared: [employer] Primary Antibody: IE2 HER2 (ERBB2) by IHC: FDA cleared: [employer] Primary Antibody: 4B5 The hormone receptor tests were performed and reported according to Annemarie KH, Mary YOUNGH, Cary M, Prerna SE, Helen LA, Jersey PL, Gildardo DF, Lino SR, Shirlene M, Marybel J, Diane CM, Jamshid MM, Antonietta DL, Nadeem WF, Michele EE, Madeleine L, Tian G, Juventino TF, Jensen GALLEGO, Collin AC. Estrogen and Progesterone Receptor Testing in Breast Cancer: ASCO/CAP Guideline Update. J Clin Oncol. 2019Mar 21;38(12):3830-3486. doi: 10.1200/JCO.19.61683. Epub 2019Dec 14. PMID: 01443197. The hormone receptor assays have been internally validated on decalcified tissues Estrogen and progesterone receptor results are valid if tissue was processed according to ASCO/CAP guidelines. Antibody and Detection System: [employer] anti-HER2 rabbit monoclonal antibody (clone 4B5), [employer] anti-estrogen receptor rabbit monoclonal antibody (clone SP1) and [employer] anti-progesterone receptor rabbit monoclonal antibody (clone IE2) detected with the [employer] iView Detection System (indirect biotin streptavidin detection); [employer], [place], [place]. Control slides: Cell line controls with [...] accordance with the guidelines approved by the [place] Society of Clinical Oncologists and the College of [place] Pathologists. Collin JOSE et al. Arch Pathol [...] the alphacentromeric region of chromosome 17 (PathVysion; [employer], [place]). The Molecular Genetic Pathology Laboratory of the [facility] has validated modifications of the PathVysion kit used for the testing, including the use of Target Retrieval Solution and Proteinase K (Dako;Only) for cell conditioning, and modified probe/target denaturation [...] in accordance with guidelines published by the [place] Society of Clinical Oncology and the College of [place] Pathologists (Collin JOSE, et al. J Clin Oncol. 2018 Jun 10;36(20):0256-9367. Epub 2017April 30). Pathologist Interpretation: Donovan Cesar MD ANALYTE SPECIFIC REAGENT (ASR) DISCLAIMER This test was developed and its performance characteristics determined by [facility]'s [facility] [place] ([facility]). It has not been cleared or approved by the FDA. [facility] is regulated under CLIA as qualified to perform high-complexity testing. This test is used for clinical purposes. It should not be regarded as investigational or for research. PM/es 3. Procedure Pathologist: Donovan Cesar M.D. Electronic Signature [...] 1.2 to 2.8 cm in greatest dimension. Counter Person sections are submitted as follows: A1 deep [...] minute(s) DIPAK/rina 01/20/2021 Gross examination performed at [facility], [address] [place] [address], [place] [address] Date of Report: 02/02/2021 Date of Procedure: 01/25/2021 Date of Receipt: 01/25/2021 Submitted by: DC ARRIETA MD Location: [facility] Diagnostic interpretation performed at [facility], [address] [place], [place] [id number]. CLIA Number: [id number] Normal [facility] Reference Lab Comment on above: Performed By: #### S #### See report for performing lab information. SURGICAL PATHOLOGY ADDITIONAL PROCEDURES PRESENT Specimen originated from [facility] Specimen #: [id number] Submitting Physician: DC ARRIETA MD FINAL DIAGNOSIS [...] Progesterone receptor: Positive (2-5%) Specimen number #: [id number] (HER2) ERBB2 Status: Previously performed and reported as follows: HER2:Negative Specimen number #: [id number] Counter Person Tumor Block: Specify: A26 Residual tumor burden: [...] Receptor: Food and Drug Administration (FDA) cleared: [employer], [place], [place] Primary Antibody: SP1 Progesterone Receptor: FDA cleared: [employer], [place], [place] Primary Antibody: IE2 HER2 (ERBB2) by IHC: FDA cleared: [employer], [place], [place] Primary Antibody: 4B5 The hormone receptor [...] Cancer: ASCO/CAP Guideline Update. J Clin Oncol. 2019 20;38(12):9379-1336. doi: 10.1200/JCO.19.30100. Epub 2019Dec 14. PMID: [id number]. The hormone receptor assays have been internally validated on decalcified tissues Estrogen and progesterone receptor results are valid if tissue was processed according to ASCO/CAP guidelines. Antibody and Detection System: [employer] anti-HER2 rabbit monoclonal antibody (clone 4B5), [employer] anti-estrogen receptor rabbit monoclonal antibody (clone SP1) and [employer] anti-progesterone receptor rabbit monoclonal antibody (clone IE2) detected with the [employer] iView Detection System (indirect biotin streptavidin detection); [employer], [place], [place]. Control slides: Cell line controls with [...] accordance with the guidelines approved by the [place] Society of Clinical Oncologists and the College of [place] Pathologists. Collin JOSE et al. Arch Pathol Lab Med. 2018;137(9) . The HER2 assay has not been validated on decalcified tissues. Results should be interpreted with caution given the possibility of false negative results on decalcified specimens. EDK/zohaib/02/03/2021 FISH for HER2 Date Ordered: 02/03/2021 Date [...] the alphacentromeric region of chromosome 17 (PathVysion; [employer], [place]). The Molecular Genetic Pathology Laboratory of the [facility] has validated modifications of the PathVysion kit used for the testing, including the use of Target Retrieval Solution and Proteinase K (Dako;Only) for cell conditioning, and modified probe/target denaturation [...] in accordance with guidelines published by the [place] Society of Clinical Oncology and the College of [place] Pathologists (Collin JOSE, et al. J Clin Oncol. 2018 Jun 10;36(20):8296-0976. Epub 2017April 30). Pathologist Interpretation: Donovan Cesar MD ANALYTE SPECIFIC REAGENT (ASR) DISCLAIMER This test was developed and its performance characteristics determined by [facility]'s [facility] [place] ([facility]). It has not been cleared or approved by the FDA. -[facility] is regulated under CLIA as [...] 1.2 to 2.8 cm in greatest dimension. Counter Person sections are submitted as follows: A1 deep [...] minute(s) DIPAK/rina 01/20/2021 [place] [address] Date of Report: 02/02/2021 Date of Procedure: 01/25/2021 Date of Receipt: 01/25/2021 Submitted by: DC ARRIETA MD Location: [facility] Diagnostic interpretation performed at [place] [address]. CLIA Number: [id number] [facility] HOSPon 10-17-2020 HOSP Patient:Alyssa Brasher MRN: Height:5' [...] notes entered within the past 30 days [facility] Vital Signs Date Time Vital Sign Value Performing Clinician Bertin tavarez 09-17-2024 08:42-0400 Body height 168.9 cm Amelia Trista [employer] Work Phone: [facility] 09-17-2024 08:42-0400 Body mass index (BMI) [Ratio] 35.58 kg/m2 Amelia Trista [employer] Work Phone: [facility] 09-17-2024 08:42-0400 Body temperature 98.49 [degF] Amelia Trista [employer] Work Phone: [facility] 09-17-2024 08:42-0400 Body weight 101.52 kg Amelia Trista [employer] Work Phone: [facility] 09-17-2024 08:42-0400 Diastolic blood pressure 80 mm[Hg] Amelia Weston [employer] Work Phone: [facility] 09-17-2024 08:42-0400 Heart rate 72 /min Amelia Weston [employer] Work Phone: [facility] 09-17-2024 08:42-0400 Respiratory rate 18 /min Amelia Weston [employer] Work Phone: [facility] 09-17-2024 08:42-0400 SaO2% (BldA) [Mass fraction] 96 % Amelia Weston [employer] Work Phone: [facility] 09-17-2024 08:42-0400 Systolic blood pressure 128 mm[Hg] Amelia Weston [employer] Work Phone: [facility] 09-10-2024 14:37-0400 Body height 172.7 cm Nickolas Parada APRN.PACKAGE MAKER Work Phone: [facility] 09-10-2024 14:37-0400 Body mass index (BMI) [Ratio] 34.2 kg/m2 Nickolas Parada APRN.PACKAGE MAKER Work Phone: [facility] 09-10-2024 14:37-0400 Body temperature 98.01 [degF] Nickolas Parada APRN.PACKAGE MAKER Work Phone: [facility] 09-10-2024 14:37-0400 Body weight 102 kg Nickolas Parada APRN.PACKAGE MAKER Work Phone: [facility] 09-10-2024 14:37-0400 Diastolic blood pressure 86 mm[Hg] Nickolas Parada APRN.PACKAGE MAKER Work Phone: [facility] 09-10-2024 14:37-0400 Heart rate 59 /min Nickolas Parada APRN.PACKAGE MAKER Work Phone: [facility] 09-10-2024 14:37-0400 Respiratory rate 16 /min Nickolas Parada APRN.PACKAGE MAKER Work Phone: [facility] 09-10-2024 14:37-0400 SaO2% (BldA) [Mass fraction] 95 % Nickolas Parada APRN.PACKAGE MAKER Work Phone: [facility] 09-10-2024 14:37-0400 Systolic blood pressure 133 mm[Hg] Nickolas Parada APRN.PACKAGE MAKER Work Phone: [facility] 03-12-2024 14:40-0400 Body height 172.7 cm Erwin Hare MD Work Phone: [facility] 03-12-2024 14:40-0400 Body temperature 97.2 [degF] Erwin Hare MD Work Phone: [facility] 03-12-2024 14:40-0400 Body weight 102.2 kg Erwin Hare MD Work Phone: [facility] 03-12-2024 14:40-0400 Diastolic blood pressure 76 mm[Hg] Erwin Hare MD Work Phone: [facility] 03-12-2024 14:40-0400 Heart rate 63 /min Erwin Hare MD Work Phone: [facility] 03-12-2024 14:40-0400 Respiratory rate 16 /min Erwin Hare MD Work Phone: [facility] 03-12-2024 14:40-0400 SaO2% (BldA) [Mass fraction] 92 % Erwin Hare MD Work Phone: [facility] 03-12-2024 14:40-0400 Systolic blood pressure 144 mm[Hg] Erwni Hare MD Work Phone: [facility] 08-15-2023 14:19-0400 Body temperature 97.81 [degF] Shirley Karen PA-C Work Phone: [facility] 08-15-2023 14:19-0400 Body weight 102.97 kg Shirley Karen PA-C Work Phone: [facility] 08-15-2023 14:19-0400 Diastolic blood pressure 89 mm[Hg] Shirley Karen PA-C Work Phone: [facility] 08-15-2023 14:19-0400 Heart rate 52 /min Shirley Karen PA-C Work Phone: [facility] 08-15-2023 14:19-0400 Respiratory rate 16 /min Shirley Karen PA-C Work Phone: [facility] 08-15-2023 14:19-0400 SaO2% (BldA) [Mass fraction] 96 % Shirley MCCLELLAN-C Work Phone: [facility] 08-15-2023 14:19-0400 Systolic blood pressure 148 mm[Hg] Shirley Jones PA-C Work Phone: [facility] 02-21-2023 14:13-0400 Body height 172.7 cm Erwin Hare MD Work Phone: [facility] 02-21-2023 14:13-0400 Body temperature 97.81 [degF] Erwin Hare MD Work Phone: [facility] 02-21-2023 14:13-0400 Body weight 100.06 kg Erwin Hare MD Work Phone: [facility] 02-21-2023 14:13-0400 Diastolic blood pressure 89 mm[Hg] Erwin Hare MD Work Phone: [facility] 02-21-2023 14:13-0400 Heart rate 64 /min Erwin Hare MD Work Phone: [facility] 02-21-2023 14:13-0400 Respiratory rate 16 /min Erwin Hare MD Work Phone: [facility] 02-21-2023 14:13-0400 SaO2% (BldA) [Mass fraction] 94 % Erwin Hare MD Work Phone: [facility] 02-21-2023 14:13-0400 Systolic blood pressure 133 mm[Hg] Erwin Hare MD Work Phone: [facility] 09-06-2022 14:00-0400 Body height 172.7 cm Erwin Hare MD Work Phone: [facility] 09-06-2022 14:00-0400 Body temperature 97 [degF] Erwin Hare MD Work Phone: [facility] 09-06-2022 14:00-0400 Body weight 101.06 kg Erwin Hare MD Work Phone: [facility] 09-06-2022 14:00-0400 Diastolic blood pressure 81 mm[Hg] Erwin Hare MD Work Phone: [facility] 09-06-2022 14:00-0400 Heart rate 60 /min Erwin Hare MD Work Phone: [facility] 09-06-2022 14:00-0400 Respiratory rate 18 /min Erwin Hare MD Work Phone: [facility] 09-06-2022 14:00-0400 SaO2% (BldA) [Mass fraction] 97 % Erwin Hare MD Work Phone: [facility] 09-06-2022 14:00-0400 Systolic blood pressure 123 mm[Hg] Erwin Hare MD Work Phone: [facility] 06-07-2022 14:04-0400 Body height 172.7 cm Nickolas Parada APRN.PACKAGE MAKER Work Phone: [facility] 06-07-2022 14:04-0400 Body temperature 97.7 [degF] Nickolas Parada SUSTAINABLE AGRICULTURE SPECIALIST.PACKAGE MAKER Work Phone: [facility] 06-07-2022 14:04-0400 Body weight 99.29 kg Nickolas Parada SUSTAINABLE AGRICULTURE SPECIALIST.PACKAGE MAKER Work Phone: [facility] 06-07-2022 14:04-0400 Diastolic blood pressure 87 mm[Hg] Nickolas Parada APRN.PACKAGE MAKER Work Phone: [facility] 06-07-2022 14:04-0400 Heart rate 67 /min Nickolas Parada APRN.PACKAGE MAKER Work Phone: [facility] 06-07-2022 14:04-0400 Respiratory rate 16 /min Nickolas Parada APRN.PACKAGE MAKER Work Phone: [facility] 06-07-2022 14:04-0400 SaO2% (BldA) [Mass fraction] 97 % Nickolas Parada APRN.PACKAGE MAKER Work Phone: [facility] 06-07-2022 14:04-0400 Systolic blood pressure 133 mm[Hg] Nickolas Parada APRN.PACKAGE MAKER Work Phone: [facility] 03-08-2022 08:10-0400 Body height 172.7 cm Nickolas Parada APRN.PACKAGE MAKER Work Phone: [facility] 03-08-2022 08:10-0400 Body temperature 97.11 [degF] Nickolas Parada APRN.PACKAGE MAKER Work Phone: [facility] 03-08-2022 08:10-0400 Body weight 100.79 kg Nickolas Parada APRN.PACKAGE MAKER Work Phone: [facility] 03-08-2022 08:10-0400 Diastolic blood pressure 91 mm[Hg] Nickolas Parada APRN.PACKAGE MAKER Work Phone: [facility] 03-08-2022 08:10-0400 Heart rate 72 /min Nickolas Parada APRN.PACKAGE MAKER Work Phone: [facility] 03-08-2022 08:10-0400 Respiratory rate 16 /min Nickolas Parada APRN.PACKAGE MAKER Work Phone: [facility] 03-08-2022 08:10-0400 SaO2% (BldA) [Mass fraction] 93 % Nickolas Parada APRN.PACKAGE MAKER Work Phone: [facility] 03-08-2022 08:10-0400 Systolic blood pressure 148 mm[Hg] Nickolas Parada APRN.PACKAGE MAKER Work Phone: [facility] Encounters Encounter Date Encounter Type Care Provider Facility Start: 12-11-2024 End: 12-11-2024 Refill Erwin Hare MD Work Phone: Hematology/Oncology Comment on above: Refill Request Malignant neoplasm o f overlapping sites of left breast in female, estrogen receptor positive (HCC) (Primary Dx) Start: 09-17-2024 End: 09-17-2024 Bamboo flowsheet Amelia Weston NP Work Phone: [facility] Start: 09-17-2024 End: 09-17-2024 Bamboo flowsheet Amelia Franciscojennifer [employer] Work Phone: [facility] Start: 09-17-2024 End: 09-17-2024 Office outpatient visit 25 minutes Amelia Franciscojennifer [employer] Work Phone: [facility] Comment on above: Primary hypertension (CMS/HCC) (Primary Dx); Pre-diabetes; Morbid obesity due to excess calories (CMS/HCC); Tobacco use Start: 09-17-2024 End: 09-17-2024 ambulatory AMELIA AICHHOLZ Not Available Start: 09-10-2024 End: 09-10-2024 Office outpatient visit 25 minutes Nickolas Parada APRN.CNP Work Phone: Hematology/Oncology Comment on above: Malignant neoplasm o f overlapping sites of left breast in female, estrogen receptor positive (HCC) (Primary Dx); Primary hypertension; Osteopenia of multiple sites; Need for vaccination Start: 09-10-2024 End: 09-11-2024 ambulatory Chair Radha Walsh Work Phone: Hematology/Oncology Comment on above: Malignant [...] 05-28-2024 End: 05-28-2024 ambulatory [facility] Work Phone: Hematology/Oncology Comment on above: Malignant neoplasm o f overlapping sites of left breast in female, estrogen receptor positive (HCC) (Primary Dx) Start: 03-18-2024 End: 03-18-2024 ambulatory AMELIA AICHHOLZ Not Available Start: 03-12-2024 End: 03-12-2024 Patient encounter procedure Erwin Hare MD Work Phone: [facility] Start: 03-12-2024 End: 03-13-2024 ambulatory [facility] [place] Work Phone: Hematology/Oncology Comment on above: Malignant [...] 01-30-2024 End: 01-30-2024 ambulatory [facility] [place] Work Phone: Hematology/Oncology Comment on above: Malignant neoplasm o f overlapping sites of left breast in female, estrogen receptor positive (HCC) (Primary Dx) Start: 12-19-2023 End: 12-19-2023 ambulatory ERWIN HARE Facility:[facility] Start: 11-07-2023 End: 11-07-2023 ambulatory [facility] [place] Work Phone: Hematology/Oncology Comment on above: Malignant neoplasm o f overlapping sites of left breast in female, estrogen receptor positive (HCC) (Primary Dx) Start: 09-27-2023 End: 09-27-2023 ambulatory [facility] [place] Work Phone: Hematology/Oncology Comment on above: Malignant neoplasm o f overlapping sites of left breast in female, estrogen receptor positive (HCC) (Primary Dx) Start: 08-15-2023 End: 08-15-2023 Patient encounter procedure Shirley Jones PA-C Work Phone: [employer] Start: 08-15-2023 End: 08-15-2023 ambulatory [facility] Work Phone: [...] 06-13-2023 End: 06-13-2023 ambulatory [facility] [place] Work Phone: Hematology/Oncology Comment on above: Malignant neoplasm o f overlapping sites of left breast in female, estrogen receptor positive (HCC) (Primary Dx) Start: 02-21-2023 End: 02-21-2023 Patient encounter procedure Erwin Hare MD Work Phone: [employer] Start: 02-21-2023 End: 02-21-2023 ambulatory [facility] [place] Work Phone: Hematology/Oncology Comment on above: Malignant [...] 09-11-2022 End: 09-12-[address] ANDREW SPEARS Facility:[facility] Start: 09-06-2022 End: 09-06-2022 Patient encounter procedure Erwin Hare MD Work Phone: [employer] Start: 09-06-2022 End: 09-06-2022 ambulatory [facility] [place] Work Phone: Hematology/Oncology Comment on above: Malignant [...] 08-10-2022 End: 08-11-[address] NICKOLAS PARADA Facility: Start: 07-19-2022 End: 07-19-2022 ambulatory [facility] Work Phone: Hematology/Oncology Comment on above: Malignant neoplasm o f overlapping sites of left breast in female, estrogen receptor positive (HCC) (Primary Dx) Start: 06-07-2022 End: 06-07-2022 Patient encounter procedure Nickolas Parada APRN.PACKAGE MAKER Work Phone: [facility] Start: 06-07-2022 End: 06-07-2022 ambulatory [facility] [place] Work Phone: Hematology/Oncology Comment on above: Malignant neoplasm o f overlapping sites of left breast in female, estrogen receptor positive (HCC) Malignant neoplasm o f overlapping sites of left breast in female, estrogen receptor positive (HCC) (Primary Dx); Essential hypertension; Osteopenia, unspecified location Start: 05-28-2022 Telephone encounter Nickloas kaur APRN.PACKAGE MAKER Work Phone: Hematology/Oncology Comment on above: Lab Orders Start: 04-19-2022 End: 04-19-2022 ambulatory [facility] [place] Work Phone: Hematology/Oncology Comment on above: Malignant neoplasm o f overlapping sites of left breast in female, estrogen receptor positive (HCC) Start: 03-08-2022 End: 03-08-2022 Patient encounter procedure Nickolas Parada APRN.PACKAGE MAKER Work Phone: [facility] Start: 03-08-2022 End: 03-08-2022 ambulatory [facility] [place] Work Phone: Hematology/Oncology Comment on above: Malignant [...] [Identifier] in Cervix by Cyto stain Amelia Weston NP Work Phone: Start: 03-12-2024 Blood count complete auto&auto difrntl wbc Shirley Jones PA-C Work Phone: Start: 08-15-2023 Blood count complete auto&auto difrntl wbc Erwin Hare MD Work Phone: Start: 02-21-2023 Blood count complete auto&auto difrntl wbc Erwin Hare MD Work Phone: Start: 09-06-2022 Blood count complete auto&auto difrntl wbc Nickolas Tal SUSTAINABLE AGRICULTURE SPECIALIST.PACKAGE MAKER Work Phone: Start: 06-07-2022 Blood count complete auto&auto difrntl wbc Nickolas Tal SUSTAINABLE AGRICULTURE SPECIALIST.PACKAGE MAKER Work Phone: Start: 04-19-2022 Comprehensive metabo lic panel Erwin Hare MD Work Phone: Start: 03-08-2022 Blood count complete auto&auto difrntl wbc Erwin Hare MD Work Phone: Start: 08-14-2021 Adult depression scr eening assessment [facility]/[place] [facility] Work Phone: Plan of Treatment Date Care Activity Detail Author Start: 2035 RSV Vaccine (1 - 1-d ose 75+ series) RSV Vaccine (1 - 1-dose 75+ series) [facility] Start: 09-10-2027 Diabetes Screening Diabetes Screenin g [facility] Start: 04-17-2027 Screening for malign ant neoplasm of cervix [facility] Start: 03-12-2027 [facility] Start: 08-15-2026 [facility] Start: 02-21-2026 DIABETES SCREEN DIABETES SCREEN [facility] Start: 02-21-2026 [facility] Start: 09-06-2025 DIABETES SCREEN DIABETES SCREEN [facility] Start: 06-07-2025 DIABETES SCREEN DIABETES SCREEN [facility] Start: 04-19-2025 DIABETES SCREEN DIABETES SCREEN [facility] Start: 03-18-2025 Screening for malign ant neoplasm of colon Colorectal Cancer Screening [facility] Comment on above: Postponed from 10/08 (Patient Refused) Start: 03-16-2025 End: 03-16-2025 Patient encounter procedure 03/16/2025 8:40 AM EDT Office Visit [facility] [address] [place] [address] Amelia Weston NP [address] [place] [address] [facility] Start: 03-11-2025 End: 06-10-2025 Cancer Ag 27-29 [Units/volume] in Serum or Plasma CA 27.29 BLOOD Lab Routine Malignant neoplasm of overlapping sites of left breast in female, estrogen receptor positive (HCC) Primary hypertension Osteopenia of multiple sites Need for vaccination Expected: 03/11/2025, Expires: 06/10/2025 [facility] Comment on above: Expected: 03/11/2025 , Expires: 06/10/2025 Start: 03-11-2025 End: 06-10-2025 CBC W Auto Differential panel - Blood COMPLETE BLOOD COUNT AND DIFFERENTIAL Lab Routine Malignant neoplasm of overlapping sites of left breast in female, estrogen receptor positive (HCC) Primary hypertension Osteopenia of multiple sites Need for vaccination Expected: 03/11/2025, Expires: 06/10/2025 [facility] Comment on above: Expected: 03/11/2025 , Expires: 06/10/2025 Start: 03-11-2025 End: 06-10-2025 Comprehensive metabolic 2000 panel - Serum or Plasma COMPREHENSIVE METABOLIC PANEL Lab Routine Malignant neoplasm of overlapping sites of left breast in female, estrogen receptor positive (HCC) Primary hypertension Osteopenia of multiple sites Need for vaccination Expected: 03/11/2025, Expires: 06/10/2025 [facility] Comment on above: Expected: 03/11/2025 , [...] 09/17/2025 Start: 03-08-2025 DIABETES SCREEN DIABETES SCREEN [facility] Start: 12-30-2024 Shingrix Vaccine (2 of 2) Shingrix Vaccine (2 of 2) [facility] Start: 12-11-2024 End: 12-11-2024 ambulatory 12/11/2024 1:00 PM [facility] Hematology/Oncology [address] [place] [address] [place] [address] 3 month port flush Hematology/Oncology Comment on above: 3 month port flush Start: 09-17-2024 End: 09-17-2024 Patient encounter procedure 09/17/2024 8:40 AM EDT Office Visit [facility] [address] [place] [id number] Amelia Weston NP [address] [place] [id number] Arrived [facility] Comment on above: Arrived Start: 09-10-2024 End: 09-10-2024 Follow-up encounter Hematology/Oncology Comment on above: 6 month follow up la b port flush tx [facility] Start: 09-10-2024 End: 12-10-2024 Cancer Ag 27-29 [Units/volume] in Serum or Plasma [facility] Comment on above: Expected: 09/10/2024 , Expires: 12/10/2024 Start: 09-10-2024 End: 12-10-2024 CBC W Auto Differential panel - Blood COMPLETE BLOOD COUNT AND DIFFERENTIAL Lab Routine Malignant neoplasm of overlapping sites of left breast in female, estrogen receptor positive (HCC) Expected: 09/10/2024, Expires: 12/10/2024 [facility] Work Phone: Comment on above: Expected: 09/10/2024 , Expires: 12/10/2024 Start: 09-10-2024 End: 12-10-2024 Comprehensive metabolic 2000 panel - Serum or Plasma COMPREHENSIVE METABOLIC PANEL Lab Routine Malignant neoplasm of overlapping sites of left breast in female, estrogen receptor positive (HCC) Expected: 09/10/2024, Expires: 12/10/2024 [facility] Comment on above: Expected: 09/10/2024 , Expires: 12/10/2024 Start: 08-02-2024 Covid-19 Vaccine ( season) Covid-19 Vaccine ( season) [facility] Start: 08-02-2024 Influenza vaccination Influenza Vacc ine (#1) [facility] Start: 02-13-2024 End: 04-14-2024 Cancer Ag 27-29 [Units/volume] in Serum or Plasma CA 27.29 BLOOD Lab Routine Malignant neoplasm of overlapping sites of left breast in female, estrogen receptor positive (HCC) Osteopenia of multiple sites Expected: 02/13/2024 (Approximate), Expires: 04/14/2024 [facility] Work Phone: Comment on above: Expected: 02/13/2024 (Approximate), Expires: 04/14/2024 Start: 02-13-2024 End: 04-14-2024 CBC W Auto Differential panel - Blood CBC + DIFF Lab Routine Malignant neoplasm of overlapping sites of left breast in female, estrogen receptor positive (HCC) Osteopenia of multiple sites Expected: 02/13/2024 (Approximate), Expires: 04/14/2024 [facility] Work Phone: Comment on above: Expected: 02/13/2024 (Approximate), Expires: 04/14/2024 Start: 02-13-2024 End: 04-14-2024 Comprehensive metabolic 2000 panel - Serum or Plasma COMP METABOLIC PANEL Lab Routine Malignant neoplasm of overlapping sites of left breast in female, estrogen receptor positive (HCC) Osteopenia of multiple sites Expected: 02/13/2024 (Approximate), Expires: 04/14/2024 [facility] Work Phone: Comment on above: Expected: 02/13/2024 (Approximate), Expires: 04/14/2024 Start: 12-02-2023 Behavioral Health Screening Behavioral Health Screening [facility] Start: 12-02-2023 Depression Assessment Depression Ass essment [facility] Start: 08-15-2023 End: 10-15-2023 Cancer Ag 27-29 [Units/volume] in Serum or Plasma [facility] Work Phone: Comment on above: Expected: 08/15/2023 , Expires: 10/15/2023 Start: 08-15-2023 End: 10-15-2023 CBC W Auto Differential panel - Blood CBC + DIFF Lab Routine Malignant neoplasm of overlapping sites of left breast in female, estrogen receptor positive (HCC) Expected: 08/15/2023, Expires: 10/15/2023 [facility] Work Phone: Comment on above: Expected: 08/15/2023 , Expires: 10/15/2023 Start: 08-15-2023 End: 10-15-2023 Comprehensive metabolic 2000 panel - Serum or Plasma COMP METABOLIC PANEL Lab Routine Malignant neoplasm of overlapping sites of left breast in female, estrogen receptor positive (HCC) Expected: 08/15/2023, Expires: 10/15/2023 [facility] Work Phone: Comment on above: Expected: 08/15/2023 , Expires: 10/15/2023 Start: 08-02-[address] [facility] Start: 02-21-2023 End: 04-23-2023 Cancer Ag 27-29 [Units/volume] in Serum or Plasma [facility] Work Phone: Comment on above: Expected: 02/21/2023 , Expires: 04/23/2023 Start: 02-21-2023 End: 04-23-2023 CBC W Auto Differential panel - Blood CBC + DIFF Lab Routine Malignant neoplasm of overlapping sites of left breast in female, estrogen receptor positive (HCC) Expected: 02/21/2023, Expires: 04/23/2023 [facility] Work Phone: Comment on above: Expected: 02/21/2023 , Expires: 04/23/2023 Start: 02-21-2023 End: 04-23-2023 Comprehensive metabolic 2000 panel - Serum or Plasma COMP METABOLIC PANEL Lab Routine Malignant neoplasm of overlapping sites of left breast in female, estrogen receptor positive (HCC) Expected: 02/21/2023, Expires: 04/23/2023 [facility] Work Phone: Comment on above: Expected: 02/21/2023 , Expires: 04/23/2023 Start: 12-02-2022 DEPRESSION ASSESSMENT DEPRESSION ASS ESSMENT [facility] Start: 09-07-2022 End: 11-07-2022 CBC W Auto Differential panel - Blood CBC + DIFF Lab Routine Malignant neoplasm of overlapping sites of left breast in female, estrogen receptor positive (HCC) Essential hypertension Osteopenia, unspecified location Expected: 09/07/2022, Expires: 11/07/2022 [facility] Work Phone: Comment on above: Expected: 09/07/2022 , Expires: 11/07/2022 Start: 09-07-2022 End: 11-07-2022 Comprehensive metabolic 2000 panel - Serum or Plasma COMP METABOLIC PANEL Lab Routine Malignant neoplasm of overlapping sites of left breast in female, estrogen receptor positive (HCC) Essential hypertension Osteopenia, unspecified location Expected: 09/07/2022, Expires: 11/07/2022 [facility] Work Phone: Comment on above: Expected: 09/07/2022 , Expires: 11/07/2022 Start: 08-14-2022 Adult depression screening assessment DEPRESSION SCREENING [facility] Start: 08-02-2022 Influenza vaccination INFLUENZA (#1) [facility] Start: 05-28-2022 End: 07-28-2022 CBC W Auto Differential panel - Blood CBC + DIFF Lab Routine Malignant neoplasm of overlapping sites of left breast in female, estrogen receptor positive (HCC) Expected: 05/28/2022, Expires: 07/28/2022 [facility] Work Phone: Comment on above: Expected: 05/28/2022 , Expires: 07/28/2022 Start: 05-28-2022 End: 07-28-2022 Comprehensive metabolic 2000 panel - Serum or Plasma COMP METABOLIC PANEL Lab Routine Malignant neoplasm of overlapping sites of left breast in female, estrogen receptor positive (HCC) Expected: 05/28/2022, Expires: 07/28/2022 [facility] Work Phone: Comment on above: Expected: 05/28/2022 , Expires: 07/28/2022 Start: 02-19-2022 COVID-19 VACCINE (4 - Booster) COVID-19 VACCINE (4 - Booster) [facility] Start: 02-13-2022 COVID-19 VACCINE (4 - Booster) COVID-19 VACCINE (4 - Booster) [facility] Start: 01-16-2022 COVID-19 VACCINE (4 - Booster for Pfizer series) COVID-19 VACCINE (4 - Booster for Pfizer series) [facility] Start: 01-16-2022 COVID-19 VACCINE (5 - Pfizer series) COVID-19 VACCINE (5 - Pfizer series) [facility] Start: 12-02-2021 DEPRESSION ASSESSMENT DEPRESSION ASS ESSMENT [facility] Start: 2020 RSV Vaccine (1 - 1-d ose 60+ series) RSV Vaccine (1 - 1-dose 60+ series) [facility] Start: 2010 Pneumococcal Vaccine : 50+ (1 of 1 - PCV) Pneumococcal Vaccine: 50+ (1 of 1 - PCV) [facility] Start: 2010 SHINGRIX VACCINE (1 of 2) SHINGRIX VACCINE (1 of 2) [facility] Start: 2005 COLOGUARD (FIT-DNA) COLOGUARD (FIT-D NA) [facility] Start: 2005 Colonoscopy COLONOSCOPY [facility] Start: 2005 COLORECTAL CANCER SCREENING COLORECTAL CANCER SCREENING [facility] Start: [address] COLONOGRAPHY [facility] Start: 2005 FECAL OCCULT BLOOD FECAL OCCULT BLOO D [facility] Start: 2005 Lipid 1996 panel - S eliceo or Plasma Lipid Screening [facility] Start: 2005 Lipid panel Lipid Screening [facility] Start: 2005 LIPID SCREEN LIPID SCREEN [facility] Start: 2005 Screening for malign ant neoplasm of colon [facility] Start: 2005 SIGMOIDOSCOPY SIGMOIDOSCOPY [facility] Start: 2000 Mammography [facility] Start: 2000 Screening for malign ant neoplasm of breast Mammogram Screening [facility] Start: 1990 HPV TESTING HPV TESTING [facility] Start: 1990 Screening for malign ant neoplasm of cervix [facility] Start: 1981 PAP TESTING PAP TESTING [facility] Start: 1981 Screening for malign ant neoplasm of cervix [facility] Start: 1979 SHINGRIX VACCINE (1 of 2) SHINGRIX VACCINE (1 of 2) [facility] Start: 1979 Urine microalbumin profile [facility] Start: 1978 ANNUAL PCP TEAM STARS COORDINATOR NAI DISEASE VISIT ANNUAL PCP TEAM CHRONIC DISEASE VISIT [facility] Start: 1978 Anxiety Screening Anxiety Screening [facility] Start: 1978 BP CONTROLLED (<130/80) BP CONTROLLE D (<130/80) [facility] Start: 1978 Depression Screening Depression Scre ening [facility] Start: 1978 HEPATITIS C SCREENING HEPATITIS C [facility] Start: 1978 Hepatitis C screening Hepatitis C [facility] Start: 1978 HIV SCREENING HIV SCREENING [facility] Start: 1978 HIV screening HIV Screening [facility] Start: 1966 PNEUMOCOCCAL (1 - PCV) PNEUMOCOCCAL (1 - PCV) [facility] Start: 1960 Screening for malign ant neoplasm of colon [facility] Cancer Ag 27-29 [Units/volume] in Serum or Plasma CA 27.29 BLOOD Lab Routine Malignant neoplasm of overlapping sites of left breast in female, estrogen receptor positive (HCC) Osteopenia of multiple sites 03/12/2024 2:32 PM EDT [facility] Work Phone: End: 07-07-2023 Diagnostic mammography computer-aided detcj uni [facility] Radiology Routine Malignant neoplasm of overlapping sites of left breast in female, estrogen receptor positive (HCC) Essential hypertension Osteopenia, unspecified location 1 Occurrences starting 06/07/2022 until 07/07/2023 [facility] Work Phone: Comment on above: 1 Occurrences starti ng 06/07/2022 until 07/07/2023 End: 10-10-2025 DXA Skeletal system.axial Views for bone density DXA-AXIAL SKELETON Radiology Routine Malignant neoplasm of overlapping sites of left breast in female, estrogen receptor positive (HCC) Primary hypertension Osteopenia of multiple sites 1 Occurrences starting 09/10/2024 until 10/10/2025 [facility] Work Phone: Comment on above: 1 Occurrences starti ng 09/10/2024 until 10/10/2025 End: 03-22-2024 [facility] Radiology Routine Malignant neoplasm of overlapping sites of left breast in female, estrogen receptor positive (HCC) 1 Occurrences starting 02/21/2023 until 03/22/2024 [facility] Work Phone: Comment on above: 1 Occurrences starti ng 02/21/2023 until 03/22/2024 End: 04-11-2025 MG Breast - right Diagnostic for implant [facility] Radiology Routine Malignant neoplasm of overlapping sites of left breast in female, estrogen receptor positive (HCC) 1 Occurrences starting 03/12/2024 until 04/11/2025 [facility] Work Phone: Comment on above: 1 Occurrences starti ng 03/12/2024 until 04/11/2025 [facility] Immunizations Immunization Date Immunization Notes Care Provider Chelsea rodriguez 09-10-2024 influenza, seasonal, injectable, preservative free Chair Walsh Work Phone: [facility] 09-17-2023 influenza, injectabl e, quadrivalent, preservative free Amelia Trista BATISTA Work Phone: [facility] 09-17-2023 influenza virus vacc ine, unspecified formulation Erwin Hare MD Work Phone: [facility] 09-06-2022 influenza, injectabl e, quadrivalent, preservative free [facility] Work Phone: [facility] 09-06-2022 influenza virus vacc ine, unspecified formulation Erwin Hare MD Work Phone: [facility] 11-21-2021 COVID-19 vaccine (UNSPECIFIED) [facility] Work Phone: [facility] 11-21-2021 COVID-19 vaccine, ag e 12+ yr ([employer] Payment-[employer] P[employer] - PURPLE TOP) [facility] Work Phone: [facility] 09-26-2021 Influenza, injectabl e, Madin Zeina Canine Kidney, preservative free, quadrivalent [facility] Work Phone: [facility] 10-06-2020 influenza, injectabl e, quadrivalent, preservative free [facility] Work Phone: [facility] Payers Date Payer Category Payer Private Health Insurance [facility] [id number] 2020-Present [phone] [address] [address] [place] [address] O [id number] 2020 Private Health Insurance [id number] 1960 Unknown [id number] 1960 Unknown [id number] 1960 Unknown [id number] 1960 Unknown [id number] 1960 Unknown [id number] 1959 Self-pay 1959 Unknown [id number] Unknown [id number] Social History Date Type Detail Facility Start: 09-15-2020 End: 09-06-2022 Tobacco smoking status NHIS Ex-smoker [facility] Start: 12-02-1988 End: 12-02-2018 History of tobacco use Current smoker [facility] Start: 12-02-1988 End: 12-02-2018 History of tobacco use Cigarette Smoker [facility] Start: 09-15-2020 End: 04-18-2023 Cigarettes smoked current (pack per day) - Reported 0.25 [facility] Start: 09-15-2020 End: 09-06-2022 Tobacco use and exposure Smokeless tobacco non-user [facility] Start: 03-08-2022 End: 08-15-2023 Alcohol intake Ex-drinker (finding) [facility] Start: 07-04-2020 End: 09-06-2022 Tobacco Comment 4 or less cigarettes [facility] Start: 1960 Sex Assigned At Not on file [facility] Start: 02-26-2022 End: 09-06-2022 Exposure to SARS-CoV-2 (event) Not sure [facility] History of tobacco use Passive smoker [facility] Start: 02-21-2023 End: 04-18-2023 Tobacco use panel [facility] Adult Depression Screening Assessment 0 [facility] Start: 03-12-2024 Tobacco smoking stat us CTIS Smokes tobacco daily [facility] Start: 06-18-2024 End: 09-17-2024 Alcoholic beverage intake Lifetime non-drinker (finding) [facility] Start: 03-12-2024 Alcohol Comment caffine: [facility] Start: 1960 Sex assigned at Female [facility] Start: 03-13-2024 Gender identity Identifies as female gender (finding) [facility] Clinical Notes 03-02-2022 to 12-11-2024 Telephone Encounter - Nickolas Parada APRN.EMMANUEL - 12/11/2024 9:00 AM ESTTelephone Encounter - Nickolas Parada APRN.CNP - 12/11/2024 9:00 AM Jessica Weston NP - 09/17/2024 9:06 AM EDT Note Date & Type Note Facility 12-11-2024 Telephone encounter Note The following approved medication requests have been transmitted electronically. Requested Prescriptions Signed Prescriptions Disp Refills exemestane (AROMASIN) 25 mg tablet 90 tablet 3 Sig: Take 1 tablet by mouth every afternoon. Authorizing Provider: NICKOLAS PARADA APRN.CNP [facility] 12-11-2024 Miscellaneous Notes The following approved medication requests have been transmitted electronically. Requested Prescriptions Signed Prescriptions Disp Refills exemestane (AROMASIN) 25 mg tablet 90 tablet 3 Sig: Take 1 tablet by mouth every afternoon. Authorizing Provider: NICKOLAS PARADA APRN.CNP documented in this encounter [facility] 09-17-2024 History of Presen t illness Narrative [...] Problem(s): Morbid obesity due to excess calories ([facility]) Working on diet changes 5 pound loss since last visit, keep working at it Associated Problem(s): Hypertension ([facility]) Stable on current meds No changes Associated [...] Past Medical History: Diagnosis Date Breast cancer ([facility]) History of high blood pressure History of [...] Orders Hemoglobin A1c documented in this encounter [facility] 09-17-2024 Instructions Amelia Weston NP - 09/17/2024 8:40 AM EDT Get A1c test done with next labs in 03/26 at [facility], I will send order in mail toward end of january documented in this encounter [facility] 09-10-2024 Note HNO ID: [id number] Author: NICKOLAS PARADA APRN.EMMANUEL Service: ? Author Type: Nurse Practitioner Type: Progress Notes Filed: 09/10/2024 16:24 Note Text: PATIENT NAME: Gabriela Brasher DATE: 09/10/2024 PRIMARY CARE PHYSICIAN: Dr. Andrew Spears OTHER [...] easily. She has been working with he PCP/SUSTAINABLE AGRICULTURE SPECIALIST regarding elevated blood sugars. She is hoping [...] including fibrosis an (more content not included)... [facility] 09-10-2024 History of Presen t illness Narrative PATIENT NAME: Gabriela Brasher DATE: 09/10/2024 PRIMARY CARE PHYSICIAN: Dr. Andrew Spears OTHER [...] easily. She has been working with he PCP/SUSTAINABLE AGRICULTURE SPECIALIST regarding elevated blood sugars. She is hoping [...] HER2:Negative RADIOLOGIC DATA: 08/21/2023 Diagnostic right mammogram (Una) No significant suspicious finding. Routine mammogram and [...] thickening. 3. Diffuse hepatic infiltration.. 07/19/2020 MAMMOGRAM/US ([facility]) Right breast: No significant suspicious finding. Left [...] receptor positive Locally advanced (cT4, N3, M0) ER/[place] positive HER-2 negative left-sided breast cancer diagnosed [...] which included preparing to see the patient, [id number] patient care, completing clinical documentation, obtaining and/or reviewing separately obtained history, performing a medically appropriate examination, counseling and educating the patient/family/caregiver, ordering medications, tests, or procedures, independently interpreting results (not separately reported), and communicating results to the patient/family/caregiver. documented in this encounter [facility] 09-04-2024 Telephone encounter Note Lab orders needed for appointment scheduled 09/10 Annette Hays MA [facility] 09-04-2024 Miscellaneous Notes Lab orders needed for appointment scheduled 09/10 Annette Hays MA documented in this encounter [facility] 03-12-2024 Nurse Note Patient is getting over a cold. Cecile Whitfield MA documented in this encounter [facility] 03-11-2024 Note HNO ID: [id number] Author: ERWIN HARE MD Service: ? Author [...] HER2:Negative RADIOLOGIC DATA: 08/21/2023 Diagnostic right mammogram (Denys) No significant suspicious finding. Routine mammogram and clinical evaluation in 12 months. 07/25/2020 PET SCAN IMPRESSION: 1. Neck: No suspicious hypermetabolic foci 2. Chest: Hypermetabolic left breast soft tissue mass with hypermetabolic left breast cutaneous/sub (more content not included)... [facility] 03-11-2024 History of Presen t illness Narrative [...] HER2:Negative RADIOLOGIC DATA: 08/21/2023 Diagnostic right mammogram ([facility]ys) No significant suspicious finding. Routine mammogram and [...] thickening. 3. Diffuse hepatic infiltration.. 07/19/2020 MAMMOGRAM/US ([facility]) Right breast: No significant suspicious finding. Left [...] receptor positive Locally advanced (cT4, N3, M0) ER/OH positive HER-2 negative left-sided breast cancer diagnosed [...] Erwin Hare MD documented in this encounter [facility] 08-15-2023 History of Presen t illness [...] HER2:Negative RADIOLOGIC DATA: 08/10/2022 Diagnostic right mammogram ([facility]ys) No significant suspicious finding. Routine mammogram and [...] thickening. 3. Diffuse hepatic infiltration.. 07/19/2020 MAMMOGRAM/US ([facility]) Right breast: No significant suspicious finding. Left [...] receptor positive Locally advanced (cT4, N3, M0) ER/OH positive HER-2 negative left-sided breast cancer diagnosed [...] Shirley Jones PA-C documented in this encounter [facility] 08-14-2023 Miscellaneous Notes Labs are needed for appointment on 08/15/23. Annette Hays Ma documented in this encounter [facility] 02-21-2023 History of Presen t illness Narrative PATIENT NAME: Gabriela Brasher DATE: 02/21/2023 PRIMARY CARE PHYSICIAN: Dr. Andrew Spears Sr [...] HER2:Negative RADIOLOGIC DATA: 08/10/2022 Diagnostic right mammogram ([facility]) No significant suspicious finding. Routine mammogram and [...] thickening. 3. Diffuse hepatic infiltration.. 07/19/2020 MAMMOGRAM/US ([facility]) Right breast: No significant suspicious finding. Left [...] receptor positive Locally advanced (cT4, N3, M0) ER/OH positive HER-2 negative left-sided breast cancer diagnosed [...] Erwin Hare MD documented in this encounter [facility] 09-11-2022 Note PROCEDURE: XR KNEE L T 4V or > HISTORY: Pain in left knee ; no known injury COMPARISON: None. FINDINGS: BONES:Marked narrowing of the medial compartment with near [id number] articulation. Large periarticular degenerative osteophytes of the medial compartment. Small osteophytes involving the lateral compartment and patella. No fracture or dislocation. SOFT TISSUES:No visible soft tissue swelling. EFFUSION:Small joint effusion. OTHER: Negative. IMPRESSION: 1. Marked degenerative joint disease involving the medial compartment. Electronically authenticated by: SELENA PETER Date: 2022-09-11 16:13 [facility] 09-06-2022 History of Presen t illness Narrative [...] HER2:Negative RADIOLOGIC DATA: 08/10/2022 Diagnostic right mammogram (Una) No significant suspicious finding. Routine mammogram and [...] thickening. 3. Diffuse hepatic infiltration.. 07/19/2020 MAMMOGRAM/US ([facility]) Right breast: No significant suspicious finding. Left [...] receptor positive Locally advanced (cT4, N3, M0) ER/OH positive HER-2 negative left-sided breast cancer diagnosed [...] Erwin Hare MD documented in this encounter [facility] 06-07-2022 History of Presen t illness Narrative PATIENT NAME: Gabriela Brasher DATE: 06/07/2022 PRIMARY CARE PHYSICIAN: Dr. Andrew Spears OTHER [...] HER2:Negative RADIOLOGIC DATA: 08/08/2021 Right Diagnostic Mammogram (Una) Findings: Diagnostic category 2-benign finding no change [...] thickening. 3. Diffuse hepatic infiltration.. 07/19/2020 MAMMOGRAM/US ([facility]) Right breast: No significant suspicious finding. Left [...] receptor positive Locally advanced (cT4, N3, M0) ER/OH positive HER-2 negative left-sided breast cancer diagnosed [...] counseling and coordination of care. Nickolas Parada APRN.PACKAGE MAKER documented in this encounter [facility] 03-08-2022 History of Presen t illness Narrative PATIENT NAME: Gabriela Brasher DATE: 03/08/2022 PRIMARY CARE PHYSICIAN: Dr. Andrew Spears OTHER [...] HER2:Negative RADIOLOGIC DATA: 08/08/2021 Right Diagnostic Mammogram (Una) Findings: Diagnostic category 2-benign finding no change [...] thickening. 3. Diffuse hepatic infiltration.. 07/19/2020 MAMMOGRAM/US ([facility]) Right breast: No significant suspicious finding. Left [...] receptor positive Locally advanced (cT4, N3, M0) ER/OH positive HER-2 negative left-sided breast cancer diagnosed [...] daily. We suggested that she take an anga-zee-[id number] NSAID consistently, and if she has significant [...] She will receive her infusion today. Nickolas Praada APRN.CNP documented in this encounter [facility] 03-02-2022 Miscellaneous Notes Patient coming in to see you on 06/07/22 for follow up/[place]. Please add lab orders if needed. Thanks, Radha Rendon MA documented in this encounter [facility] Evaluation note Diagnosis Malignant neoplasm of overlapping sites of left breast in female, estrogen receptor positive (HCC) [facility] Diagnosis Malignant neoplasm of overlapping sites of left breast in female, estrogen receptor positive (HCC)- Primary [facility] Diagnosis Malignant neoplasm of overlapping sites of left breast in female, estrogen receptor positive (HCC)- Primary Essential hypertension Unspecified essential hypertension Osteopenia, unspecified location [facility] Diagnosis Malignant neoplasm of overlapping sites of left breast in female, estrogen receptor positive (HCC) [facility] Diagnosis Malignant neoplasm of overlapping sites of left breast in female, estrogen receptor positive (HCC)- [facility] Malignant neoplasm of overlapping sites of left breast in female, estrogen receptor positive (HCC)- Primary Essential hypertension Unspecified essential hypertension Osteopenia, unspecified location [facility] Diagnosis Malignant neoplasm of overlapping sites of left breast in female, estrogen receptor positive (HCC)- Primary [facility] Diagnosis Malignant neoplasm of overlapping sites of left breast in female, estrogen receptor positive (HCC) Essential hypertension Unspecified essential hypertension Osteopenia, unspecified location [facility] Diagnosis Malignant neoplasm of overlapping sites of left breast in female, estrogen receptor positive (HCC)- Primary [facility] Diagnosis Malignant neoplasm of overlapping sites of left breast in female, estrogen receptor positive (HCC)- Primary Osteopenia of multiple sites Need for influenza vaccination Need for prophylactic vaccination and inoculation against influenza [facility] Diagnosis Malignant neoplasm of overlapping sites of left breast in female, estrogen receptor positive (HCC)- Primary [facility] Diagnosis Malignant neoplasm of overlapping sites of left breast in female, estrogen receptor positive (HCC) [facility] Diagnosis Malignant neoplasm of overlapping sites of left breast in female, estrogen receptor positive (HCC)- Primary Osteopenia of multiple sites [facility] Diagnosis Malignant neoplasm of overlapping sites of left breast in female, estrogen receptor positive (HCC)- Primary [facility] Diagnosis Malignant neoplasm of overlapping sites of left breast in female, estrogen receptor positive (HCC)- Primary [facility] Diagnosis Malignant neoplasm of overlapping sites of left breast in female, estrogen receptor positive (HCC) [facility] Diagnosis Malignant neoplasm of overlapping sites of left breast in female, estrogen receptor positive (HCC)- Primary Osteopenia of multiple sites [facility] Diagnosis Malignant neoplasm of overlapping sites of left breast in female, estrogen receptor positive (HCC)- [facility] Diagnosis Malignant neoplasm of overlapping sites of left breast in female, estrogen receptor positive (HCC)- Primary [facility]* Diagnosis Malignant neoplasm of overlapping sites of left breast in female, estrogen receptor positive (HCC)- Primary [facility]* Diagnosis Malignant neoplasm of overlapping sites of left breast in female, estrogen receptor positive (HCC)- Primary [facility]* Diagnosis Malignant neoplasm of overlapping sites of left breast in female, estrogen receptor positive (HCC) Osteopenia of multiple sites [facility]* Diagnosis Malignant neoplasm of overlapping sites of left breast in female, estrogen receptor positive (HCC)- Primary [facility]* Diagnosis Malignant neoplasm of overlapping sites of left breast in female, estrogen receptor positive (HCC)- Primary Osteopenia of multiple sites [facility]* Diagnosis Pre-op evaluation- Primary Preoperative examination, [...] positive (HCC)- [facility] Diagnosis Pre-op evaluation- Primary Preoperative examination, [...] positive (HCC)- Primary [facility] Diagnosis Pre-op evaluation- Primary Preoperative examination, [...] unspecified single disease [facility] Diagnosis Pre-op evaluation- Primary Preoperative examination, [...] receptor positive (HCC) [facility]* Diagnosis Primary hypertension (CMS/HCC)- Primary Unspecified [...] (CMS/HCC) Tobacco use [facility] Diagnosis Pre-op evaluation- Primary Preoperative examination, unspecified Malignant neoplasm of left female breast, unspecified estrogen receptor status, unspecified site of breast (HCC) Essential hypertension Unspecified essential hypertension Obesity (BMI 30-39.9) Obesity, unspecified Former smoker Personal history of tobacco use, presenting hazards to [facility] Fatty liver Other chronic nonalcoholic liver disease Malignant neoplasm of overlapping sites of left breast in female, estrogen receptor positive (HCC)- Primary documented in this encounter [facility] for referral (narrative)* Diagnostic Procedure Only (Routine) - Pending Review Specialty Diagnoses / Procedures Referred By Sam golden Referred To Contact [facility] Diagnoses Malignant neoplasm of overlapping sites of left breast in female, estrogen receptor positive (HCC) Essential hypertension Osteopenia, unspecified location Procedures [facility]ABETH DIAGNOSTIC RT DIAGNOSTIC MAMMOGRAPHY COMPUTER-AIDED DETCJ Nickolas Cohen APRN.CNP [address] [place] [address] [place] [address] [facility] [address] [place] [address] Referral ID Status Reason Start Date Expiration Date Visits Requested Visits Authorized [id number] Pending Review Auto-Generat ed Referral 06/07/2022 07/07/2023 1 1 [facility] for referral (narrative)* Diagnostic Procedure Only (Routine) - Pending Review Specialty Diagnoses / Procedures Referred By Contdee golden Referred To Contact [facility] Diagnoses Malignant neoplasm of overlapping sites of left breast in female, estrogen receptor positive (HCC) Procedures ELIZABETH DIAGNOSTIC RT DIAGNOSTIC MAMMOGRAPHY COMPUTER-AIDED DETCJ Erwin Chacon MD [address] [place] [address] [facility] [address] [place] [address] Referral ID Status Reason Start Date Expiration Date Visits Requested Visits Authorized [id number] Pending Review Auto-Generat ed Referral 02/21/2023 03/22/2024 1 1 [facility] for referral (narrative)* Diagnostic Procedure Only (Routine) - Pending Review Specialty Diagnoses / Procedures Referred By Contac t Referred To Contact [facility] Diagnoses Malignant neoplasm of overlapping sites of left breast in female, estrogen receptor positive (HCC) Procedures [facility]ETH DIAGNOSTIC RIGHT DIAGNOSTIC MAMMOGRAPHY COMPUTER-AIDED DETCJ UNI Erwin Hare MD [address] [place] [address] [facility] [address] [address] Referral ID Status Reason Start Date Expiration Date Visits Requested Visits Authorized [id number] Pending Review Auto-Generat ed Referral 03/12/2024 04/11/2025 1 1 [facility] for referral (narrative)* Diagnostic Procedure Only (Routine) - New Request Specialty Diagnoses / Procedures Referred By Contac t Referred To Contact XR IMAGING Diagnoses Malignant neoplasm of overlapping sites of left breast in female, estrogen receptor positive (HCC) Primary hypertension Osteopenia of multiple sites Procedures DXA-AXIAL SKELETON DXA BONE DENSITY STUDY 1/> SITES AXIAL Nickolas Perez, HUNTER [address] [place] [address] [place] [address] [place] [address] Referral ID Status Reason Start Date Expiration Date Visits Requested Visits Authorized [id number] New Request Auto-Generat ed Referral 10/10/2025 1 1 [facility] for visit Narrative* Diagnostic Procedure Only (Routine) - Authorized Specialty Diagnoses / Procedures Referred By Contac t Referred To Contact Hematology / HEMATOLOGY/ONCOLOGY Diagnoses port flush q 6 weeks Procedures LAB/Erwin Cortes MD [address] [place] [address] [place] [address] Juan Carlos [place] [address] [place] [address] Referral ID Status Reason Start Date Expiration Date V isits Requested Visits Authorized [id number] Authorized 10/29/2023 12/01/2023 99 99 [facility] Summary Purpose Family History No Family History Records FoundNo Family History Records FoundNo Family History Records FoundNo Family History Records FoundNo Family History Records FoundNo Family History Records FoundNo Family History Records Found Advance Directives No Advanced Directives Records FoundDocuments on File Type Date Recorded Patient Counter Person Expl anation Advance Directive(s) 01/25/2021 8:17 AM Documents on File Type Date Recorded Patient Counter Person Expl anation Advance Directive(s) 01/25/2021 8:17 AM Hospital Course Note HNO ID: [id number] Author: Taco Huizar Service: General Surgery Author Type: Physician Packing And Shipping Clerk Type: Discharge Summary Filed: 01/26/2021 11:28 AM [...] (more content not included)... Note HNO ID: [id number] Author: Tato Arrieta Service: General Surgery Author Type: Physician Type: Operative Report Filed: 01/25/2021 5:49 PM Note Text: OPERATIVE / PROCEDURE NOTE LOG ID: [id number] SURGERY/PROCEDURE DATE: 01/25/2021 INCISION/PROCEDURE START TIME: 10:46 AM INCISION CLOSE/PROCEDURE END TIME: 1:45 PM SURGEON(S)/PROCEDURALIST(S) AND CO FOUNDER AND CTO(S): Surgeon(s) and Role: * Dc Arrieta - Primary Physician Packing And Shipping Clerk: Tiffany Conner ([place]) SURGERY/PROCEDURE(S): Left breast [...] (more content not included)... Note HNO ID: [id number] Author: Segundo Branch Service: ? Author Type: Nurse Tennis Ball Cover Cementer Type: Anesthesia Procedure Notes Filed: 01/25/2021 10:39 AM Note Text: ANESTHESIOLOGY PROCEDURE NOTE Airway General Information Patient location during procedure: OR Staffing SAIL LAY OUT WORKER: Matias Branch Performed by: NORBERT Indications and [...] January 25, 2021 TIME: 10:38 AM CSN: [id number] Procedure Findings Note HNO ID: [id number] Author: Tato Arrieta Service: General Surgery Author Type: Physician Type: Operative Report Filed: 01/25/2021 5:49 PM Note Text: OPERATIVE / PROCEDURE NOTE LOG ID: [id number] SURGERY/PROCEDURE DATE: 01/25/2021 INCISION/PROCEDURE START TIME: 10:46 AM INCISION CLOSE/PROCEDURE END TIME: 1:45 PM SURGEON(S)/PROCEDURALIST(S) AND CO FOUNDER AND CTO(S): Surgeon(s) and Role: * Dc Arrieta - Primary Physician Packing And Shipping Clerk: Tiffany Conner ([place]) SURGERY/PROCEDURE(S): Left breast [...] (more content not included)... Note HNO ID: [id number] Author: Segundo Branch Service: ? Author Type: Nurse Tennis Ball Cover Cementer Type: Anesthesia Procedure Notes Filed: 01/25/2021 10:39 AM Note Text: ANESTHESIOLOGY PROCEDURE NOTE Airway General Information Patient location during procedure: OR Staffing SAIL LAY OUT WORKER: Matias Branch Performed by: NORBERT Indications and Patient Condition Preoxygenated: yes Patient position: sniffing Difficult Mask: No Indications for airway management: anesthesia anesthesia circuit Method: asleep Final Airway Details Final airway type: supraglottic airway Number of attempts at approach: 1 Final Supraglottic Airway: IGEL Size 4 Seal Adequate: yes Airway not difficult SIGNATURE: Matias Branch APRN.NORBERT PATIENT NAME: Gabriela Brasher DATE: January 25, 2021 TIME: 10:38 AM CSN: [id number] Medications Administered Section Inactive Administered Medications - up to 3 most recent administrations Medication Order MAR Action Action Date Dose Rate Site zoledronic iy-msebzvbb-0.9NaCl 4 mg iv piggyback 100 mL (ZOMETA) 4 mg, INTRAVENOUS, Administer over 15 Minutes, ONCE, 1 dose, On Cassidy 03/08/22 at 0930, Hazardous Potential Reproductive Risk Drug: Use appropriate PPE. New Bag/Syringe/Bottle 03/08/2022 9:06 AM EDT 4 mg Inactive Administered Medications - up to 3 most recent administrations Medication Order MAR Action Action Date Dose Rate Site zoledronic rc-dxjdnems-1.9NaCl 4 mg iv piggyback 100 mL (ZOMETA) [...] 02/21/2023 3:17 PM EDT 500 Units zoledronic pr-aetviqci-3.9NaCl 4 mg iv piggyback 100 mL (ZOMETA) 4 mg, INTRAVENOUS, Administer over 15 Minutes, ONCE, 1 dose, On Cassidy 02/21/23 at 1500, Hazardous Potential Reproductive Risk Drug: Use appropriate PPE. New Bag/Syringe/Bottle 02/21/2023 3:00 PM EDT 4 mg Inactive Administered Medications - up to 3 most recent administrations Medication Order MAR Action Action Date Dose Rate Site zoledronic hb-ptvoubrs-9.9NaCl 4 mg iv piggyback 100 mL (ZOMETA) 4 mg, INTRAVENOUS, Administer over 15 Minutes, ONCE, 1 dose, On [place]idy 08/15/23 at 1530, Hazardous Potential Reproductive Risk Drug: Use appropriate PPE. New Bag/Syringe/Bottle 08/15/2023 3:44 PM EDT 4 mg Additional Source Comments INFORMATION SOURCE (unrecogn ized section and content) DATE CREATED AUTHOR 02/09/2021 [facility] DATE CREATED AUTHOR AUTHOR'S ORGANIZ ATION 02/10/2021 [facility] DATE CREATED AUTHOR AUTHOR'S ORGANIZ ATION 04/12/2021 [facility] DATE CREATED AUTHOR AUTHOR'S ORGANIZ ATION 09/12/2022 [facility] DATE CREATED AUTHOR AUTHOR'S ORGANIZ ATION 02/25/2023 [facility] DATE CREATED AUTHOR AUTHOR'S ORGANIZ ATION 09/19/2024 [facility] DATE CREATED AUTHOR AUTHOR'S ORGANIZ ATION 12/16/2024 [facility] Source Comments (unrecognize d section and content) In the event this informatio n is protected by the Federal Confidentiality of Alcohol and Drug Abuse Patient Records regulations: The Federal rules restrict any use of the information to criminally investigate or prosecute any alcohol or drug abuse patient.[facility] the event this information is protected by the Federal Confidentiality of Alcohol and Drug Abuse Patient Records regulations: The Federal rules restrict any use of the information to criminally investigate or prosecute any alcohol or drug abuse patient.[facility] the event this information is protected by the Federal Confidentiality of Alcohol and Drug Abuse Patient Records regulations: The Federal rules restrict any use of the information to criminally investigate or prosecute any alcohol or drug abuse patient.[facility] the event this information is protected by the Federal Confidentiality of Alcohol and Drug Abuse Patient Records regulations: The Federal rules restrict any use of the information to criminally investigate or prosecute any alcohol or drug abuse patient.[facility] the event this information is protected by the Federal Confidentiality of Alcohol and Drug Abuse Patient Records regulations: The Federal rules restrict any use of the information to criminally investigate or prosecute any alcohol or drug abuse patient.[facility] the event this information is protected by the Federal Confidentiality of Alcohol and Drug Abuse Patient Records regulations: The Federal rules restrict any use of the information to criminally investigate or prosecute any alcohol or drug abuse patient.[facility] the event this information is protected by the Federal Confidentiality of Alcohol and Drug Abuse Patient Records regulations: The Federal rules restrict any use of the information to criminally investigate or prosecute any alcohol or drug abuse patient.[facility] the event this information is protected by the Federal Confidentiality of Alcohol and Drug Abuse Patient Records regulations: The Federal rules restrict any use of the information to criminally investigate or prosecute any alcohol or drug abuse patient.[facility] the event this information is protected by the Federal Confidentiality of Alcohol and Drug Abuse Patient Records regulations: The Federal rules restrict any use of the information to criminally investigate or prosecute any alcohol or drug abuse patient.[facility] the event this information is protected by the Federal Confidentiality of Alcohol and Drug Abuse Patient Records regulations: The Federal rules restrict any use of the information to criminally investigate or prosecute any alcohol or drug abuse patient.[facility] the event this information is protected by the Federal Confidentiality of Alcohol and Drug Abuse Patient Records regulations: The Federal rules restrict any use of the information to criminally investigate or prosecute any alcohol or drug abuse patient.[facility] the event this information is protected by the Federal Confidentiality of Alcohol and Drug Abuse Patient Records regulations: The Federal rules restrict any use of the information to criminally investigate or prosecute any alcohol or drug abuse patient.[facility] HospitalIn the event this information is protected by the Federal Confidentiality of Alcohol and Drug Abuse Patient Records regulations: The Federal rules restrict any use of the information to criminally investigate or prosecute any alcohol or drug abuse patient.[facility] the event this information is protected by the Federal Confidentiality of Alcohol and Drug Abuse Patient Records regulations: The Federal rules restrict any use of the information to criminally investigate or prosecute any alcohol or drug abuse patient.[facility] the event this information is protected by the Federal Confidentiality of Alcohol and Drug Abuse Patient Records regulations: The Federal rules restrict any use of the information to criminally investigate or prosecute any alcohol or drug abuse patient.[facility] HospitalIn the event this information is protected by the Federal Confidentiality of Alcohol and Drug Abuse Patient Records regulations: The Federal rules restrict any use of the information to criminally investigate or prosecute any alcohol or drug abuse patient.[facility] the event this information is protected by the Federal Confidentiality of Alcohol and Drug Abuse Patient Records regulations: The Federal rules restrict any use of the information to criminally investigate or prosecute any alcohol or drug abuse patient.[facility] HospitalIn the event this information is protected by the Federal Confidentiality of Alcohol and Drug Abuse Patient Records regulations: The Federal rules restrict any use of the information to criminally investigate or prosecute any alcohol or drug abuse patient.[facility] the event this information is protected by the Federal Confidentiality of Alcohol and Drug Abuse Patient Records regulations: The Federal rules restrict any use of the information to criminally investigate or prosecute any alcohol or drug abuse patient.[facility] HospitalIn the event this information is protected by the Federal Confidentiality of Alcohol and Drug Abuse Patient Records regulations: The Federal rules restrict any use of the information to criminally investigate or prosecute any alcohol or drug abuse patient.[facility] HospitalIn the event this information is protected by the Federal Confidentiality of Alcohol and Drug Abuse Patient Records regulations: The Federal rules restrict any use of the information to criminally investigate or prosecute any alcohol or drug abuse patient.[facility] HospitalIn the event this information is protected by the Federal Confidentiality of Alcohol and Drug Abuse Patient Records regulations: The Federal rules restrict any use of the information to criminally investigate or prosecute any alcohol or drug abuse patient.[facility] HospitalIn the event this information is protected by the Federal Confidentiality of Alcohol and Drug Abuse Patient Records regulations: The Federal rules restrict any use of the information to criminally investigate or prosecute any alcohol or drug abuse patient.[facility] HospitalIn the event this information is protected by the Federal Confidentiality of Alcohol and Drug Abuse Patient Records regulations: The Federal rules restrict any use of the information to criminally investigate or prosecute any alcohol or drug abuse patient.[facility] HospitalIn the event this information is protected by the Federal Confidentiality of Alcohol and Drug Abuse Patient Records regulations: The Federal rules restrict any use of the information to criminally investigate or prosecute any alcohol or drug abuse patient.[facility] HospitalIn the event this information is protected by the Federal Confidentiality of Alcohol and Drug Abuse Patient Records regulations: The Federal rules restrict any use of the information to criminally investigate or prosecute any alcohol or drug abuse patient.[facility] HospitalIn the event this information is protected by the Federal Confidentiality of Alcohol and Drug Abuse Patient Records regulations: The Federal rules restrict any use of the information to criminally investigate or prosecute any alcohol or drug abuse patient.[facility] HospitalIn the event this information is protected by the Federal Confidentiality of Alcohol and Drug Abuse Patient Records regulations: The Federal rules restrict any use of the information to criminally investigate or prosecute any alcohol or drug abuse patient.[facility] HospitalIn the event this information is protected by the Federal Confidentiality of Alcohol and Drug Abuse Patient Records regulations: The Federal rules restrict any use of the information to criminally investigate or prosecute any alcohol or drug abuse patient.[facility]In the event this information is protected by the Federal Confidentiality of Alcohol and Drug Abuse Patient Records regulations: The Federal rules restrict any use of the information to criminally investigate or prosecute any alcohol or drug abuse patient.[facility] HospitalIn the event this information is protected by the Federal Confidentiality of Alcohol and Drug Abuse Patient Records regulations: The Federal rules restrict any use of the information to criminally investigate or prosecute any alcohol or drug abuse patient.[facility] HospitalIn the event this information is protected by the Federal Confidentiality of Alcohol and Drug Abuse Patient Records regulations: The Federal rules restrict any use of the information to criminally investigate or prosecute any alcohol or drug abuse patient.[facility] HospitalIn the event this information is protected by the Federal Confidentiality of Alcohol and Drug Abuse Patient Records regulations: The Federal rules restrict any use of the information to criminally investigate or prosecute any alcohol or drug abuse patient.[facility] HospitalIn the event this information is protected by the Federal Confidentiality of Alcohol and Drug Abuse Patient Records regulations: The Federal rules restrict any use of the information to criminally investigate or prosecute any alcohol or drug abuse patient.[facility] Care Teams (unrecognized sec tion and content) Electronic Masking System Operator Relationship Specialty Start Date End Date Andrew Spears Sr. [address] [facility] [place] [address] PCP - General Family Practice 07/08/20 Erwin Hare MD [address] [place] [address] Physician Hematology/Oncology 07/22/20 Nickolas Parada, SUSTAINABLE AGRICULTURE SPECIALIST.PACKAGE MAKER [address] [place] [address] Nurse Practitioner Hematology/Oncology 07/22/20 Electronic Masking System Operator Relationship Specialty Start Date End Date Andrew Spears Sr. [address] [facility] [place] [address] PCP - General Family Practice 07/08/20 Erwin Hare MD [address] [place] [address] Physician Hematology/Oncology 07/22/20 Nickolas Parada, SUSTAINABLE AGRICULTURE SPECIALIST.PACKAGE MAKER [address] [place] [place] [address] Nurse Practitioner Hematology/Oncology 07/22/20 Electronic Masking System Operator Relationship Specialty Start Date End Date Andrew Spears Sr. [address] [facility] [address] PCP - General Family Practice 07/08/20 Erwin Hare MD [address] [place] [address] Physician Hematology/Oncology 07/22/20 Nickolas Parada, SUSTAINABLE AGRICULTURE SPECIALIST.PACKAGE MAKER [address] [place] [address] Nurse Practitioner Hematology/Oncology 07/22/20 Electronic Masking System Operator Relationship Specialty Start Date End Date Andrew Spears Sr. [address] [facility] [address] PCP - General Family Practice 07/08/20 Erwin Hare MD [address] [place] [address] Physician Hematology/Oncology 07/22/20 Nickolas Parada, SUSTAINABLE AGRICULTURE SPECIALIST.PACKAGE MAKER [address] [place] [address] Nurse Practitioner Hematology/Oncology 07/22/20 Electronic Masking System Operator Relationship Specialty Start Date End Date Andrew Spears Sr. [address] [facility] [place] [address] PCP - General Family Practice 07/08/20 Erwin Hare MD [address] [place] [address] Physician Hematology/Oncology 07/22/20 Nickolas Parada, SUSTAINABLE AGRICULTURE SPECIALIST.PACKAGE MAKER [address] [place] [address] Nurse Practitioner Hematology/Oncology 07/22/20 Electronic Masking System Operator Relationship Specialty Start Date End Date Andrew Spears Sr. [address] [facility] [place] [address] PCP - General Family Practice 07/08/20 Erwin Hare MD [address] [place] [address] Physician Hematology/Oncology 07/22/20 Nickolas Parada, SUSTAINABLE AGRICULTURE SPECIALIST.PACKAGE MAKER [address] [place] [address] Nurse Practitioner Hematology/Oncology 07/22/20 Electronic Masking System Operator Relationship Specialty Start Date End Date Andrew Spears Sr. [address] [facility] [place] [address] PCP - General Family Medicine 07/08/20 Erwin Hare MD [address] [place] [address] Physician Hematology/Oncology 07/22/20 Nickolas Parada, SUSTAINABLE AGRICULTURE SPECIALIST.PACKAGE MAKER [address] [place] [place] [address] Nurse Practitioner Hematology/Oncology 07/22/20 Electronic Masking System Operator Relationship Specialty Start Date End Date Andrew Spears Sr. [address] [facility] [place] [address] PCP - General Family Medicine 07/08/20 Erwin Hare MD [address] [place] [place] [address] Physician Hematology/Oncology 07/22/20 Nickolas Parada, SUSTAINABLE AGRICULTURE SPECIALIST.PACKAGE MAKER [address] [place] [address] Nurse Practitioner Hematology/Oncology 07/22/20 Electronic Masking System Operator Relationship Specialty Start Date End Date Andrew Spears Sr. [address] [facility] [place] [address] PCP - General Family Medicine 07/08/20 Erwin Hare MD [address] [place] [address] Physician Hematology/Oncology 07/22/20 Nickolas Parada, SUSTAINABLE AGRICULTURE SPECIALIST.PACKAGE MAKER [address] [place] [address] Nurse Practitioner Hematology/Oncology 07/22/20 Electronic Masking System Operator Relationship Specialty Start Date End Date Andrew Spears Sr. [address] [facility] [place] [address] PCP - General Family Medicine 07/08/20 Erwin Hare MD [address] [place] [address] Physician Hematology/Oncology 07/22/20 Nickolas Parada, SUSTAINABLE AGRICULTURE SPECIALIST.PACKAGE MAKER [address] [place] [address] Nurse Practitioner Hematology/Oncology 07/22/20 Electronic Masking System Operator Relationship Specialty Start Date End Date Andrew Spears Sr. [address] [facility] [place] [address] PCP - General Family Medicine 07/08/20 Erwin Hare MD [address] [place] [address] Physician Hematology/Oncology 07/22/20 Nickolas Parada, SUSTAINABLE AGRICULTURE SPECIALIST.PACKAGE MAKER [address] [place] [place] [address] Nurse Practitioner Hematology/Oncology 07/22/20 Electronic Masking System Operator Relationship Specialty Start Date End Date Andrew Spears Sr. [address] [facility] [place] [place] [address] PCP - General Family Medicine 07/08/20 Erwin Hare MD [address] [place] [address] Physician Hematology/Oncology 07/22/20 Nickolas Parada, SUSTAINABLE AGRICULTURE SPECIALIST.PACKAGE MAKER [address] [place] [place] [address] Nurse Practitioner Hematology/Oncology 07/22/20 Electronic Masking System Operator Relationship Specialty Start Date End Date Tory Andrew Lopezip Sr. [address] [place] [address] PCP - General Family Medicine 07/08/20 Erwin Hare MD [address] [facility] [place] [address] Physician Hematology/Oncology 07/22/20 Nickolas Parada, SUSTAINABLE AGRICULTURE SPECIALIST.PACKAGE MAKER [address] [place] [address] Nurse Practitioner Hematology/Oncology 07/22/20 Electronic Masking System Operator Relationship Specialty Start Date End Date Andrew Spears Sr. [address] [place] [address] PCP - General Family Medicine 07/08/20 Erwin Hare MD [address] [place] [address] Physician Hematology/Oncology 07/22/20 Nickolas Parada, SUSTAINABLE AGRICULTURE SPECIALIST.PACKAGE MAKER [address] [place] [address] Nurse Practitioner Hematology/Oncology 07/22/20 Electronic Masking System Operator Relationship Specialty Start Date End Date Tory Andrew Phoenix Sr. [address] [place] [address] PCP - General Family Medicine 07/08/20 Erwin Hare MD [address] [place] [address] Physician Hematology/Oncology 07/22/20 Nickolas Parada, SUSTAINABLE AGRICULTURE SPECIALIST.PACKAGE MAKER [address] [facility] [place] [place] [address] Nurse Practitioner Hematology/Oncology 07/22/20 Electronic Masking System Operator Relationship Specialty Start Date End Date Tory Andrew Phoenix Sr. [address] [facility] [place] [address] PCP - General Family Medicine 07/08/20 Erwin Hare MD [address] [facility] [place] [place] [address] Physician Hematology/Oncology 07/22/20 Nickolas Parada, SUSTAINABLE AGRICULTURE SPECIALIST.PACKAGE MAKER [address] [facility] [place] [place] [address] Nurse Practitioner Hematology/Oncology 07/22/20 Electronic Masking System Operator Relationship Specialty Start Date End Date Andrew Spears Sr. [address] [facility] [place] [address] PCP - General Family Medicine 07/08/20 Erwin Hare MD [address] [facility] [place] [place] [address] Physician Hematology/Oncology 07/22/20 Nickolas Parada, SUSTAINABLE AGRICULTURE SPECIALIST.PACKAGE MAKER [address] [facility] [place], [facility] [place] [address] Nurse Practitioner Hematology/Oncology 07/22/20 Electronic Masking System Operator Relationship Specialty Start Date End Date Tory Andrew Lopeztoo Tran., DO [address] [facility] [place] [address] PCP - General Family Medicine 07/08/20 Erwin Hare MD [address] [facility] [place], [facility] [place] [address] Physician Hematology/Oncology 07/22/20 Nickolas Parada, KENDRA.PACKAGE MAKER [address] [facility] [place] [place] [address] Nurse Practitioner Hematology/Oncology 07/22/20 Electronic Masking System Operator Relationship Specialty Start Date End Date Andrew Spears Sr., DO [address] [facility] [place] [address] PCP - General Family Medicine 07/08/20 Erwin Hare MD [address] [facility] [place], [facility] [place] [address] Physician Hematology/Oncology 07/22/20 Nickolas Parada, SUSTAINABLE AGRICULTURE SPECIALIST.PACKAGE MAKER [address] [facility] [place], [facility] [place] [address] Nurse Practitioner Hematology/Oncology 07/22/20 Electronic Masking System Operator Relationship Specialty Start Date End Date Andrew Spears Sr., DO [address] [facility] [place] [address] PCP - General Family Medicine 07/08/20 Erwin Hare MD [address] [facility] [place] [place] [address] Physician Hematology/Oncology 07/22/20 Nickolas Parada APRN.PACKAGE MAKER [address] [facility] [place] [place] [address] Nurse Practitioner Hematology/Oncology 07/22/20 Electronic Masking System Operator Relationship Specialty Start Date End Date Andrew Spears Sr., DO [address] [facility] [place] [address] PCP - General Family Medicine 07/08/20 Erwin Hare MD [address] [place] [address] Physician Hematology/Oncology 07/22/20 Nickolas Parada, SUSTAINABLE AGRICULTURE SPECIALIST.PACKAGE MAKER [address] [facility] [place] [place] [address] Nurse Practitioner Hematology/Oncology 07/22/20 Electronic Masking System Operator Relationship Specialty Start Date End Date Andrew Spears Sr., DO PCP - General Family Medicine 07/08/20 Erwin Hare MD [address] [facility] [place] [place] [address] Physician Hematology/Oncology 07/22/20 Nickolas Parada, SUSTAINABLE AGRICULTURE SPECIALIST.PACKAGE MAKER [address] [facility] [place] [place] [address] Nurse Practitioner Hematology/Oncology 07/22/20 Electronic Masking System Operator Relationship Specialty Start Date End Date Andrew Spears Sr., DO PCP - General Family Medicine 07/08/20 Erwin Hare MD [address] [facility] [place] [place] [address] Physician Hematology/Oncology 07/22/20 Nickolas Parada, SUSTAINABLE AGRICULTURE SPECIALIST.PACKAGE MAKER [address] [facility] [place] [place] [address] Nurse Practitioner Hematology/Oncology 07/22/20 Electronic Masking System Operator Relationship Specialty Start Date End Date Andrew Spears Sr., DO PCP - General Family Medicine 07/08/20 Erwin Hare MD [address] [place] [address] Physician Hematology/Oncology 07/22/20 Nickolas Parada, SUSTAINABLE AGRICULTURE SPECIALIST.PACKAGE MAKER [address] [place] [address] Nurse Practitioner Hematology/Oncology 07/22/20 Electronic Masking System Operator Relationship Specialty Start Date End Date Andrew Spears Sr., DO PCP - General Family Medicine 07/08/20 Erwin Hare MD [address] [facility] [place] [place] [address] Physician Hematology/Oncology 07/22/20 Nickolas Parada, SUSTAINABLE AGRICULTURE SPECIALIST.PACKAGE MAKER [address] [place] [address] Nurse Practitioner Hematology/Oncology 07/22/20 Electronic Masking System Operator Relationship Specialty Start Date End Date Andrew Spears Sr., DO PCP - General Family Medicine 07/08/20 Erwin Hare MD [address] [place] [address] Physician Hematology/Oncology 07/22/20 Nickolas Parada, SUSTAINABLE AGRICULTURE SPECIALIST.PACKAGE MAKER [address] [place] [address] Nurse Practitioner Hematology/Oncology 07/22/20 Electronic Masking System Operator Relationship Specialty Start Date End Date Andrew Spaers Sr., DO PCP - General Family Medicine 07/08/20 Erwin Hare MD [address] [facility] [place] [place] [address] Physician Hematology/Oncology 07/22/20 Nickolas Parada, SUSTAINABLE AGRICULTURE SPECIALIST.PACKAGE MAKER [address] [facility] [place] [place] [address] Nurse Practitioner Hematology/Oncology 07/22/20 Electronic Masking System Operator Relationship Specialty Start Date End Date Andrew Spears Sr., DO PCP - General Family Medicine 07/08/20 Erwin Hare MD [address] [facility] [place] [place] [address] Physician Hematology/Oncology 07/22/20 Nickolas Parada, SUSTAINABLE AGRICULTURE SPECIALIST.PACKAGE MAKER [address] [facility] [place] [place] [address] Nurse Practitioner Hematology/Oncology 07/22/20 Electronic Masking System Operator Relationship Specialty Start Date End Date Andrew Spears Sr., DO PCP - General Family Medicine 07/08/20 Erwin Hare MD [address] [facility] [place] [place] [address] Physician Hematology/Oncology 07/22/20 Nickolas Parada, SUSTAINABLE AGRICULTURE SPECIALIST.PACKAGE MAKER [address] [facility] [place] [place] [address] Nurse Practitioner Hematology/Oncology 07/22/20 Electronic Masking System Operator Relationship Specialty Start Date End Date Amelia Weston NP [address] [place] [id number] PCP - General 09/16/24 Amelia Weston NP [address] [place] [phone] Nurse Practitioner Family Medicine 03/11/24 Electronic Masking System Operator Relationship Specialty Start Date End Date Amelia Weston NP [address] [place] [id number] PCP - General 09/16/24 Amelia Weston NP [address] [place] [phone] Nurse Practitioner Family Medicine 03/11/24 Electronic Masking System Operator Relationship Specialty Start Date End Date Andrew Spears Sr., DO PCP - General Family Medicine 07/08/20 Erwin Hare MD [address] [place] [address] [place] [address] Physician Hematology/Oncology 07/22/20 Nickolas Parada APRN.PACKAGE MAKER [facility] [place] [address] Nurse Practitioner Hematology/Oncology 07/22/20 Reason for Visit (unrecogniz ed section and [...] INJECTION, ZOLEDRONIC ACID, 1 MG Nickolas Parada APRN.PACKAGE MAKER [address] [place] [address] [place] [address] Juan Carlos Jaron [place] [address] [place] [address] Referral ID Status Reason Start Date Expiration [...] FLUSH Procedures PORT FLUSH Erwin Hare MD [address] [place] [address] [place] [address] Juan Carlos [place] [place] [address] Referral ID Status Reason Start Date Expiration Date V isits Requested Visits Authorized [id number] Authorized 04/17/2023 12/01/2023 99 99 Reason Comments [...] INJECTION, ZOLEDRONIC ACID, 1 MG Nickolas Parada APRN.PACKAGE MAKER [address] [place] [address] Juan Carlos Treat Godfrey [address] [place] [address] Referral ID Status Reason Start Date Expiration Date V isits Requested Visits Authorized [id number] Authorized 08/09/2021 03/11/2025 99 99 Reason Comments Follow Up Reason Onset Date Comments Refill Request 12/11/2024 Inactive Administered Medications - up to 3 most recent administrations Administered Medications (un recognized section and content) Medication Order MAR Action Action Date Dose Rate Site zoledronic [id number]-8.9NaCl 4 mg iv piggyback 100 mL (ZOMETA) [...] BE BASED ON THE PRIMARY CLINICAL RECORDS. [employer] provides no warranty or guarantee of the accuracy or completeness of information in this document.
--- NOTE | 2025-03-07 12:09 | ECG_ITS ---
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 Measurements Intervals [place] Rate: 78 P: 50 CT: 138 QRS: -42 QRSD: 88 T: -6 QT: 350 QTc: 384 Interpretive Statements 1100 Sinus rhythm 2420 RSR (QR) in lead V1/V2, consistent with right ventricular conduction delay 3114 Cannot rule out anterior myocardial infarction, age undetermined 7200 Abnormal left axis deviation 8102 Low QRS voltage in chest leads 9150 abnormal ECG No previous ECG available for comparison Electronically Signed On 03-08-2025 7:07:38 EDT by LIZBETH NOVA M.D.
[2025-03-07 12:20] LABS: Basophils Absolute Auto 0.1 10^3/uL (0.0-0.1); Basophils Percent Auto 0.4 % (0.2-2.0); Eosinophils Absolute Auto 0.1 10^3/uL (0.0-0.7); Eosinophils Percent Auto 0.6 % (0.9-7.0); Hematocrit 40.7 % (36.0-48.0); Immature Granulocytes Abs Auto 0.04 10^3/uL (0.00-0.03); Immature Granulocytes Pct Auto 0.3 % (0.0-0.5); Lymphocytes Absolute Auto 1.2 10^3/uL (1.2-3.8); Lymphocytes Percent Auto 9.4 % (20.5-60.0); Mean Corpuscular HGB Conc 34.4 g/dL (29.9-35.2); Mean Corpuscular Hemoglobin 30.4 pg (26.7-34.0); Mean Corpuscular Volume 88.3 fL (81.0-99.0); Mean Platelet Volume 10.4 fL (9.5-13.5); Monocytes Absolute Auto 1.3 10^3/uL (0.3-0.8); Monocytes Percent Auto 10.4 % (1.7-12.0); Neutrophils Percent Auto 78.9 % (43.0-75.0); Platelet Count 373 10^3/uL (150-450); Red Blood Count 4.61 10^6/uL (4.20-5.40); Red Cell Distribution Width 11.6 % (11.0-15.0); White Blood Count 12.7 10^3/uL (4.0-11.0)
[2025-03-07] MEDS: KETOROLAC TROMETHAMINE 30 MG/ML VIAL 15 MG IVP (12:24)
[2025-03-07 12:37] LABS: Alanine Aminotransferase 71 U/L (14-59); Albumin Globulin Ratio 0.6; Alkaline Phosphatase 83 U/L (46-116); Anion Gap 16.8; Aspartate Amino Transferase 53 U/L (15-37); BUN Creatinine Ratio 25.5; Calcium 9.9 mg/dL (8.5-10.1); Carbon Dioxide 26.8 mmol/L (21.0-32.0); Chloride 97 mmol/L (98-107); Estimated GFR (African America >60 (>=60 mL/min/1.73m^2); Estimated GFR (Non-African Ame 55 (>=60 mL/min/1.73m^2); Globulin 5.4 g/dL; Glucose 124 mg/dL (74-106); Potassium 3.6 mmol/L (3.5-5.1); Sodium 137 mmol/L (136-145); Total Protein 8.4 g/dL (6.4-8.2); Troponin I High Sensitivity 5.2 pg/mL (4.0-51.3)
[2025-03-07] MEDS: 0.9 % SODIUM CHLORIDE 1,000 ML 1000 ML IV (12:59)
--- NOTE | 2025-03-07 14:30 | ED_ITS ---
HPI - Abdominal Pain General Chief Complaint: Abdominal Pain Stated Complaint: ABDOMINAL PAIN, NO APPETITE, NAUSEA Time Seen by Provider: 03/07/25 12:08 Source: patient and family Mode of arrival: walk-in Limitations: no limitations History of Present Illness HPI narrative: I had the patient have history of right breast cancer on remission since 2020 is coming to the ER with a abdominal pain mostly right upper or right lower, associated with decreased p.o. intake for the last few days he mentioned that the pain has been going on for the last 3 weeks Mentioning that the pain may be got worse over the last few days. The patient have no appetite to eat and she have some nausea sometimes with no vomiting Patient denies any other complaints Her bowel movement was last yesterday and she feels constipated with no blood or mucus in stool Related Data Home Medications ?Medication ?Instructions ?Recorded ?Confirmed atenolol 100 mg tablet 100 mg PO Q24H 03/07/25 03/07/25 exemestane 25 mg tablet 25 mg PO DAILY 03/07/25 03/07/25 hydrochlorothiazide 25 mg tablet 25 mg PO DAILY 03/07/25 03/07/25 Previous Rx's ?Medication ?Instructions ?Recorded amoxicillin 875 mg-potassium 1 tab PO BID #10 tabs 03/07/25 clavulanate 125 mg tablet ketorolac 10 mg tablet 10 mg PO Q8H PRN pain 3 days #10 03/07/25 tabs ondansetron 4 mg disintegrating 4 mg PO Q8H PRN nausea and 03/07/25 tablet vomiting 24 hours #3 tabs Allergies Allergy/AdvReac Type Severity Reaction Status Date / Time No Known Drug Allergies Allergy Verified 03/07/25 11:49 Review of Systems ROS Status of ROS 10 or more systems reviewed and unremark able except as noted in history and below PFSH PFSH Social History Little interest or pleasure in doing things: not at all Feeling down, depressed, or hopeless: not at all Exam Narrative Exam Narrative: Nurses notes and vital signs reviewed and patient is not hypoxic. General: Well-appearing and in no apparent distress. Skin: Warm, dry, no pallor noted. No rash. Head: Normocephalic, atraumatic. Neck: Supple, non-tender. Cardiovascular: Regular Rate and Rhythm without murmur, gallop or rub. Respiratory: No accessory muscle use or respiratory distress. Lungs are clear to auscultation, no wheezing, rales or rhonchi Musculoskeletal: normal ROM, no calf or popliteal tenderness, no lower extremity edema/swelling GI: Abdomen is soft, non-distended. Normal bowel sounds. No masses appreciated. Right lower quadrant tenderness no guarding Neurological: A&O x4. No cranial nerve dysfunction observed. Constitutional Vital Signs, click to edit/add: Last Vital Signs Temp 98.6 F 03/07/25 11:51 Pulse 91 H 03/07/25 11:51 Resp 18 03/07/25 11:51 BP 145/96 H 03/07/25 11:51 Pulse Ox 98 03/07/25 11:51 O2 Del Method Room Air 03/07/25 11:51 Course Vital Signs Vital signs: Vital Signs Temperature 98.6 F 03/07/25 11:51 Pulse Rate 91 H 03/07/25 11:51 Respiratory Rate 18 03/07/25 11:51 Blood Pressure 145/96 H 03/07/25 11:51 Pulse Oximetry 98 03/07/25 11:51 Oxygen Delivery Method Room Air 03/07/25 11:51 Temperature 98.6 F 03/07/25 11:51 Pulse Rate 91 H 03/07/25 11:51 Respiratory Rate 18 03/07/25 11:51 Blood Pressure 145/96 H 03/07/25 11:51 Pulse Oximetry 98 03/07/25 11:51 Oxygen Delivery Method Room Air 03/07/25 11:51 MDM - Abdominal Pain MDM Narrative Medical decision making narrative: The patient EKG in the ER showing sinus rhythm with a heart rate of [address] elevation or depression CBC shows a white blood cell of 12 the chemistry shows mild elevation in the BUN Patient provided with IV fluids as well as Toradol after which she was feeling much better The patient had a CAT scan of the abdomen and pelvis without contrast that showed that she have a picture of possible enteritis or Crohn's disease with no visualization of the appendix The patient has been having pain for the last 3 weeks and her case was discussed with general surgeon on-call from [facility] and as per discussion the patient have been having pain for the last 3 weeks less likely to have appendicitis it mostly IBD or Crohn's disease The patient referred to gastroenterology as outpatient started on Augmentin to cover for diverticulitis as well in addition to Zofran and Toradol for pain The patient was instructed that in case of any worsening in the next 24 to 48 hours the patient to come back to the ER The patient is to follow up with primary care physician in next 2-3 days or to return to the emergency department should any of the signs or symptoms worsen or new symptoms develop. The patient agrees with the following Diagnosis and Treatment plan and the patient will be discharged home. Lab Data Labs: Lab Results 03/07/25 Range/Units 12:11 WBC 12.7 H (4.0-11.0) 10^3/uL RBC 4.61 (4.20-5.40) 10^6/uL Hgb 14.0 (12.0-16.0) g/dL Hct 40.7 (36.0-48.0) % MCV 88.3 (81.0-99.0) fL MCH 30.4 (26.7-34.0) pg MCHC 34.4 (29.9-35.2) g/dL RDW 11.6 (11.0-15.0) % Plt Count 373 (150-450) 10^3/uL MPV 10.4 (9.5-13.5) fL Neut % (Auto) 78.9 H (43.0-75.0) % Lymph % (Auto) 9.4 L (20.5-60.0) % [place] % (Auto) 10.4 (1.7-12.0) % Eos % (Auto) 0.6 L (0.9-7.0) % Baso % (Auto) 0.4 (0.2-2.0) % Neut # (Auto) 10.0 H (1.4-6.5) 10^3/uL Lymph # (Auto) 1.2 (1.2-3.8) 10^3/uL [place] # (Auto) 1.3 H (0.3-0.8) 10^3/uL Eos # (Auto) 0.1 (0.0-0.7) 10^3/uL Baso # (Auto) 0.1 (0.0-0.1) 10^3/uL Abs Immat Gran (auto) 0.04 H (0.00-0.03) 10^3/uL Imm/Tot Granulo (auto) 0.3 (0.0-0.5) % Sodium 137 (136-145) mmol/L Potassium 3.6 (3.5-5.1) mmol/L Chloride 97 L (98-107) mmol/L Carbon Dioxide 26.8 (21.0-32.0) mmol/L Anion Gap 16.8 BUN 26.0 H (7.0-18.0) mg/dL Creatinine 1.02 (0.55-1.02) mg/dL Est GFR ( Amer) >60 (>=60 mL/min/1.73m^2) Est GFR (Non-Af Amer) 55 L (>=60 mL/min/1.73m^2) BUN/Creatinine Ratio 25.5 Glucose 124 H (74-106) mg/dL Calcium 9.9 (8.5-10.1) mg/dL Total Bilirubin 1.0 (0.2-1.0) mg/dL AST 53 H (15-37) U/L ALT 71 H (14-59) U/L Alkaline Phosphatase 83 (46-116) U/L Troponin I High Sens 5.2 (4.0-51.3) pg/mL Total Protein 8.4 H (6.4-8.2) g/dL Albumin 3.0 L (3.4-5.0) g/dL Globulin 5.4 g/dL Albumin/Globulin Ratio 0.6 Lipase 20.0 (16.0-77.0) U/L Discharge Plan Discharge Chief Complaint: Abdominal Pain Clinical Impression: Enteritis, Colitis Patient Disposition: Home, Self-Care Time of Disposition Decision: 14:53 Condition: Good Prescriptions / Home Meds: New amoxicillin-pot clavulanate 875-125 mg tablet 1 tab PO BID Qty: 10 0RF ondansetron 4 mg tablet,disintegrating 4 mg PO Q8H PRN (Reason: nausea and vomiting) 1 Days Qty: 3 0RF ketorolac 10 mg tablet 10 mg PO Q8H PRN (Reason: pain) 3 Days Qty: 10 0RF No Action atenolol 100 mg tablet 100 mg PO Q24H exemestane 25 mg tablet 25 mg PO DAILY hydrochlorothiazide 25 mg tablet 25 mg PO DAILY Print Language: Solomon Islander Instructions: Diverticulitis (DC), Colitis (ED), Full Liquid Diet (DC), Enteritis (ED) Referrals: RICARDO RAMIREZ [Physician] - As soon as possible Amelia Weston NP [Primary Care Provider] - 1 week Discharge Date/Time: 03/07/25 15:20
[2025-03-07] MEDS: AMOXICILLIN/POT CLAV 875-125 MG TABLET 1 TAB PO (15:17)
== END 2025-03-07 15:20 | disposition home or self-care (01) ==
PROVIDERS: Emergency Provider Emergency Medicine; PCP Nurse Practitioner
DX: K52.9 Noninfective gastroenteritis and colitis, unspecified (principal); Z85.3 Personal history of malignant neoplasm of breast
CPT/HCPCS: 36415; 74176; 80053; 83690; 84484; 85025; 93005; 96361; 96374; 99285; J1885

== ENCOUNTER 2025-03-10 16:02 | Emergency (ER) | payer OTHER, SELFPAY ==
[2025-03-10 16:09] VITALS: BP 144/102; PULSE 104; TEMP 36.7; O2SAT 94; BMI 28.1
[2025-03-10] MEDS: KETOROLAC TROMETHAMINE 30 MG/ML VIAL 15 MG IVP (16:37)
[2025-03-10] MEDS: ONDANSETRON PF 4 MG/2 ML VIAL IV ×2 (16:37→22:31)
--- NOTE | 2025-03-10 16:54 | ED_ITS ---
HPI HPI - General Adult General Chief complaint: Abdominal Pain Stated complaint: Abdominal Pain Time Seen by Provider: 03/10/25 16:05 Source: patient and family Mode of arrival: Wheelchair Limitations: no limitations History of Present Illness HPI narrative: Patient presents to ED complaining of right lower quadrant pain. Patient states she was here on Saturday night with similar. Patient had a CT scan at that time which showed some inflammation but they were unable to visualize the appendix. She was diagnosed with enteritis/colitis and sent home with Augmentin. She said her pain has not gotten any better and she still had nausea vomiting. She said she cannot keep anything down even water. She does report that she is still making urine. Patient states that she was supposed to follow-up with Dr. Simpson but cannot get in until May. Patient reports the pain is still in the right lower quadrant. No fevers. She said they were unable to check a urine last time she was here on Saturday so she requested a urinary check. She denies any specific UTI symptoms she just has the right lower abdominal pain nausea vomiting. Related Data Home Medications ?Medication ?Instructions ?Recorded ?Confirmed atenolol 100 mg tablet 100 mg PO Q24H 03/07/25 03/07/25 exemestane 25 mg tablet 25 mg PO DAILY 03/07/25 03/07/25 hydrochlorothiazide 25 mg tablet 25 mg PO DAILY 03/07/25 03/07/25 Previous Rx's ?Medication ?Instructions ?Recorded amoxicillin 875 mg-potassium 1 tab PO BID #10 tabs 03/07/25 clavulanate 125 mg tablet ketorolac 10 mg tablet 10 mg PO Q8H PRN pain 3 days #10 03/07/25 tabs ondansetron 4 mg disintegrating 4 mg PO Q8H PRN nausea and 03/07/25 tablet vomiting 24 hours #3 tabs Allergies Allergy/AdvReac Type Severity Reaction Status Date / Time No Known Drug Allergies Allergy Verified 03/07/25 11:49 Opioid HPI Opioid Management Most Recent Opioid Data: Last Pain Scale 0 03/10/25 16:20 03/10/25 Last MAR Pain Assessment 03/10/25 16:37 Review of Systems ROS Status of ROS 10 or more systems reviewed and unremark able except as noted in history and below PFSH PFSH Social History Little interest or pleasure in doing things: not at all Feeling down, depressed, or hopeless: not at all Exam Narrative Exam Narrative: Time Seen: [] Vital Signs: [Per nurse's notes.] General: [Alert] Skin: [Warm, dry, no rash.] Head: [Normocephalic, atraumatic.] Neck: [Supple, trachea midline.] Eye: [Pupils are equal, round and reactive to light, extraocular movements are intact, normal conjunctiva.] Ears, nose, mouth and throat: oral mucosa moist. Cardiovascular: [Regular rate and rhythm, no murmur.] Respiratory: [Lungs are clear to auscultation, respirations are non-labored, breath sounds are equal.] Chest wall: [No tenderness, no deformity.] Gastrointestinal: [Soft, right lower quadrant abdominal pain mild guarding, non distended, normal bowel sounds.] MSK: 5 out of 5 muscle strength x 4 extremities no calf pain or edema Psychiatric: [Cooperative, appropriate mood & affect.] Neurological: [Alert and oriented to person, place, time, and situation, no focal neurological deficit observed.] Constitutional Vital Signs, click to edit/add: Last Vital Signs Temp 99.4 F 03/10/25 20:27 Pulse 102 H 03/10/25 20:27 Resp 10 L 03/10/25 20:27 BP 147/100 H 03/10/25 20:27 Pulse Ox 94 L 03/10/25 20:27 O2 Del Method Room Air 03/10/25 20:27 Course Vital Signs Vital signs: Vital Signs Temperature 98.1 F 03/10/25 16:09 Pulse Rate 104 H 03/10/25 16:09 Respiratory Rate 18 03/10/25 16:09 Blood Pressure 144/102 H 03/10/25 16:09 Pulse Oximetry 94 L 03/10/25 16:09 Oxygen Delivery Method Room Air 03/10/25 16:09 Temperature 99.4 F 03/10/25 20:27 Pulse Rate 102 H 03/10/25 20:27 Respiratory Rate 10 L 03/10/25 20:27 Blood Pressure 147/100 H 03/10/25 20:27 Pulse Oximetry 94 L 03/10/25 20:27 Oxygen Delivery Method Room Air 03/10/25 20:27 Medical Decision Making Lab Data Labs: Lab Results 03/10/25 03/10/25 03/10/25 Range/Units 16:20 19:24 21:00 WBC 11.5 H (4.0-11.0) 10^3/uL RBC 4.72 (4.20-5.40) 10^6/uL Hgb 14.4 (12.0-16.0) g/dL Hct 41.3 (36.0-48.0) % MCV 87.5 (81.0-99.0) fL MCH 30.5 (26.7-34.0) pg MCHC 34.9 (29.9-35.2) g/dL RDW 11.5 (11.0-15.0) % Plt Count 375 (150-450) 10^3/uL MPV 10.7 (9.5-13.5) fL Neut % (Auto) 76.2 H (43.0-75.0) % Lymph % (Auto) 10.5 L (20.5-60.0) % [place] % (Auto) 10.9 (1.7-12.0) % Eos % (Auto) 1.1 (0.9-7.0) % Baso % (Auto) 0.4 (0.2-2.0) % Neut # (Auto) 8.8 H (1.4-6.5) 10^3/uL Lymph # (Auto) 1.2 (1.2-3.8) 10^3/uL [place] # (Auto) 1.3 H (0.3-0.8) 10^3/uL Eos # (Auto) 0.1 (0.0-0.7) 10^3/uL Baso # (Auto) 0.1 (0.0-0.1) 10^3/uL Abs Immat Gran (auto) 0.10 H (0.00-0.03) 10^3/uL Imm/Tot Granulo (auto) 0.9 H (0.0-0.5) % Sodium 139 (136-145) mmol/L Potassium 3.7 (3.5-5.1) mmol/L Chloride 98 (98-107) mmol/L Carbon Dioxide 26.3 (21.0-32.0) mmol/L Anion Gap 18.4 BUN 25.0 H (7.0-18.0) mg/dL Creatinine 0.97 (0.55-1.02) mg/dL Est GFR ( Amer) >60 (>=60 mL/min/1.73m^2) Est GFR (Non-Af Amer) 58 L (>=60 mL/min/1.73m^2) BUN/Creatinine Ratio 25.8 Glucose 125 H (74-106) mg/dL Lactate 1.2 (0.4-2.0) mmol/L Calcium 9.9 (8.5-10.1) mg/dL Total Bilirubin 0.9 (0.2-1.0) mg/dL AST 70 H (15-37) U/L ALT 85 H (14-59) U/L Alkaline Phosphatase 90 (46-116) U/L Total Protein 8.0 (6.4-8.2) g/dL Albumin 2.6 L (3.4-5.0) g/dL Globulin 5.4 g/dL Albumin/Globulin Ratio 0.5 Lipase 23.0 (16.0-77.0) U/L Urine Color Yellow (YELLOW) Urine Clarity Clear (CLEAR) Urine pH 6.5 (5.0-9.0) Ur Specific [place] <=1.005 A (1.005-1.025) Urine Protein 30 A (NEG/TRACE) mg/dL Urine Glucose (UA) Negative (NEGATIVE) mg/dL Urine Ketones 40 A (NEGATIVE) mg/dL Urine Occult Blood Negative (NEGATIVE) Urine Nitrite Negative (NEGATIVE) Urine Bilirubin Moderate A (NEGATIVE) Urine Urobilinogen 1.0 (0.2-1.0) EU/dL Ur Leukocyte Esterase Negative (NEGATIVE) Urine RBC 0-2 (0-2) #/HPF Urine WBC 0-2 A (NONE SEEN) #/HPF Ur Squamous Epith Cells Rare (NONE/RARE) #/LPF Urine Crystals None seen (None Seen) #/HPF Urine Bacteria Trace A (NONE SEEN) #/HPF Urine Casts None seen (NONE SEEN) #/LPF Urine Mucus None seen (NONE SEEN) Ur Culture Indicated? No Discharge Plan Discharge Chief Complaint: Abdominal Pain Clinical Impression: Abdominal abscess Patient Disposition: [facility] Time of Disposition Decision: 20:25 Discharge Location: [facility] Mode of Transportation: EMS
[2025-03-10 17:01] LABS: Basophils Absolute Auto 0.1 10^3/uL (0.0-0.1); Basophils Percent Auto 0.4 % (0.2-2.0); Eosinophils Absolute Auto 0.1 10^3/uL (0.0-0.7); Eosinophils Percent Auto 1.1 % (0.9-7.0); Hematocrit 41.3 % (36.0-48.0); Hemoglobin 14.4 g/dL (12.0-16.0); Immature Granulocytes Pct Auto 0.9 % (0.0-0.5); Lymphocytes Absolute Auto 1.2 10^3/uL (1.2-3.8); Lymphocytes Percent Auto 10.5 % (20.5-60.0); Mean Corpuscular HGB Conc 34.9 g/dL (29.9-35.2); Mean Corpuscular Hemoglobin 30.5 pg (26.7-34.0); Mean Corpuscular Volume 87.5 fL (81.0-99.0); Mean Platelet Volume 10.7 fL (9.5-13.5); Monocytes Absolute Auto 1.3 10^3/uL (0.3-0.8); Monocytes Percent Auto 10.9 % (1.7-12.0); Neutrophils Absolute Auto 8.8 10^3/uL (1.4-6.5); Neutrophils Percent Auto 76.2 % (43.0-75.0); Platelet Count 375 10^3/uL (150-450); Red Blood Count 4.72 10^6/uL (4.20-5.40); Red Cell Distribution Width 11.5 % (11.0-15.0); White Blood Count 11.5 10^3/uL (4.0-11.0)
[2025-03-10 17:17] LABS: Alanine Aminotransferase 85 U/L (14-59); Albumin Globulin Ratio 0.5; Albumin Level 2.6 g/dL (3.4-5.0); Alkaline Phosphatase 90 U/L (46-116); Anion Gap 18.4; Aspartate Amino Transferase 70 U/L (15-37); BUN Creatinine Ratio 25.8; Bilirubin Total 0.9 mg/dL (0.2-1.0); Calcium 9.9 mg/dL (8.5-10.1); Carbon Dioxide 26.3 mmol/L (21.0-32.0); Chloride 98 mmol/L (98-107); Estimated GFR (African America >60 (>=60 mL/min/1.73m^2); Estimated GFR (Non-African Ame 58 (>=60 mL/min/1.73m^2); Globulin 5.4 g/dL; Glucose 125 mg/dL (74-106); Potassium 3.7 mmol/L (3.5-5.1); Sodium 139 mmol/L (136-145)
--- NOTE | 2025-03-10 19:11 | ED.ABDPAIN1 ---
HPI - Abdominal Pain General Chief Complaint: Abdominal Pain Stated Complaint: Abdominal Pain Time Seen by Provider: 03/10/25 16:05 Source: patient and family Mode of arrival: Wheelchair Limitations: no limitations History of Present Illness HPI narrative: This 64-year-old female was signed out to me at shift change pending CT scan of the abdomen pelvis. She presents for evaluation of ongoing right lower quadrant abdominal pain with no appetite for the past several days. She was seen in this emergency department on 03/07/2025 for right lower quadrant abdominal pain. At that time a CT scan showed small bowel wall thickening with moderate inflammatory standing in the right lower quadrant suggestive of underlying enteritis with possible contribution from colitis affecting the cecum. The appendix was not clearly identified at that time. There was no conclusive features of abscess formation. There was no free fluid or no abscess or hematoma noted. The CT scan today showed clear lung bases with a small hiatal hernia with normal liver gallbladder pancreas spleen and adrenal glands with bilateral renal cysts with no obstructive uropathy no bowel obstruction or free air however it does show a complex fluid collection in the right lower quadrant measuring 4.0 x 8.1 x 8.4 cm consistent with an abscess which appears to surround the appendix. The results of these findings were discussed with the patient. I explained to her that she will require transfer to a higher level of care possibly for interventional radiology but certainly for evaluation by general surgery. She is tearful but agreeable to this. She was placed in n.p.o. status and IV Zosyn was administered as well as IV fluids. Case was discussed with Dr Bansal, general surgery at [facility]. He will see her in consult and request that she be transferred to the ER. Case discussed with ER physician, Dr Suero and she is accepted for transfer to [facility] ED. Related Data Home Medications ?Medication ?Instructions ?Recorded ?Confirmed atenolol 100 mg tablet 100 mg PO Q24H 03/07/25 03/07/25 exemestane 25 mg tablet 25 mg PO DAILY 03/07/25 03/07/25 hydrochlorothiazide 25 mg tablet 25 mg PO DAILY 03/07/25 03/07/25 Previous Rx's ?Medication ?Instructions ?Recorded amoxicillin 875 mg-potassium 1 tab PO BID #10 tabs 03/07/25 clavulanate 125 mg tablet ketorolac 10 mg tablet 10 mg PO Q8H PRN pain 3 days #10 03/07/25 tabs ondansetron 4 mg disintegrating 4 mg PO Q8H PRN nausea and 03/07/25 tablet vomiting 24 hours #3 tabs Allergies Allergy/AdvReac Type Severity Reaction Status Date / Time No Known Drug Allergies Allergy Verified 03/07/25 11:49 PFSH PFSH Social History Little interest or pleasure in doing things: not at all Feeling down, depressed, or hopeless: not at all Exam Constitutional Vital Signs, click to edit/add: Last Vital Signs Temp 98.1 F 03/10/25 16:09 Pulse 104 H 03/10/25 16:09 Resp 18 03/10/25 16:09 BP 144/102 H 03/10/25 16:09 Pulse Ox 94 L 03/10/25 16:09 O2 Del Method Room Air 03/10/25 16:09 Course Vital Signs Vital signs: Vital Signs Temperature 98.1 F 03/10/25 16:09 Pulse Rate 104 H 03/10/25 16:09 Respiratory Rate 18 03/10/25 16:09 Blood Pressure 144/102 H 03/10/25 16:09 Pulse Oximetry 94 L 03/10/25 16:09 Oxygen Delivery Method Room Air 03/10/25 16:09 Temperature 98.1 F 03/10/25 16:09 Pulse Rate 104 H 03/10/25 16:09 Respiratory Rate 18 03/10/25 16:09 Blood Pressure 144/102 H 03/10/25 16:09 Pulse Oximetry 94 L 03/10/25 16:09 Oxygen Delivery Method Room Air 03/10/25 16:09 MDM - Abdominal Pain Lab Data Labs: Lab Results 03/10/25 03/10/25 Range/Units 16:20 19:24 WBC 11.5 H (4.0-11.0) 10^3/uL RBC 4.72 (4.20-5.40) 10^6/uL Hgb 14.4 (12.0-16.0) g/dL Hct 41.3 (36.0-48.0) % MCV 87.5 (81.0-99.0) fL MCH 30.5 (26.7-34.0) pg MCHC 34.9 (29.9-35.2) g/dL RDW 11.5 (11.0-15.0) % Plt Count 375 (150-450) 10^3/uL MPV 10.7 (9.5-13.5) fL Neut % (Auto) 76.2 H (43.0-75.0) % Lymph % (Auto) 10.5 L (20.5-60.0) % [place] % (Auto) 10.9 (1.7-12.0) % Eos % (Auto) 1.1 (0.9-7.0) % Baso % (Auto) 0.4 (0.2-2.0) % Neut # (Auto) 8.8 H (1.4-6.5) 10^3/uL Lymph # (Auto) 1.2 (1.2-3.8) 10^3/uL [place] # (Auto) 1.3 H (0.3-0.8) 10^3/uL Eos # (Auto) 0.1 (0.0-0.7) 10^3/uL Baso # (Auto) 0.1 (0.0-0.1) 10^3/uL Abs Immat Gran (auto) 0.10 H (0.00-0.03) 10^3/uL Imm/Tot Granulo (auto) 0.9 H (0.0-0.5) % Sodium 139 (136-145) mmol/L Potassium 3.7 (3.5-5.1) mmol/L Chloride 98 (98-107) mmol/L Carbon Dioxide 26.3 (21.0-32.0) mmol/L Anion Gap 18.4 BUN 25.0 H (7.0-18.0) mg/dL Creatinine 0.97 (0.55-1.02) mg/dL Est GFR ( Amer) >60 (>=60 mL/min/1.73m^2) Est GFR (Non-Af Amer) 58 L (>=60 mL/min/1.73m^2) BUN/Creatinine Ratio 25.8 Glucose 125 H (74-106) mg/dL Lactate 1.2 (0.4-2.0) mmol/L Calcium 9.9 (8.5-10.1) mg/dL Total Bilirubin 0.9 (0.2-1.0) mg/dL AST 70 H (15-37) U/L ALT 85 H (14-59) U/L Alkaline Phosphatase 90 (46-116) U/L Total Protein 8.0 (6.4-8.2) g/dL Albumin 2.6 L (3.4-5.0) g/dL Globulin 5.4 g/dL Albumin/Globulin Ratio 0.5 Lipase 23.0 (16.0-77.0) U/L Discharge Plan Discharge Chief Complaint: Abdominal Pain Clinical Impression: Abdominal abscess Patient Disposition: [facility] Time of Disposition Decision: 20:25 Discharge Location: [facility] Mode of Transportation: EMS Prescriptions / Home Meds: No Action atenolol 100 mg tablet 100 mg PO Q24H exemestane 25 mg tablet 25 mg PO DAILY hydrochlorothiazide 25 mg tablet 25 mg PO DAILY amoxicillin-pot clavulanate 875-125 mg tablet 1 tab PO BID Qty: 10 0RF ondansetron 4 mg tablet,disintegrating 4 mg PO Q8H PRN (Reason: nausea and vomiting) 1 Days Qty: 3 0RF ketorolac 10 mg tablet 10 mg PO Q8H PRN (Reason: pain) 3 Days Qty: 10 0RF Print Language: Spanish Referrals: Amelia Weston NP [Primary Care Provider] - 1 week
[2025-03-10] MEDS: 0.9 % SODIUM CHLORIDE 1,000 ML 125 ML IV (19:26)
[2025-03-10] MEDS: PIPERACILLIN SODIUM/TAZOBACTAM 3.375 GM in 0.9 % SODIUM CHLORIDE 50 ML IV (19:46)
[2025-03-10 20:17] LABS: Lactate/Lactic Acid 1.2 mmol/L (0.4-2.0)
[2025-03-10 20:27] VITALS: BP 147/100; PULSE 102; TEMP 37.4; O2SAT 94
[2025-03-10 21:19] LABS: Bilirubin Urine MODERATE (NEGATIVE); Blood Urine NEGATIVE (NEGATIVE); Clarity Urine CLEAR (CLEAR); Color Urine YELLOW (YELLOW); Glucose Urine UA NEGATIVE (NEGATIVE); Ketones Urine 40 mg/dL (NEGATIVE); Leukocyte Esterase Urine NEGATIVE (NEGATIVE); Nitrite Urine NEGATIVE (NEGATIVE); Protein Urine 30 mg/dL (NEG/TRACE); Specific Gravity Urine <=1.005 (1.005-1.025); pH Urine 6.5 (5.0-9.0)
[2025-03-10 21:22] LABS: Urine Microscopic Indicated YES
[2025-03-10 21:41] LABS: Bacteria Urine TRACE #/HPF (NONE SEEN); Cast Seen? NONE SEEN #/LPF (NONE SEEN); Crystals Seen? None Seen #/HPF (None Seen); Mucus Urine NONE SEEN (NONE SEEN); RBC Urine 0-2 #/HPF (0-2); Squamous Epithelial Cell Urine RARE #/LPF (NONE/RARE); WBC Urine 0-2 #/HPF (NONE SEEN)
[2025-03-10 21:42] LABS: Urine Culture Indicated NO
[2025-03-10 22:09] VITALS: BP 134/95; PULSE 104; TEMP 37.3; O2SAT 96
[2025-03-10] MEDS: MORPHINE SULFATE 4 MG/ML VIAL IV (22:31)
== END 2025-03-11 01:04 | disposition short-term general hospital (02) ==
PROVIDERS: Emergency Medicine; Emergency Provider Emergency Medicine; PCP Nurse Practitioner
DX: K65.1 Peritoneal abscess (principal); R11.2 Nausea with vomiting, unspecified
CPT/HCPCS: 36415; 74177; 80053; 81001; 83605; 83690; 85025; 87040; 96361; 96365; 96375; 96376; 99285; J1885; J2270; J2405; J2543; Q9967

== ENCOUNTER 2025-04-07 06:55 | Outpatient (OUT) | payer OTHER, SELFPAY ==
--- NOTE | 2025-04-07 07:02 | CT_ITS ---
The [address] [address] Patient Name: EDITH BRASHER MRN: [id number] date: 1960 Sex: F Assigned Patient Location: CT Current Patient Location: CT Accession/Order Number: [id number] Exam Date: 04/07/2025 09:48 Report Date: 04/07/2025 09:51 At the request of: NON-STAFF PHYSICIAN Procedure: CT abdomen pelvis w con CT ABDOMEN AND PELVIS WITH INTRAVENOUS CONTRAST: CLINICAL HISTORY: Ruptured appendicitis, K35.32 COMPARISON: CT abdomen and pelvis 03/10/2025 TECHNIQUE: Spiral images were obtained through the abdomen and pelvis following the administration of intravenous contrast. This CT exam was performed using one or more following dose reduction techniques: Automated exposure control, adjustment of the mA and/or kV according to patient size, or use of iterative reconstruction technique. FINDINGS: Lung Bases: [Minimal atelectasis.] Organs:Hepatic steatosis. Gallbladder portal vein pancreas spleen and adrenal glands all appear unremarkable. No enhancing renal mass or hydronephrosis. Cystic changes involving the kidneys. Aorta appears normal in caliber.[ GI: Stomach is grossly unremarkable. Small bowel appears nondilated. There is interval resolution of the fluid collection involving the region of the appendix with what appears to be residual soft tissue thickening possibly the residual appendix. A small amount of fluid is seen within its lumen. Remaining colon demonstrates no acute process.[ Pelvis:[Urinary bladder and uterus appear unremarkable. No adnexal mass.] Peritoneum/Retroperitoneum:No free air or free fluid or lymphadenopathy.[ Abd wall/Bones:Abdominal wall demonstrates no acute findings. Osseous structures demonstrate degenerative change.[ CT/CT abdomen pelvis w con IMPRESSION: 1. Interval resolution of the fluid collection involving the right lower quadrant in the region of the appendix. There is residual soft tissue thickening, possibly the residual appendix with a small amount of fluid seen within its lumen. Findings suggest response to therapy. Impression dictated by: Jesse Marin Jr., D.O. 04/07/2025 9:51 AM Dictation Location: [place] [address] Electronically authenticated by: [id number] Date: 04/07/2025 09:51
== END 2025-04-07 06:56 | disposition home or self-care (01) ==
LOC: CT 06:56
PROVIDERS: PCP Nurse Practitioner
DX: K35.32 Acute appendicitis with perforation, localized peritonitis, and gangrene, without abscess (principal)
CPT/HCPCS: 74177; Q9967